=== PATIENT | female | born 1960 | race Caucasian/White ===

== ENCOUNTER 2017-05-14 05:40 | Observation (INO) | payer OTHER, SELFPAY | END 2017-05-15 08:55 | disposition home or self-care (01) | PROVIDERS: Admitting Provider Internal Medicine Adolescent Medicine; Emergency Provider Emergency Medicine; Family Provider Physician Assistant; Visit Provider Internal Medicine Adolescent Medicine | DX: J44.0 Chronic obstructive pulmonary disease with (acute) lower respiratory infection (principal); J44.1 Chronic obstructive pulmonary disease with (acute) exacerbation; Z99.81 Dependence on supplemental oxygen; J12.9 Viral pneumonia, unspecified; E11.9 Type 2 diabetes mellitus without complications; Z79.4 Long term (current) use of insulin; Z72.0 Tobacco use | CPT/HCPCS: 36415; 71010; 80048; 80053; 80200; 82550; 82553; 82962; 83605; 84484; 85025; 87040; 87205; 87486; 87581; 87633; 87798; 93005; 93306; 94640; 94760; 96367; 99285; G0378; J2543 ==

== ENCOUNTER → 2017-08-19 09:35 | Outpatient (POV) | payer OTHER, SELFPAY | PROVIDERS: Family Provider Physician Assistant; PCP Physician Assistant; Visit Provider Internal Medicine | DX: Z00.00 Encounter for general adult medical examination without abnormal findings (principal) ==

== ENCOUNTER → 2017-09-09 13:27 | Outpatient (CLI) | payer OTHER, SELFPAY ==
--- NOTE | 2017-09-09 13:33 | XR_ITS ---
XR hip BI w [id number] CLINICAL INDICATION: ITS.REASON: RT HIP PAIN ORDERING PHYSICIAN: Kimberli Ruiz PATIENT AGE: 57 years FINDINGS: No fracture or dislocation. No lytic or blastic change. There is slight decrease in the superior joint space on both sides which could be related to minimal osteoarthritic change. Otherwise negative. IMPRESSION: Slight decrease in the superior hip joint space on both sides which may be seen with mild osteoarthritis.
== END ==
PROVIDERS: PCP Physician Assistant; Visit Provider Physician Assistant
DX: M25.551 Pain in right hip (principal)
CPT/HCPCS: 73521

== ENCOUNTER → 2018-03-10 08:58 | Outpatient (POV) | payer OTHER, SELFPAY | PROVIDERS: Visit Provider Internal Medicine | DX: Z00.00 Encounter for general adult medical examination without abnormal findings (principal) ==

== ENCOUNTER → 2018-03-17 13:30 | Outpatient (CLI) | payer OTHER, SELFPAY ==
[2018-03-17 15:15] VITALS: PULSE 68; PULSE 69
[2018-03-17 15:30] VITALS: BP 164/86; BP 170/85; PULSE 75; PULSE 82; RESP 20; O2SAT 94; O2SAT 96
== END ==
PROVIDERS: PCP Physician Assistant; Visit Provider Internal Medicine
DX: J44.9 Chronic obstructive pulmonary disease, unspecified (principal)
CPT/HCPCS: 94060; 94618; 94640; 94726; 94729

== ENCOUNTER → 2018-04-10 13:47 | Outpatient (CLI) | payer OTHER, SELFPAY ==
--- NOTE | 2018-04-10 13:51 | CT_ITS ---
CT chest wo con HISTORY: ITS.REASON: MULTIPLE LUNG NODULE ORDERING PHYSICIAN: Soy Garza MD PATIENT AGE: 57 years. Smoker. Pulmonary nodule. COMPARISON: Technique: Axial images obtained. Sagittal and coronal reformatted images are also generated and reviewed. All CT scans at the facility use one or more dose reduction, viz: automated exposure control, ma/kV adjustment per patient size (including targeted exams where dose is matched to indication, i.e. head), or iterative reconstruction technique. FINDINGS: Lung quinn. Compared to February 2017 there are numerous additional tiny scattered pulmonary densities & small nodular densities scattered throughout the lung quinn bilaterally. These are very small but clearly more numerous. Majority measuring less than 5 mm in size. Some of them with ill-defined margins. Some are fairly dense for size raise the possibility of early granulomas on some of these lesions but others are quite nonspecific and warrant close follow-up and/or further evaluation. . A few of these nodules are seen previously and fairly Stable.: For example at Left lung apex is a 6 mm nodule, image 15 which appears similar when measured consistently. . Right chest Minimal wispy density at the anterior right upper lung field on axial slice 24.. Measuring 6.8 mm length however there are numerous new small nodular densities bilaterally. To numerous to count. Right lung On axial slice 24 there is a new 3 mm nodule anterior RUL. Somewhat grouped area of small less than 4 mm nodule seen on on axial image 36, 37 RLL near the fissure.... Numerous Scattered other small nodules less than 4 mm seen throughout the right lower lobe as noted on axial image 45, [id number], 55, 56, 58 also evident on corresponding sagittal view. Note that some these nodules are fairly dense/Question some possible tiny central calcification along the nodule on image 47 for example with density measures do not confirm such volume averaging. . LEFT LUNG:. Again see numerous small generally less than 5 mm nodules.: Anteriorly at L UL on axial image 33 another on axial 30-(the latter is fairly dense for size). Wispy focal 5.5 mm density-lateral/peripheral L UL axial slice 36. Numerous tiny nodules scattered throughout posterior L UL of superior segment. Some pleural base. These are seen on axial images 39-50. The largest nodule here measuring 5.6 mm on axial image 41... Continuing more inferiorly at the left lung base we see some additional small less than 3 days 4 mm nodules posterior left lower lobe, on axial image 58, 59, 60.. Minimal linear scarring and atelectasis posterior left lower lobe also noted. . HILAR REGIONS: Small Calcified hilar nodes reflecting old granulomatous disease but no significant appearing adenopathy otherwise No mediastinal adenopathy of significance only a few small scattered mediastinal lymph nodes. Heart normal size with some minimal 5 mm pericardial fluid or thickening anteriorly noted. Coronary artery calcification most extensive at the LAD.. Calcification with possible stents at the circumflex artery. Minimal calcification at the right coronary as well. Findings warrant close follow-up and further workup to exclude any associated abnormalities. Recommend bilateral mammogram in one not recently performed elsewhere. CT abdomen/ pelvis suggested. Also suggest Thorough Palpation of neck although would note the thyroid is included and unremarkable on today CT chest study .... Airways unremarkable. . hyperexpansion with Underlying developing Centrilobar emphysema noted slight additional atelectasis and scarring at the posterior SUGAR L . Reflects history of smoking. Lungs appear clear otherwise with no focal pneumonia. No osseous lesions evident
== END ==
PROVIDERS: PCP Physician Assistant; Visit Provider Internal Medicine
DX: R91.8 Other nonspecific abnormal finding of lung field (principal)
CPT/HCPCS: 71250

== ENCOUNTER 2018-05-31 10:37 | Inpatient (IN) ==
[2018-05-31 10:52] LABS: Basophils # 0.1 K/mm3 (0-0.2); Basophils % 0.5 % (0.1-2.0); Eosinophils % 0.2 % (0.1-12.0); Hematocrit 51.6 % (37.0-47.0); Hemoglobin 16.2 g/dL (12.2-16.2); Lymphocytes # 4.7 K/mm3 (0.7-4.5); Lymphocytes % 46.1 % (10-50); Mean Corpuscular HGB Conc 31.3 g/dL (31.8-35.4); Mean Corpuscular Hemoglobin 29.8 pg (27.0-31.2); Mean Corpuscular Volume 94.9 fl (81-99); Mean Platelet Volume 7.6 fl (7.4-10.4); Monocytes % 9.5 % (1.7-9.3); Neutrophils # 4.5 K/mm3 (1.8-7.8); Neutrophils % 43.7 % (37.0-80.0); Platelet Count 271 K/mm3 (142-424); Red Blood Count 5.44 M/mm3 (4.20-5.40); Red Cell Distribution Width 13.1 % (11.5-17.5); White Blood Count 10.2 K/mm3 (4.8-10.8)
--- NOTE | 2018-05-31 10:54 | Emergency Department Note ---
ED Disposition Clinical Impression: COPD (chronic obstructive pulmonary disease) with acute bronchitis, LLL pneumonia Disposition: Admitted As Inpatient Condition on Discharge: Good Time of Disposition: 13:28 - Critical Care Critical Care Time: No Attestation: On , the high probability of a clinically significant, sudden or life threatening deterioration of the following system(s) required my full and direct attention, intervention and personal management. The time I documented below is in addition to time spent performing reported procedures but includes the following listed in this critical care notation. Medical Decision Making - [place] Inquiry Pt receiving controlled substance: No [place] was queried for this patient: No Vital Signs: 05/31/18 10:42 05/31/18 10:45 05/31/18 11:06 Pulse Rate 144 H Pulse Rate [Left Radial] 151 H 145 H Respiratory Rate 32 H Blood Pressure [Right Arm] 165/111 H 156/94 H Blood Pressure Mean [Right Arm] 129 114 Blood Pressure Source [Right Arm] Automatic Cuff Automatic Cuff Blood Pressure Position [Right Arm] Sitting Sitting 02 Sat by Pulse Oximetry 91 L 94 L Oxygen Delivery Method CPAP CPAP 05/31/18 11:23 05/31/18 12:12 05/31/18 13:00 Pulse Rate Pulse Rate [Left Radial] 143 H 123 H 126 H Respiratory Rate Blood Pressure [Right Arm] 122/76 120/91 H 119/71 Blood Pressure Mean [Right Arm] 91 100 87 Blood Pressure Source [Right Arm] Automatic Cuff Automatic Cuff Automatic Cuff Blood Pressure Position [Right Arm] Sitting Sitting 02 Sat by Pulse Oximetry 96 98 97 Oxygen Delivery Method CPAP BiPAP CPAP - Lab Data Lab Results 05/31/18 10:40: WBC 10.2, RBC 5.44 H, Hgb 16.2, Hct 51.6 H, MCV 94.9, MCH 29.8, MCHC 31.3 L, RDW 13.1, Plt Count 271, MPV 7.6, Neut % (Auto) 43.7, Lymph % (Auto) 46.1, [place] % (Auto) 9.5 H, Eos % (Auto) 0.2, Baso % (Auto) 0.5, Neut # (Auto) 4.5, Lymph # (Auto) 4.7 H, [place] # (Auto) 1.0, Eos # (Auto) 0.0, Baso # (Auto) 0.1 05/31/18 10:40: Sodium 127 L, Potassium 3.9, Chloride 87 L, Carbon Dioxide 31, Anion Gap 12.9, BUN 7, Creatinine 0.68, Estimated Creat Clear 121, Estimated GFR 89, Est GFR ( Amer) 108, Glucose 277 H, Calcium 8.8, Total Bilirubin 0.3, AST 15, ALT 18, Alkaline Phosphatase 94, Troponin I 0.06, Total Protein 7.9, Albumin 3.9, Globulin 4.0 H, Albumin/Globulin Ratio 1.0 L 05/31/18 10:40: Specimen Source Left radial, O2 % 10l cpap, ABG pH 7.24 L*, ABG pCO2 67.5 H, ABG pO2 79.6 L, ABG HCO3 28.4 H, ABG Total CO2 30.5 H, ABG O2 Saturation 94, ABG Base Excess 1.0, Ruben Test Acceptable, PEEP 5 05/31/18 11:30: Lactate 1.6 05/31/18 12:38: Specimen Source Right radial, O2 % 50, ABG pH 7.35, ABG pCO2 50.7 H, ABG pO2 142.4 H, ABG HCO3 27.6 H, ABG Total CO2 29.2 H, ABG O2 Saturation 99, ABG Base Excess 2.1, Ruben Test Acceptable, Vent Rate 20, Tidal Volume Bipap 16/6 Result diagrams: 05/31/18 10:40 05/31/18 10:40 Orders (Tests/Meds): ED MEDICATIONS Discontinued Medications Generic Name Dose Route Start Last Admin Trade Name Freq PRN Reason Stop Dose Admin Methylprednisolone Sodium Succinate 125 mg 05/31/18 10:56 05/31/18 10:58 Solu-Medrol 125mg/2ml Vial IV 05/31/18 10:57 125 mg ONCE ONE Administration Methylprednisolone Sodium Succinate 125 mg 05/31/18 10:57 05/31/18 10:59 Solu-Medrol 125mg/2ml Vial IV 05/31/18 10:58 125 mg ONCE ONE Administration ORDERS Category Date Time Status Blood Culture Stat Micro 05/31/18 11:40 Received ABG [Arterial Blood Gas] Stat RT 05/31/18 12:38 Ordered Arterial Blood Gas Routine RT 05/31/18 10:40 Results General Adult HPI - General Chief complaint: Shortness of Breath/Dyspnea Stated complaint: sob Time Seen by Provider: 05/31/18 10:40 Mode of Arrival: EMS Source of Information: Patient, EMS - History of Present Illness HPI narrative: markedly increased shortness of breath x one week. Historyt of COPD, long tobacco abuse history - Related Data Home Medications Medication Instructions Recorded Confirmed albuterol sulfate HFA 90 2 puff INHALATION Q4-6H PRN 07/09/17 05/31/18 mcg/actuation aerosol inhaler fluticasone 100 mcg/actuation 1 inh INHALATION BID 07/09/17 05/31/18 blister powder for inhalation insulin glargine (U- 100) 100 10 unit SUB-Q QHS 07/09/17 05/31/18 unit/mL subcutaneous solution ropinirole 1 mg tablet 1 mg PO BID tab 07/09/17 05/31/18 metformin 500 mg tablet 500 mg PO BID 08/07/17 05/31/18 Amlodipine Besylate 5 mg PO DAILY 05/31/18 05/31/18 Atorvastatin Calcium [Lipitor 40mg 40 mg PO DAILY 05/31/18 05/31/18 Tablet] Azithromycin [Zithromax 500mg Tab] 500 mg PO DAILY 05/31/18 05/31/18 Carvedilol [Carvedilol 12.5mg Tab] 12.5 mg PO BID 05/31/18 05/31/18 Clopidogrel Bisulfate [Plavix 75mg 75 mg PO DAILY 05/31/18 05/31/18 Tab] Lisinopril/Hydrochlorothiazide 1 tab PO BID 05/31/18 05/31/18 [Lisinopril-Hctz 20-25 mg Tab] Miscellaneous [Unknown Home 1 each NOTAPPLIC CONSULT PHARMACY 05/31/18 05/31/18 Medication] Allergies Allergy/AdvReac Type Severity Reaction Status Date / Time Iodinated Contrast Media - Allergy Intermediate I-RASH/SOB/ Verified 03/24/18 12:28 Oral and Anaphlaxis [Iodinated Contrast Media - IV Dye] [facility] History - Hepatitis A Screen Attestation statement:: This patient has been screened for Hepatitis A risk factors. I have reviewed the patient's past medical history: No Medical History: Reports:: Chronic Obstructive Pulmonary Disease (COPD), Coronary Artery Disease, Diabetes Mellitus Type 2, Hyperlipidemia, Hypertension Comment: APR 2017 Pnx hospitalization Other Surgeries: Yes: Fractures: Yes - Social History Smoking Status: Current every day smoker Alcohol Intake: never Alcohol Intake Frequency:: other Family Hx:: Coronary Artery Disease, Diabetes, Hypertension ROS Obtained: Yes All systems reviewed & no additional complaints - Constitutional Constitutional: Reports system reviewed and no additional complaints, except as docu, Reports chills, Reports lethargy, Reports malaise - Eyes Eyes: Reports system reviewed and no additional complaints, except as docu, Denies change in vision - Cardiovascular Cardiovascular: Reports system reviewed and no additional complaints, except as docu, Reports dyspnea, Reports dyspnea on exertion, Reports lightheadedness, Reports shortness of breath when lying down, Reports rapid heart rate - Respiratory Respiratory: Yes system reviewed and no additional complaints, except as docu, Yes chest congestion, Yes cough, Yes dyspnea, Yes dyspnea on exertion, No coughing up blood - Gastrointestinal Gastrointestingal: Reports: system reviewed and no additional complaints, except as docu, vomiting. Denies: abdominal pain, diarrhea, nausea - Genitourinary Female Genitourinary: Denies dysuria - Musculoskeletal Musculoskeletal: Denies joint swelling - Integumentary/Breasts Skin/Breast: Denies rash - Neurologic Neurologic: Reports system reviewed and no additional complaints, except as docu, Denies focal weakness, Denies numbness, Reports weakness - Hematologic/Lymphatic Henatologic/Lymphatic: Denies easy bleeding, Denies easy bruising, Denies lymphadenopathy Physical Exam - General General appearance: alert - Head Head exam: atraumatic - Eye Eye exam: Present: normal appearance - ENT ENT exam: Present: normal exam - Neck Neck exam: Present: normal inspection, full ROM, trachea midline. Absent: tenderness, meningismus, lymphadenopathy, thyromegaly - Chest Chest inspection: Present: normal inspection - Respiratory Respiratory exam: Present: respiratory distress, wheezes, prolonged expiratory phase. Absent: normal lung sounds bilaterally - Cardiovascular Cardiovascular exam: Present: normal rhythm, tachycardia. Absent: regular rate - Abdominal Exam Abdominal exam: Present: soft. Absent: distention, tenderness, guarding - Neurological Exam Neurological exam: Absent: alert, oriented X3, CN II-XII intact - Psychiatric Psychiatric exam: Present: flat affect - Skin Skin exam: Present: warm, dry, intact, normal color
[2018-05-31 11:14] LABS: Albumin Level 3.9 gm/dL (3.4-5.0); Anion Gap 12.9 mEq/L (5-15); Bilirubin,Total 0.3 mg/dL (0.2-1.0); Calcium 8.8 mg/dL (8.5-10.1); Potassium 3.9 mmoL/L (3.5-5.1); Total Protein,Serum 7.9 gm/dL (6.4-8.2)
[2018-05-31 12:51] LABS: ABG Base Excess 2.1 mmol/L (-2.4-2.3); ABG HCO3 27.6 mmhg (22.0-26.0); ABG Oxygen Saturation 99 % (90-100); ABG PH 7.35 mmol/L (7.35-7.45); ABG PO2 142.4 mmhg (80-100); ABG TCO2 29.2 mmhg (23-27)
[2018-05-31 12:52] LABS: Allen's Test Acceptable; Oxygen 50 %
[2018-05-31 12:53] LABS: ABG PCO2 50.7 mmhg (35.0-45.0)
[2018-06-01 06:20] LABS: Basophils % 0.3 % (0.1-2.0); Hematocrit 45.4 % (37.0-47.0); Hemoglobin 14.7 g/dL (12.2-16.2); Lymphocytes # 1.2 K/mm3 (0.7-4.5); Lymphocytes % 17.6 % (10-50); Mean Corpuscular HGB Conc 32.4 g/dL (31.8-35.4); Mean Corpuscular Hemoglobin 30.6 pg (27.0-31.2); Mean Corpuscular Volume 94.4 fl (81-99); Mean Platelet Volume 7.5 fl (7.4-10.4); Monocytes # 0.3 K/mm3 (0.1-1.0); Monocytes % 3.9 % (1.7-9.3); Neutrophils # 5.1 K/mm3 (1.8-7.8); Neutrophils % 78.1 % (37.0-80.0); Platelet Count 242 K/mm3 (142-424); Red Blood Count 4.81 M/mm3 (4.20-5.40); Red Cell Distribution Width 13.3 % (11.5-17.5); White Blood Count 6.6 K/mm3 (4.8-10.8)
[2018-06-01 06:26] LABS: Anion Gap 11.8 mEq/L (5-15); Calcium 8.5 mg/dL (8.5-10.1); Potassium 3.8 mmoL/L (3.5-5.1)
--- NOTE | 2018-06-01 07:27 | Pharmacy Consult Notes ---
[facility] Pharmacy VTE Monitoring - Patient Demographics Admission date: 05/31/18 Report Date: 06/01/18 Time: 07:27 Allergies/Adverse Reactions: Patient Allergies Iodinated Contrast Media - Oral and [Iodinated Contrast Media - IV Dye] Allergy (Intermediate, Verified 03/24/18 12:28) I-RASH/SOB/Anaphlaxis Height: 1.63 m Weight: 80.796 kg Patient Problems: Current Active Problems (Last Reviewed 05/31/18 @ 11:35 by Angie Johnson, EMT) COPD (chronic obstructive pulmonary disease) with acute bronchitis (Acute) LLL pneumonia (Acute) - VTE Risk Labs: VTE Related Lab Results Hgb 14.7 g/dL (12.2-16.2) 06/01/18 05:56 Hct 45.4 % (37.0-47.0) 06/01/18 05:56 Plt Count 242 K/mm3 (142-424) 06/01/18 05:56 BUN 12 mg/dL (7-18) D 06/01/18 05:56 Creatinine 0.48 mg/dL (0.55-1.02) L D 06/01/18 05:56 Estimated Creat Clear 163 mL/min (50-200) 06/01/18 05:56 Was VTE Risk Assessment Performed: Yes VTE Score: 4 VTE Risk Level: Low Risk Clinical Trial Participant: No - Prophylaxis VTE Prophylaxis Ordered?: Yes Types of VTE Prophylaxis: TEDS Knee High
--- NOTE | 2018-06-01 09:21 | History & Physical Report ---
*Admission Date: 05/31/18 <Alejandra Macias 06/01/18 09:37> *Chief complaint: Shortness of breath <Alejandra Macias 06/01/18 09:37> *History of present illness: Ms. Kaba is a 57-year-old female patient of Dr. Santos with a history of COPD, coronary artery disease with stents, hypertension, left ventricular hypertrophy, type 2 diabetes mellitus, diastolic dysfunction, and tobacco dependence who presented to [facility] emergency room yesterday a.m. with progressive shortness of breath. She describes being seen by her physician 4 days ago and currently is being treated for strep throat with erythromycin. She was also started on steroids. She does wear home oxygen at night but normally does well during the daytime. She describes a nonproductive cough and no current fever. She has been eating and drinking as usual. She has had a diminished urinary output. With evaluation in the emergency room she was found to be in respiratory distress. She was thus admitted for further evaluation and treatment. This a.m. at time of exam patient states she does not feel any better. She did not sleep due to her shortness of breath. Duo nebs have not helped. She has had minimal urinary output with IV fluids at 150 an hour. She has had a labored respiratory effort and has to sit up at 90 degrees in order to breath. <Alejandra Macias 06/01/18 11:10> [facility] History Medical History: Reports:: Chronic Obstructive Pulmonary Disease (COPD), Coronary Artery Disease, Diabetes Mellitus Type 2, Hyperlipidemia, Hypertension Denies:: Cancer, MRSA <Alejandra Macias 06/01/18 09:37> Other Surgeries: Yes: Cardiac Catheterization (With stent), Coronary Stent, C- section <Alejandra Macias 06/01/18 09:37> Amputation: No <Alejandra Macias 06/01/18 09:37> Fractures: Yes (tailbone, wrist) <Alejandra Macias 06/01/18 09:37> - *Social History Educational Level: Completed Grade School <Alejandra Macias 06/01/18 09:37> Smoking Status: Current every day smoker <Alejandra Macias 06/01/18 09:37> Tobacco Type: cigarettes <Alejandra Macias 06/01/18 09:37> # Packs/Day (cigarettes): 1 <Alejandra Macias 06/01/18 09:37> Alcohol Intake: never <Alejandra Macias 06/01/18 09:37> Alcohol Intake Frequency:: other <Alejandra Macias 06/01/18 09:37> Occupational Status: disabled <Alejandra Macias 06/01/18 09:37> Housing: house <ColleenAlejandra 06/01/18 09:37> Household Members: spouse <Alejandra Macias 06/01/18 09:37> - Psychiatric History Expresses thoughts of harming self/others: None <ColleenAlejandra 06/01/18 09:37> Suicide Plan Description: No Plan <ColleenAlejandra 06/01/18 09:37> *Family Hx:: Coronary Artery Disease, Diabetes, Hypertension <ColleenAlejandra 06/01/18 09:37> Review of Systems - Constitutional Reports fever(s), Reports weakness <MaciasAlejandra 06/01/18 09:37> - ENT Reports sore throat, Denies ear pain <MaciasAlejandra 06/01/18 09:37> - *Cardiovascular Reports shortness of breath, Reports shortness of breath with activity, Reports shortness of breath when lying down, Denies chest pain <MaciasAlejandra 06/01/18 09:37> - *Respiratory Reports chest congestion, Reports cough, Reports shortness of breath, Reports shortness of breath with activity, Denies coughing up blood <MaciasAlejandra 06/01/18 09:37> - *Gastrointestinal Denies abdominal pain, Denies nausea, Denies vomiting <MaciasAlejandra 06/01/18 09:37> - *Genitourinary Denies difficulty urinating <MaciasAlejandra 06/01/18 09:37> - *Musculoskeletal Denies joint pain <MaciasAlejandra 06/01/18 09:37> - *Neurologic Reports weakness, Denies localized weakness, Denies numbness <Macias,Alejandra 06/01/18 09:37> Meds Home Medications Medication Instructions Recorded Confirmed Type albuterol sulfate HFA 90 2 puff INHALATION Q4-6H PRN 07/09/17 05/31/18 History mcg/actuation aerosol inhaler metformin 500 mg tablet 500 mg PO BID 08/07/17 05/31/18 History Azithromycin [Zithromax 500mg Tab] 500 mg PO DAILY 05/31/18 05/31/18 History Carvedilol [Carvedilol 12.5mg Tab] 12.5 mg PO BID 05/31/18 05/31/18 History Clopidogrel Bisulfate [Plavix 75mg 75 mg PO DAILY 05/31/18 05/31/18 History Tab] Lisinopril/Hydrochlorothiazide 1 tab PO BID 05/31/18 05/31/18 History [Lisinopril-Hctz 20-25 mg Tab] Mometasone/Formoterol [Dulera 200 1 inhalation PO BID 05/31/18 05/31/18 History Mcg/5 Mcg Inhaler] Umeclidinium [place] [Incruse 62.5 mcg IH DAILY 05/31/18 05/31/18 History Ellipta] Atorvastatin Calcium [Atorvastatin 40 mg PO HS 06/01/18 06/01/18 History 40mg Tab] Ibuprofen [Ibuprofen 800mg 800 mg PO TIDP PRN 06/01/18 06/01/18 History Tablet] Loratadine [Claritin 10mg Tablet] 10 mg PO DAILY 06/01/18 06/01/18 History <Tamiko Jones - 06/01/18 11:24> Allergies Allergy/AdvReac Type Severity Reaction Status Date / Time Iodinated Contrast Media - Allergy Intermediate I-RASH/SOB/ Verified 03/24/18 12:28 Oral and Anaphlaxis [Iodinated Contrast Media - IV Dye] <Tamiko Jones - 06/01/18 11:24> Exam Vital signs and Labs for Last 24 Hours: Temp Pulse Resp BP Pulse Ox 97.7 F 80 30 H 141/95 H 90 L 06/01/18 07:57 06/01/18 10:17 06/01/18 08:00 06/01/18 07:57 06/01/18 07:57 Laboratory Results - last 24 hr 05/31/18 11:30: Lactate 1.6 05/31/18 12:38: Specimen Source Right radial, O2 % 50, ABG pH 7.35, ABG pCO2 50.7 H, ABG pO2 142.4 H, ABG HCO3 27.6 H, ABG Total CO2 29.2 H, ABG O2 Saturation 99, ABG Base Excess 2.1, Ruben Test Acceptable, Vent Rate 20, Tidal Volume Bipap 16/6 05/31/18 16:15: POC Glucose 280 H 05/31/18 21:06: POC Glucose 209 H 06/01/18 05:56: WBC 6.6 D, RBC 4.81, Hgb 14.7, Hct 45.4, MCV 94.4, MCH 30.6, MCHC 32.4, RDW 13.3, Plt Count 242, MPV 7.5, Neut % (Auto) 78.1, Lymph % (Auto) 17.6, [place] % (Auto) 3.9, Eos % (Auto) 0.0 L, Baso % (Auto) 0.3, Neut # (Auto) 5.1, Lymph # (Auto) 1.2, [place] # (Auto) 0.3, Eos # (Auto) 0.0, Baso # (Auto) 0.0 06/01/18 05:56: Sodium 129 L, Potassium 3.8, Chloride 90 L, Carbon Dioxide 31, Anion Gap 11.8, BUN 12 D, Creatinine 0.48 L D, Estimated Creat Clear 163, Estimated GFR 133, Est GFR ( Amer) 161 D, Glucose 179 H D, Calcium 8.5 <Sound,Tamiko - 06/01/18 11:24> Temp Pulse Resp BP Pulse Ox 97.7 F 54 L 22 141/95 H 90 L 06/01/18 07:57 06/01/18 07:57 06/01/18 07:57 06/01/18 07:57 06/01/18 07:57 Laboratory Results - last 24 hr 05/31/18 10:40: WBC 10.2, RBC 5.44 H, Hgb 16.2, Hct 51.6 H, MCV 94.9, MCH 29.8, MCHC 31.3 L, RDW 13.1, Plt Count 271, MPV 7.6, Neut % (Auto) 43.7, Lymph % (Au to) 46.1, [place] % (Auto) 9.5 H, Eos % (Auto) 0.2, Baso % (Auto) 0.5, Neut # (Auto) 4.5, Lymph # (Auto) 4.7 H, [place] # (Auto) 1.0, Eos # (Auto) 0.0, Baso # (Auto) 0.1 05/31/18 10:40: Sodium 127 L, Potassium 3.9, Chloride 87 L, Carbon Dioxide 31, Anion Gap 12.9, BUN 7, Creatinine 0.68, Estimated Creat Clear 121, Estimated GFR 89, Est GFR ( Amer) 108, Glucose 277 H, Calcium 8.8, Total Bilirubin 0.3, AST 15, ALT 18, Alkaline Phosphatase 94, Troponin I 0.06, Total Protein 7.9, Albumin 3.9, Globulin 4.0 H, Albumin/Globulin Ratio 1.0 L 05/31/18 10:40: Specimen Source Left radial, O2 % 10l cpap, ABG pH 7.24 L*, ABG pCO2 67.5 H, ABG pO2 79.6 L, ABG HCO3 28.4 H, ABG Total CO2 30.5 H, ABG O2 Satur ation 94, ABG Base Excess 1.0, Ruben Test Acceptable, PEEP 5 05/31/18 11:30: Lactate 1.6 05/31/18 12:38: Specimen Source Right radial, O2 % 50, ABG pH 7.35, ABG pCO2 50.7 H, ABG pO2 142.4 H, ABG HCO3 27.6 H, ABG Total CO2 29.2 H, ABG O2 Saturation 99, ABG Base Excess 2.1, Ruben Test Acceptable, Vent Rate 20, Tidal Volume Bipap 16/6 05/31/18 16:15: POC Glucose 280 H 05/31/18 21:06: POC Glucose 209 H 06/01/18 05:56: WBC 6.6 D, RBC 4.81, Hgb 14.7, Hct 45.4, MCV 94.4, MCH 30.6, MCHC 32.4, RDW 13.3, Plt Count 242, MPV 7.5, Neut % (Auto) 78.1, Lymph % (Auto) 17.6, [place] % (Auto) 3.9, Eos % (Auto) 0.0 L, Baso % (Auto) 0.3, Neut # (Auto) 5.1, Lymph # (Auto) 1.2, [place] # (Auto) 0.3, Eos # (Auto) 0.0, Baso # (Auto) 0.0 06/01/18 05:56: Sodium 129 L, Potassium 3.8, Chloride 90 L, Carbon Dioxide 31, Anion Gap 11.8, BUN 12 D, Creatinine 0.48 L D, Estimated Creat Clear 163, Estimated GFR 133, Est GFR ( Amer) 161 D, Glucose 179 H D, Calcium 8.5 <Alejandra Macias 06/01/18 09:37> I & O for Last 24 hours: Intake & Output 05/29/18 05/30/18 05/31/18 06/01/18 11:59 11:59 11:59 11:59 Intake Total 2859 / 2859 Balance 2859 / 2859 Weight 188 lb 178 lb 2 oz <Tamiko Jones 06/01/18 11:24> Intake & Output 05/29/18 05/30/18 05/31/18 06/01/18 11:59 11:59 11:59 11:59 Intake Total 2859 / 2859 Balance 2859 / 2859 Weight 188 lb 178 lb 2 oz <Alejandra Macias 06/01/18 09:37> Microbiology Reports for the Last 24 Hours: Microbiology 05/31/18 17:15 Sputum - Expectorated Sputum Gram Stain - Final <Tamiko Jones 06/01/18 11:24> Microbiology 05/31/18 17:15 Sputum - Expectorated Sputum Gram Stain - Final <Alejandra Macias 06/01/18 09:37> Radiology Reports for the Last 24 Hours: 05/31/2017 chest x-ray IMPRESSION Slight increased markings left lung base. Suggestion slight additional atelectasis with possible minimal wispy infiltrate at the left lung base just above diaphragm. Previous CXR studies have shown underlying linear scarring & atelectasis scarring & mild chronic changes at lung bases but findings are slightly more pronounced today at left base. . Hyperexpansion at the upper lung quinn. Heart and mediastinal structures satisfactory. <Alejandra Macias 06/01/18 09:37> - Constitutional moderate distress <Alejandra Macias 06/01/18 09:37> Comments: Labored respiratory effort <Alejandra Macias 06/01/18 09:37> - *Routine HEENT Exam Head: Present: normocephalic, atraumatic <Alejandra Macias 06/01/18 09:37> Eye: Present: PERRL. Absent: conjunctival icterus, scleral injection <Alejandra Macias 06/01/18 09:37> ENT: Present: mucous membranes moist <Alejandra Macias 06/01/18 09:37> Comments: Oropharyngeal erythema. <Alejandra Macias 06/01/18 09:37> - *Routine Neck Exam Comments: Unable to hear carotid sounds due to wheezing and rhonchi <Lucy Maciashy 06/01/18 09:37> - *Routine Respiratory Exam Comments: Bilateral wheezing and rhonchi. Diminished breath sounds posteriorly more so in the right lower lobe; sitting up at about 90 degrees with labored resporatory effort <Alejandra Macias 06/01/18 11:10> - *Routine Cardiovascular Exam Present: RRR <Lucy Maciashy 06/01/18 09:37> Comments: Tachycardic <Alejandra Macias 06/01/18 09:37> - *Routine Abdominal Exam Present: soft, normoactive bowel sounds. Absent: tenderness, distended <Alejandra Macias 06/01/18 09:37> - *Routine Extremities Exam Absent: edema, calf tenderness <Alejandra Macias 06/01/18 09:37> - *Routine Neurological Exam Present: alert, oriented X3 <Lucy Maciashy 06/01/18 09:37> Assessment and Plan (1) LLL pneumonia Current visit: Yes Status: Acute Category: Medical Code(s): J18.1 - Lobar pneumonia, unspecified organism (2) CAD (coronary artery disease) Current visit: No Status: Chronic Qualifiers: [place] vs. transplanted heart: jamul heart Associated angina: without angina Category: Medical Code(s): I25.10 - Atherosclerotic heart disease of [place] coronary artery without angina pectoris (3) Diabetes mellitus Current visit: No Status: Chronic Qualifiers: Diabetes mellitus type: type 2 Diabetes mellitus snf insulin use: with snf use Diabetes mellitus complication status: without complication Qualified Code(s): E11.9 - Type 2 diabetes mellitus without complications; Z7 9.4 - assisted (current) use of insulin Category: Medical Code(s): E11.9 - Type 2 diabetes mellitus without complications (4) HTN (hypertension) Current visit: No Status: Chronic Qualifiers: Hypertension type: essential hypertension Qualified Code(s): I10 - Essential (primary) hypertension Category: Medical Code(s): I10 - Essential (primary) hypertension (5) Left ventricular hypertrophy Current visit: No Status: Chronic Category: Medical Code(s): I51.7 - Cardiomegaly (6) Tobacco dependence syndrome Current visit: No Status: Chronic Category: Medical Code(s): F17.200 - Nicotine dependence, unspecified, uncomplicated (7) Strep pharyngitis Current visit: Yes Status: Acute Category: Medical Code(s): J02.0 - Streptococcal pharyngitis (8) COPD (chronic obstructive pulmonary disease) with acute bronchitis Current visit: Yes Status: Acute Category: Medical Code(s): J44.0 - Chronic obstructive pulmonary disease with acute lower respiratory infection; J20.9 - Acute bronchitis, unspecified <Alejandra Macias - 06/01/18 11:06> (1) LLL pneumonia Current visit: Yes Status: Acute Category: Medical Code(s): J18.1 - Lobar pneumonia, unspecified organism (2) CAD (coronary artery disease) Current visit: No Status: Chronic Qualifiers: [place] vs. transplanted heart: jamul heart Associated angina: without angina Category: Medical Code(s): I25.10 - Atherosclerotic heart disease of jam[place] coronary artery without angina pectoris (3) Diabetes mellitus Current visit: No Status: Chronic Qualifiers: Diabetes mellitus type: type 2 Diabetes mellitus snf insulin use: with exterminator helper termite use Diabetes mellitus complication status: without complication Qualified Code(s): E11.9 - Type 2 diabetes mellitus without complications; Z79.4 - intermediate accountant (current) use of insulin Category: Medical Code(s): E11.9 - Type 2 diabetes mellitus without complications (4) HTN (hypertension) Current visit: No Status: Chronic Qualifiers: Hypertension type: essential hypertension Qualified Code(s): I10 - Essential (primary) hypertension Category: Medical Code(s): I10 - Essential (primary) hypertension (5) Left ventricular hypertrophy Current visit: No Status: Chronic Category: Medical Code(s): I51.7 - Cardiomegaly (6) Tobacco dependence syndrome Current visit: No Status: Chronic Category: Medical Code(s): F17.200 - Nicotine dependence, unspecified, uncomplicated (7) Strep pharyngitis Current visit: Yes Status: Acute Category: Medical Code(s): J02.0 - Streptococcal pharyngitis (8) COPD (chronic obstructive pulmonary disease) with acute bronchitis Current visit: Yes Status: Acute Category: Medical Code(s): J44.0 - Chronic obstructive pulmonary disease with acute lower respiratory infection; J20.9 - Acute bronchitis, unspecified <Tamiko Jones - 06/01/18 11:24> - Assessment and plan all Dx Assessment and Plan for all problems:: agree with above, please see my progress note from today for more details. <Tamiko Jones - 06/01/18 11:24> Continue with antibiotics, Rocephin and Zithromax. Duo nebs changed to Xopenex due to tachycardia. IV fluids decreased to 50 mL/h. She was given 125 mg of Solu-Medrol stat as an extra dose and 40 Lasix IV. Recheck at 9:15 AM: Patient states she feels a little better. She has voided twice since receiving the Lasix. She will have chest x-ray repeated and be placed on telemetry. Lung sounds at this time reveal bilateral crackles posteriorly. <Alejandra Macias - 06/01/18 11:10>
--- NOTE | 2018-06-01 11:13 | Progress Note ---
Internal Medicine - PN: Subj *Date: 06/01/18 *Time: 09:30 Interval history: Patient was feeling worse since last night and did not have any good sleep. She was sitting up in bed to catch her breathe during exam. She is not able to speak full sentences to me as she is short of breath and was having labored breathing. Her CXR was worse than the one upon admission. Exam Vital signs and Labs for Last 24 Hours: Temp Pulse Resp BP Pulse Ox 97.7 F 80 30 H 141/95 H 90 L 06/01/18 07:57 06/01/18 10:17 06/01/18 08:00 06/01/18 07:57 06/01/18 07:57 Laboratory Results - last 24 hr 05/31/18 10:40: Sodium 127 L, Potassium 3.9, Chloride 87 L, Carbon Dioxide 31, Anion Gap 12.9, BUN 7, Creatinine 0.68, Estimated Creat Clear 121, Estimated GFR 89, Est GFR ( Amer) 108, Glucose 277 H, Calcium 8.8, Total Bilirubin 0.3, AST 15, ALT 18, Alkaline Phosphatase 94, Troponin I 0.06, Total Protein 7.9, Albumin 3.9, Globulin 4.0 H, Albumin/Globulin Ratio 1.0 L 05/31/18 11:30: Lactate 1.6 05/31/18 12:38: Specimen Source Right radial, O2 % 50, ABG pH 7.35, ABG pCO2 50.7 H, ABG pO2 142.4 H, ABG HCO3 27.6 H, ABG Total CO2 29.2 H, ABG O2 Saturation 99, ABG Base Excess 2.1, Ruben Test Acceptable, Vent Rate 20, Tidal Volume Bipap 16/6 05/31/18 16:15: POC Glucose 280 H 05/31/18 21:06: POC Glucose 209 H 06/01/18 05:56: WBC 6.6 D, RBC 4.81, Hgb 14.7, Hct 45.4, MCV 94.4, MCH 30.6, MCHC 32.4, RDW 13.3, Plt Count 242, MPV 7.5, Neut % (Auto) 78.1, Lymph % (Auto) 17.6, [place] % (Auto) 3.9, Eos % (Auto) 0.0 L, Baso % (Auto) 0.3, Neut # (Auto) 5 .1, Lymph # (Auto) 1.2, [place] # (Auto) 0.3, Eos # (Auto) 0.0, Baso # (Auto) 0.0 06/01/18 05:56: Sodium 129 L, Potassium 3.8, Chloride 90 L, Carbon Dioxide 31, Anion Gap 11.8, BUN 12 D, Creatinine 0.48 L D, Estimated Creat Clear 163, Estimated GFR 133, Est GFR ( Amer) 161 D, Glucose 179 H D, Calcium 8.5 I & O for Last 24 hours: Intake & Output 05/29/18 05/30/18 05/31/18 06/01/18 11:59 11:59 11:59 11:59 Intake Total 2859 / 2859 Balance 2859 / 2859 Weight 188 lb 178 lb 2 oz Microbiology Reports for the Last 24 Hours: Microbiology 05/31/18 17:15 Sputum - Expectorated Sputum Gram Stain - Final - *Routine HEENT Exam Head: Present: normocephalic Eye: Present: EOMI ENT: Present: mucous membranes moist - *Routine Neck Exam Present: supple, full ROM - Routine Chest/Breast/Axilla Exam Chest wall: Absent: tenderness - *Routine Respiratory Exam Present: accessory muscle use, decreased breath sounds, respiratory distress, crackles, distant breath sounds, diminished air movement - *Routine Cardiovascular Exam Present: Normal S1, Normal S2, tachycardia. Absent: murmur - *Routine Abdominal Exam Present: soft, normoactive bowel sounds - *Routine Extremities Exam Present: pulses intact. Absent: edema - *Routine Skin Exam Present: intact - *Routine Neurological Exam Present: alert, oriented X3 Assessment and Plan (1) LLL pneumonia Current visit: Yes Status: Acute Category: Medical Code(s): J18.1 - Lobar pneumonia, unspecified organism (2) CAD (coronary artery disease) Current visit: No Status: Chronic Category: Medical Code(s): I25.10 - Atherosclerotic heart disease of [place] coronary artery without angina pectoris (3) Diabetes mellitus Current visit: No Status: Chronic Qualifiers: Qualified Code(s): E11.9 - Type 2 diabetes mellitus without complications; Z79.4 - shelter (current) use of insulin Category: Medical Code(s): E11.9 - Type 2 diabetes mellitus without complications (4) HTN (hypertension) Current visit: No Status: Chronic Qualifiers: Qualified Code(s): I10 - Essential (primary) hypertension Category: Medical Code(s): I10 - Essential (primary) hypertension (5) Left ventricular hypertrophy Current visit: No Status: Chronic Category: Medical Code(s): I51.7 - Cardiomegaly (6) Tobacco dependence syndrome Current visit: No Status: Chronic Category: Medical Code(s): F17.200 - Nicotine dependence, unspecified, uncomplicated (7) Strep pharyngitis Current visit: Yes Status: Acute Category: Medical Code(s): J02.0 - Streptococcal pharyngitis (8) COPD (chronic obstructive pulmonary disease) with acute bronchitis Current visit: Yes Status: Acute Category: Medical Code(s): J44.0 - Chronic obstructive pulmonary disease with acute lower respiratory infection; J20.9 - Acute bronchitis, unspecified - Assessment and plan all Dx Assessment and Plan for all problems:: 1. Acute on Chronic respiratory failure: Continue oxygen supplementation, incentive spirometry, IV steriods, IV lasix, Neb tx, and IV broad-spectrum abx with Vanc and Zosyn for now for her LLL PNA. 2. LLL PNA: continue IV abx 3. COPD exacerbation: continue neb tx and abx 4. CAD: continue home meds, will get Echo to rule out caardiopulmpnary involvement 5. Essential HTN : continue home meds 6. Tobacco dependance: will place on nicotine patch 7. Hyponatremia: will get CT of chest to rule out cancer etiologies, will order TSH, FT4, uric acid, urine osm to r/o SIADH. 8. T2DM: will put her on SSI. 9. DVT prophylaxis: Scd/teds
[2018-06-01 11:49] LABS: ABG Base Excess 10.2 mmol/L (-2.4-2.3); ABG HCO3 37.6 mmhg (22.0-26.0); ABG Oxygen Saturation 91 % (90-100); ABG PH 7.24 mmol/L (7.35-7.45); ABG PO2 65.7 mmhg (80-100); ABG TCO2 40.3 mmhg (23-27)
[2018-06-01 11:51] LABS: ABG PCO2 89.7 mmhg (35.0-45.0); Allen's Test Acceptable; Oxygen 4L %
[2018-06-01 11:52] LABS: Free T4 (Free Thyroxine) 1.03 ng/dl (0.76-1.46); Thyroid Stimulating Hormone 0.41 uIU/ml (0.358-3.740); Uric Acid 3.4 mg/dL (2.6-7.2)
--- NOTE | 2018-06-01 13:38 | Pharmacy Consult Notes ---
- Pharmacy Consult Date: 06/01/18 Time: 13:36 Referring provider: DR. HERNANDEZ Reason for Consult:: VANCOMYCIN DOSING Allergies and ADEs:: Allergies Allergy/AdvReac Type Severity Reaction Status Date / Time Iodinated Contrast Media - Allergy Intermediate I-RASH/SOB/ Verified 03/24/18 12:28 Oral and Anaphlaxis [Iodinated Contrast Media - IV Dye] Home Medications:: Home Medications Medication Instructions Recorded Confirmed Type albuterol sulfate HFA 90 2 puff INHALATION Q4-6H PRN 07/09/17 05/31/18 History mcg/actuation aerosol inhaler metformin 500 mg tablet 500 mg PO BID 08/07/17 05/31/18 History Azithromycin [Zithromax 500mg Tab] 500 mg PO DAILY 05/31/18 05/31/18 History Carvedilol [Carvedilol 12.5mg Tab] 12.5 mg PO BID 05/31/18 05/31/18 History Clopidogrel Bisulfate [Plavix 75mg 75 mg PO DAILY 05/31/18 05/31/18 History Tab] Lisinopril/Hydrochlorothiazide 1 tab PO BID 05/31/18 05/31/18 History [Lisinopril-Hctz 20-25 mg Tab] Mometasone/Formoterol [Dulera 200 1 inhalation PO BID 05/31/18 05/31/18 History Mcg/5 Mcg Inhaler] Umeclidinium [place] [Incruse 62.5 mcg IH DAILY 05/31/18 05/31/18 History Ellipta] Atorvastatin Calcium [Atorvastatin 40 mg PO HS 06/01/18 06/01/18 History 40mg Tab] Ibuprofen [Ibuprofen 800mg 800 mg PO TIDP PRN 06/01/18 06/01/18 History Tablet] Loratadine [Claritin 10mg Tablet] 10 mg PO DAILY 06/01/18 06/01/18 History Height: 1.63 m Weight: 80.796 kg Laboratory Results:: Laboratory Results - last 24 hr 05/31/18 16:15: POC Glucose 280 H 05/31/18 21:06: POC Glucose 209 H 06/01/18 05:56: WBC 6.6 D, RBC 4.81, Hgb 14.7, Hct 45.4, MCV 94.4, MCH 30.6, MCHC 32.4, RDW 13.3, Plt Count 242, MPV 7.5, Neut % (Auto) 78.1, Lymph % (Auto) 17.6, [place] % (Auto) 3.9, Eos % (Auto) 0.0 L, Baso % (Auto) 0.3, Neut # (Auto) 5.1, Lymph # (Auto) 1.2, [place] # (Auto) 0.3, Eos # (Auto) 0.0, Baso # (Auto) 0.0 06/01/18 05:56: Sodium 129 L, Potassium 3.8, Chloride 90 L, Carbon Dioxide 31, Anion Gap 11.8, BUN 12 D, Creatinine 0.48 L D, Estimated Creat Clear 163, Estimated GFR 133, Est GFR ( Amer) 161 D, Glucose 179 H D, Calcium 8.5 06/01/18 05:56: Uric Acid 3.4, TSH 0.41, Free T4 1.03 06/01/18 05:56: B-Natriuretic Peptide 1080 H 06/01/18 11:26: Specimen Source Right radial, O2 % 4l, ABG pH 7.24 L*, ABG pCO2 89.7 H, ABG pO2 65.7 L, ABG HCO3 37.6 H, ABG Total CO2 40.3 H, ABG O2 Saturation 91, ABG Base Excess 10.2 H, Ruben Test Acceptable 06/01/18 12:20: POC Glucose 155 H Medical History: Reports:: Chronic Obstructive Pulmonary Disease (COPD), Coronary Artery Disease, Diabetes Mellitus Type 2, Hyperlipidemia, Hypertension Denies:: Cancer, MRSA Assessment and Plan (1) LLL pneumonia Current visit: Yes Status: Acute Category: Medical Code(s): J18.1 - Lobar pneumonia, unspecified organism (2) CAD (coronary artery disease) Current visit: No Status: Chronic Qualifiers: [place] vs. 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 fdc use Diabetes mellitus complication status: without complication Qualified Code(s): E11.9 - Type 2 diabetes mellitus without complications; Z79.4 - long term care social worker (current) use of insulin Category: Medical Code(s): E11.9 - Type 2 diabetes mellitus without complications (4) HTN (hypertension) Current visit: No Status: Chronic Qualifiers: Hypertension type: essential hypertension Qualified Code(s): I10 - Essential (primary) hypertension Category: Medical Code(s): I10 - Essential (primary) hypertension (5) Left ventricular hypertrophy Current visit: No Status: Chronic Category: Medical Code(s): I51.7 - Cardiomegaly (6) Tobacco dependence syndrome Current visit: No Status: Chronic Category: Medical Code(s): F17.200 - Nicotine dependence, unspecified, uncomplicated (7) Strep pharyngitis Current visit: Yes Status: Acute Category: Medical Code(s): J02.0 - Streptococcal pharyngitis (8) COPD (chronic obstructive pulmonary disease) with acute bronchitis Current visit: Yes Status: Acute Category: Medical Code(s): J44.0 - Chronic obstructive pulmonary disease with acute lower respiratory infection; J20.9 - Acute bronchitis, unspecified - Assessment and plan all Dx Assessment and Plan for all problems:: BASED ON PATIENT FACTORS, RECOMMEND VANCOMYCIN 1750 MG IV ONCE, FOLLOWED BY VANCOMYCIN 1500 MG IV Q12H. PHARMACY WILL FOLLOW DAILY AND ADJUST APPROPRIATE.
[2018-06-01 17:25] LABS: ABG HCO3 30.1 mmhg (22.0-26.0); ABG Oxygen Saturation 95 % (90-100); ABG PH 7.38 mmol/L (7.35-7.45); ABG PO2 69.1 mmhg (80-100); ABG TCO2 31.7 mmhg (23-27)
[2018-06-01 17:29] LABS: Allen's Test Acceptable
[2018-06-01 17:30] LABS: ABG PCO2 51.9 mmhg (35.0-45.0)
--- NOTE | 2018-06-01 22:29 | Cardiology Report ---
PROCEDURE: 2-D M-mode and color Doppler study INDICATIONS FOR THE TEST: Chest pain COPDX Heart Murmur Tobacco SmokingX Palpitations Fatigue Syncope Edema HypertensionXDiabetes MellitusX Rheumatic Fever SOBXDOEXObesityXHyperlipidemiaX Family History HD Additional History CAD,END STAGE COPD TDS/TLS SECONDARY TO LABORED BREATHING PATIENT INFORMATION HEIGHT:64 WEIGHT:178 GENDER: Female B/P:141/95 2-D/M-MODE INTERPRETATION: 2-D MEASUREMENTS OBSERVED VALUES IN CMS Right Ventricular Dimension (RVDd) 2.5 Interventricular Septum (Thickness)(IVsd) .9 Left Ventricular Internal Dimensions(LVIDd) 4.6 Left Ventricular Posterior Wall (Thickness)(LVPWd) 1.1 Aortic Root 2.8 Aortic Cusp Separation 1.7 Left Atrial Dimensions (LAD) 2.0 2D 1. Technically difficult study because of the patient's factor and poor acoustic windows 2. The left atrium is mildly enlarged, left ventricle is mildly dilated, mild concentric left ventricular hypertrophy, severely reduced left ventricular systolic function, visually estimated ejection fraction 30%, with marked hypokinesis involving mid to distal septum, anterior, anteroapical and apical wall. 3. The right atrium and right ventricle are normal size and contractility. 4. The aortic valve is minimally thickened and fibrosed. 5. The pulmonic valve is poorly visualized. 6. No significant pericardial effusion noted. DOPPLER INTERROGATION: Doppler interrogation of the aortic, mitral and tricuspid valvular presence of mild mitral and tricuspid regurgitation, tricuspid regurgitation jet velocity is inadequate for calculation of the right ventricular systolic pressure, grade 1 diastolic dysfunction seen with tissue Doppler evidence of raised left atrial pressure. CONCLUSION: 1. Mildly enlarged left atrium, normal left ventricular size, mild concentric left ventricular hypertrophy, severely reduced left ventricular systolic function, visually estimated ejection fraction 30% with multiple segmental wall motion abnormality, grade 1 diastolic dysfunction seen with tissue Doppler evidence of raised left atrial pressure. 2. Mild mitral and tricuspid regurgitation 3. No significant pericardial effusion noted.
--- NOTE | 2018-06-02 11:13 | Progress Note ---
Internal Medicine - PN: Subj *Date: 06/02/18 *Time: 09:30 Interval history: Patient is doing well with Bipap and was able to sleep for 4-5 hours last night comfortably without struggling to breathe. Her Echo showed HFrEF with 30% Exam Vital signs and Labs for Last 24 Hours: Temp Pulse Resp BP Pulse Ox 97.0 F L 77 22 130/72 96 06/02/18 08:00 06/02/18 08:00 06/02/18 08:00 06/02/18 08:00 06/02/18 08:00 Laboratory Results - last 24 hr 06/01/18 05:44: POC Glucose 161 H 06/01/18 05:56: Uric Acid 3.4, TSH 0.41, Free T4 1.03 06/01/18 05:56: B-Natriuretic Peptide 1080 H 06/01/18 11:26: Specimen Source Right radial, O2 % 4l, ABG pH 7.24 L*, ABG pCO2 89.7 H, ABG pO2 65.7 L, ABG HCO3 37.6 H, ABG Total CO2 40.3 H, ABG O2 Saturation 91, ABG Base Excess 10.2 H, Ruben Test Acceptable 06/01/18 12:20: POC Glucose 155 H 06/01/18 16:52: POC Glucose 158 H 06/01/18 17:26: Specimen Source Left radial, O2 % 35%, i-20e-10, ABG pH 7.38, ABG pCO2 51.9 H, ABG pO2 69.1 L, ABG HCO3 30.1 H, ABG Total CO2 31.7 H, ABG O2 Saturation 95, ABG Base Excess 5.0 H, Ruben Test Acceptable 06/01/18 20:57: POC Glucose 167 H 06/02/18 06:23: POC Glucose 190 H I & O for Last 24 hours: Intake & Output 05/30/18 05/31/18 06/01/18 06/02/18 11:59 11:59 11:59 11:59 Intake Total 2859 / 2859 600 / 600 Output Total 1150 / 1150 Balance 2859 / 2859 -550 / -550 Weight 188 lb 178 lb 2 oz 177 lb 5 oz Microbiology Reports for the Last 24 Hours: Microbiology 05/31/18 17:15 Sputum - Expectorated Sputum Gram Stain - Final 05/31/18 17:15 Sputum - Expectorated Sputum Sputum Culture - Preliminary - *Routine HEENT Exam Head: Present: normocephalic Eye: Present: EOMI ENT: Present: mucous membranes moist - *Routine Neck Exam Present: supple - *Routine Respiratory Exam Present: decreased breath sounds, distant breath sounds, diminished air movement (on 35% Bipap) - *Routine Cardiovascular Exam Present: RRR - *Routine Abdominal Exam Present: soft, normoactive bowel sounds - *Routine Extremities Exam Absent: edema - *Routine Skin Exam Present: intact - *Routine Neurological Exam Present: alert, oriented X3 - Routine Psychiatric Exam Present: normal affect Assessment and Plan (1) Acute on chronic HFrEF (heart failure with reduced ejection fraction) Current visit: Yes Status: Acute Category: Medical Code(s): I50.23 - Acute on chronic systolic (congestive) heart failure (2) CAD (coronary artery disease) Current visit: No Status: Chronic Qualifiers: [place] vs. 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 insulin use: with oysterman use Diabetes mellitus complication status: without complication Qualified Code(s): E11.9 - Type 2 diabetes mellitus without complications; Z79.4 - termite control service representative (current) use of insulin Category: Medical Code(s): E11.9 - Type 2 diabetes mellitus without complications (4) HTN (hypertension) Current visit: No Status: Chronic Qualifiers: Hypertension type: essential hypertension Qualified Code(s): I10 - Essential (primary) hypertension Category: Medical Code(s): I10 - Essential (primary) hypertension (5) Left ventricular hypertrophy Current visit: No Status: Chronic Category: Medical Code(s): I51.7 - Cardiomegaly (6) Tobacco dependence syndrome Current visit: No Status: Chronic Category: Medical Code(s): F17.200 - Nicotine dependence, unspecified, uncomplicated (7) COPD (chronic obstructive pulmonary disease) with acute bronchitis Current visit: Yes Status: Acute Category: Medical Code(s): J44.0 - Chronic obstructive pulmonary disease with acute lower respiratory infection; J20.9 - Acute bronchitis, unspecified - Assessment and plan all Dx Assessment and Plan for all problems:: continue medical management for worsening HFrEF, cardiology consulted as patient sees Dr. Del Real. Dr. Desir consulted as well as she sees him for her end- stage COPD. Might benefit from CPAP at night time at home. Will start on levequin and PO steriods for COPD exacerbation as cultures are negative so far. Continue neb tx.
--- NOTE | 2018-06-02 12:38 | Consult Report ---
*Admission Date: 05/31/18 *Chief complaint: shortness of breath *History of present illness: Mrs. Kaba is a 57-year-old woman who has very severe chronic obstructive pulmonary disease complicated by chronic respiratory failure and associated with continued cigarette smoking. She also has obstructive sleep apnea but could not tolerate CPAP and so has been wearing oxygen at night for several years for that. I initially evaluated her in 2015 and treated her with triple inhaler therapy while working with her to help her quit smoking. When we last saw her in February, she was still smoking at least several cigarettes a day but was stable. A CT scan of the chest performed a few days later to follow-up on pulmonary nodules was read as showing multiple new nodular densities suggesting disseminated infection. We called her and she said that she been losing weight and had night sweats but had no new respiratory symptoms. We made an appointment to see her in April but she did not show. According to her family today, she was feeling quite well at that time and only became acutely ill in the last couple of weeks. It started with a strep throat and rapidly progressed to the point where she was very short of breath and coughing more. She is on BiPAP and cannot talk and so history was very difficult to obtain today. Apparently, she did not have fever or chest pain but she did notice palpitations. She did not have specific gastrointestinal complaints. She is on BiPAP because of acute, partially compensated hypercapnic respiratory failure. She has been treated with antibiotics and corticosteroids for an exacerbation of COPD possibly precipitated by infection. [facility] History Medical History: Reports:: Chronic Obstructive Pulmonary Disease (COPD), Coronary Artery Disease, Diabetes Mellitus Type 2, Hyperlipidemia, Hypertension Denies:: Cancer, MRSA Have you ever received a pneumonia vaccine?: Yes Have you received a flu vaccine this season?: No Other Surgeries: Yes: Cardiac Catheterization (With stent), Coronary Stent, C- section Amputation: No Fractures: Yes (tailbone, wrist) - *Social History Educational Level: Completed Grade School Smoking Status: Current every day smoker Tobacco Type: cigarettes # Packs/Day (cigarettes): 1 Alcohol Intake: never Alcohol Intake Frequency:: other Occupational Status: disabled Housing: house Household Members: spouse Travel in the last 8 weeks: None - Psychiatric History Expresses thoughts of harming self/others: None Suicide Plan Description: No Plan *Family Hx:: Coronary Artery Disease, Diabetes, Hypertension Review of Systems - *Neurologic Reports weakness, Denies localized weakness, Denies numbness Meds Home Medications Medication Instructions Recorded Confirmed Type albuterol sulfate HFA 90 2 puff INHALATION Q4-6H PRN 07/09/17 05/31/18 History mcg/actuation aerosol inhaler metformin 500 mg tablet 500 mg PO BID 08/07/17 05/31/18 History Azithromycin [Zithromax 500mg Tab] 500 mg PO DAILY 05/31/18 05/31/18 History Carvedilol [Carvedilol 12.5mg Tab] 12.5 mg PO BID 05/31/18 05/31/18 History Clopidogrel Bisulfate [Plavix 75mg 75 mg PO DAILY 05/31/18 05/31/18 History Tab] Lisinopril/Hydrochlorothiazide 1 tab PO BID 05/31/18 05/31/18 History [Lisinopril-Hctz 20-25 mg Tab] Mometasone/Formoterol [Dulera 200 1 inhalation PO BID 05/31/18 05/31/18 History Mcg/5 Mcg Inhaler] Umeclidinium [place] [Incruse 62.5 mcg IH DAILY 05/31/18 05/31/18 History Ellipta] Atorvastatin Calcium [Atorvastatin 40 mg PO HS 06/01/18 06/01/18 History 40mg Tab] Ibuprofen [Ibuprofen 800mg 800 mg PO TIDP PRN 06/01/18 06/01/18 History Tablet] Loratadine [Claritin 10mg Tablet] 10 mg PO DAILY 06/01/18 06/01/18 History Allergies Allergy/AdvReac Type Severity Reaction Status Date / Time Iodinated Contrast Media - Allergy Intermediate I-RASH/SOB/ Verified 03/24/18 12:28 Oral and Anaphlaxis [Iodinated Contrast Media - IV Dye] Exam Vital signs and Labs for Last 24 Hours: Temp Pulse Resp BP Pulse Ox 97.3 F L 74 22 105/63 L 94 L 06/02/18 11:39 06/02/18 11:39 06/02/18 11:39 06/02/18 11:39 06/02/18 11:39 Laboratory Results - last 24 hr 06/01/18 05:44: POC Glucose 161 H 06/01/18 12:20: POC Glucose 155 H 06/01/18 16:52: POC Glucose 158 H 06/01/18 17:26: Specimen Source Left radial, O2 % 35%, i-20e-10, ABG pH 7.38, ABG pCO2 51.9 H, ABG pO2 69.1 L, ABG HCO3 30.1 H, ABG Total CO2 31.7 H, ABG O2 Saturation 95, ABG Base Excess 5.0 H, Ruben Test Acceptable 06/01/18 20:57: POC Glucose 167 H 06/02/18 06:23: POC Glucose 190 H I & O for Last 24 hours: Intake & Output 05/30/18 05/31/18 06/01/18 06/02/18 23:59 23:59 23:59 23:59 Intake Total 978 / 978 2241 / 2241 240 / 240 Output Total 400 / 400 750 / 750 Balance 978 / 978 1841 / 1841 -510 / -510 Weight 80.796 kg 80.796 kg 80.428 kg Microbiology Reports for the Last 24 Hours: Microbiology 05/31/18 11:30 Blood Blood Culture - Preliminary NO GROWTH AFTER 48 HOURS 05/31/18 11:40 Blood Blood Culture - Preliminary NO GROWTH AFTER 48 HOURS 05/31/18 17:15 Sputum - Expectorated Sputum Gram Stain - Final 05/31/18 17:15 Sputum - Expectorated Sputum Sputum Culture - Preliminary Narrative: On physical examination, Mrs. Kaba is an acutely ill obese woman who is sitting up in bed wearing BiPAP and breathing regularly. She tries to mouth words but cannot express herself. Chest: Symmetrical but diminished expansion; dorsal kyphosis; hyperresonance by percussion bilaterally; very distant breath sounds with a prolonged expiratory phase of ventilation. No wheezing or crackles are audible. Heart: Regular rhythm; no murmur. Abdomen: Protuberant; diminished bowel sounds; soft, nontender, no masses or organomegaly appreciated. Skin: No rash Extremities: No edema Internal Medicine - CN: Reslt - Labs CBC & Chem 7: 06/01/18 05:56 06/01/18 05:56 - ABG Interpretation ABG results: 05/31/18 05/31/18 06/01/18 10:40 12:38 11:26 ABG pH 7.24 L* 7.35 7.24 L* ABG pCO2 67.5 H 50.7 H 89.7 H ABG pO2 79.6 L 142.4 H 65.7 L ABG HCO3 28.4 H 27.6 H 37.6 H ABG Total CO2 30.5 H 29.2 H 40.3 H ABG O2 Saturation 94 99 91 ABG Base Excess 1.0 2.1 10.2 H 06/01/18 17:26 ABG pH 7.38 ABG pCO2 51.9 H ABG pO2 69.1 L ABG HCO3 30.1 H ABG Total CO2 31.7 H ABG O2 Saturation 95 ABG Base Excess 5.0 H Assessment and Plan (1) Acute on chronic HFrEF (heart failure with reduced ejection fraction) Current visit: Yes Status: Acute Category: Medical Code(s): I50.23 - Acute on chronic systolic (congestive) heart failure (2) CAD (coronary artery disease) Current visit: No Status: Chronic Qualifiers: [place] vs. 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 renewal inspector use Diabetes mellitus complication status: without complication Qualified Code(s): E11.9 - Type 2 diabetes mellitus without complications; Z79.4 - remote computer terminal operator (current) use of insulin Category: Medical Code(s): E11.9 - Type 2 diabetes mellitus without complications (4) HTN (hypertension) Current visit: No Status: Chronic Qualifiers: Hypertension type: essential hypertension Qualified Code(s): I10 - Essential (primary) hypertension Category: Medical Code(s): I10 - Essential (primary) hypertension (5) Left ventricular hypertrophy Current visit: No Status: Chronic Category: Medical Code(s): I51.7 - Cardiomegaly (6) Tobacco dependence syndrome Current visit: No Status: Chronic Category: Medical Code(s): F17.200 - Nicotine dependence, unspecified, uncomplicated (7) COPD (chronic obstructive pulmonary disease) with acute bronchitis Current visit: Yes Status: Acute Category: Medical Code(s): J44.0 - Chronic obstructive pulmonary disease with acute lower respiratory infection; J20.9 - Acute bronchitis, unspecified - Assessment and plan all Dx Assessment and Plan for all problems:: Mrs. Kaba has very severe COPD complicated by chronic respiratory failure and associated with continued cigarette smoking. I was concerned because a follow- up CT in March suggested multiple new pulmonary nodules suggestive of disseminated infection or malignancy. Over the phone, she said she had symptoms of night sweats and weight loss but no new cough. We tried to see her but she did not make the appointment. I personally reviewed the CT of the chest performed here which demonstrates some nodules on the right and tree-in-bud opacities on the left associated with nodules suggesting infection. She was admitted with hyponatremia of unknown cause although she has been on hydrochlorothiazide. Acute on chronic hypercapnic respiratory failure may have been precipitated by new infection which is likely related to aspiration. However, because of all the new nodular densities and her history of weight loss and sweats, I think a bronchoscopy is warranted once she recovers. I discussed transferring her to after cardiac catheterization this afternoon if possible but bronchoscopy would be less risky if we wait until she is an outpatient. Please keep in touch with me during this week and, if she does not recover quickly, I would be happy to transfer her.
--- NOTE | 2018-06-02 13:34 | Non-Invasive Vascular Report ---
"Venous Exam Indications: 729.5 Pain in limb. IMPRESSIONS 1. There is no evidence of significant Reflux. 2. No evidence of deep or superficial vein thrombosis involving the right lower extremity and left lower extremity Complete lower extremity venous duplex evaluation. Doppler flow study including spectral analysis, color and diane scale imaging. Location: Bedside. Patient status: Inpatient. Tables: Venous flow and imaging: + +-------+ + |Location |Overall|Flow properties | + +-------+ + |Right common femoral |Patent |Normal phasicity; spontaneous; | | | |normal augmentation; compressible| + +-------+ + |Right saphenofemoral junction|Patent |Compressible | + +-------+ + |Right profunda femoral |Patent |Compressible | + +-------+ + |Right femoral |Patent |Normal phasicity; spontaneous; | | | |normal augmentation; | | | |compressible; no reflux | + +-------+ + |Right greater saphenous |Patent |Normal phasicity; spontaneous; | | | |normal augmentation; compressible| + +-------+ + |Right popliteal |Patent |Normal phasicity; spontaneous; | | | |normal augmentation; compressible| + +-------+ + |Right posterior tibial |Patent |Compressible | + +-------+ + |Right peroneal |Patent |Compressible | + +-------+ + |Right gastrocnemius |Patent |Compressible | + +-------+ + |Right soleal |Patent |Compressible | + +-------+ + |Left common femoral |Patent |Normal phasicity; spontaneous; | | | |normal augmentation; compressible| + +-------+ + |Left saphenofemoral junction |Patent |Compressible | + +-------+ + |Left profunda femoral |Patent |Compressible | + +-------+ + |Left femoral |Patent |Normal phasicity; spontaneous; | | | |normal augmentation; compressible| + +-------+ + |Left greater saphenous |Patent |Normal phasicity; spontaneous; | | | |normal augmentation; compressible| + +-------+ + |Left popliteal |Patent |Normal phasicity; spontaneous; | | | |normal augmentation; compressible| + +-------+ + |Left posterior tibial |Patent |Compressible | + +-------+ + |Left peroneal |Patent |Compressible | + +-------+ + |Left gastrocnemius |Patent |Compressible | + +-------+ + |Left soleal |Patent |Compressible | + +-------+ + (Report amended ) Electronically signed by: Ruben Morris [id number]"
--- NOTE | 2018-06-02 14:35 | Consult Report ---
<Annabelle Kirkland - Last Filed: 06/02/18 14:37> History of Present Illness Consult date: 06/02/18 Requesting physician: Tamiko Jones Consult reason: shortness of breath Chief complaint: SOB History of present illness: This is a 57-year-old white female who was admitted to the hospital with shortness of breath. He has known coronary artery disease with stenting, hypertension, hyperlipidemia, diabetes, tobacco use and COPD. The patient states that she had been having issues with shortness of breath for about a week. She saw her primary care provider about 4 days ago and was being treated for strep throat. The patient states that she was also on steroids. She wears oxygen at night but she continued to have worsening shortness of breath. The patient states that despite being on antibiotics for her strep her shortness of breath worsened. She had a nonproductive cough associated with the shortness of breath. She states that she is just been extremely fatigued. Her shortness of breath is at rest worse with exertion and nothing is really seeming to help improve her shortness of breath at home. The patient denied any fever chills nausea vomiting diarrhea. She did have associated orthopnea. The patient was admitted to the hospital and being treated for a COPD exacerbation. She underwent echocardiogram yesterday which showed an ejection fraction of 30%. Her previous echocardiogram in April 2017 showed an ejection fraction of 50%. The patient also had marked hypokinesis involving of the distal septum, anterior, anterior apical, and apical sofia. The patient has a BNP of 1080. She is in congestive heart failure. She denies any chest pain or pressure. [facility] History Medical History: Reports:: Atherosclerotic Heart Disease, Chronic Obstructive Pulmonary Disease (COPD), Coronary Artery Disease, Diabetes Mellitus Type 2, Hyperlipidemia, Hypertension Denies:: Cancer, MRSA Have you ever received a pneumonia vaccine?: Yes Have you received a flu vaccine this season?: No Other Surgeries: Yes: Cardiac Catheterization (With stent), Coronary Stent, C- section Amputation: No Fractures: Yes (tailbone, wrist) - *Social History Educational Level: Completed Grade School Smoking Status: Current every day smoker Tobacco Type: cigarettes # Packs/Day (cigarettes): 1 Alcohol Intake: never Alcohol Intake Frequency:: other Occupational Status: disabled Housing: house Household Members: spouse Travel in the last 8 weeks: None - Psychiatric History Expresses thoughts of harming self/others: None Suicide Plan Description: No Plan *Family Hx:: Coronary Artery Disease, Diabetes, Hypertension Meds Home Medications Medication Instructions Recorded Confirmed Type albuterol sulfate HFA 90 2 puff INHALATION Q4-6H PRN 07/09/17 05/31/18 History mcg/actuation aerosol inhaler metformin 500 mg tablet 500 mg PO BID 08/07/17 05/31/18 History Azithromycin [Zithromax 500mg Tab] 500 mg PO DAILY 05/31/18 05/31/18 History Carvedilol [Carvedilol 12.5mg Tab] 12.5 mg PO BID 05/31/18 05/31/18 History Clopidogrel Bisulfate [Plavix 75mg 75 mg PO DAILY 05/31/18 05/31/18 History Tab] Lisinopril/Hydrochlorothiazide 1 tab PO BID 05/31/18 05/31/18 History [Lisinopril-Hctz 20-25 mg Tab] Mometasone/Formoterol [Dulera 200 1 inhalation PO BID 05/31/18 05/31/18 History Mcg/5 Mcg Inhaler] Umeclidinium Harper [Incruse 62.5 mcg IH DAILY 05/31/18 05/31/18 History Ellipta] Atorvastatin Calcium [Atorvastatin 40 mg PO HS 06/01/18 06/01/18 History 40mg Tab] Ibuprofen [Ibuprofen 800mg 800 mg PO TIDP PRN 06/01/18 06/01/18 History Tablet] Loratadine [Claritin 10mg Tablet] 10 mg PO DAILY 06/01/18 06/01/18 History Allergies Allergy/AdvReac Type Severity Reaction Status Date / Time Iodinated Contrast Media - Allergy Intermediate I-RASH/SOB/ Verified 03/24/18 12:28 Oral and Anaphlaxis [Iodinated Contrast Media - IV Dye] Review of Systems - Review of Systems Review of systems:: pertinent systems reviewed and negative unless documented below - Constitutional Reports fatigue, Reports lack of energy - *Cardiovascular Reports shortness of breath, Reports shortness of breath with activity - *Respiratory Reports cough (Nonproductive), Reports shortness of breath, Reports shortness of breath with activity - *Neurologic Reports weakness, Denies localized weakness, Denies numbness Exam Vital signs and Labs for Last 24 Hours: Temp Pulse Resp BP Pulse Ox 97.3 F L 70 22 105/63 L 95 06/02/18 11:39 06/02/18 12:32 06/02/18 11:39 06/02/18 11:39 06/02/18 12:32 Laboratory Results - last 24 hr 06/01/18 05:44: POC Glucose 161 H 06/01/18 16:52: POC Glucose 158 H 06/01/18 17:26: Specimen Source Left radial, O2 % 35%, i-20e-10, ABG pH 7.38, ABG pCO2 51.9 H, ABG pO2 69.1 L, ABG HCO3 30.1 H, ABG Total CO2 31.7 H, ABG O2 Saturation 95, ABG Base Excess 5.0 H, Ruben Test Acceptable 06/01/18 20:57: POC Glucose 167 H 06/02/18 06:23: POC Glucose 190 H 06/02/18 12:50: D-Dimer 101 I & O for Last 24 hours: Intake & Output 05/30/18 05/31/18 06/01/18 06/02/18 23:59 23:59 23:59 23:59 Intake Total 978 / 978 2241 / 2241 240 / 240 Output Total 400 / 400 750 / 750 Balance 978 / 978 1841 / 1841 -510 / -510 Weight 178 lb 2 oz 178 lb 1.995 oz 177 lb 5 oz Microbiology Reports for the Last 24 Hours: Microbiology 05/31/18 11:30 Blood Blood Culture - Preliminary NO GROWTH AFTER 48 HOURS 05/31/18 11:40 Blood Blood Culture - Preliminary NO GROWTH AFTER 48 HOURS 05/31/18 17:15 Sputum - Expectorated Sputum Gram Stain - Final 05/31/18 17:15 Sputum - Expectorated Sputum Sputum Culture - Preliminary Radiology Reports for the Last 24 Hours: Her echocardiogram shows: 1. Mildly enlarged left atrium, normal left ventricular size, mild concentric left ventricular hypertrophy, severely reduced left ventricular systolic function, visually estimated ejection fraction 30% with multiple segmental wall motion abnormality, grade 1 diastolic dysfunction seen with tissue Doppler evidence of raised left atrial pressure. 2. Mild mitral and tricuspid regurgitation 3. No significant pericardial effusion noted. - Constitutional mild distress, obese, cooperative - *Routine HEENT Exam Head: Present: normocephalic, atraumatic Eye: Present: EOMI, PERRL ENT: Present: mucous membranes moist - *Routine Neck Exam Present: supple, full ROM, JVD, normal carotid upstroke. Absent: carotid bruit, lymphadenopathy - *Routine Respiratory Exam Present: decreased breath sounds, rales, wheezes - *Routine Cardiovascular Exam Present: RRR, Normal S1, Normal S2. Absent: murmur, gallop, rubs - *Routine Abdominal Exam Present: soft, normoactive bowel sounds. Absent: tenderness, distended - *Routine Extremities Exam Present: full ROM, pulses intact, normal capillary refill. Absent: cyanosis, clubbing, edema - *Routine Skin Exam Present: warm. Absent: erythema, rash - *Routine Neurological Exam Present: alert, oriented X3, CN II-XII intact. Absent: sensory deficit, motor deficit - Routine Psychiatric Exam Present: normal affect, normal thought process Assessment and Plan (1) SOB (shortness of breath) Current visit: Yes Status: Acute Category: Medical Code(s): R06.02 - Shortness of breath (2) Acute systolic (congestive) heart failure Start date: 06/02/18 Current visit: Yes Status: Acute Category: Medical Code(s): I50.21 - Acute systolic (congestive) heart failure (3) Atypical angina Current visit: Yes Status: Acute Category: Medical Code(s): I20.8 - Other forms of angina pectoris (4) CAD (coronary artery disease) Current visit: No Status: Chronic Qualifiers: [place] vs. 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 installer use Diabetes mellitus complication status: without complication Qualified Code(s): E11.9 - Type 2 diabetes mellitus without complications; Z79.4 - intermediate (current) use of insulin Category: Medical Code(s): E11.9 - Type 2 diabetes mellitus without complications (6) HTN (hypertension) Current visit: No Status: Chronic Qualifiers: Hypertension type: essential hypertension Qualified Code(s): I10 - Essential (primary) hypertension Category: Medical Code(s): I10 - Essential (primary) hypertension (7) Left ventricular hypertrophy Current visit: No Status: Chronic Category: Medical Code(s): I51.7 - Cardiomegaly (8) Tobacco dependence syndrome Current visit: No Status: Chronic Category: Medical Code(s): F17.200 - Nicotine dependence, unspecified, uncomplicated (9) COPD (chronic obstructive pulmonary disease) with acute bronchitis Current visit: Yes Status: Acute Category: Medical Code(s): J44.0 - Chronic obstructive pulmonary disease with acute lower respiratory infection; J20.9 - Acute bronchitis, unspecified (10) HLD (hyperlipidemia) Current visit: No Status: Chronic Qualifiers: Hyperlipidemia type: other hyperlipidemia Category: Medical Code(s): E78.5 - Hyperlipidemia, unspecified (11) Regional wall motion abnormality of heart Current visit: Yes Status: Acute Category: Medical Code(s): R93.1 - Abnormal findings on diagnostic imaging of heart and coronary circulation - Assessment and plan all Dx Assessment and Plan for all problems:: Plan: 1. The patient was admitted to the hospital with shortness of breath and being treated for COPD exacerbation. An echocardiogram revealed an ejection fraction of 30% with marked hypokinesis involving the distal septum, anterior, anterior apical, and apical sofia. The patient's last ejection fraction prior to this was April 2017 at which time her ejection fraction was 50%. Given her new onset of systolic congestive heart failure the patient has been being treated with IV Lasix for diuresis. we will continue with IV diuresis at this time. 2. The patient is on a beta-ruby which is indicated for systolic congestive heart failure. She is not on an CRAIG inhibitor or an ARB. Given her systolic congestive heart failure we will get her started on losartan 50 mg p.o. daily. Stop her amlodipine as she does have new onset systolic congestive heart failure per Dr. MARY Miller. 3. The patient's ejection fraction has reduced from 50% to 30%. She has a significant anterior wall motion abnormality. She is profoundly short of breath. Her BNP is 1080. Due to her new onset of systolic congestive heart failure and anterior wall motion abnormal as well as atypical angina, we will plan to proceed with left cardiac catheterization and right cardiac catheterization with right groin access. The patient has been educated on the risks and benefits of proceeding with left and right cardiac catheterization. The patient is verbalized understanding and is agreeable in proceeding with the procedures. 4. Will get a CBC, BMP, liver panel and a lipid panel in the morning. 5. Her blood pressure is acceptable. 6. Patient has known coronary artery disease. With her last stents placed in 2015. She states that this was at the hospital in [facility]. She is having atypical angina in the setting of new onset systolic congestive heart f ailure. As mentioned before will proceed with left cardiac catheterization today to evaluate her coronary arteries. 7. The patient is diabetic she does need aggressive control of her diabetes. 8. Tobacco cessation is highly advised and counseled. 9. Further recommendations were made pending the patient's response to treatment following her left and right cardiac catheterization scheduled today at 1430. Thank you for the opportunity to help to spent in the care of this patient. <Aris Miller - Last Filed: 06/02/18 16:22> Exam Vital signs and Labs for Last 24 Hours: Temp Pulse Resp BP Pulse Ox 97.3 F L 70 22 105/63 L 95 06/02/18 11:39 06/02/18 12:32 06/02/18 11:39 06/02/18 11:39 06/02/18 12:32 Laboratory Results - last 24 hr 06/01/18 05:44: POC Glucose 161 H 06/01/18 16:52: POC Glucose 158 H 06/01/18 17:26: Specimen Source Left radial, O2 % 35%, i-20e-10, ABG pH 7.38, ABG pCO2 51.9 H, ABG pO2 69.1 L, ABG HCO3 30.1 H, ABG Total CO2 31.7 H, ABG O2 Saturation 95, ABG Base Excess 5.0 H, Ruben Test Acceptable 06/01/18 20:57: POC Glucose 167 H 06/02/18 06:23: POC Glucose 190 H 06/02/18 11:26: POC Glucose 215 H 06/02/18 12:50: D-Dimer 101 I & O for Last 24 hours: Intake & Output 05/31/18 06/01/18 06/02/18 06/03/18 11:59 11:59 11:59 11:59 Intake Total 2859 / 2859 600 / 600 Output Total 1150 / 1150 Balance 2859 / 2859 -550 / -550 Weight 188 lb 178 lb 2 oz 177 lb 5 oz Microbiology Reports for the Last 24 Hours: Microbiology 05/31/18 11:30 Blood Blood Culture - Preliminary NO GROWTH AFTER 48 HOURS 05/31/18 11:40 Blood Blood Culture - Preliminary NO GROWTH AFTER 48 HOURS 05/31/18 17:15 Sputum - Expectorated Sputum Gram Stain - Final 05/31/18 17:15 Sputum - Expectorated Sputum Sputum Culture - Preliminary Assessment and Plan (1) SOB (shortness of breath) Current visit: Yes Status: Acute Category: Medical Code(s): R06.02 - Shortness of breath (2) Acute systolic (congestive) heart failure Start date: 06/02/18 Current visit: Yes Status: Acute Category: Medical Code(s): I50.21 - Acute systolic (congestive) heart failure (3) Atypical angina Current visit: Yes Status: Acute Category: Medical Code(s): I20.8 - Other forms of angina pectoris (4) CAD (coronary artery disease) Current visit: No Status: Chronic Qualifiers: [place] vs. 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 cork floor installer insulin use: with cork floor installer use Diabetes mellitus complication status: without complication Qualified Code(s): E11.9 - Type 2 diabetes mellitus without complications; Z79.4 - intermediate (current) use of insulin Category: Medical Code(s): E11.9 - Type 2 diabetes mellitus without complications (6) HTN (hypertension) Current visit: No Status: Chronic Qualifiers: Hypertension type: essential hypertension Qualified Code(s): I10 - Essential (primary) hypertension Category: Medical Code(s): I10 - Essential (primary) hypertension (7) Left ventricular hypertrophy Current visit: No Status: Chronic Category: Medical Code(s): I51.7 - Cardiomegaly (8) Tobacco dependence syndrome Current visit: No Status: Chronic Category: Medical Code(s): F17.200 - Nicotine dependence, unspecified, uncomplicated (9) COPD (chronic obstructive pulmonary disease) with acute bronchitis Current visit: Yes Status: Acute Category: Medical Code(s): J44.0 - Chronic obstructive pulmonary disease with acute lower respiratory infection; J20.9 - Acute bronchitis, unspecified (10) HLD (hyperlipidemia) Current visit: No Status: Chronic Qualifiers: Hyperlipidemia type: other hyperlipidemia Category: Medical Code(s): E78.5 - Hyperlipidemia, unspecified (11) Regional wall motion abnormality of heart Current visit: Yes Status: Acute Category: Medical Code(s): R93.1 - Abnormal findings on diagnostic imaging of heart and coronary circulation
--- NOTE | 2018-06-03 08:27 | Progress Note ---
<Yari Arrington - Last Filed: 06/03/18 08:23> Internal Medicine - PN: Subj *Date: 06/03/18 *Time: 08:23 Interval history: Patient states she is feeling better this morning. She was on BiPAP for part of the night and then weaned to nasal oxygen. She states she is less short of breath this morning. She denies any pain. Exam Vital signs and Labs for Last 24 Hours: Temp Pulse Resp BP Pulse Ox 98.6 F 85 20 141/85 H 94 L 06/03/18 08:00 06/03/18 08:00 06/03/18 08:00 06/03/18 08:00 06/03/18 08:00 Laboratory Results - last 24 hr 06/02/18 11:26: POC Glucose 215 H 06/02/18 12:50: D-Dimer 101 06/02/18 17:00: ABG O2 Sat (Measured) 80.3 L, POC VBG O2 Sat (Debby) 77.8 06/02/18 18:43: POC Glucose 180 H 06/02/18 21:23: POC Glucose 189 H I & O for Last 24 hours: Intake & Output 05/31/18 06/01/18 06/02/18 06/03/18 11:59 11:59 11:59 11:59 Intake Total 2859 / 2859 600 / 600 120 / 120 Output Total 1150 / 1150 2400 / 2400 Balance 2859 / 2859 -550 / -550 -2280 / -2280 Weight 188 lb 178 lb 2 oz 177 lb 5 oz Microbiology Reports for the Last 24 Hours: Microbiology 05/31/18 11:30 Blood Blood Culture - Preliminary NO GROWTH AFTER 48 HOURS 05/31/18 11:40 Blood Blood Culture - Preliminary NO GROWTH AFTER 48 HOURS 05/31/18 17:15 Sputum - Expectorated Sputum Gram Stain - Final 05/31/18 17:15 Sputum - Expectorated Sputum Sputum Culture - Preliminary Radiology Reports for the Last 24 Hours: Venous duplex 1. There is no evidence of significant Reflux. 2. No evidence of deep or superficial vein thrombosis involving the right lower extremity and left lower extremity Heart Cath IMPRESSION: 1. Mild to moderate coronary artery disease, mainly involving the small nondominant right coronary artery and its midportion 2. Normal left ventricular systolic function 3. Mild pulmonary hypertension 4. Mild to moderate increase in pulmonary capillary wedge pressure and left ve ntricular end-diastolic pressure 5. Normal pulmonary artery saturation PLAN: 1. Medical management for coronary disease 2. Continue diuresis 3. Aggressive treatment for diastolic dysfunction end-diastolic heart failure 4. Follow-up in cardiology clinic 1-2 weeks after discharge - Constitutional no acute distress - *Routine Respiratory Exam Present: rhonchi (left base), wheezes (bilaterally) - *Routine Cardiovascular Exam Present: RRR - *Routine Abdominal Exam Present: soft, normoactive bowel sounds. Absent: tenderness - *Routine Extremities Exam Absent: cyanosis, clubbing, edema Assessment and Plan (1) SOB (shortness of breath) Current visit: Yes Status: Acute Category: Medical Code(s): R06.02 - Shortness of breath (2) Acute systolic (congestive) heart failure Start date: 06/02/18 Current visit: Yes Status: Acute Category: Medical Code(s): I50.21 - Acute systolic (congestive) heart failure (3) Atypical angina Current visit: Yes Status: Acute Category: Medical Code(s): I20.8 - Other forms of angina pectoris (4) CAD (coronary artery disease) Current visit: No Status: Chronic Qualifiers: [place] vs. transplanted heart: [place] heart Associated angina: without angina Category: Medical Code(s): I25.10 - Atherosclerotic heart disease of [place] coronary artery without angina pectoris (5) Diabetes mellitus Current visit: No Status: Chronic Qualifiers: Diabetes mellitus type: type 2 Diabetes mellitus termite exterminator helper insulin use: with termite exterminator helper use Diabetes mellitus complication status: without complication Qualified Code(s): E11.9 - Type 2 diabetes mellitus without complications; Z79.4 - MCFP (current) use of insulin Category: Medical Code(s): E11.9 - Type 2 diabetes mellitus without complications (6) HTN (hypertension) Current visit: No Status: Chronic Qualifiers: Hypertension type: essential hypertension Qualified Code(s): I10 - Essential (primary) hypertension Category: Medical Code(s): I10 - Essential (primary) hypertension (7) Left ventricular hypertrophy Current visit: No Status: Chronic Category: Medical Code(s): I51.7 - Cardiomegaly (8) Tobacco dependence syndrome Current visit: No Status: Chronic Category: Medical Code(s): F17.200 - Nicotine dependence, unspecified, uncomplicated (9) COPD (chronic obstructive pulmonary disease) with acute bronchitis Current visit: Yes Status: Acute Category: Medical Code(s): J44.0 - Chronic obstructive pulmonary disease with acute lower respiratory infection; J20.9 - Acute bronchitis, unspecified (10) HLD (hyperlipidemia) Current visit: No Status: Chronic Qualifiers: Hyperlipidemia type: other hyperlipidemia Category: Medical Code(s): E78.5 - Hyperlipidemia, unspecified (11) Regional wall motion abnormality of heart Current visit: Yes Status: Acute Category: Medical Code(s): R93.1 - Abnormal findings on diagnostic imaging of heart and coronary circulation (12) Diastolic heart failure Current visit: Yes Status: Acute Category: Medical Code(s): I50.30 - Unspecified diastolic (congestive) heart failure - Assessment and plan all Dx Assessment and Plan for all problems:: Dr. Garza's note has been reviewed. He would like to perform a bronchoscopy on an outpatient basis once the patient is stable d/t pulmonary nodules on CT. The patient's cath has been reviewed. No stents were placed. They recommended coronary artery disease management and diuresis. Will discuss further care with Dr. Jones. Cardiology to follow. <Tamiko Jones - Last Filed: 06/03/18 11:26> Exam Vital signs and Labs for Last 24 Hours: Temp Pulse Resp BP Pulse Ox 98.6 F 75 20 141/85 H 91 L 06/03/18 08:00 06/03/18 10:33 06/03/18 08:00 06/03/18 08:00 06/03/18 10:33 Laboratory Results - last 24 hr 06/02/18 11:26: POC Glucose 215 H 06/02/18 12:50: D-Dimer 101 06/02/18 17:00: ABG O2 Sat (Measured) 80.3 L, POC VBG O2 Sat (Debby) 77.8 06/02/18 18:43: POC Glucose 180 H 06/02/18 21:23: POC Glucose 189 H I & O for Last 24 hours: Intake & Output 05/31/18 06/01/18 06/02/18 06/03/18 11:59 11:59 11:59 11:59 Intake Total 2859 / 2859 600 / 600 120 / 120 Output Total 1150 / 1150 3700 / 3700 Balance 2859 / 2859 -550 / -550 -3580 / -3580 Weight 188 lb 178 lb 2 oz 177 lb 5 oz Microbiology Reports for the Last 24 Hours: Microbiology 05/31/18 17:15 Sputum - Expectorated Sputum Gram Stain - Final 05/31/18 17:15 Sputum - Expectorated Sputum Sputum Culture - Final Normal Respiratory Cassy 05/31/18 11:30 Blood Blood Culture - Preliminary NO GROWTH AFTER 48 HOURS 05/31/18 11:40 Blood Blood Culture - Preliminary NO GROWTH AFTER 48 HOURS Assessment and Plan (1) SOB (shortness of breath) Current visit: Yes Status: Acute Category: Medical Code(s): R06.02 - Shortness of breath (2) Acute systolic (congestive) heart failure Start date: 06/02/18 Current visit: Yes Status: Acute Category: Medical Code(s): I50.21 - Acute systolic (congestive) heart failure (3) Atypical angina Current visit: Yes Status: Acute Category: Medical Code(s): I20.8 - Other forms of angina pectoris (4) CAD (coronary artery disease) Current visit: No Status: Chronic Qualifiers: [place] vs. transplanted heart: [place] heart Associated angina: without angina Category: Medical Code(s): I25.10 - Atherosclerotic heart disease of [place] coronary artery without angina pectoris (5) Diabetes mellitus Current visit: No Status: Chronic Qualifiers: Diabetes mellitus type: type 2 Diabetes mellitus fci insulin use: with termite exterminator helper use Diabetes mellitus complication status: without complication Qualified Code(s): E11.9 - Type 2 diabetes mellitus without complications; Z79.4 - intermodal dispatcher (current) use of insulin Category: Medical Code(s): E11.9 - Type 2 diabetes mellitus without complications (6) HTN (hypertension) Current visit: No Status: Chronic Qualifiers: Hypertension type: essential hypertension Qualified Code(s): I10 - Essential (primary) hypertension Category: Medical Code(s): I10 - Essential (primary) hypertension (7) Left ventricular hypertrophy Current visit: No Status: Chronic Category: Medical Code(s): I51.7 - Cardiomegaly (8) Tobacco dependence syndrome Current visit: No Status: Chronic Category: Medical Code(s): F17.200 - Nicotine dependence, unspecified, uncomplicated (9) COPD (chronic obstructive pulmonary disease) with acute bronchitis Current visit: Yes Status: Acute Category: Medical Code(s): J44.0 - Chronic obstructive pulmonary disease with acute lower respiratory infection; J20.9 - Acute bronchitis, unspecified (10) HLD (hyperlipidemia) Current visit: No Status: Chronic Qualifiers: Hyperlipidemia type: other hyperlipidemia Category: Medical Code(s): E78.5 - Hyperlipidemia, unspecified (11) Regional wall motion abnormality of heart Current visit: Yes Status: Acute Category: Medical Code(s): R93.1 - Abnormal findings on diagnostic imaging of heart and coronary circulation (12) Diastolic heart failure Current visit: Yes Status: Acute Category: Medical Code(s): I50.30 - Unspecified diastolic (congestive) heart failure - Assessment and plan all Dx Assessment and Plan for all problems:: Will continue to wean off oxygen NC to 2L, which is what she is on at home. She will need bronchoscopy outpatient by Dr. Garza. Advised to follow tih Dr. Del Real in 1 week after discahrge for end stage, HFpEF.
--- NOTE | 2018-06-03 12:32 | Progress Note ---
Subjective Date: 06/03/18 Time: 11:00 Principal diagnosis: SOB Interval history: This is a 57-year-old female who was admitted to the hospital with shortness of breath. Patient has known coronary disease with a history of stenting. She had an echocardiogram that showed an ejection fraction at 30% which was down from 50%. There was also marked hypokinesis involving the anterior wall. The patient underwent left cardiac catheterization yesterday which showed moderate disease to her right coronary artery and no percutaneous intervention was required. She did have a mild to moderately elevated LVEDP as well as mild pulmonary hypertension. Her cardiac output was normal. Her estimated ejection fraction on the LV gram was 60%. Today she states her shortness of breath is much better since being diuresed with IV Lasix. She denies any chest pain or pressure. She denies any fever chills nausea vomiting diarrhea. She states that her orthopnea is better as well. Exam Vital signs and Labs for Last 24 Hours: Temp Pulse Resp BP Pulse Ox 98.6 F 75 20 141/85 H 91 L 06/03/18 08:00 06/03/18 10:33 06/03/18 08:00 06/03/18 08:00 06/03/18 10:33 Laboratory Results - last 24 hr 06/02/18 11:26: POC Glucose 215 H 06/02/18 12:50: D-Dimer 101 06/02/18 17:00: ABG O2 Sat (Measured) 80.3 L, POC VBG O2 Sat (Debby) 77.8 06/02/18 18:43: POC Glucose 180 H 06/02/18 21:23: POC Glucose 189 H 06/03/18 06:39: POC Glucose 207 H 06/03/18 12:09: POC Glucose 204 H I & O for Last 24 hours: Intake & Output 05/31/18 06/01/18 06/02/18 06/03/18 23:59 23:59 23:59 23:59 Intake Total 978 / 978 2241 / 2241 240 / 240 120 / 120 Output Total 400 / 400 3150 / 3150 1300 / 1300 Balance 978 / 978 1841 / 1841 -2910 / -2910 -1180 / -1180 Weight 178 lb 2 oz 178 lb 1.995 oz 177 lb 5 oz Microbiology Reports for the Last 24 Hours: Microbiology 05/31/18 17:15 Sputum - Expectorated Sputum Gram Stain - Final 05/31/18 17:15 Sputum - Expectorated Sputum Sputum Culture - Final Normal Respiratory Cassy 05/31/18 11:30 Blood Blood Culture - Preliminary NO GROWTH AFTER 48 HOURS 05/31/18 11:40 Blood Blood Culture - Preliminary NO GROWTH AFTER 48 HOURS Radiology Reports for the Last 24 Hours: Cardiac catheterization showed 1. Mild to moderate coronary artery disease, mainly involving the small nondominant right coronary artery and its midportion 2. Normal left ventricular systolic function 3. Mild pulmonary hypertension 4. Mild to moderate increase in pulmonary capillary wedge pressure and left ventricular end-diastolic pressure 5. Normal pulmonary artery saturation PLAN: 1. Medical management for coronary disease 2. Continue diuresis 3. Aggressive treatment for diastolic dysfunction end-diastolic heart failure 4. Follow-up in cardiology clinic 1-2 weeks after discharge Narrative: Her telemetry strip shows sinus rhythm with a rate of 80. - Constitutional no acute distress, obese, cooperative - *Routine HEENT Exam Head: Present: normocephalic, atraumatic Eye: Present: EOMI, PERRL ENT: Present: mucous membranes moist - *Routine Neck Exam Present: supple, full ROM, normal carotid upstroke. Absent: JVD, carotid bruit, lymphadenopathy - *Routine Respiratory Exam Present: decreased breath sounds, wheezes (Inspiratory and expiratory wheezing laterally and in all lung quinn) - *Routine Cardiovascular Exam Present: RRR, Normal S1, Normal S2. Absent: murmur, gallop, rubs - *Routine Abdominal Exam Present: soft, normoactive bowel sounds. Absent: tenderness, distended, rebound - *Routine Extremities Exam Present: full ROM, pulses intact, normal capillary refill. Absent: cyanosis, clubbing, edema - *Routine Skin Exam Present: warm. Absent: erythema, rash - *Routine Neurological Exam Present: alert, oriented X3, CN II-XII intact. Absent: sensory deficit, motor deficit Progress Note: A&P (1) SOB (shortness of breath) Status: Acute Current Visit: Yes (2) Acute systolic (congestive) heart failure Status: Acute Current Visit: Yes (3) CAD (coronary artery disease) Status: Chronic Current Visit: No (4) Diabetes mellitus Status: Chronic Current Visit: No (5) HTN (hypertension) Status: Chronic Current Visit: No (6) Tobacco dependence syndrome Status: Chronic Current Visit: No (7) COPD (chronic obstructive pulmonary disease) with acute bronchitis Status: Acute Current Visit: Yes (8) HLD (hyperlipidemia) Status: Chronic Current Visit: No (9) Regional wall motion abnormality of heart Status: Acute Current Visit: Yes (10) Diastolic heart failure Status: Acute Current Visit: Yes (11) Diastolic dysfunction Status: Acute Current Visit: Yes Assessment and Plan for All Diagnoses:: Plan: 1. The patient was admitted to the hospital with shortness of breath and is still currently being treated for a COPD exacerbation. Will defer this to her primary care provider. 2. The patient had an ejection fraction on an echocardiogram at 30% with marked hypokinesis in the anterior wall. Her EF was down from 50%. Given her new onset cardiomyopathy and shortness of breath she underwent left cardiac catheterization yesterday. This showed moderate disease to her right coronary artery and no percutaneous intervention was required. Her EF on the LV gram showed an ejection fraction of 60%. She did have an elevated LVEDP and mild pulmonary hypertension. Continue diuresis with IV Lasix was recommended. 3. Given the discrepancy between her EF on echocardiogram and the LV gram at 30 and 60% respectively. There may have been some apical ballooning making her EF appear to be 30% on the first echocardiogram. will obtain an echocardiogram with Definity contrast today to better evaluate her ejection fraction. 4. Her coronary artery disease is stable. 5. Her blood pressure is acceptable. 6. Her LDL goal is less than 55. Her labs are still currently pending. She was not fasting this morning and the lab was going to attempt to redraw her blood work at noon. 7. Tobacco cessation is highly advised and counseled. 8. She is diabetic. She does need aggressive control of her diabetes. will defer this to her primary care provider. 9. Further recommendations will be made pending the patient's response to treatment. Thank you for the opportunity to help to spent in the care of this patient.
[2018-06-03 13:27] LABS: Basophils % 0.3 % (0.1-2.0); Eosinophils % 0.5 % (0.1-12.0); Hematocrit 47.1 % (37.0-47.0); Hemoglobin 15.9 g/dL (12.2-16.2); Lymphocytes # 1.3 K/mm3 (0.7-4.5); Lymphocytes % 17.8 % (10-50); Mean Corpuscular HGB Conc 33.8 g/dL (31.8-35.4); Mean Corpuscular Hemoglobin 30.7 pg (27.0-31.2); Mean Corpuscular Volume 90.7 fl (81-99); Mean Platelet Volume 7.5 fl (7.4-10.4); Monocytes # 0.7 K/mm3 (0.1-1.0); Monocytes % 8.6 % (1.7-9.3); Neutrophils # 5.5 K/mm3 (1.8-7.8); Neutrophils % 72.8 % (37.0-80.0); Platelet Count 237 K/mm3 (142-424); Red Blood Count 5.19 M/mm3 (4.20-5.40); Red Cell Distribution Width 13.2 % (11.5-17.5); White Blood Count 7.6 K/mm3 (4.8-10.8)
[2018-06-03 13:28] LABS: Albumin Level 3.7 gm/dL (3.4-5.0); Anion Gap 4.3 mEq/L (5-15); Bilirubin,Direct 0.2 mg/dL (0.0-0.2); Bilirubin,Indirect 0.5 mg/dL (0.0-0.9); Bilirubin,Total 0.7 mg/dL (0.2-1.0); Calcium 8.9 mg/dL (8.5-10.1); Chol/HDL Ratio 6.7 (1-3.5); Total Protein,Serum 7.4 gm/dL (6.4-8.2)
[2018-06-03 13:34] LABS: Potassium 2.3 mmoL/L (3.5-5.1)
[2018-06-04 07:50] LABS: Basophils % 0.3 % (0.1-2.0); Eosinophils # 0.1 K/mm3 (0.0-0.4); Eosinophils % 0.9 % (0.1-12.0); Hematocrit 46.9 % (37.0-47.0); Hemoglobin 15.5 g/dL (12.2-16.2); Lymphocytes # 2.4 K/mm3 (0.7-4.5); Lymphocytes % 27.3 % (10-50); Mean Corpuscular HGB Conc 33.1 g/dL (31.8-35.4); Mean Corpuscular Hemoglobin 30.7 pg (27.0-31.2); Mean Corpuscular Volume 92.6 fl (81-99); Mean Platelet Volume 7.3 fl (7.4-10.4); Monocytes # 0.8 K/mm3 (0.1-1.0); Monocytes % 9.7 % (1.7-9.3); Neutrophils # 5.4 K/mm3 (1.8-7.8); Neutrophils % 61.8 % (37.0-80.0); Platelet Count 220 K/mm3 (142-424); Red Blood Count 5.06 M/mm3 (4.20-5.40); Red Cell Distribution Width 13.1 % (11.5-17.5); White Blood Count 8.7 K/mm3 (4.8-10.8)
[2018-06-04 07:56] LABS: Anion Gap 4.6 mEq/L (5-15); Calcium 9.2 mg/dL (8.5-10.1)
[2018-06-04 08:00] LABS: Potassium 2.6 mmoL/L (3.5-5.1)
--- NOTE | 2018-06-04 09:38 | Cardiology Report ---
CA echo definity PROCEDURE: INDICATIONS FOR THE TEST: Chest pain COPD+ Heart Murmur Tobacco Smoking+ Palpitations Fatigue Syncope Edema+ Hypertension+Diabetes Mellitus+ Rheumatic Fever SOB+GUERRA+Obesity+Hyperlipidemia+ Family History HD Additional History End stage COPD, echo done 06/01/17 repeat tpday with definity. PATIENT INFORMATION HEIGHT: 63 WEIGHT: 185 GENDER: Female B/P: 2-D/M-MODE INTERPRETATION: 2-D MEASUREMENTS OBSERVED VALUES IN CMS Right Ventricular Dimension (RVDd) Interventricular Septum (Thickness)(IVsd) Left Ventricular Internal Dimensions(LVIDd) Left Ventricular Posterior Wall (Thickness)(LVPWd) Aortic Root Aortic Cusp Separation Left Atrial Dimensions (LAD) 2D DOPPLER INTERROGATION: CONCLUSION: 1. Definitely contrast was utilized to delineate endocardial surfaces, visually estimated ejection fraction 50% with no regional wall motion abnormality.
--- NOTE | 2018-06-04 09:46 | Progress Note ---
<Pepe Amaya U - Last Filed: 06/04/18 09:55> Subjective Date: 06/04/18 Time: 09:46 Principal diagnosis: SOB Interval history: 57 yo WF in bed in NAD. Breathing has improved. Potassium still low after IV infusions. Exam Vital signs and Labs for Last 24 Hours: Temp Pulse Resp BP Pulse Ox 97.0 F L 72 20 134/82 92 L 06/04/18 08:00 06/04/18 08:00 06/04/18 08:00 06/04/18 08:00 06/04/18 08:00 Laboratory Results - last 24 hr 06/03/18 06:39: POC Glucose 207 H 06/03/18 09:40: Sodium 134 L, Potassium 2.3 L* D, Chloride 88 L, Carbon Dioxide 44 H* D, Anion Gap 4.3 L, BUN 24 H D, Creatinine 0.76 D, Estimated Creat Clear 102, Estimated GFR 78, Est GFR ( Amer) 95 D, Glucose 216 H, Calcium 8.9, Total Bilirubin 0.7, Direct Bilirubin 0.2, Indirect Bilirubin 0.5, AST 27 D, ALT 26 D, Alkaline Phosphatase 75, Total Protein 7.4, Albumin 3.7, Triglycerides 149, Cholesterol 255 H, LDL Cholesterol 187 H, VLDL Cholesterol 30, HDL Cholesterol 38, Cholesterol/HDL Ratio 6.7 H 06/03/18 12:09: POC Glucose 204 H 06/03/18 12:48: WBC 7.6, RBC 5.19, Hgb 15.9, Hct 47.1 H, MCV 90.7, MCH 30.7, MCHC 33.8, RDW 13.2, Plt Count 237, MPV 7.5, Neut % (Auto) 72.8, Lymph % (Auto) 17.8, [place] % (Auto) 8.6, Eos % (Auto) 0.5, Baso % (Auto) 0.3, Neut # (Auto) 5.5, Lymph # (Auto) 1.3, [place] # (Auto) 0.7, Eos # (Auto) 0.0, Baso # (Auto) 0.0 06/03/18 17:41: POC Glucose 233 H 06/03/18 21:19: POC Glucose 173 H 06/04/18 05:16: POC Glucose 188 H 06/04/18 07:25: Sodium 134 L, Potassium 2.6 L*, Chloride 88 L, Carbon Dioxide 44 H*, Anion Gap 4.6 L, BUN 21 H, Creatinine 0.67, Estimated Creat Clear 116, Estimated GFR 90, Est GFR ( Amer) 109, Glucose 177 H, Calcium 9.2 06/04/18 07:30: WBC 8.7, RBC 5.06, Hgb 15.5, Hct 46.9, MCV 92.6, MCH 30.7, MCHC 33.1, RDW 13.1, Plt Count 220, MPV 7.3 L, Neut % (Auto) 61.8, Lymph % (Auto) 27.3, [place] % (Auto) 9.7 H, Eos % (Auto) 0.9, Baso % (Auto) 0.3, Neut # (Auto) 5.4, Lymph # (Auto) 2.4, [place] # (Auto) 0.8, Eos # (Auto) 0.1, Baso # (Auto) 0.0 I & O for Last 24 hours: Intake & Output 06/01/18 06/02/18 06/03/18 06/04/18 11:59 11:59 11:59 11:59 Intake Total 2859 / 2859 600 / 600 220 / 220 1320 / 1320 Output Total 1150 / 1150 3700 / 3700 Balance 2859 / 2859 -550 / -550 -3480 / -3480 1320 / 1320 Weight 178 lb 2 oz 177 lb 5 oz Microbiology Reports for the Last 24 Hours: Microbiology 05/31/18 17:15 Sputum - Expectorated Sputum Gram Stain - Final 05/31/18 17:15 Sputum - Expectorated Sputum Sputum Culture - Final Normal Respiratory Cassy - *Routine Respiratory Exam Present: CTA bilaterally. Absent: accessory muscle use, rales, rhonchi, wheezes - *Routine Cardiovascular Exam Present: RRR. Absent: murmur, gallop, rubs Progress Note: A&P (1) SOB (shortness of breath) Status: Acute Current Visit: Yes (2) Acute systolic (congestive) heart failure Status: Acute Current Visit: Yes (3) CAD (coronary artery disease) Status: Chronic Current Visit: No (4) Diabetes mellitus Status: Chronic Current Visit: No (5) HTN (hypertension) Status: Chronic Current Visit: No (6) Tobacco dependence syndrome Status: Chronic Current Visit: No (7) COPD (chronic obstructive pulmonary disease) with acute bronchitis Status: Acute Current Visit: Yes (8) HLD (hyperlipidemia) Status: Chronic Current Visit: No (9) Regional wall motion abnormality of heart Status: Acute Current Visit: Yes (10) Diastolic heart failure Status: Acute Current Visit: Yes (11) Diastolic dysfunction Status: Acute Current Visit: Yes Assessment and Plan for All Diagnoses:: Repeat echo with definity shows LVEF 50% which is more consistent with Cardiac cath results. Continue coreg and ARB. Reduce lasix to once daily and change to PO after this AM. Will replace potassium with both PO and IV today. Repeat BMP in AM. Hopefully home in AM <Aris Miller - Last Filed: 06/04/18 15:05> Exam Vital signs and Labs for Last 24 Hours: Temp Pulse Resp BP Pulse Ox 97.5 F L 80 18 126/73 93 L 06/04/18 11:46 06/04/18 12:00 06/04/18 11:46 06/04/18 11:46 06/04/18 11:46 Laboratory Results - last 24 hr 06/01/18 17:44: Urine Osmolality 351 06/01/18 17:44: Urine Sodium 85 06/03/18 17:41: POC Glucose 233 H 06/03/18 21:19: POC Glucose 173 H 06/04/18 05:16: POC Glucose 188 H 06/04/18 07:25: Sodium 134 L, Potassium 2.6 L*, Chloride 88 L, Carbon Dioxide 44 H*, Anion Gap 4.6 L, BUN 21 H, Creatinine 0.67, Estimated Creat Clear 116, Estimated GFR 90, Est GFR ( Amer) 109, Glucose 177 H, Calcium 9.2 06/04/18 07:30: WBC 8.7, RBC 5.06, Hgb 15.5, Hct 46.9, MCV 92.6, MCH 30.7, MCHC 33.1, RDW 13.1, Plt Count 220, MPV 7.3 L, Neut % (Auto) 61.8, Lymph % (Auto) 27.3, [place] % (Auto) 9.7 H, Eos % (Auto) 0.9, Baso % (Auto) 0.3, Neut # (Auto) 5.4, Lymph # (Auto) 2.4, [place] # (Auto) 0.8, Eos # (Auto) 0.1, Baso # (Auto) 0.0 06/04/18 11:56: POC Glucose 244 H 06/04/18 14:04: Sodium 132 L, Potassium 3.4 L D, Chloride 87 L, Carbon Dioxide 40 H, Anion Gap 8.4, BUN 21 H, Creatinine 0.73, Estimated Creat Clear 107, Estimated GFR 82, Est GFR ( Amer) 99, Glucose 316 H D, Calcium 8.7 I & O for Last 24 hours: Intake & Output 06/02/18 06/03/18 06/04/18 06/05/18 11:59 11:59 11:59 11:59 Intake Total 600 / 600 220 / 220 1420 / 1420 480 / 480 Output Total 1150 / 1150 3700 / 3700 1100 / 1100 Balance -550 / -550 -3480 / -3480 1420 / 1420 -620 / -620 Weight 177 lb 5 oz Progress Note: A&P (1) Acute and chronic respiratory failure ([id number]) Status: Acute Current Visit: Yes (2) SOB (shortness of breath) Status: Acute Current Visit: Yes (3) Acute systolic (congestive) heart failure Status: Acute Current Visit: Yes (4) CAD (coronary artery disease) Status: Chronic Current Visit: No (5) Diabetes mellitus Status: Chronic Current Visit: No (6) HTN (hypertension) Status: Chronic Current Visit: No (7) Tobacco dependence syndrome Status: Chronic Current Visit: No (8) COPD (chronic obstructive pulmonary disease) with acute bronchitis Status: Acute Current Visit: Yes (9) HLD (hyperlipidemia) Status: Chronic Current Visit: No (10) Regional wall motion abnormality of heart Status: Acute Current Visit: Yes (11) Diastolic heart failure Status: Acute Current Visit: Yes (12) Diastolic dysfunction Status: Acute Current Visit: Yes Assessment and Plan for All Diagnoses:: Physician Attestation I was present during all of the critical components of the office visit. The patient was seen, evaluated, and examined by me. I have read the office note that was documented by the scribe and agree with the documentation.
--- NOTE | 2018-06-04 10:31 | Progress Note ---
Internal Medicine - PN: Subj *Date: 06/04/18 *Time: 09:00 Interval history: Patient doing better since yesterday and is feeling lot better from her breathing standpoint. Exam Vital signs and Labs for Last 24 Hours: Temp Pulse Resp BP Pulse Ox 97.0 F L 72 20 134/82 92 L 06/04/18 08:00 06/04/18 08:00 06/04/18 08:00 06/04/18 08:00 06/04/18 08:00 Laboratory Results - last 24 hr 06/03/18 06:39: POC Glucose 207 H 06/03/18 09:40: Sodium 134 L, Potassium 2.3 L* D, Chloride 88 L, Carbon Dioxide 44 H* D, Anion Gap 4.3 L, BUN 24 H D, Creatinine 0.76 D, Estimated Creat Clear 102, Estimated GFR 78, Est GFR ( Amer) 95 D, Glucose 216 H, Calcium 8.9, Total Bilirubin 0.7, Direct Bilirubin 0.2, Indirect Bilirubin 0.5, AST 27 D, ALT 26 D, Alkaline Phosphatase 75, Total Protein 7.4, Albumin 3.7, Triglycerides 149, Cholesterol 255 H, LDL Cholesterol 187 H, VLDL Cholesterol 30, HDL Cholesterol 38, Cholesterol/HDL Ratio 6.7 H 06/03/18 12:09: POC Glucose 204 H 06/03/18 12:48: WBC 7.6, RBC 5.19, Hgb 15.9, Hct 47.1 H, MCV 90.7, MCH 30.7, MCHC 33.8, RDW 13.2, Plt Count 237, MPV 7.5, Neut % (Auto) 72.8, Lymph % (Auto) 17.8, [place] % (Auto) 8.6, Eos % (Auto) 0.5, Baso % (Auto) 0.3, Neut # (Auto) 5.5, Lymph # (Auto) 1.3, [place] # (Auto) 0.7, Eos # (Auto) 0.0, Baso # (Auto) 0.0 06/03/18 17:41: POC Glucose 233 H 06/03/18 21:19: POC Glucose 173 H 06/04/18 05:16: POC Glucose 188 H 06/04/18 07:25: Sodium 134 L, Potassium 2.6 L*, Chloride 88 L, Carbon Dioxide 44 H*, Anion Gap 4.6 L, BUN 21 H, Creatinine 0.67, Estimated Creat Clear 116, Estimated GFR 90, Est GFR ( Amer) 109, Glucose 177 H, Calcium 9.2 06/04/18 07:30: WBC 8.7, RBC 5.06, Hgb 15.5, Hct 46.9, MCV 92.6, MCH 30.7, MCHC 33.1, RDW 13.1, Plt Count 220, MPV 7.3 L, Neut % (Auto) 61.8, Lymph % (Auto) 27.3, [place] % (Auto) 9.7 H, Eos % (Auto) 0.9, Baso % (Auto) 0.3, Neut # (Auto) 5.4, Lymph # (Auto) 2.4, [place] # (Auto) 0.8, Eos # (Auto) 0.1, Baso # (Auto) 0.0 I & O for Last 24 hours: Intake & Output 06/01/18 06/02/18 06/03/18 06/04/18 11:59 11:59 11:59 11:59 Intake Total 2859 / 2859 600 / 600 220 / 220 1420 / 1420 Output Total 1150 / 1150 3700 / 3700 Balance 2859 / 2859 -550 / -550 -3480 / -3480 1420 / 1420 Weight 178 lb 2 oz 177 lb 5 oz Microbiology Reports for the Last 24 Hours: Microbiology 05/31/18 17:15 Sputum - Expectorated Sputum Gram Stain - Final 05/31/18 17:15 Sputum - Expectorated Sputum Sputum Culture - Final Normal Respiratory Cassy - *Routine HEENT Exam Head: Present: normocephalic Eye: Present: EOMI ENT: Present: mucous membranes moist - *Routine Neck Exam Present: supple, full ROM - *Routine Respiratory Exam Present: CTA bilaterally (on 4L NC) - *Routine Cardiovascular Exam Present: RRR - *Routine Abdominal Exam Present: soft, normoactive bowel sounds - *Routine Extremities Exam Absent: edema - *Routine Skin Exam Present: intact. Absent: erythema - *Routine Neurological Exam Present: alert, oriented X3 Assessment and Plan (1) Acute and chronic respiratory failure ([id number]) Current visit: Yes Status: Acute Category: Medical Code(s): J96.20 - Acute and chronic respiratory failure, unspecified whether with hypoxia or hypercapnia (2) SOB (shortness of breath) Current visit: Yes Status: Acute Category: Medical Code(s): R06.02 - Shortness of breath (3) Acute systolic (congestive) heart failure Start date: 06/02/18 Current visit: Yes Status: Acute Category: Medical Code(s): I50.21 - Acute systolic (congestive) heart failure (4) CAD (coronary artery disease) Current visit: No Status: Chronic Qualifiers: [place] vs. transplanted heart: [place] heart Associated angina: without angina Category: Medical Code(s): I25.10 - Atherosclerotic heart disease of [place] coronary artery without angina pectoris (5) Diabetes mellitus Current visit: No Status: Chronic Qualifiers: Diabetes mellitus type: type 2 Diabetes mellitus terminal operator insulin use: with half-way use Diabetes mellitus complication status: without complication Qualified Code(s): E11.9 - Type 2 diabetes mellitus without complications; Z79.4 - senior care (current) use of insulin Category: Medical Code(s): E11.9 - Type 2 diabetes mellitus without complications (6) HTN (hypertension) Current visit: No Status: Chronic Qualifiers: Hypertension type: essential hypertension Qualified Code(s): I10 - Essential (primary) hypertension Category: Medical Code(s): I10 - Essential (primary) hypertension (7) Tobacco dependence syndrome Current visit: No Status: Chronic Category: Medical Code(s): F17.200 - Nicotine dependence, unspecified, uncomplicated (8) COPD (chronic obstructive pulmonary disease) with acute bronchitis Current visit: Yes Status: Acute Category: Medical Code(s): J44.0 - Chronic obstructive pulmonary disease with acute lower respiratory infection; J20.9 - Acute bronchitis, unspecified (9) HLD (hyperlipidemia) Current visit: No Status: Chronic Qualifiers: Hyperlipidemia type: other hyperlipidemia Category: Medical Code(s): E78.5 - Hyperlipidemia, unspecified (10) Regional wall motion abnormality of heart Current visit: Yes Status: Acute Category: Medical Code(s): R93.1 - Abnormal findings on diagnostic imaging of heart and coronary circulation (11) Diastolic heart failure Current visit: Yes Status: Acute Category: Medical Code(s): I50.30 - Unspecified diastolic (congestive) heart failure (12) Diastolic dysfunction Current visit: Yes Status: Acute Category: Medical Code(s): I51.9 - Heart disease, unspecified - Assessment and plan all Dx Assessment and Plan for all problems:: will continue oxygen supplementation, but try to wean to 2L NC as this is her home oxygen. Possible dc in 2 days.
[2018-06-04 14:28] LABS: Anion Gap 8.4 mEq/L (5-15); Calcium 8.7 mg/dL (8.5-10.1); Potassium 3.4 mmoL/L (3.5-5.1)
--- NOTE | 2018-06-04 15:31 | Discharge Summary ---
General - General Admission date:: 05/31/18 Discharge date: 06/04/18 HPI HPI: Ms. Kaba is a 57-year-old female patient of Dr. Santos with a history of COPD, coronary artery disease with stents, hypertension, left ventricular hypertrophy, type 2 diabetes mellitus, diastolic dysfunction, and tobacco dependence who presented to [facility] emergency room yesterday a.m. with progressive shortness of breath. She describes being seen by her physician 4 days ago and currently is being treated for strep throat with erythromycin. She was also started on steroids. She does wear home oxygen at night but normally does well during the daytime. She describes a nonproductive cough and no current fever. She has been eating and drinking as usual. She has had a diminished urinary output. With evaluation in the emergency room she was found to be in respiratory distress. She was thus admitted for further evaluation and treatment. This a.m. at time of exam patient states she does not feel any better. She did not sleep due to her shortness of breath. Duo nebs have not helped. She has had minimal urinary output with IV fluids at 150 an hour. She has had a labored respiratory effort and has to sit up at 90 degrees in order to breath. Hospital Course Hospital Course: Patient was admitted to our facility for acute on chronic respiratory hypercapic and hypoxic failure. She was started on Bipap and eventually weaned off to nasal cannula. Her CT studies during this stay showed worsening pulmonary lung nodules. With her being chronic smoker, this raised a concern for cancer. Dr. Garza was consulted as he sees her on outpatient basis. He suggested a bronchoscopy as outpatient and when patient is stable. Cardiac cath obtained showed diastolic heart failure with 30% on echo and 60% on LV gram. Cardiology consulted obtained as she sees Dr. Del Real. Cardiology recommended medical management at this time. During her stay, her sodium was also low, which could be 2/2 thiazides she was on as her studies for other entities was negative. So her thiazide was discontinued during this stay and her medical management was optimized for her HFpEF. She also received IV lasix, which was then swithced to PO lasix on discharge. Her potassium was low during the stay which was replaced appropriately. Upon discharge, patient was stable on her potassium levels at 3.4, tolerated her oxygen saturation above 90% with her 2L to 2.5L NC (her home supplementation that she is on). She was given 2 days worth of prednisone, nicotine patch for her smoking cessation and potassium pills for a week. Advised to f/u with her PCP, Dr. Garza and Dr. Del Real in a week. She voiced understanding to all the above. Objective Vital signs: Temp Pulse Resp BP Pulse Ox 97.5 F L 80 18 126/73 93 L 06/04/18 11:46 06/04/18 12:00 06/04/18 11:46 06/04/18 11:46 06/04/18 11:46 - *Routine HEENT Exam Head: Present: normocephalic Eye: Present: EOMI ENT: Present: mucous membranes moist - *Routine Neck Exam Present: supple, full ROM - *Routine Respiratory Exam Present: CTA bilaterally (on 2-2.5 L NC) - *Routine Cardiovascular Exam Present: RRR - *Routine Abdominal Exam Present: soft, normoactive bowel sounds - *Routine Extremities Exam Absent: edema - *Routine Skin Exam Present: intact - *Routine Neurological Exam Present: alert, oriented X3 Results Completed studies during hospitalization [Text1]: CT chest wo con IMPRESSION: 1. COPD with new ill-defined nodular opacities in the left upper lobe which may represent underlying infective process/pneumonia. Neoplasm is also a consideration. Therefore, recommend short-term follow-up in 4-6 weeks 2. There are multiple bilateral noncalcified pulmonary nodules scribed and could be related to granulomatous disease or neoplasm. 3. COPD with coronary artery disease Echo CONCLUSION: 1. Mildly enlarged left atrium, normal left ventricular size, mild concentric left ventricular hypertrophy, severely reduced left ventricular systolic function, visually estimated ejection fraction 30% with multiple segmental wall motion abnormality, grade 1 diastolic dysfunction seen with tissue Doppler evidence of raised left atrial pressure. 2. Mild mitral and tricuspid regurgitation 3. No significant pericardial effusion noted. Head CT IMPRESSION: Negative CT head without contrast. No acute finding Venous doppler IMPRESSIONS 1. There is no evidence of significant Reflux. 2. No evidence of deep or superficial vein thrombosis involving the right lower extremity and left lower extremity Labs on day of discharge: Labs from last 24 hours 06/04/18 06/04/18 06/04/18 14:04 11:56 07:30 WBC 8.7 RBC 5.06 Hgb 15.5 Hct 46.9 MCV 92.6 MCH 30.7 MCHC 33.1 RDW 13.1 Plt Count 220 MPV 7.3 L Neut % (Auto) 61.8 Lymph % (Auto) 27.3 [place] % (Auto) 9.7 H Eos % (Auto) 0.9 Baso % (Auto) 0.3 Neut # (Auto) 5.4 Lymph # (Auto) 2.4 [place] # (Auto) 0.8 Eos # (Auto) 0.1 Baso # (Auto) 0.0 Sodium 132 L Potassium 3.4 L D Chloride 87 L Carbon Dioxide 40 H Anion Gap 8.4 BUN 21 H Creatinine 0.73 Estimated Creat Clear 107 Estimated GFR 82 Est GFR ( Amer) 99 Glucose 316 H D POC Glucose 244 H Calcium 8.7 Urine Osmolality Urine Sodium 06/04/18 06/04/18 06/03/18 07:25 05:16 21:19 WBC RBC Hgb Hct MCV MCH MCHC RDW Plt Count MPV Neut % (Auto) Lymph % (Auto) [place] % (Auto) Eos % (Auto) Baso % (Auto) Neut # (Auto) Lymph # (Auto) [place] # (Auto) Eos # (Auto) Baso # (Auto) Sodium 134 L Potassium 2.6 L* Chloride 88 L Carbon Dioxide 44 H* Anion Gap 4.6 L BUN 21 H Creatinine 0.67 Estimated Creat Clear 116 Estimated GFR 90 Est GFR ( Amer) 109 Glucose 177 H POC Glucose 188 H 173 H Calcium 9.2 Urine Osmolality Urine Sodium 06/03/18 06/01/18 06/01/18 17:41 17:44 17:44 WBC RBC Hgb Hct MCV MCH MCHC RDW Plt Count MPV Neut % (Auto) Lymph % (Auto) [place] % (Auto) Eos % (Auto) Baso % (Auto) Neut # (Auto) Lymph # (Auto) [place] # (Auto) Eos # (Auto) Baso # (Auto) Sodium Potassium Chloride Carbon Dioxide Anion Gap BUN Creatinine Estimated Creat Clear Estimated GFR Est GFR ( Amer) Glucose POC Glucose 233 H Calcium Urine Osmolality 351 Urine Sodium 85 Preliminary micro results at discharge 05/31/18 11:30 Blood Culture - Preliminary Blood NO GROWTH AFTER 48 HOURS 05/31/18 11:40 Blood Culture - Preliminary Blood NO GROWTH AFTER 48 HOURS DS: Diagnosis - Discharge Diagnosis (1) Acute and chronic respiratory failure ([id number]) Status: Acute (2) SOB (shortness of breath) Status: Resolved (3) CAD (coronary artery disease) Status: Acute (4) Diabetes mellitus Status: Chronic (5) HTN (hypertension) Status: Chronic (6) Tobacco dependence syndrome Status: Chronic (7) COPD (chronic obstructive pulmonary disease) with acute bronchitis Status: Acute (8) HLD (hyperlipidemia) Status: Chronic (9) Regional wall motion abnormality of heart Status: Acute (10) Diastolic heart failure Status: Acute (11) Diastolic dysfunction Status: Acute (12) Hypokalemia Status: Resolved Discharge Plan - Patient Discharge Instructions ACTIVITY: Continue current activity DIET: continue same diet Patient Instructions: Cardiac Catheterization, DI for Pneumonia -- Adult, DI for Cardiac Catheterization, DI for Surgical Site Infection, Surgical Site Infection - Follow up Plan Follow up with: Soy Garza MD [Consulting Physician] - 1 week Joe Del Real MD [Staff Physician] - 1 week Unknown provider or service follow up:: 06/04/18 15:14 her PCP in 1 week Disposition: Home, Self-Nursing Home Medications: Home Medications Medication Instructions Recorded Confirmed Type albuterol sulfate HFA 90 2 puff INHALATION Q4-6H PRN 07/09/17 05/31/18 History mcg/actuation aerosol inhaler Carvedilol [Carvedilol 12.5mg Tab] 12.5 mg PO BID 05/31/18 05/31/18 History Clopidogrel Bisulfate [Plavix 75mg 75 mg PO DAILY 05/31/18 05/31/18 History Tab] Lisinopril/Hydrochlorothiazide 1 tab PO BID 05/31/18 05/31/18 History [Lisinopril-Hctz 20-25 mg Tab] Mometasone/Formoterol [Dulera 200 1 inhalation PO BID 05/31/18 05/31/18 History Mcg/5 Mcg Inhaler] Umeclidinium Mcgregor [Incruse 62.5 mcg IH DAILY 05/31/18 05/31/18 History Ellipta] Atorvastatin Calcium [Atorvastatin 40 mg PO HS 06/01/18 06/01/18 History 40mg Tab] Loratadine [Claritin 10mg Tablet] 10 mg PO DAILY 06/01/18 06/01/18 History Furosemide [Lasix 40mg tablet] 40 mg PO BIDL #14 tablet 06/04/18 Rx Irbesartan [Avapro 75mg 75 mg PO DAILY #30 tablet 06/04/18 Rx tablet] Nicotine [Nicoderm 21mg/24hr 21 mg TD DAILYP PRN #30 patch.td24 06/04/18 Rx patch] Potassium Chloride 20 meq PO DAILY 7 Days tablet.er 06/04/18 Rx predniSONE [Deltasone 20mg 40 mg PO DAILY 2 Days tablet 06/04/18 Rx tablet] Prescriptions/Medication Reconciliation: New Furosemide [Lasix 40mg tablet] 40 mg PO BIDL #14 tablet Irbesartan [Avapro 75mg tablet] 75 mg PO DAILY #30 tablet Nicotine [Nicoderm 21mg/24hr patch] 21 mg TD DAILYP PRN #30 patch.td24 PRN Reason: Nicotine Cravings predniSONE [Deltasone 20mg tablet] 40 mg PO DAILY 2 Days tablet Potassium Chloride 20 meq PO DAILY 7 Days tablet.er Continue albuterol sulfate HFA 90 mcg/actuation aerosol inhaler 2 puff INHALATION Q4- 6H PRN PRN Reason: Wheezing Clopidogrel Bisulfate [Plavix 75mg Tab] 75 mg PO DAILY Carvedilol [Carvedilol 12.5mg Tab] 12.5 mg PO BID Mometasone/Formoterol [Dulera 200 Mcg/5 Mcg Inhaler] 1 inhalation PO BID Umeclidinium Mcgregor [Incruse Ellipta] 62.5 mcg IH DAILY Atorvastatin Calcium [Atorvastatin 40mg Tab] 40 mg PO HS Loratadine [Claritin 10mg Tablet] 10 mg PO DAILY Discontinued Lisinopril/Hydrochlorothiazide [Lisinopril-Hctz 20-25 mg Tab] 1 tab PO BID
== END 2018-06-04 18:19 | disposition home or self-care (01) | DRG 189 ==
LOC: ER 10:37 → 2ND 13:29
PROVIDERS: ADMIT Family Medicine; ATTEND Emergency Medicine
CPT/HCPCS: 36415; 70450; 71010; 71045; 71250; 80048; 80053; 80061; 80076; 82803; 82810; 82962; 83605; 83880; 83935; 84300; 84439; 84443; 84484; 84550; 85025; 85378; 87040; 87070; 87205; 93005; 93306; 93460; 93970; 94640; 94660; 94760; 94761; 96374; 96375; 97161; 99285; J1644; J1956; J2543; J3370; Q9967

== ENCOUNTER → 2018-06-09 13:24 | Outpatient (POV) | payer OTHER, SELFPAY | PROVIDERS: Visit Provider Internal Medicine | DX: Z00.00 Encounter for general adult medical examination without abnormal findings (principal) ==

== ENCOUNTER → 2018-07-28 09:50 | Outpatient (POV) | payer OTHER, SELFPAY | PROVIDERS: Visit Provider Internal Medicine | DX: Z00.00 Encounter for general adult medical examination without abnormal findings (principal) ==

== ENCOUNTER → 2018-08-26 13:34 | Outpatient (CLI) | payer OTHER, SELFPAY ==
--- NOTE | 2018-08-26 13:44 | XR_ITS ---
XR chest 2V HISTORY: ITS.REASON: RECURRENT PNEUMONIA ORDERING PHYSICIAN: Soy Garza MD PATIENT AGE: 58 years COMPARISON: Portable upright chest 06/01/2018 FINDINGS: The cardiomediastinal silhouette and pulmonary vascularity are within normal limits. The lungs are clear without infiltrates, suspicious nodules, or pleural effusions. Mild emphysematous changes seen with hyperexpansion lung quinn and flattening of the hemidiaphragms. There is minimal atelectasis or scarring at the left costo phrenic angle No acute bony abnormalities. IMPRESSION: Negative chest, no acute finding
[2018-08-26 15:50] VITALS: BP 118/70; BP 150/90; PULSE 100; PULSE 82; RESP 16; RESP 20; O2SAT 92; O2SAT 93
[2018-08-26 16:35] VITALS: PULSE 82; PULSE 85
== END ==
PROVIDERS: PCP Physician Assistant; Visit Provider Internal Medicine
DX: J44.9 Chronic obstructive pulmonary disease, unspecified (principal); Z87.01 Personal history of pneumonia (recurrent)
CPT/HCPCS: 71046; 94060; 94618; 94640; 94727; 94729

== ENCOUNTER → 2018-09-15 14:33 | Outpatient (POV) | payer OTHER, SELFPAY | PROVIDERS: Visit Provider Internal Medicine | DX: Z00.00 Encounter for general adult medical examination without abnormal findings (principal) ==

== ENCOUNTER → 2018-12-23 13:32 | Outpatient (CLI) | payer OTHER, SELFPAY ==
--- NOTE | 2018-12-23 13:45 | CT_ITS ---
CT chest wo con HISTORY: ITS.REASON: HX RECURRENT PNEUMONIA, MULTIPLE PULMONARY NODULES ORDERING PHYSICIAN: Soy Garza MD PATIENT AGE: 58 years COMPARISON: 06/01/2018 Technique: Axial images were obtained. Sagittal, and coronal reformatted images are also generated and reviewed. All CT scans at the facility use one or more dose reduction, viz: automated exposure control, ma/kV adjustment per patient size (including targeted exams where dose is matched to indication, i.e. head), or iterative reconstruction technique. FINDINGS: There are scattered small axillary nodes. No mediastinal adenopathy. Calcified nodes are present in the mediastinum and shira. Coronary artery calcification is noted. Centrilobular emphysema. There are scattered noncalcified pulmonary nodules. 7 mm noncalcified nodule right upper lobe image #36 unchanged. 5 mm noncalcified nodule right upper lobe anteriorly new since the previous exam axial image #47 Fibrotic or atelectatic change right middle lobe 4 mm noncalcified nodule extreme right lung base not readily apparent previously axial image #65. 5 mm groundglass density right lower lobe posteriorly axial image #52 not readily apparent previously.. There are other nodular densities which were present previously on the right and which are not apparent on today's exam. 7 mm noncalcified nodule left upper lobe image #14 unchanged. 6 mm semisolid nodule left upper lobe axial image #18 near use since the previous exam. 3 mm noncalcified nodule left upper lobe laterally and left upper lobe centrally axial image #44 not readily apparent previously. Opacities in the lingula previously noted have resolved. No effusions. No lobar consolidation or collapse. No acute bony findings. IMPRESSION: 1. Centrilobular emphysema. 2. Coronary artery disease. 3. Multiple nodular opacities as described above. Some are new and some have resolved. These may be infectious or inflammatory in nature. Cannot completely exclude neoplasm. Continued follow-up recommended
== END ==
PROVIDERS: PCP Physician Assistant; Visit Provider Internal Medicine
DX: R91.8 Other nonspecific abnormal finding of lung field (principal); Z87.01 Personal history of pneumonia (recurrent)
CPT/HCPCS: 71250

== ENCOUNTER → 2019-02-12 16:41 | Outpatient (CLI) | payer OTHER, SELFPAY ==
--- NOTE | 2019-02-12 16:48 | MM_ITS ---
PROCEDURE: MM DIG SCREENING MAMM BI W/CAD CLINICAL INDICATION: ROUTINE SCREENING FOR HIGH RISK PATIENT There is no personal or family history of breast cancer. COMPARISON: The patient had previous mammograms [facility] many years ago and they were not available for review TECHNIQUE: Standard CC and MLO images were obtained. R2 CAD reviewed. FINDINGS: There scattered fibroglandular densities in both breasts on a background of fatty breast parenchyma. There is a well-defined nodular density near the axillary tail right breast likely a low-lying node. There is a possible asymmetric density central portion of the left breast only definitely seen on the MLO view. Since are no previous studies for comparison recommend the patient return for spot compression MLO view and rolled CC views. This probably is a summation shadow but I still feel additional evaluation is necessary. IMPRESSION: Fibrofatty parenchyma with possible developing asymmetric density left breast versus summation shadow BI-RAD Category: 0 Need Additional Imaging Evaluation FOLLOW-UP: IMM Immediate Follow-up Recommended (A letter has been sent to the patient regarding results of the study.) Dictated by: Dr. Niko Valles MD 02/14/2019 10:[address] Niko Valles MD in [place] 02/14/2019 10:22
== END ==
PROVIDERS: PCP Nurse Practitioner Family; Visit Provider Nurse Practitioner Family
DX: Z12.31 Encounter for screening mammogram for malignant neoplasm of breast (principal)
CPT/HCPCS: 77067

== ENCOUNTER → 2019-02-17 11:13 | Outpatient (CLI) | payer OTHER, SELFPAY ==
[2019-02-17 13:21] LABS: Anion Gap 12.9 mEq/L (5-15); Blood Urea Nitrogen 5 mg/dL (7-18); Calcium 9.3 mg/dL (8.5-10.1); Carbon Dioxide 30 mmol/L (21.0-32.0); Chloride 89 mmol/L (98-107); Creatinine,Serum 0.48 mg/dL (0.55-1.02); Estimated Glomerular Filt Rate 132 ml/min (>60); GFR (African American) 160 ML/MIN (>60); Glucose 145 mg/dL (74-106); Potassium 3.9 mmoL/L (3.5-5.1); Sodium 128 mmol/L (136-145)
== END ==
PROVIDERS: Urology; Visit Provider Internal Medicine
DX: E78.5 Hyperlipidemia, unspecified (principal); I10 Essential (primary) hypertension; I25.10 Atherosclerotic heart disease of native coronary artery without angina pectoris; Z95.5 Presence of coronary angioplasty implant and graft
CPT/HCPCS: 36415; 80048

== ENCOUNTER → 2019-02-23 12:38 | Outpatient (CLI) | payer OTHER, SELFPAY ==
--- NOTE | 2019-02-23 12:42 | MM_ITS ---
PROCEDURE: MM DIG MAMM BI DX W/CAD CLINICAL INDICATION: ABNORMAL MAMMOGRAM COMPARISON: MM DIG SCREENING MAMM BI W/CAD from 02/12/2019 TECHNIQUE: Spot-compression MLO and CC views were obtained. FINDINGS: The additional spot views suggest that the previously noted density was a summation artifact and I see no suspicious lesion at this time. Again noted is a benign-appearing calcification. IMPRESSION: Negative problem solving views BI-RAD Category: 2 Benign Finding(s) FOLLOW-UP: 1YR 1 Year Follow-up (A letter has been sent to the patient regarding results of the study.) Dictated by: Dr. Niko Valles MD 02/23/2019 13:[address] Niko Valles MD in [place] 02/23/2019 13:50
[2019-02-23 14:41] LABS: Anion Gap 12.9 mEq/L (5-15); Blood Urea Nitrogen 5 mg/dL (7-18); Calcium 9.1 mg/dL (8.5-10.1); Carbon Dioxide 30 mmol/L (21.0-32.0); Chloride 89 mmol/L (98-107); Creatinine,Serum 0.46 mg/dL (0.55-1.02); Estimated Glomerular Filt Rate 139 ml/min (>60); GFR (African American) 168 ML/MIN (>60); Glucose 117 mg/dL (74-106); Potassium 3.9 mmoL/L (3.5-5.1); Sodium 128 mmol/L (136-145)
== END ==
PROVIDERS: Urology; PCP Nurse Practitioner Family; Visit Provider Nurse Practitioner Family
DX: R92.8 Other abnormal and inconclusive findings on diagnostic imaging of breast (principal)
CPT/HCPCS: 36415; 77066; 80048

== ENCOUNTER → 2019-02-23 13:39 | Outpatient (CLI) | payer OTHER, SELFPAY | PROVIDERS: Visit Provider Urology | DX: I25.10 Atherosclerotic heart disease of native coronary artery without angina pectoris (principal) | CPT/HCPCS: 36415; 80048 ==

== ENCOUNTER → 2020-03-27 16:47 | Outpatient (CLI) | payer MEDICAID, SELFPAY ==
--- NOTE | 2020-03-27 16:51 | MM_ITS ---
PROCEDURE: MM DIG SCREENING MAMM BI W/CAD Digital Breast Tomosynthesis Included CLINICAL INDICATION: SCREENING There is a history of breast cancer in the patient's mother diagnosed at age 51 COMPARISON: [facility] MAMMO PRINCIPAL BIOINFORMATICS SPECIALIST from 03/12/2011 MG MM DIG SCREENING MAMM BI W/CAD from 02/12/2019 MG MM DIG MAMM BI DX W/CAD from 02/23/2019 TECHNIQUE: Standard CC and MLO images and 3D Tomosynthesis was obtained. R2 CAD reviewed. FINDINGS: Mild to moderate scattered fibroglandular densities are seen throughout both breasts. There is a single small benign-appearing nodular density deep within each breast near the axillary tail likely low-lying nodes. There is a benign-appearing microcalcification in each breast. There is no suspicious lesion in either breast and no suspicious microcalcifications. IMPRESSION: Fibrofatty parenchyma with no suspicious lesions seen BI-RAD Category: 2 Benign Finding(s) FOLLOW-UP: 1YR 1 Year Follow-up (A letter has been sent to the patient regarding results of the study.) Dictated by: Dr. Niko Valles MD 03/28/2020 12:37 Dr. Niko Valles MD in [place] 03/28/2020 12:37
== END ==
PROVIDERS: PCP Nurse Practitioner; Visit Provider Nurse Practitioner
DX: Z12.31 Encounter for screening mammogram for malignant neoplasm of breast (principal)
CPT/HCPCS: 77063; 77067

== ENCOUNTER 2020-08-29 21:18 | Inpatient (IN) | payer MEDICAID, SELFPAY ==
[2020-08-29] VITALS (9 sets, daily range): BP systolic 127–287; BP diastolic 48–150; PULSE 112–127; RESP 20–32; TEMP 35.9–36.6; O2SAT 90–98; BMI 41.9; BMI 28.8
--- NOTE | 2020-08-29 21:23 | XR_ITS ---
PROCEDURE: XR CHEST PORTABLE CLINICAL HISTORY: Resp distress COMPARISON: CR CXR1VP XR chest portable from 06/01/2018 CR CXR2V XR chest 2V from 08/26/[address] chest wo con from 12/23/2018 CR XR CHEST 2V from 08/12/2019 FINDINGS: Normal heart size. The vascularity on the right is sparse compared to the vascularity on the left. This could be related to radiographic technique and positioning however, right-sided pulmonary embolus would be included in the differential diagnosis. Upright PA and lateral chest may be of further value. Overlying defibrillator device is present on the left and cardiac monitoring devices are noted. No lobar consolidation or collapse. No acute bony findings. IMPRESSION: Asymmetric vascularity possibly related to technique/positioning versus large the right-sided pulmonary embolus Dictated by: Ruben Morris MD 08/30/2020 05:19 Ruben Morris MD in [place] 08/30/2020 05:19
--- NOTE | 2020-08-29 21:23 | ECG_ITS ---
APPROVED REPORT Exam: Resting ECG HR:117 bpm ECG Measurements Heart Rate 117 AXES WV 128 P 84 QRSd 70 QRS 58 QT 336 T 57 QTc 468 Conclusion Sinus tachycardia with fusion complexes Otherwise normal ECG Electronically signed by : Michael Dolan, 08/31/2020 17:32:49
--- NOTE | 2020-08-29 21:49 | HMH.EDSOB ---
ED Disposition Clinical Impression: Acute exacerbation of chronic obstructive airways disease, Severe sepsis with acute organ dysfunction, Elevated transaminase level Diastolic heart failure Qualifiers: Heart failure chronicity: acute on chronic Qualified Code(s): I50.33 - Acute on chronic diastolic (congestive) heart failure Respiratory failure with hypercapnia Qualifiers: Chronicity: acute on chronic Qualified Code(s): J96.22 - Acute and chronic respiratory failure with hypercapnia CAD (coronary artery disease) Qualifiers: Coronary Disease-Associated Artery/Lesion type: elim ira artery [place] vs. 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 The time I documented below is in addition to time spent performing reported procedures but includes the following listed in this critical care notation. Medical Decision Making - Medical Records Medical records reviewed: Yes: I reviewed the patient's medical records. - [place] Inquiry Pt receiving controlled substance: No Vital Signs: 08/29/20 21:31 08/29/20 22:04 08/29/20 22:30 Temperature 97.9 F Temperature Source Rectal Pulse Rate 114 H 123 H Pulse Rate [Right] 127 H Respiratory Rate 30 H 28 H Blood Pressure 287/107 H 204/102 H Blood Pressure [Right Arm] 216/136 H Blood Pressure Mean [Right Arm] 162 Blood Pressure Source [Right Arm] Automatic Cuff Blood Pressure Position [Right Arm] Supine 02 Sat by Pulse Oximetry 98 90 L 91 L Oxygen Delivery Method Room Air 08/29/20 22:38 Temperature Temperature Source Pulse Rate 121 H Pulse Rate [Right] Respiratory Rate Blood Pressure Blood Pressure [Right Arm] Blood Pressure Mean [Right Arm] Blood Pressure Source [Right Arm] Blood Pressure Position [Right Arm] 02 Sat by Pulse Oximetry Oxygen Delivery Method - Lab Data Lab results reviewed: Yes: I reviewed the patient's lab results. Lab Results 08/29/20 21:15: WBC 12.9 H, RBC 5.21, Hgb 16.2, Hct 50.3 H, MCV 96.5, MCH 31.2, MCHC 32.3, RDW 13.8, Plt Count 274, MPV 8.9, Neut % (Auto) 48.0, Lymph % (Auto) 45.0, [place] % (Auto) 4.9, Eos % (Auto) 0.8, Baso % (Auto) 1.3, Neut # (Auto) 6.2, Lymph # (Auto) 5.8 H, [place] # (Auto) 0.6, Eos # (Auto) 0.1, Baso # (Auto) 0.2, ESR 4 08/29/20 21:15: Sodium 137, Potassium 4.4, Chloride 101, Carbon Dioxide 29, Anion Gap 11.4, BUN 13, Creatinine 0.70, Estimated Creat Clear 55, Estimated GFR 85, Est GFR ( Amer) 103, Glucose 308 H, Calcium 9.5, Total Bilirubin 0.4, AST 464 H*, ALT 197 H, Alkaline Phosphatase 113, Troponin I < 0.01, C-Reactive Protein 5.3 H, Total Protein 7.9, Albumin 4.7, Globulin 3.2, Albumin/Globulin Ratio 1.5, Procalcitonin < 0.030 08/29/20 21:15: NT-Pro-B Natriuret Pep 520 H 08/29/20 21:15: Lactate 3.1 H 08/29/20 21:15: Urine Color Yellow, Urine Appearance Cl
[2020-08-29 21:55] LABS: Basophils # 0.2 K/mm3 (0-0.2); Basophils % 1.3 % (0.1-2.0); Eosinophils # 0.1 K/mm3 (0.0-0.4); Eosinophils % 0.8 % (0.1-12.0); Hematocrit 50.3 % (37.0-47.0); Hemoglobin 16.2 g/dL (12.2-16.2); Lymphocytes # 5.8 K/mm3 (0.7-4.5); Mean Corpuscular HGB Conc 32.3 g/dL (31.8-35.4); Mean Corpuscular Hemoglobin 31.2 pg (27.0-31.2); Mean Corpuscular Volume 96.5 fl (81-99); Mean Platelet Volume 8.9 fl (7.4-10.4); Monocytes # 0.6 K/mm3 (0.1-1.0); Monocytes % 4.9 % (1.7-9.3); Neutrophils # 6.2 K/mm3 (1.8-7.8); Platelet Count 274 K/mm3 (142-424); Red Blood Count 5.21 M/mm3 (4.20-5.40); Red Cell Distribution Width 13.8 % (11.5-17.5); White Blood Count 12.9 K/mm3 (4.8-10.8)
[2020-08-29 21:58] LABS: Chloride 101 mmol/L (98-107)
[2020-08-29 21:59] LABS: Potassium 4.4 mmoL/L (3.5-5.1); Sodium 137 mmol/L (136-145)
[2020-08-29 22:01] LABS: Alanine Aminotransferase 197 U/L (12-78); Aspartate Amino Transferase 464 U/L (14-36); Blood Urea Nitrogen 13 mg/dl (7-17); Creatinine Clearance Estimated 55 mL/min (50-200); Estimated Glomerular Filt Rate 85 ml/min (>60); GFR (African American) 103 ML/MIN (>60)
[2020-08-29 22:02] LABS: Albumin Level 4.7 g/dl (3.5-5.0); Albumin/Globulin Ratio 1.5 (1.1-1.8); Alkaline Phosphatase 113 U/L (38-126); Anion Gap 11.4 mEq/L (5-15); Bilirubin,Total 0.4 mg/dl (0.2-1.3); Calcium 9.5 mg/dl (8.4-10.2); Carbon Dioxide 29 mmol/L (22.0-30.0); Globulin 3.2 g/dL (1.3-3.2); Glucose 308 mg/dl (74-100); Total Protein,Serum 7.9 g/dl (6.3-8.2)
[2020-08-29 22:07] LABS: C-Reactive Protein 5.3 mg/L (0-4)
[2020-08-29 22:13] LABS: NT Pro Brain Natriuretic Pep. 520 pg/mL (0-125)
[2020-08-29 22:23] LABS: Erythrocyte Sedimentation Rate 4 mm/hr (0-30); Troponin I < 0.01 ng/ml (0.00-0.034)
[2020-08-29 22:34] LABS: Microscopic, Urine URINE MICROSCOPIC (MICROSCOPIC)
[2020-08-29 22:40] LABS: Appearance,Urine CLEAR (Clear); Bilirubin,Urine Negative (Negative); Blood, Urine 1+ (Negative); Color,Urine YELLOW (Yellow); Glucose,Urine (UA) 3+ (Negative); Ketones,Urine Negative (Negative); Leukocyte Esterase,Urine Negative (Negative); Nitrate,Urine Negative (Negative); PH,Urine 6.5 (5.0-8.5); Protein,Urine 3+ (Negative); Specific Gravity, Urine 1.025 (1.005-1.030); Urobilinogen,Urine 0.2 EU/dl (0.2)
[2020-08-29 22:47] LABS: Procalcitonin < 0.030 ng/mL (0.0-2.0)
[2020-08-29 22:48] LABS: Lactic Acid 3.1 mmol/L (0.7-2.1)
[2020-08-29 23:01] LABS: Bacteria,Urine 1+ /lpf; Mucus,Urine 1+ /lpf
--- NOTE | 2020-08-29 23:05 | PC.NURSE ---
Pt is now awake and A&O x 4 sitting up in bed answering questions appropriately
--- NOTE | 2020-08-29 23:44 | PC.NURSE ---
pt on floor via stretcher at [id number]
[2020-08-30] VITALS (23 sets, daily range): BP systolic 147–195; BP diastolic 88–112; PULSE 70–130; RESP 16–28; TEMP 36.6–36.9; O2SAT 93–97; BMI 28.5; BMI 28.7
[2020-08-30 03:12] LABS: Reflex Lactic Add Lactic Reflex
--- NOTE | 2020-08-30 03:42 | PC.NURSE ---
Fluid bolus complete at 0315.
[2020-08-30 03:53] LABS: Lactic Acid Follow Up (RFLX 1) 1.5 mmol/L (0.7-2.1)
[2020-08-30 03:55] LABS: Troponin I 0.08 ng/ml (0.00-0.034)
--- NOTE | 2020-08-30 05:01 | PC.WOUNDNOTE ---
Wound Location: Length: 2cm No drainage, no odor. Pt reports that she does not remember what happened.
--- NOTE | 2020-08-30 05:03 | PC.WOUNDNOTE ---
Wound Location: Right arm Width: 1/2cm No drainage, no odor.
[2020-08-30 05:22] LABS: POC Glucose,Bedside 274 (70-110)
[2020-08-30 06:05] LABS: ABG Base Excess -3.5 mmol/L (-2.4-2.3); ABG HCO3 25.7 mmhg (22.0-26.0); ABG PH 7.13 mmol/L (7.35-7.45); ABG PO2 167.1 mmhg (80-100); ABG TCO2 28.1 mmhg (23-27)
[2020-08-30 06:06] LABS: ABG Oxygen Saturation 99 % (90-100); Allen's Test ACCEPTABLE; Oxygen 100% %; Source R RADIAL
[2020-08-30 06:07] LABS: ABG Base Excess -4.2 mmol/L (-2.4-2.3); ABG HCO3 22.9 mmhg (22.0-26.0); ABG Oxygen Saturation 96 % (90-100); ABG PCO2 52.6 mmhg (35.0-45.0); ABG PH 7.26 mmol/L (7.35-7.45); ABG PO2 77.6 mmhg (80-100); ABG TCO2 24.5 mmhg (23-27)
[2020-08-30 06:08] LABS: Oxygen 40% BIPAP %
[2020-08-30 06:09] LABS: Allen's Test ACCEPTABLE; Source L RADIAL
[2020-08-30 06:20] LABS: Basophils % 0.2 % (0.1-2.0); Eosinophils % 0.3 % (0.1-12.0); Hematocrit 45.1 % (37.0-47.0); Hemoglobin 14.7 g/dL (12.2-16.2); Lymphocytes # 0.8 K/mm3 (0.7-4.5); Lymphocytes % 9.3 % (10-50); Mean Corpuscular HGB Conc 32.5 g/dL (31.8-35.4); Mean Corpuscular Volume 95.5 fl (81-99); Mean Platelet Volume 8.3 fl (7.4-10.4); Monocytes # 0.2 K/mm3 (0.1-1.0); Monocytes % 2.1 % (1.7-9.3); Neutrophils # 7.5 K/mm3 (1.8-7.8); Neutrophils % 88.1 % (37.0-80.0); Platelet Count 207 K/mm3 (142-424); Red Blood Count 4.73 M/mm3 (4.20-5.40); Red Cell Distribution Width 13.8 % (11.5-17.5); White Blood Count 8.5 K/mm3 (4.8-10.8)
[2020-08-30 06:37] LABS: Chloride 106 mmol/L (98-107)
[2020-08-30 06:38] LABS: Potassium 3.9 mmoL/L (3.5-5.1); Sodium 137 mmol/L (136-145)
[2020-08-30 06:39] LABS: MANUAL DIFFERENTIAL MANUAL DIFFERENTIAL (MANUAL DIFF)
[2020-08-30 06:40] LABS: Alanine Aminotransferase 171 U/L (12-78); Alkaline Phosphatase 119 U/L (38-126); Anion Gap 7.9 mEq/L (5-15); Aspartate Amino Transferase 198 U/L (14-36); Bilirubin,Total 0.4 mg/dl (0.2-1.3); Blood Urea Nitrogen 12 mg/dl (7-17); Carbon Dioxide 27 mmol/L (22.0-30.0); Creatinine Clearance Estimated 75 mL/min (50-200); Estimated Glomerular Filt Rate 162 ml/min (>60); GFR (African American) 196 ML/MIN (>60)
[2020-08-30 06:41] LABS: Albumin Level 4.2 g/dl (3.5-5.0); Albumin/Globulin Ratio 1.6 (1.1-1.8); Calcium 8.9 mg/dl (8.4-10.2); Chol/HDL Ratio 3.4 (1-3.5); Cholesterol 220 mg/dl (140-200); Globulin 2.7 g/dL (1.3-3.2); Glucose 282 mg/dl (74-100); HDL Cholesterol 65 mg/dl (40-60); Magnesium 1.5 mg/dl (1.6-2.3); Total Protein,Serum 6.9 g/dl (6.3-8.2); Triglycerides 66 mg/dl (30-150); VLDL Cholesterol 13 mg/dL (0-40)
[2020-08-30 06:52] LABS: Direct LDL Cholesterol 124.15 mg/dL (100-129)
--- NOTE | 2020-08-30 07:07 | PC.NURSE ---
MORRO Bee informed to give solumedrol at 0800.
[2020-08-30 07:42] LABS: Lymphocytes % 11 % (10-50); Monocytes % 2 % (2-9); Neutrophils % 87 % (42-76); Total Cells Counted 100
[2020-08-30 07:44] LABS: Platelet Estimate Normal; RBC Morphology Normal
--- NOTE | 2020-08-30 08:26 | PC.NURSE ---
BIPAP removed, placed on 2 L nasal cannula. Pt A&Ox4, sitting up in bed, verbalizes that she feels good . SPO2 currenty 97%. Continue pulse ox in place.
--- NOTE | 2020-08-30 08:37 | PC.NURSE ---
Speci cup @ bedside for sputum collection. Pt educated and aware of need for specimen.
--- NOTE | 2020-08-30 08:53 | CT_ITS ---
PROCEDURE: CT ANGIO CHEST CLINCIAL INDICATION: soa, abnormal cxr Hyperlucent right lung on radiograph COMPARISON: CT CHESTWO CT chest wo con from 12/23/2018 TECHNIQUE: IV Contrast: 70ML Isovue 370 Axial images obtained with sagittal and coronal reformats. All CT scans at the facility use one or more dose reduction, viz: automated exposure control, ma/kV adjustment per patient size (including targeted exams where dose is matched to indication, i.e. head), or iterative reconstruction technique. FINDINGS: HEART AND MEDIASTINAL STRUCTURES: Atherosclerotic calcification involves the aortic arch. Coronary artery calcifications are noted. No evidence of aortic aneurysm or dissection. There is a mild amount of mural thrombus within the descending thoracic aorta. There does appear to be a high-grade stenosis involving the ostium of the right subclavian artery with fibrocalcific plaque at this region. There is no evidence of pulmonary embolus. No mediastinal or hilar mass or adenopathy. LUNGS AND PLEURAL SPACES: COPD changes with mild bibasilar atelectasis. Atelectasis versus patchy infiltrate in the left lower lobe posteriorly there is a 7 mm nodule within the left apex. This is larger than when compared to the previous exam. The margins are somewhat irregular. Developing neoplasm is a consideration. Mild atelectatic or fibrotic changes are present in the lingula. Lobular subpleural density is present in the left lower lobe posteriorly measuring 19 by 10 mm and has developed since the previous exam. BONY STRUCTURES: No acute bony abnormalities apparent. UPPER ABDOMEN: Unremarkable. ADDITIONAL FINDINGS: No other significant abnormalities. IMPRESSION: 1. No evidence of pulmonary embolus. The hyper lucency of the right lung on the recent radiograph is felt to be technical in nature . 2. COPD with mild atelectatic changes in the lower lobes with atelectasis or patchy infiltrate in left lower lobe posteriorly. 3. 7 mm noncalcified nodule in the left apex which is slightly larger compared to the previous exam. Neoplasm is not excluded. This nodule is likely too small to be seen by PET CT and is not accessible for percutaneous biopsy. Three month follow-up suggested 4. There is a 19 x 10 mm new pleural-based nodule in the left lower lobe posteriorly. Neoplasm is a consideration. PET CT suggested for further evaluation. Dictated by: Ruben Morris MD 08/30/2020 15:50 Ruben Morris MD in [place] 08/30/2020 15:50
--- NOTE | 2020-08-30 09:03 | HMH.HP ---
*Admission Date: 08/30/20 *Chief complaint: Shortness of Breath *History of present illness: 60-year-old female presented to the emergency department via EMS in acute hypoxic respiratory failure. She was at home and has been complaining of increasing shortness of breath over the past 2 days, she does report increasing phlegm production and chest congestion. Family reports she was coughing at home turned blue and fell down, family immediately initiated CPR and EMS was activated. Upon EMS arrival patient was alert, her respiratory status was supported and she was transported to [facility] ED. She does have a longtime history of COPD, tobacco abuse, and uses home O2. She denies any fever/chills/body aches or nausea/vomiting/diarrhea Lab work in the emergency department revealed white blood cell count 12.5, H/H 16.2/50.3 Chemistry was unremarkable, lactate 3.1, and AST 464 UA negative Blood cultures x2 and sputum cultures obtained 08/29/20 CXR: FINDINGS: Normal heart size. The vascularity on the right is sparse compared to the vascularity on the left. This could be related to radiographic technique and positioning however, right-sided pulmonary embolus would be included in the differential diagnosis. Upright PA and lateral chest may be of further value. Overlying defibrillator device is present on the left and cardiac monitoring devices are noted. No lobar consolidation or collapse. No acute bony findings. IMPRESSION: Asymmetric vascularity possibly related to technique/positioning versus large the right-sided pulmonary embolus Dictated by: Arturo, 60-year-old female patient sitting up in bed, she was wearing BiPAP during the night this morning was changed to 2 L per nasal cannula and currently oxygen saturations 97%. She does report she is feeling better she denies any chest pain or shortness of breath at present [facility] History I have reviewed the patient's past medical history: Yes Medical History: Reports:: Atherosclerotic Heart Disease, Chronic Obstructive Pulmonary Disease (COPD), Coronary Artery Disease, Diabetes Mellitus Type 2, Hyperlipidemia, Hypertension Denies:: Cancer, Diabetes Mellitus Type 1, MRSA *Have you ever received a pneumonia vaccine?: No *Have you received a flu vaccine this season?: No Other Surgeries: Yes: Cardiac Catheterization, Coronary Stent, Amputation: No Fractures: Yes (tailbone, wrist) - *Social History Smoking Status: Current every day smoker Tobacco Type: cigarettes # Packs/Day (cigarettes): 1 Alcohol Intake: never Alcohol Intake Frequency:: other Substance Use Type: denies use *Occupational Status:: retired Housing: house Household Members: spouse *Travel in the last 8 weeks: None Family Hx:: Unable to obtain Review of Systems - Review of Systems Review of systems:: pertinent systems reviewed and negative unless documented below - Constitutional Denies anorexia, Denies fever(s) - Eyes Denies blurry vision, Denies double vision - ENT Denies dental pain, Denies sinus pressure - *Cardiovascular Reports shortness of breath, Denies chest pain, Denies chest pain at rest - *Respiratory Reports chest congestion, Reports cough, Reports shortness of breath - *Gastrointestinal Denies abdominal pain, Denies change in bowel habits - Integumentary/Breasts Denies hair loss, Denies yellowing of the skin - *Neurologic Denies localized weakness, Denies headache(s), Denies seizure-like activity - Psychiatric Denies lack of enjoyment, Denies sensing things others do not sense - Endocrine Denies cold intolerance, Denies heat intolerance - Hematologic/Lymphatic Denies easy bleeding, Denies enlarged lymph nodes - Allergic/Immunologic Denies GI upset with certain foods, Denies throat swelling Meds Home Medications Medication Instructions Recorded Confirmed Type albuterol sulfate 90 mcg/actuation 2 puff INHALATION Q4-6H PRN 07/09/17
--- NOTE | 2020-08-30 09:30 | PC.NURSE ---
929 - Pt allergic to contrast, states she gets a rash all over and her throat swells, written orders received from Dr. Morris for pt to receive 200 mg Solu-cortef IV 5 hours prior to CTA. 1 hour prior to CTA pt is to recieve additional dose of 200 mg of IV solu-cortef and [address] pt NPO prior to CTA.
--- NOTE | 2020-08-30 09:39 | HMH.PULMCON ---
*Reason for consult:: COPD exacerbation. *History of present illness: 60-year-old female significant smoking history currently smoking, history of COPD on long-term oxygen therapy 2 L Breo and Incruse at home, diastolic heart failure presented to the pulmonary clinic to evaluate for her acute hypoxic respiratory failure. As per the patient and the family patient had his worsening respiratory status for the last 2 days associated with cough and increasing phlegm production. Patient before presentation ED turn blue and the family member initiated CPR gave her more breathing and EMS arrived and then patient gradually improved. Patient denies any chest pain or hemoptysis or lower extremity swelling or pain. [facility] History Medical History: Reports:: Atherosclerotic Heart Disease, Chronic Obstructive Pulmonary Disease (COPD), Coronary Artery Disease, Diabetes Mellitus Type 2, Hyperlipidemia, Hypertension Denies:: Cancer, Diabetes Mellitus Type 1, MRSA *Have you ever received a pneumonia vaccine?: No *Have you received a flu vaccine this season?: No Other Surgeries: Yes: Cardiac Catheterization, Coronary Stent, Amputation: No Fractures: Yes (tailbone, wrist) - *Social History Smoking Status: Current every day smoker Tobacco Type: cigarettes # Packs/Day (cigarettes): 1 Alcohol Intake: never Alcohol Intake Frequency:: other Substance Use Type: denies use *Occupational Status:: retired Housing: house Household Members: spouse *Travel in the last 8 weeks: None Family Hx:: Unable to obtain ROS - Cons Reports chills, Reports lack of energy - ENT Denies ear pain, Denies facial pain, Denies post nasal drip - Card Reports shortness of breath, Reports shortness of breath with activity - Resp Respiratory: Reports change in phlegm color, Reports chest congestion, Reports cough, Reports excessive phlegm production, Denies coughing up blood, Denies pain with breathing - GI Gastrointestingal: Denies: abdominal pain - [place] Musculoskeletal: Reports back pain Meds Home Medications Medication Instructions Recorded Confirmed Type albuterol sulfate 90 mcg/actuation 2 puff INHALATION Q4-6H PRN 07/09/17 08/30/20 History aerosol inhaler Loratadine [Claritin 10mg 10 mg PO DAILY 06/01/18 08/30/20 History Tablet] bupropion HCl 150 mg tablet,12 hr 150 mg PO BID 02/03/19 08/30/20 History sustained-release metformin 500 mg tablet 1,000 mg PO BID tab 06/02/19 08/30/20 History furosemide 40 mg tablet 40 mg PO BID PRN #60 tab 03/02/20 08/30/20 Rx carvedilol 25 mg tablet 25 mg PO BID #60 tab 04/27/20 08/30/20 Rx clopidogrel 75 mg tablet 75 mg PO DAILY #90 tab 04/27/20 08/30/20 Rx Ipratropium/Albuterol Sulfate 3 ml IH QID 08/29/20 08/30/20 History [Duoneb 3mL neb] levoFLOXacin [Levaquin 500mg 500 mg PO DAILY 08/29/20 08/30/20 History tab] lisinopriL [Prinivil 20mg Tablet] 20 mg PO BID 08/29/20 08/30/20 History predniSONE [Prednisone 20mg 20 mg PO BID 08/29/20 08/30/20 History Tab] Allergies Allergy/AdvReac Type Severity Reaction Status Date / Time Iodinated Contrast Media Allergy Intermediate I-RASH/SOB/ Verified 08/30/20 00:00 [Iodinated Contrast Media - Anaphlaxis IV Dye] Exam - Constitutional Constitutional:: Present: no acute distress, comfortable - HENMT Exam HENMT: Present: normocephalic, atraumatic - Eye Exam Eyes:: Present: normal appearance both eyes and related structures, eyelids normal - Neck Exam Neck:: Present: normal visual inspection - Respiratory Exam Respiratory:: Present: able to speak in complete sentences. Absent: wheezing Comments: Bilateral clear but significantly decreased breath sounds - Cardiovascular Exam Cardiac:: Present: S1, S2 - GI Exam GI:: Present: soft - Skin Exam Skin: Present: warm, no rash - Neurological Exam Neurological: Present: alert, awake, normal cognition - Extremities Exam Extremities: Present: no cyanosis, n
--- NOTE | 2020-08-30 10:28 | P.CONPHA_ITS ---
[facility] Pharmacy VTE Monitoring - Patient Demographics Admission date: 08/29/20 Report Date: 08/30/20 Time: 10:28 Allergies/Adverse Reactions: Patient Allergies Iodinated Contrast Media [Iodinated Contrast Media - IV Dye] Allergy (Intermediate, Verified 08/30/20 00:00) I-RASH/SOB/Anaphlaxis Height: 1.68 m Weight: 80.541 kg Patient Problems: Current Active Problems (Last Reviewed 05/31/18 @ 11:35 by Angie Johnson, EMT) Diastolic heart failure (Acute) Acute exacerbation of chronic obstructive airways disease (Acute) Severe sepsis with acute organ dysfunction (Acute) Respiratory failure with hypercapnia (Acute) Obesity (Acute) Elevated transaminase level (Acute) Diabetes mellitus (Chronic) CAD (coronary artery disease) (Chronic) - VTE Risk Labs: VTE Related Lab Results Hgb 14.7 g/dL (12.2-16.2) 08/30/20 06:04 Hct 45.1 % (37.0-47.0) 08/30/20 06:04 Plt Count 207 K/mm3 (142-424) 08/30/20 06:04 BUN 12 mg/dl (7-17) 08/30/20 06:04 Creatinine 0.40 mg/dl (0.52-1.04) L D 08/30/20 06:04 Estimated Creat Clear 75 mL/min (50-200) 08/30/20 06:04 VTE Score: 5 VTE Risk Level: Low Risk - Prophylaxis VTE Prophylaxis Ordered?: Yes Types of VTE Prophylaxis: TEDS Knee High, Pharmacological Location of Applied Device: Bilateral Lower Extremeties Pharmacologic Type: Enoxaparin
--- NOTE | 2020-08-30 10:29 | HMH.CNCARD ---
History of Present Illness Consult date: 08/30/20 Requesting physician: Uvaldo King Consult reason: shortness of breath Chief complaint: SOA History of present illness: This is a 60-year-old white female who presented to the emergency department in acute hypoxic respiratory failure. The patient was at home when she became profoundly short of breath. She states that she had had worsening shortness of breath for approximately 2 days. This shortness of breath was associated with orthopnea and a cough with phlegm production. The patient states that she had severe shortness of breath at home. Her family reports that she turned blue and her family members initiated CPR. EMS arrived and the patient's breathing was supported and she did gradually improve. When she got to the emergency department the patient was treated for her acute hypoxic respiratory failure with a BiPAP. This morning she states that she is feeling much better. She denies any chest pain or pressure. She denies any lower extremity edema. She denies any fever, chills, nausea, vomiting, diarrhea or PND. The patient's preliminary echocardiogram shows a preserved ejection fraction of 50% with mild MR. She does have abnormal chest x-ray. Her initial ABG is consistent with a COPD exacerbation as the cause of her symptoms. Her liver enzymes are elevated. [facility] History I have reviewed the patient's past medical history: Yes Medical History: Reports:: Atherosclerotic Heart Disease, Chronic Obstructive Pulmonary Disease (COPD), Coronary Artery Disease, Diabetes Mellitus Type 2, Hyperlipidemia, Hypertension Denies:: Cancer, Diabetes Mellitus Type 1, MRSA *Have you ever received a pneumonia vaccine?: No *Have you received a flu vaccine this season?: No Other Surgeries: Yes: Cardiac Catheterization, Coronary Stent, Amputation: No Fractures: Yes (tailbone, wrist) - *Social History Smoking Status: Current every day smoker Tobacco Type: cigarettes # Packs/Day (cigarettes): 1 Alcohol Intake: never Alcohol Intake Frequency:: other Substance Use Type: denies use *Occupational Status:: retired Housing: house Household Members: spouse *Travel in the last 8 weeks: None Family Hx:: Unable to obtain Meds Home Medications Medication Instructions Recorded Confirmed Type albuterol sulfate 90 mcg/actuation 2 puff INHALATION Q4-6H PRN 07/09/17 08/30/20 History aerosol inhaler Loratadine [Claritin 10mg 10 mg PO DAILY 06/01/18 08/30/20 History Tablet] bupropion HCl 150 mg tablet,12 hr 150 mg PO BID 02/03/19 08/30/20 History sustained-release furosemide 40 mg tablet 40 mg PO BID PRN #60 tab 03/02/20 08/30/20 Rx carvedilol 25 mg tablet 25 mg PO BID #60 tab 04/27/20 08/30/20 Rx clopidogrel 75 mg tablet 75 mg PO DAILY #90 tab 04/27/20 08/30/20 Rx lisinopriL [Prinivil 20mg Tablet] 20 mg PO BID 08/29/20 08/30/20 History predniSONE [Prednisone 20mg 20 mg PO TID 08/29/20 08/30/20 History Tab] Albuterol Sulfate [Albuterol 2.5 mg IH QIDP PRN 08/30/20 08/30/20 History 0.083% 2.5mg/3mL neb] Doxycycline Hyclate [Doxycycline 100 mg PO BID 08/30/20 08/30/20 History 100mg Capsule] Fluticasone Propionate [Flonase 1 spray NS BID 08/30/20 08/30/20 History Allergy Relief NS] Fluticasone/Vilanterol [Breo 1 puff IH DAILY 08/30/20 08/30/20 History Ellipta 100-25 Mcg INH] Metformin HCl [Metformin 1000mg 1,000 mg PO BID 08/30/20 08/30/20 History Tablets] Allergies Allergy/AdvReac Type Severity Reaction Status Date / Time Iodinated Contrast Media Allergy Intermediate I-RASH/SOB/ Verified 08/30/20 00:00 [Iodinated Contrast Media - Anaphlaxis IV Dye] Exam Vital signs and Labs for Last 24 Hours: Temp Pulse Resp BP Pulse Ox 98.1 F 102 H 18 168/96 H 93 L 08/30/20 08:00 08/30/20 08:00 08/30/20 08:00 08/30/20 08:00 08/30/20 08:34 Laboratory Results - last 24 hr 08/29/20 21:11: Specimen Source R radial, O2 % 100%, ABG
[2020-08-30 10:32] LABS: POC Glucose,Bedside 199 (70-110)
--- NOTE | 2020-08-30 10:35 | HMH.PHAINT ---
MEDICATION RECONCILIATION COMPLETED ON PATIENT USING EXTERNAL FILL HISTORY FROM PHARMACY AND LIST FROM CARDIOLOGY OFFICE. -EH ACHARYAD
[2020-08-30 11:11] LABS: Opiate Screen,Urine Negative ng/ml (<300)
[2020-08-30 11:12] LABS: Phencyclidine Screen,Urine Negative ng/ml (<25)
[2020-08-30 11:13] LABS: Amphetamine/Metha Screen,Urine Negative ng/ml (<1000)
[2020-08-30 11:14] LABS: Barbiturates Screen,Urine Negative ng/ml (<200)
[2020-08-30 11:15] LABS: Benzodiazepines Screen,Urine Negative ng/ml (<200)
[2020-08-30 11:17] LABS: Cannabinoid Screen,Urine Negative ng/ml (<50)
[2020-08-30 11:18] LABS: Cocaine Screen,Urine Negative ng/ml (<300); Methadone Screen,Urine Negative ng/ml (<300)
--- NOTE | 2020-08-30 14:09 | PC.NURSE ---
Let Corie in CT know that alexis-cortef and benadryl have been given. Pt to have CT one hour after admin.
--- NOTE | 2020-08-30 15:16 | PC.NURSE ---
Going down @ this time for CTA
--- NOTE | 2020-08-30 15:50 | PC.NURSE ---
Pt is back from CTA. Reports feeling fine . Denies CP, SOA, itchy throat/skin or any s/s of reaction from contrast. Educated pt on possible reaction from contrast, verbalizes understanding. Pt on tely and cont pulse ox. Will continue to monitor.
[2020-08-30 16:19] LABS: POC Glucose,Bedside 187 (70-110)
--- NOTE | 2020-08-30 19:24 | PC.NURSE ---
No acute changes this shift. Remains on 2 L O2 per nasal cannula w/ no s/s of resp distress. Hr regular. Abdomen soft, non-tender w/ active Bs in all quads. Pt has had a BM this shift. Voiding w/o difficulty since scooby was DC'd this shift. Ambulates w/ standby assistance of staff w/ no safety concerns. No needs voiced. @ bedside.
[2020-08-31] VITALS (16 sets, daily range): BP systolic 145–202; BP diastolic 78–118; PULSE 66–109; RESP 16–28; TEMP 36.5–36.8; O2SAT 90–97; BMI 28.3
[2020-08-31 00:49] LABS: POC Glucose,Bedside 249 (70-110)
--- NOTE | 2020-08-31 05:04 | PC.NURSE ---
A&OX4. PT TOLERATING 2LNC WHILE AWAKE AND DOING WELL WITH BIPAP WHILE SLEEPING. PT HAS HAD NO C/O THUS FAR. PT HAS RESTED WELL T/O THIS SHIFT. PT HAS HAD INTERMITTENT DRY COUGH. VSS WILL CONTINUE TO MONITOR.
[2020-08-31 05:42] LABS: POC Glucose,Bedside 229 (70-110)
--- NOTE | 2020-08-31 08:37 | CA_ITS ---
APPROVED REPORT Cremator: Lindsay Blair RVT Study Quality: Good Indications: malignant htn Risk Factors Hypertension Hyperlipidemia Diabetes Smoking Renal Artery Doppler Origin (R) 124.2/ cm/sec Proximal (R) 206.6/ cm/sec Mid (R) 142.8/ cm/sec Distal (R) 251.8/ cm/sec Renal Aorta Ratio (R) 3.11 Segmental A. (R) 32.5/12.1 cm/sec RI: 0.62 Segmental A. Sup (R) 30.7/13.9 cm/sec Segmental A. Mid (R) 32.5/12.1 cm/sec Segmental A. Inf (R) 32.5/11.2 cm/sec Origin (L) 92.5/ cm/sec Proximal (L) 124.2/ cm/sec Mid (L) 218.2/ cm/sec Distal (L) 171.9/ cm/sec Renal Aorta Ratio (L) 2.70 Segmental A. (L) 60.7/7.2 cm/sec RI: 0.88 Segmental A. Sup (L) 60.7/7.2 cm/sec Segmental A. Mid (L) 57.8/17.3 cm/sec Segmental A. Inf (L) 59.2/17.3 cm/sec Renal Measurements Kidney Size (R) 12.2x7.4 cm Cortical Thickness (R) 1.4 cm Kidney Size (L) 12.1x7.9 cm Cortical Thickness (L) 1.3 cm Findings Study suggests greater than 60% stenosis of the right renal artery. Study suggests less than 60% stenosis of the left renal artery. Conclusion Study suggests greater than 60% stenosis of the right renal artery. Study suggests less than 60% stenosis of the left renal artery. Electronically signed by : Ruben Morris MD 08/31/2020 14:56:27
--- NOTE | 2020-08-31 08:55 | US_ITS ---
PROCEDURE: US KIDNEY CLINICAL INDICATION: malignant htn COMPARISON: US CA RENAL ARTERY DUPLEX from 08/31/2020 FINDINGS: The right kidney is [id number]. No hydronephrosis, cortical thinning, or renal mass or perinephric fluid collection is evident. The left kidney is [id number]. No hydronephrosis, cortical thinning, or renal mass or perinephric fluid collection is evident. 1.8 cm cyst of the left kidney upper pole IMPRESSION: Small left renal cyst otherwise negative bilateral renal ultrasound Dictated by: Ruben Morris MD 08/31/2020 14:20 Ruben Morris MD in [place] 08/31/2020 14:20
--- NOTE | 2020-08-31 09:17 | HMH.PNCARD ---
Subjective Date: 08/31/20 Time: 09:00 Principal diagnosis: COPD exacerbation, elevated troponin Interval history: This is a 60-year-old white female who presented to the emergency department with acute hypoxic respiratory failure. She was placed on BiPAP and now has transitioned to oxygen via nasal cannula. This morning she states that she is feeling much better. She denies any chest pain or pressure. She denies any lower extremity edema. She states that her shortness of breath is significantly improved. She states she still has some mild shortness of breath with exertion but this is much better than it was. She denies any fever, chills, nausea, vomiting, diarrhea, PND orthopnea. Exam Vital signs and Labs for Last 24 Hours: Temp Pulse Resp BP Pulse Ox 97.9 F 89 18 202/118 H 95 08/31/20 07:50 08/31/20 07:50 08/31/20 07:50 08/31/20 07:50 08/31/20 07:50 Laboratory Results - last 24 hr 08/30/20 10:04: POC Glucose 199 H 08/30/20 10:40: Urine Opiates Screen Negative, Urine Methadone Screen Negative, Ur Barbituates Screen Negative, Ur Phencyclidine Scrn Negative, Ur Amphetamines Screen Negative, U Benzodiazepines Scrn Negative, Urine Cocaine Screen Negative, U Marijuana (THC) Screen Negative 08/30/20 15:46: POC Glucose 187 H 08/30/20 20:24: POC Glucose 249 H 08/31/20 05:12: POC Glucose 229 H I & O for Last 24 hours: Intake & Output 08/28/20 08/29/20 08/30/20 08/31/20 23:59 23:59 23:59 23:59 Intake Total 1999 2464 / 2464 994 / 994 Output Total 2400 / 2400 500 / 500 Balance 1999 64 / 64 494 / 494 Weight 179 lb 1 oz 178 lb 9.191 oz 176 lb 4 oz Microbiology Reports for the Last 24 Hours: Microbiology 08/30/20 10:15 Sputum - Expectorated Sputum Sputum Culture - Preliminary Narrative: CTA chest shows: 1. No evidence of pulmonary embolus. The hyper lucency of the right lung on the recent radiograph is felt to be technical in nature . 2. COPD with mild atelectatic changes in the lower lobes with atelectasis or patchy infiltrate in left lower lobe posteriorly. 3. 7 mm noncalcified nodule in the left apex which is slightly larger compared to the previous exam. Neoplasm is not excluded. This nodule is likely too small to be seen by PET CT and is not accessible for percutaneous biopsy. Three month follow-up suggested 4. There is a 19 x 10 mm new pleural-based nodule in the left lower lobe posteriorly. Neoplasm is a consideration. PET CT suggested for further evaluation. - Constitutional no acute distress, average body habitus - *Routine HEENT Exam Head: Present: normocephalic, atraumatic Eye: Present: EOMI, PERRL ENT: Present: mucous membranes moist - *Routine Neck Exam Present: supple, full ROM, normal carotid upstroke. Absent: JVD, carotid bruit, lymphadenopathy - *Routine Respiratory Exam Present: decreased breath sounds, CTA bilaterally - *Routine Cardiovascular Exam Present: RRR, Normal S1, Normal S2. Absent: murmur - *Routine Abdominal Exam Present: soft, normoactive bowel sounds. Absent: tenderness, distended, rebound - *Routine Extremities Exam Present: full ROM, pulses intact, normal capillary refill. Absent: cyanosis, clubbing, edema - *Routine Skin Exam Present: intact, warm. Absent: erythema, rash - *Routine Neurological Exam Present: alert, oriented X3, CN II-XII intact. Absent: sensory deficit, motor deficit Progress Note: A&P (1) SOB (shortness of breath) Status: Acute (2) COPD (chronic obstructive pulmonary disease) with acute bronchitis Status: Acute (3) Acute and chronic respiratory failure ([id number]) Status: Acute (4) Acute exacerbation of chronic obstructive airways disease Status: Acute (5) Obesity Status: Acute (6) Diastolic dysfunction Status: Chronic (7) Left ventricular hypertrophy Status: Chronic (8) Tobacco dependence syndrome Status: Chronic (9) CAD (coronary artery
--- NOTE | 2020-08-31 09:47 | HMH.PULMPN ---
Internal Medicine - PN: Subj *Date: 08/31/20 *Time: 09:47 Interval history: Patient respiratory status continued to improve. Exam - Constitutional Constitutional:: Present: no acute distress, comfortable - HENMT Exam HENMT: Present: normocephalic, atraumatic - Eye Exam Eyes:: Present: normal appearance both eyes and related structures - Neck Exam Neck:: Present: normal visual inspection - Respiratory Exam Respiratory:: Present: able to speak in complete sentences, lungs clear, crackles. Absent: wheezing Comments: Bilateral clear but decreased breath sounds except for bibasilar crackles heard - Cardiovascular Exam Cardiac:: Present: S1, S2 - GI Exam GI:: Present: soft - Skin Exam Skin: Present: warm, no rash - Neurological Exam Neurological: Present: alert, normal cognition - Extremities Exam Extremities: Present: no cyanosis, no clubbing, no edema Assessment and Plan (1) SOB (shortness of breath) Status: Acute Category: Medical Code(s): R06.02 - Shortness of breath (2) COPD (chronic obstructive pulmonary disease) with acute bronchitis Status: Acute Category: Medical Code(s): J44.0 - Chronic obstructive pulmonary disease with (acute) lower respiratory infection; J20.9 - Acute bronchitis, unspecified (3) Acute and chronic respiratory failure ([id number]-[id number]) Status: Acute Category: Medical Code(s): J96.20 - Acute and chronic respiratory failure, unspecified whether with hypoxia or hypercapnia (4) Acute exacerbation of chronic obstructive airways disease Status: Acute Category: Medical Code(s): J44.1 - Chronic obstructive pulmonary disease with (acute) exacerbation (5) Obesity Status: Acute Qualifiers: Obesity type: due to excess calories Obesity classification: adult class 3 (BMI >= 40) Serious obesity comorbidity presence: with serious comorbidity Body mass index: BMI 40.0-44.9 Qualified Code(s): E66.01 - Morbid (severe) obesity due to excess calories; Z68.41 - Body mass index [BMI]40.0-44.9, adult Category: Medical Code(s): E66.9 - Obesity, unspecified (6) Diastolic dysfunction Status: Chronic Category: Medical Code(s): I51.9 - Heart disease, unspecified (7) Left ventricular hypertrophy Status: Chronic Category: Medical Code(s): I51.7 - Cardiomegaly (8) Tobacco dependence syndrome Status: Chronic Category: Medical Code(s): F17.200 - Nicotine dependence, unspecified, uncomplicated (9) CAD (coronary artery disease) Status: Chronic Qualifiers: Coronary Disease-Associated Artery/Lesion type: [place] artery [place] vs. transplanted heart: [place] heart Associated angina: unspecified whether angina present Qualified Code(s): I25.10 - Atherosclerotic heart disease of [place] coronary artery without angina pectoris Category: Medical Code(s): I25.10 - Atherosclerotic heart disease of [place] coronary artery without angina pectoris - Assessment and plan all Dx Assessment and Plan for all problems:: #COPD exacerbation: 60-year-old greater than [id number] current smoker carries a diagnosis of COPD on Breo and Incruse at home along with nebulizer, long-term oxygen therapy at 2 L, DM and diastolic heart failure was presented to the hospital with worsening respiratory failure. Respiratory failure start worsening for the last 2 days however patient with presentation to the ED almost became hypoxic turn blue and the family initiated CPR. Denies any pain with coughing or hemoptysis. Chest x-ray did not show any parenchymal abnormality is however showed his vascular markings in the right hilum. CTA performed did not show any evidence of pulmonary embolism. Mild interstitial changes in both lung bases along with new lung nodules COVID-19 PCR negative. Blood cultures pending. Plan: -Incentive spirometry -Continue ceftriaxone azithromycin for possible community-acquired pneumonia, can de-escalate to levofloxacin on discharge x 5 day
--- NOTE | 2020-08-31 09:50 | SW/DCPLANNER ---
Addendum entered by Francisca Stewart 09/01/20 09:32: Maday Jason with [employer] has stated that a new concentrator and nebulizer will be delivered to patients home today. Patient stated that her son will be home today for delivery. Original Note: I spoke with this patient this morning regarding discharge plans. Patient stated that she resides at home with family and will have transportation to all appointments. Patient stated that she has home O2 (only at night) and a nebulizer machine from [facility]. Patient stated that she has some concern about her concentrator at home. I have called [employer] and spoke with Rosa Elena: once patient returns home they will service/change out concentrator machine. I will also review room air sats on this patient to see if continuous home O2 is needed at discharge. Patient did not have any further needs at this time.
[2020-08-31 10:19] LABS: Basophils % 0.1 % (0.1-2.0); Eosinophils # 0.1 K/mm3 (0.0-0.4); Eosinophils % 0.6 % (0.1-12.0); Hematocrit 43.3 % (37.0-47.0); Hemoglobin 14.4 g/dL (12.2-16.2); Lymphocytes # 1.1 K/mm3 (0.7-4.5); Lymphocytes % 10.6 % (10-50); Mean Corpuscular HGB Conc 33.1 g/dL (31.8-35.4); Mean Corpuscular Hemoglobin 30.6 pg (27.0-31.2); Mean Corpuscular Volume 92.3 fl (81-99); Mean Platelet Volume 8.5 fl (7.4-10.4); Monocytes # 0.4 K/mm3 (0.1-1.0); Monocytes % 3.9 % (1.7-9.3); Neutrophils % 84.7 % (37.0-80.0); Platelet Count 198 K/mm3 (142-424); Red Blood Count 4.69 M/mm3 (4.20-5.40); Red Cell Distribution Width 13.9 % (11.5-17.5); White Blood Count 10.6 K/mm3 (4.8-10.8)
[2020-08-31 10:27] LABS: Chloride 103 mmol/L (98-107); Sodium 137 mmol/L (136-145)
[2020-08-31 10:28] LABS: Potassium 3.8 mmoL/L (3.5-5.1)
[2020-08-31 10:31] LABS: Anion Gap 8.8 mEq/L (5-15); Blood Urea Nitrogen 14 mg/dl (7-17); Calcium 9.5 mg/dl (8.4-10.2); Carbon Dioxide 29 mmol/L (22.0-30.0); Creatinine Clearance Estimated 75 mL/min (50-200); Estimated Glomerular Filt Rate 162 ml/min (>60); GFR (African American) 196 ML/MIN (>60); Glucose 242 mg/dl (74-100)
[2020-08-31 12:20] LABS: POC Glucose,Bedside 244 (70-110)
--- NOTE | 2020-08-31 13:13 | HMH.ACPN2 ---
Internal Medicine - PN: Subj *Date: 08/31/20 *Time: 08:00 Interval history: pt sitting up in chair states she is feeling better. Exam Vital signs and Labs for Last 24 Hours: Temp Pulse Resp BP Pulse Ox 98.0 F 88 20 180/110 H 92 L 08/31/20 12:00 08/31/20 12:00 08/31/20 12:00 08/31/20 12:00 08/31/20 12:32 Laboratory Results - last 24 hr 08/30/20 15:46: POC Glucose 187 H 08/30/20 20:24: POC Glucose 249 H 08/31/20 05:12: POC Glucose 229 H 08/31/20 10:10: WBC 10.6, RBC 4.69, Hgb 14.4, Hct 43.3, MCV 92.3, MCH 30.6, MCHC 33.1, RDW 13.9, Plt Count 198, MPV 8.5, Neut % (Auto) 84.7 H, Lymph % (Auto) 10.6, [place] % (Auto) 3.9, Eos % (Auto) 0.6, Baso % (Auto) 0.1, Neut # (Auto) 9.0 H, Lymph # (Auto) 1.1, [place] # (Auto) 0.4, Eos # (Auto) 0.1, Baso # (Auto) 0.0 08/31/20 10:10: Sodium 137, Potassium 3.8, Chloride 103, Carbon Dioxide 29, Anion Gap 8.8, BUN 14, Creatinine 0.40 L, Estimated Creat Clear 75, Estimated GFR 162, Est GFR ( Amer) 196, Glucose 242 H, Calcium 9.5 08/31/20 12:13: POC Glucose 244 H I & O for Last 24 hours: Intake & Output 08/29/20 08/30/20 08/31/20 09/01/20 11:59 11:59 11:59 11:59 Intake Total 3780 / 3780 1678 / 1678 Output Total 800 / 800 3000 / 3000 Balance 2980 / 2980 -1322 / -1322 Weight 177 lb 9 oz 176 lb 4 oz Microbiology Reports for the Last 24 Hours: Microbiology 08/30/20 10:15 Sputum - Expectorated Sputum Sputum Culture - Preliminary - Constitutional no acute distress - *Routine HEENT Exam Head: Present: normocephalic Eye: Present: PERRL ENT: Present: mucous membranes moist - *Routine Neck Exam Present: supple. Absent: lymphadenopathy - *Routine Respiratory Exam Present: wheezes - *Routine Cardiovascular Exam Present: RRR - *Routine Abdominal Exam Present: soft, normoactive bowel sounds. Absent: tenderness - *Routine Extremities Exam Present: normal capillary refill. Absent: cyanosis, clubbing, edema - *Routine Skin Exam Present: warm. Absent: rash - *Routine Neurological Exam Present: alert, oriented X3 - Routine Psychiatric Exam Present: normal affect Assessment and Plan (1) SOB (shortness of breath) Status: Acute Category: Medical Code(s): R06.02 - Shortness of breath (2) COPD (chronic obstructive pulmonary disease) with acute bronchitis Status: Acute Category: Medical Code(s): J44.0 - Chronic obstructive pulmonary disease with (acute) lower respiratory infection; J20.9 - Acute bronchitis, unspecified (3) Acute and chronic respiratory failure ([id number]) Status: Acute Category: Medical Code(s): J96.20 - Acute and chronic respiratory failure, unspecified whether with hypoxia or hypercapnia (4) Acute exacerbation of chronic obstructive airways disease Status: Acute Category: Medical Code(s): J44.1 - Chronic obstructive pulmonary disease with (acute) exacerbation (5) Obesity Status: Acute Qualifiers: Obesity type: due to excess calories Obesity classification: adult class 3 (BMI >= 40) Serious obesity comorbidity presence: with serious comorbidity Body mass index: BMI 40.0-44.9 Qualified Code(s): E66.01 - Morbid (severe) obesity due to excess calories; Z68.41 - Body mass index [BMI]40.0-44.9, adult Category: Medical Code(s): E66.9 - Obesity, unspecified (6) Diastolic dysfunction Status: Chronic Category: Medical Code(s): I51.9 - Heart disease, unspecified (7) Left ventricular hypertrophy Status: Chronic Category: Medical Code(s): I51.7 - Cardiomegaly (8) Tobacco dependence syndrome Status: Chronic Category: Medical Code(s): F17.200 - Nicotine dependence, unspecified, uncomplicated (9) CAD (coronary artery disease) Status: Chronic Qualifiers: Coronary Disease-Associated Artery/Lesion type: [place] artery [place] vs. transplanted heart: [place] heart Associated angina: unspecified whether angina present Qualified Code(s): I25.10 - [place]
[2020-08-31 17:06] LABS: POC Glucose,Bedside 237 (70-110)
--- NOTE | 2020-08-31 18:25 | PC.NURSE ---
Pt has been pleasant and cooperative this shift. A&O X4. No complaints of pain or SOA. Pt is receiving O2 via NC @ 2 LPM with sats. >90%. Lung sounds reveal scattered crackles. Skin is C/D/I. No edema noted. Telemetry reveals NSR. Pt ambulates with stand-by assistance to/from the bathroom and throughout the room. Pt has sat up in the recliner for the majority of the shift. Pt uses the toilet to void clear, yellow urine without issue. No BM this shift. B/P this AM noted to be elevated. After administration of AM medications, B/P improved for a short period. At noon, B/P noted to be elevated once again. Notified Nura Kirkland APRN and received an order for Lasix 40 MG BID. After first dose, B/P improved and has since remained stable. 18 G peripheral IV in the RT AC is patent and infusing NS @ 50 ML/HR. Call light within reach. Will continue to monitor.
[2020-08-31 20:18] LABS: POC Glucose,Bedside 214 (70-110)
[2020-09-01] VITALS (54 sets, daily range): BP systolic 120–201; BP diastolic 66–110; PULSE 50–89; RESP 16–22; TEMP 36.4–36.9; O2SAT 90–97; BMI 26.4
--- NOTE | 2020-09-01 | IR_ITS ---
APPROVED REPORT Patient Location: Inpatient Director Cost: ÁNGEL Goss RT (R) PROCEDURES Bilateral selective renal angiogram Drug-eluting stent and bare-metal stent deployment to the right renal artery INDICATION Fibromuscular dysplasia of the right renal artery, Abnormal renal duplex showing greater than 60% stenosis in the right renal artery, Renovascular hypertension, Malignant hypertension Informed consent was obtained prior to the procedure. COMPLICATIONS None Estimated Blood Loss: less than 10ml TECHNIQUE 1% lidocaine used to anesthetize the right femoral groin. The right femoral artery was accessed via the Seldinger technique. A 4 [place] sheath was placed in the right femoral artery. The JR4 catheter was used to selectively intubate each renal artery. At the end of the diagnostic angiogram therapeutic heparin was administered and the 4 [place] sheath was exchanged for a 7 [place] sheath. Short PIMENTEL guide catheter was placed in the right renal artery. A Choice PT extra-support wire was placed distally and a 5 mm x 30 mm resolute Sebastian stent was deployed at 24 racheal reducing the stenosis. A Herculink 6 mm x 12 mm bare-metal stent was then deployed in the proximal segment of the renal artery overlapping the first stent and deployed at 20 racheal. The balloon was then advanced into the distal portion of the 5 mm stent and deployed repeatedly up and down its axis at 20 racheal. After achieving excellent angiographic results the apparatus was removed the patient was transferred to the postop holding her stable condition for sheath removal ANGIOGRAPHIC RESULTS The left renal artery is singular and has an ostial 10 to 20% stenosis The right renal artery singular and has fibromuscular dysplasia in the mid to distal portion of the main renal artery IMPRESSION Severe fibromuscular dysplasia involving the right renal artery Successful stenting of the proximal mid and distal right renal artery with both a bare-metal stent and a drug-eluting stent combined reducing the severe stenosis to less than 10% PLAN 1. Dual antiplatelet therapy 2. Treatment of hypertension 3. Continue medical management Electronically signed by : Joe Del Real, 09/01/2020 12:16:34
--- NOTE | 2020-09-01 02:51 | PC.NURSE ---
PT REFUSED TO WEAR BIPAP.
--- NOTE | 2020-09-01 03:42 | PC.NURSE ---
Pt A&O x4 and has slept well through the night. No c/o pain. PT refused to wear bipap through the night. Lungs are diminished with fine crackles, on 2L NC. BPs have been stable, 145/82. UOP has been adequate, pt has had out approx 2000ml out this shift. Pt able to ambulate independently. Bowel soudns x4, abd soft and nontender. IV patent, NS @ 50. Call light in reach, no concerns at this time.
--- NOTE | 2020-09-01 08:24 | PC.NURSE ---
Room air sat at rest 84%. Placed pt back on 3L recovered to 91%.
[2020-09-01 08:33] LABS: POC Glucose,Bedside 185 (70-110)
--- NOTE | 2020-09-01 08:33 | HMH.PNCARD ---
Subjective Date: 09/01/20 Time: 08:33 Principal diagnosis: COPD exacerbation, elevated troponin Interval history: 60-year-old white female sitting up in bed in no acute distress. Discussed the findings of the renal duplex with the suggestion of renal artery stenosis noted and recommendation for renal angiogram with intervention if required. Patient does have a history of anaphylactic reaction to contrast and shellfish, however if pre-treated she states she has never had the reaction. Exam Vital signs and Labs for Last 24 Hours: Temp Pulse Resp BP Pulse Ox 98.4 F 75 22 148/98 H 91 L 09/01/20 04:00 09/01/20 06:40 09/01/20 04:00 09/01/20 04:00 09/01/20 08:24 Laboratory Results - last 24 hr 08/31/20 10:10: WBC 10.6, RBC 4.69, Hgb 14.4, Hct 43.3, MCV 92.3, MCH 30.6, MCHC 33.1, RDW 13.9, Plt Count 198, MPV 8.5, Neut % (Auto) 84.7 H, Lymph % (Auto) 10.6, [place] % (Auto) 3.9, Eos % (Auto) 0.6, Baso % (Auto) 0.1, Neut # (Auto) 9.0 H, Lymph # (Auto) 1.1, [place] # (Auto) 0.4, Eos # (Auto) 0.1, Baso # (Auto) 0.0 08/31/20 10:10: Sodium 137, Potassium 3.8, Chloride 103, Carbon Dioxide 29, Anion Gap 8.8, BUN 14, Creatinine 0.40 L, Estimated Creat Clear 75, Estimated GFR 162, Est GFR ( Amer) 196, Glucose 242 H, Calcium 9.5 08/31/20 12:13: POC Glucose 244 H 08/31/20 16:40: POC Glucose 237 H 08/31/20 20:04: POC Glucose 214 H I & O for Last 24 hours: Intake & Output 08/29/20 08/30/20 08/31/20 09/01/20 11:59 11:59 11:59 11:59 Intake Total 3780 / 3780 1678 / 1678 1442 / 1442 Output Total 800 / 800 3000 / 3000 2900 / 2900 Balance 2980 / 2980 -1322 / -1322 -1458 / -1458 Weight 177 lb 9 oz 176 lb 4 oz 164 lb 5 oz Microbiology Reports for the Last 24 Hours: Microbiology 08/29/20 21:15 Blood Blood Culture - Preliminary NO GROWTH AFTER 48 HOURS 08/29/20 21:15 Blood Blood Culture - Preliminary NO GROWTH AFTER 48 HOURS 08/30/20 10:15 Sputum - Expectorated Sputum Sputum Culture - Preliminary - Constitutional no acute distress - *Routine HEENT Exam Head: Present: normocephalic Eye: Present: EOMI, PERRL ENT: Present: mucous membranes moist - *Routine Neck Exam Present: supple. Absent: lymphadenopathy - *Routine Respiratory Exam Present: decreased breath sounds, CTA bilaterally, diminished air movement - *Routine Cardiovascular Exam Present: RRR - *Routine Abdominal Exam Present: soft, normoactive bowel sounds. Absent: tenderness - *Routine Extremities Exam Absent: cyanosis, clubbing, edema - *Routine Skin Exam Present: warm. Absent: rash - *Routine Neurological Exam Present: alert, oriented X3 Progress Note: A&P (1) SOB (shortness of breath) Status: Acute (2) COPD (chronic obstructive pulmonary disease) with acute bronchitis Status: Acute (3) Acute and chronic respiratory failure ([id number]) Status: Acute (4) Acute exacerbation of chronic obstructive airways disease Status: Acute (5) Obesity Status: Acute (6) Diastolic dysfunction Status: Chronic (7) Left ventricular hypertrophy Status: Chronic (8) Tobacco dependence syndrome Status: Chronic (9) CAD (coronary artery disease) Status: Chronic (10) Malignant hypertension Status: Acute (11) Renal artery stenosis Status: Acute Assessment and Plan for All Diagnoses:: 1. Due to abnormal renal duplex and patient's admission blood pressure consistent with malignant hypertension, will pretreat for history of iodine contrast allergy and proceed with renal angiogram with planned intervention as indicated. Would recommend keeping the patient overnight for observation post procedure. Continue high-dose Coreg, amlodipine and lisinopril. 2. CAD, mild to mod by cath, 05/2018. Continue medical management. Echo this admission shows EF 55 to 60% with no wall motion abnormalities. Continue Plavix.
--- NOTE | 2020-09-01 09:20 | HMH.PULMPN ---
Internal Medicine - PN: Subj *Date: 09/01/20 *Time: 13:23 Interval history: No acute respiratory vents overnight. Exam - Constitutional Constitutional:: Present: no acute distress, comfortable - HENMT Exam HENMT: Present: atraumatic - Eye Exam Eyes:: Present: eyelids normal - Neck Exam Neck:: Present: normal visual inspection, thyroid normal - Respiratory Exam Respiratory:: Present: able to speak in complete sentences, lungs clear, no respiratory distress. Absent: wheezing - Cardiovascular Exam Cardiac:: Present: S1, S2 - GI Exam GI:: Present: soft - Skin Exam Skin: Present: warm, no rash - Neurological Exam Neurological: Present: alert, awake, normal cognition - Extremities Exam Extremities: Present: no cyanosis, no clubbing Assessment and Plan (1) SOB (shortness of breath) Status: Acute Category: Medical Code(s): R06.02 - Shortness of breath (2) COPD (chronic obstructive pulmonary disease) with acute bronchitis Status: Acute Category: Medical Code(s): J44.0 - Chronic obstructive pulmonary disease with (acute) lower respiratory infection; J20.9 - Acute bronchitis, unspecified (3) Acute and chronic respiratory failure ([id number]) Status: Acute Category: Medical Code(s): J96.20 - Acute and chronic respiratory failure, unspecified whether with hypoxia or hypercapnia (4) Acute exacerbation of chronic obstructive airways disease Status: Acute Category: Medical Code(s): J44.1 - Chronic obstructive pulmonary disease with (acute) exacerbation (5) Obesity Status: Acute Qualifiers: Obesity type: due to excess calories Obesity classification: adult class 3 (BMI >= 40) Serious obesity comorbidity presence: with serious comorbidity Body mass index: BMI 40.0-44.9 Qualified Code(s): E66.01 - Morbid (severe) obesity due to excess calories; Z68.41 - Body mass index [BMI]40.0-44.9, adult Category: Medical Code(s): E66.9 - Obesity, unspecified (6) Diastolic dysfunction Status: Chronic Category: Medical Code(s): I51.9 - Heart disease, unspecified (7) Left ventricular hypertrophy Status: Chronic Category: Medical Code(s): I51.7 - Cardiomegaly (8) Tobacco dependence syndrome Status: Chronic Category: Medical Code(s): F17.200 - Nicotine dependence, unspecified, uncomplicated (9) CAD (coronary artery disease) Status: Chronic Qualifiers: Coronary Disease-Associated Artery/Lesion type: [place] artery [place] vs. transplanted heart: [place] heart Associated angina: unspecified whether angina present Qualified Code(s): I25.10 - Atherosclerotic heart disease of [place] coronary artery without angina pectoris Category: Medical Code(s): I25.10 - Atherosclerotic heart disease of [place] coronary artery without angina pectoris (10) Malignant hypertension Status: Acute Category: Medical Code(s): I10 - Essential (primary) hypertension (11) Renal artery stenosis Status: Acute Category: Medical Code(s): I70.1 - Atherosclerosis of renal artery - Assessment and plan all Dx Assessment and Plan for all problems:: #COPD exacerbation: 60-year-old greater than [id number] current smoker carries a diagnosis of COPD on Breo and Incruse at home along with nebulizer, long-term oxygen therapy at 2 L, DM and diastolic heart failure was presented to the hospital with worsening respiratory failure. Respiratory failure start worsening for the last 2 days however patient with presentation to the ED almost became hypoxic turn blue and the family initiated CPR. Denies any pain with coughing or hemoptysis. Chest x-ray did not show any parenchymal abnormality is however showed his vascular markings in the right hilum. CTA performed did not show any evidence of pulmonary embolism. Mild interstitial changes in both lung bases along with new lung nodules COVID-19 PCR negative. Blood cultures pending. Patient respiratory status currently at baseline.
[2020-09-01 12:39] LABS: CATHL Activated Clotting Time > 400 SEC (74-125)
--- NOTE | 2020-09-01 14:23 | DIET.NUTRFU ---
Pt with no nutritional concerns. PO intakes 50%, BG [id number]. 240, suspect error in 12# weight loss recorded over past 24h. Continuing to monitor.
--- NOTE | 2020-09-01 15:58 | PC.NURSE ---
[address] TYSON TO MAKE AWARE OF PY HYPERTENSION. 0.1 MG CLONIDINE ORDERED AND ADMIN AT [id number].
--- NOTE | 2020-09-01 15:59 | PC.NURSE ---
1530 PT HYPERTENSION PERSISTING. PAGED DR TYSON AGAIN. AWAITING CALL BACK
--- NOTE | 2020-09-01 17:17 | PC.NURSE ---
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
--- NOTE | 2020-09-01 18:48 | PC.NURSE ---
Increased o2 4lpm. Sats 91% on 3lpm
--- NOTE | 2020-09-01 19:49 | HMH.ACPN2 ---
Internal Medicine - PN: Subj *Date: 09/01/20 *Time: 09:00 Interval history: pt laying in bed states she is feeling well today, plans for procedure today Exam Vital signs and Labs for Last 24 Hours: Temp Pulse Resp BP Pulse Ox 98.3 F 62 18 169/105 H 97 09/01/20 18:49 09/01/20 18:49 09/01/20 18:49 09/01/20 18:49 09/01/20 18:49 Laboratory Results - last 24 hr 08/31/20 20:04: POC Glucose 214 H 09/01/20 05:33: POC Glucose 185 H 09/01/20 12:03: Activated Clotting Time > 400 H* I & O for Last 24 hours: Intake & Output 08/30/20 08/31/20 09/01/20 09/02/20 11:59 11:59 11:59 11:59 Intake Total 3780 / 3780 1678 / 1678 1442 / 1442 Output Total 800 / 800 3000 / 3000 2900 / 2900 0 / 0 Balance 2980 / 2980 -1322 / -1322 -1458 / -1458 0 / 0 Weight 177 lb 9 oz 176 lb 4 oz 164 lb 5 oz Microbiology Reports for the Last 24 Hours: Microbiology 08/30/20 10:15 Sputum - Expectorated Sputum Sputum Culture - Preliminary 08/29/20 21:15 Blood Blood Culture - Preliminary NO GROWTH AFTER 48 HOURS 08/29/20 21:15 Blood Blood Culture - Preliminary NO GROWTH AFTER 48 HOURS - Constitutional no acute distress - *Routine HEENT Exam Head: Present: normocephalic Eye: Present: PERRL ENT: Present: mucous membranes moist - *Routine Neck Exam Present: supple. Absent: lymphadenopathy - *Routine Respiratory Exam Present: wheezes - *Routine Cardiovascular Exam Present: RRR - *Routine Abdominal Exam Present: soft, normoactive bowel sounds. Absent: tenderness - *Routine Extremities Exam Present: normal capillary refill. Absent: cyanosis, clubbing, edema - *Routine Skin Exam Present: warm. Absent: rash - *Routine Neurological Exam Present: alert, oriented X3 - Routine Psychiatric Exam Present: normal affect Assessment and Plan (1) SOB (shortness of breath) Status: Acute Category: Medical Code(s): R06.02 - Shortness of breath (2) COPD (chronic obstructive pulmonary disease) with acute bronchitis Status: Acute Category: Medical Code(s): J44.0 - Chronic obstructive pulmonary disease with (acute) lower respiratory infection; J20.9 - Acute bronchitis, unspecified (3) Acute and chronic respiratory failure ([id number]-[id number]) Status: Acute Category: Medical Code(s): J96.20 - Acute and chronic respiratory failure, unspecified whether with hypoxia or hypercapnia (4) Acute exacerbation of chronic obstructive airways disease Status: Acute Category: Medical Code(s): J44.1 - Chronic obstructive pulmonary disease with (acute) exacerbation (5) Obesity Status: Acute Qualifiers: Obesity type: due to excess calories Obesity classification: adult class 3 (BMI >= 40) Serious obesity comorbidity presence: with serious comorbidity Body mass index: BMI 40.0-44.9 Qualified Code(s): E66.01 - Morbid (severe) obesity due to excess calories; Z68.41 - Body mass index [BMI]40.0-44.9, adult Category: Medical Code(s): E66.9 - Obesity, unspecified (6) Diastolic dysfunction Status: Chronic Category: Medical Code(s): I51.9 - Heart disease, unspecified (7) Left ventricular hypertrophy Status: Chronic Category: Medical Code(s): I51.7 - Cardiomegaly (8) Tobacco dependence syndrome Status: Chronic Category: Medical Code(s): F17.200 - Nicotine dependence, unspecified, uncomplicated (9) CAD (coronary artery disease) Status: Chronic Qualifiers: Coronary Disease-Associated Artery/Lesion type: [place] artery [place] vs. transplanted heart: [place] heart Associated angina: unspecified whether angina present Qualified Code(s): I25.10 - Atherosclerotic heart disease of [place] coronary artery without angina pectoris Category: Medical Code(s): I25.10 - Atherosclerotic heart disease of [place] coronary artery without angina pectoris (10) Malignant hypertension Status: Acute Category: Medi
[2020-09-01 22:43] LABS: POC Glucose,Bedside 231 (70-110)
[2020-09-01 22:44] LABS: POC Glucose,Bedside 383 (70-110)
[2020-09-02] VITALS (7 sets, daily range): BP systolic 126–157; BP diastolic 75–91; PULSE 50–75; RESP 17–20; TEMP 36.6–36.9; O2SAT 90–95; BMI 26.4
--- NOTE | 2020-09-02 06:24 | PC.NURSE ---
patient rested with eyes closed most of shift; VS stable; shows no s/s of acute distress noted at this time; call light within reach; bed at lowest level for safety; will continue to monitor.
[2020-09-02 06:41] LABS: POC Glucose,Bedside 188 (70-110)
[2020-09-02 07:16] LABS: Basophils % 0.1 % (0.1-2.0); Eosinophils % 0.2 % (0.1-12.0); Hematocrit 42.2 % (37.0-47.0); Hemoglobin 14.3 g/dL (12.2-16.2); Lymphocytes # 1.1 K/mm3 (0.7-4.5); Lymphocytes % 17.2 % (10-50); Mean Corpuscular Volume 91.4 fl (81-99); Mean Platelet Volume 8.5 fl (7.4-10.4); Monocytes # 0.5 K/mm3 (0.1-1.0); Monocytes % 6.9 % (1.7-9.3); Neutrophils % 75.7 % (37.0-80.0); Platelet Count 168 K/mm3 (142-424); Red Blood Count 4.62 M/mm3 (4.20-5.40); Red Cell Distribution Width 13.6 % (11.5-17.5); White Blood Count 6.6 K/mm3 (4.8-10.8)
[2020-09-02 07:21] LABS: Chloride 98 mmol/L (98-107); Sodium 137 mmol/L (136-145)
[2020-09-02 07:25] LABS: Anion Gap 7.9 mEq/L (5-15); Blood Urea Nitrogen 19 mg/dl (7-17); Calcium 9.2 mg/dl (8.4-10.2); Carbon Dioxide 34 mmol/L (22.0-30.0); Creatinine Clearance Estimated 70 mL/min (50-200); Estimated Glomerular Filt Rate 125 ml/min (>60); GFR (African American) 152 ML/MIN (>60); Glucose 211 mg/dl (74-100)
[2020-09-02 07:38] LABS: Potassium 2.9 mmoL/L (3.5-5.1)
--- NOTE | 2020-09-02 07:53 | PC.NURSE ---
golf professional physician DR. WIN notified of critical potassium 0744 via telephone.
--- NOTE | 2020-09-02 13:06 | HMH.DCSUM ---
General - General Admission date:: 08/29/20 Discharge date: 09/02/20 HPI HPI: 60-year-old female presented to the emergency department via EMS in acute hypoxic respiratory failure. She was at home and has been complaining of increasing shortness of breath over the past 2 days, she does report increasing phlegm production and chest congestion. Family reports she was coughing at home turned blue and fell down, family immediately initiated CPR and EMS was activated. Upon EMS arrival patient was alert, her respiratory status was supported and she was transported to [facility] ED. She does have a longtime history of COPD, tobacco abuse, and uses home O2. She denies any fever/chills/body aches or nausea/vomiting/diarrhea Lab work in the emergency department revealed white blood cell count 12.5, H/H 16.2/50.3 Chemistry was unremarkable, lactate 3.1, and AST 464 UA negative Blood cultures x2 and sputum cultures obtained 08/29/20 CXR: FINDINGS: Normal heart size. The vascularity on the right is sparse compared to the vascularity on the left. This could be related to radiographic technique and positioning however, right-sided pulmonary embolus would be included in the differential diagnosis. Upright PA and lateral chest may be of further value. Overlying defibrillator device is present on the left and cardiac monitoring devices are noted. No lobar consolidation or collapse. No acute bony findings. IMPRESSION: Asymmetric vascularity possibly related to technique/positioning versus large the right-sided pulmonary embolus Dictated by: Arturo, 60-year-old female patient sitting up in bed, she was wearing BiPAP during the night this morning was changed to 2 L per nasal cannula and currently oxygen saturations 97%. She does report she is feeling better she denies any chest pain or shortness of breath at present Hospital Course Hospital Course: Patient was seen by cardiology for a markedly elevated blood pressure. Renal Artery Doppler Origin (R) 124.2/ cm/sec Proximal (R) 206.6/ cm/sec Mid (R) 142.8/ cm/sec Distal (R) 251.8/ cm/sec Renal Aorta Ratio (R) 3.11 Segmental A. (R) 32.5/12.1 cm/sec RI: 0.62 Segmental A. Sup (R) 30.7/13.9 cm/sec Segmental A. Mid (R) 32.5/12.1 cm/sec Segmental A. Inf (R) 32.5/11.2 cm/sec Origin (L) 92.5/ cm/sec Proximal (L) 124.2/ cm/sec Mid (L) 218.2/ cm/sec Distal (L) 171.9/ cm/sec Renal Aorta Ratio (L) 2.70 Segmental A. (L) 60.7/7.2 cm/sec RI: 0.88 Segmental A. Sup (L) 60.7/7.2 cm/sec Segmental A. Mid (L) 57.8/17.3 cm/sec Segmental A. Inf (L) 59.2/17.3 cm/sec Renal Measurements Kidney Size (R) 12.2x7.4 cm Cortical Thickness (R) 1.4 cm Kidney Size (L) 12.1x7.9 cm Cortical Thickness (L) 1.3 cm Findings Study suggests greater than 60% stenosis of the right renal artery. Study suggests less than 60% stenosis of the left renal artery. Conclusion Study suggests greater than 60% stenosis of the right renal artery. Study suggests less than 60% stenosis of the left renal artery. On 09-01-20 she was taken to the quality assurance qa lab analyst ANGIOGRAPHIC RESULTS The left renal artery is singular and has an ostial 10 to 20% stenosis The right renal artery singular and has fibromuscular dysplasia in the mid to distal portion of the main renal artery IMPRESSION Severe fibromuscular dysplasia involving the right renal artery Successful stenting of the proximal mid and distal right renal artery with both a bare-metal stent and a drug-eluting stent combined reducing the severe stenosis to less than 10% PLAN 1. Dual antiplatelet therapy 2. Treatment of hypertension 3. Continue medical management She was seen by pulmonology service. CTA chest was performed in ER on admission 1. No evidence of pulmonary embolus
--- NOTE | 2020-09-02 14:37 | HMH.PHACLD ---
Cody Kaba has received discharge medication counseling on the following medications: ASPIRIN PLAVIX LIPITOR COREG LISINOPRIL PATIENT VERBALIZED UNDERSTANDING AND HAD NO QUESTIONS AT THIS TIME. ALL NEW PRESCRIPTIONS WERE SENT TO CLINIC PHARMACY. -EH ACHARYAD
[2020-09-02 15:53] LABS: POC Glucose,Bedside 197 (70-110)
== END 2020-09-02 16:00 | disposition home or self-care (01) | DRG 166 ==
LOC: ER 23:02 → 2ND 08-30 08:34
PROVIDERS: Internal Medicine; Nurse Practitioner Family; Admitting Provider Family Medicine; Emergency Provider Emergency Medicine; Visit Provider Family Medicine
PROC: 047934Z Dilation of Right Renal Artery with Drug-eluting Intraluminal Device, Percutaneous Approach (ICD-10-PCS; principal; 2020-09-01 10:00)
DX: J96.22 Acute and chronic respiratory failure with hypercapnia (principal); I50.33 Acute on chronic diastolic (congestive) heart failure; J44.0 Chronic obstructive pulmonary disease with (acute) lower respiratory infection; I11.0 Hypertensive heart disease with heart failure; I25.10 Atherosclerotic heart disease of native coronary artery without angina pectoris; E11.9 Type 2 diabetes mellitus without complications; Z91.041 Radiographic dye allergy status; E66.9 Obesity, unspecified; Z79.84 Long term (current) use of oral hypoglycemic drugs; E78.5 Hyperlipidemia, unspecified; F17.210 Nicotine dependence, cigarettes, uncomplicated; Z99.81 Dependence on supplemental oxygen; Z79.51 Long term (current) use of inhaled steroids; Z79.52 Long term (current) use of systemic steroids; Z68.26 Body mass index [BMI] 26.0-26.9, adult; J20.9 Acute bronchitis, unspecified; Z95.5 Presence of coronary angioplasty implant and graft; R74.8 Abnormal levels of other serum enzymes; I34.0 Nonrheumatic mitral (valve) insufficiency; R77.8 Other specified abnormalities of plasma proteins; R91.8 Other nonspecific abnormal finding of lung field; I70.1 Atherosclerosis of renal artery
CPT/HCPCS: 37236 ×2; 36415; 71045; 71275; 76770; 80048; 80053; 80061; 80305; 81001; 82803; 82962; 83605; 83735; 83880; 84145; 84484; 85007; 85025; 85347; 85651; 86140; 87040; 87070; 87077; 87186; 87205; 93005; 93306; 93976; 94640; 94660; 94760; 94761; 96365; 96367; 96375; 99152; 99153; 99285; C1725; C1769; C1876; C1894; J0456; J1644; J2720; Q9967; U0003

== ENCOUNTER → 2020-09-18 15:07 | Outpatient (CLI) | payer MEDICAID, SELFPAY ==
--- NOTE | 2020-09-18 15:24 | XR_ITS ---
PROCEDURE: XR FOOT RT 2V CLINICAL INDICATION: right foot pain and bruising. COMPARISON: No exams were available for comparison FINDINGS: No foot fracture or dislocation is evident. Minimally displaced distal fibular fracture noted as described in the ankle report. IMPRESSION: Negative foot Dictated by: Ruben Morris MD 09/18/2020 15:48 Ruben Morris MD in [place] 09/18/2020 15:48
--- NOTE | 2020-09-18 15:24 | XR_ITS ---
PROCEDURE: XR ANKLE RT MIN 3V CLINICAL INDICATION: right foot pain and bruising. COMPARISON: No exams were available for comparison FINDINGS: There is a minimally offset fracture involving the distal shaft of the fibula. The fracture exits medially at the level of the ankle joint. The distal fracture fragment is displaced laterally by 2 mm. There is overlying soft tissue swelling. There is good alignment. The ankle mortise is preserved. IMPRESSION: Minimally displaced distal fibular fracture with soft tissue Dictated by: Ruben Morris MD 09/18/2020 15:47 Ruben Morris MD in [place] 09/18/2020 15:47
[2020-09-18 15:44] LABS: Basophils # 0.1 K/mm3 (0-0.2); Basophils % 0.8 % (0.1-2.0); Eosinophils # 0.1 K/mm3 (0.0-0.4); Eosinophils % 1.3 % (0.1-12.0); Hematocrit 39.9 % (37.0-47.0); Hemoglobin 13.3 g/dL (12.2-16.2); Lymphocytes # 3.3 K/mm3 (0.7-4.5); Mean Corpuscular HGB Conc 33.3 g/dL (31.8-35.4); Mean Corpuscular Hemoglobin 30.8 pg (27.0-31.2); Mean Corpuscular Volume 92.7 fl (81-99); Monocytes # 0.9 K/mm3 (0.1-1.0); Monocytes % 10.1 % (1.7-9.3); Neutrophils # 4.7 K/mm3 (1.8-7.8); Neutrophils % 51.8 % (37.0-80.0); Platelet Count 283 K/mm3 (142-424); Red Blood Count 4.31 M/mm3 (4.20-5.40); Red Cell Distribution Width 13.3 % (11.5-17.5); White Blood Count 9.1 K/mm3 (4.8-10.8)
[2020-09-18 16:19] LABS: Anion Gap 11.9 mEq/L (5-15); Blood Urea Nitrogen 5 mg/dl (7-17); Calcium 9.4 mg/dl (8.4-10.2); Carbon Dioxide 33 mmol/L (22.0-30.0); Chloride 96 mmol/L (98-107); Estimated Glomerular Filt Rate 125 ml/min (>60); GFR (African American) 152 ML/MIN (>60); Glucose 60 mg/dl (74-100); Potassium 3.9 mmoL/L (3.5-5.1); Sodium 137 mmol/L (136-145)
== END ==
PROVIDERS: PCP Nurse Practitioner; Visit Provider Urology
DX: I10 Essential (primary) hypertension (principal); R06.02 Shortness of breath; I25.10 Atherosclerotic heart disease of native coronary artery without angina pectoris; E11.9 Type 2 diabetes mellitus without complications; E78.5 Hyperlipidemia, unspecified; M79.671 Pain in right foot; F17.200 Nicotine dependence, unspecified, uncomplicated; Z95.5 Presence of coronary angioplasty implant and graft; Z79.84 Long term (current) use of oral hypoglycemic drugs
CPT/HCPCS: 73610; 73620; 80048; 85025

== ENCOUNTER → 2020-10-13 14:16 | Outpatient (CLI) | payer MEDICAID, SELFPAY ==
--- NOTE | 2020-10-13 14:20 | CT_ITS ---
PROCEDURE INFORMATION: Exam: CT Chest Without Contrast; Diagnostic Exam date and time: 10/13/2020 2:20 PM Age: 60 years old Clinical indication: Screening exam; Other screening; Additional info: Lung nodule TECHNIQUE: Imaging protocol: Diagnostic computed tomography of the chest without contrast. Radiation optimization: All CT scans at this facility use at least one of these dose optimization techniques: automated exposure control; mA and/or kV adjustment per patient size (includes targeted exams where dose is matched to clinical indication); or iterative reconstruction. COMPARISON: CT ANGIO CHEST 08/30/2020 3:23 PM FINDINGS: Lungs: Atelectasis in the right middle lobe No pulmonary nodule identified. Pleural spaces: Unremarkable. No pneumothorax. No pleural effusion. Heart: Unremarkable. No cardiomegaly. No pericardial effusion. Aorta: Unremarkable. No aortic aneurysm. Other arteries: Stent in the right renal artery Lymph nodes: Unremarkable. No enlarged lymph nodes. Bones/joints: Multiple healing anterior rib fractures bilaterally.. Soft tissues: Unremarkable. IMPRESSION: 1. Multiple healing anterior rib fractures bilaterally.. 2. No pulmonary nodule identified.
== END ==
PROVIDERS: PCP Nurse Practitioner; Visit Provider Internal Medicine Pulmonary Disease
DX: J96.92 Respiratory failure, unspecified with hypercapnia (principal)
CPT/HCPCS: 71250

== ENCOUNTER → 2020-10-30 10:37 | Outpatient (CLI) | payer MEDICAID, SELFPAY ==
--- NOTE | 2020-10-30 10:43 | US_ITS ---
APPROVED REPORT Exam Type: Lower Extremity Segmental Pressures Sign Carpenter: Lindsay Blair RVT Indications Edema Current Smoker Risk Factors Hypertension CAD Hyperlipidemia TIA/CVA History Current Smoker Pressures/Indices Right Indices Left Indices Brachial 215.00 mmHg Brachial 205.00 mmHg Low Thigh 212.00 mmHg 0.99 Low Thigh 205.00 mmHg 0.95 Calf 204.00 mmHg 0.95 Calf 203.00 mmHg 0.94 Ankle(PT) 207.00 mmHg 0.96 Ankle(PT) 208.00 mmHg 0.97 Ankle(DP) 215.00 mmHg 1.00 Ankle(DP) 198.00 mmHg 0.92 Digit 136.00 mmHg 0.63 Digit 162.00 mmHg 0.75 Findings RT PAUL:1.00 LT PAUL:0.97 RT TBI:0.63 LT TBI:0.75 DAMPANED WAVEFORMS LEFT ANKLE NORMAL PULSES BILATERAL Conclusion RT PAUL:1.00 LT PAUL:0.97 RT TBI:0.63 LT TBI:0.75 DAMPANED WAVEFORMS LEFT ANKLE NORMAL PULSES BILATERAL NORMAL ABIs Electronically signed by : Ruben Morris MD 10/30/2020 17:45:11
== END ==
PROVIDERS: PCP Nurse Practitioner; Visit Provider Nurse Practitioner
DX: R22.42 Localized swelling, mass and lump, left lower limb (principal)
CPT/HCPCS: 93923

== ENCOUNTER → 2021-03-03 10:06 | Outpatient (CLI) | payer MEDICAID, SELFPAY | PROVIDERS: Visit Provider Ophthalmology | DX: Z01.812 Encounter for preprocedural laboratory examination (principal); Z11.52 Encounter for screening for COVID-19 | CPT/HCPCS: C9803; U0003; U0005 ==

== ENCOUNTER 2021-03-06 07:57 | Day surgery (SDC) | payer MEDICAID, SELFPAY ==
[2021-02-28 14:50] VITALS: BMI 28.8
[2021-03-06] VITALS (8 sets, daily range): BP systolic 162–205; BP diastolic 77–104; PULSE 97–110; RESP 18–20; TEMP 36.3–36.7; O2SAT 94–96
[2021-03-06 08:47] LABS: POC Glucose,Bedside 181 (70-110)
== END 2021-03-06 10:09 | disposition home or self-care (01) ==
LOC: OR 07:58
PROVIDERS: PCP Nurse Practitioner; Visit Provider Ophthalmology
PROC: (CPT 66984; principal; 2021-03-06 10:00)
DX: H25.811 Combined forms of age-related cataract, right eye (principal); H02.831 Dermatochalasis of right upper eyelid; H02.834 Dermatochalasis of left upper eyelid; J44.9 Chronic obstructive pulmonary disease, unspecified; I10 Essential (primary) hypertension; E11.9 Type 2 diabetes mellitus without complications; E78.5 Hyperlipidemia, unspecified; Z79.82 Long term (current) use of aspirin; Z79.899 Other long term (current) drug therapy
CPT/HCPCS: 66984; 82962; V2632

== ENCOUNTER → 2021-03-19 11:16 | Outpatient (CLI) | payer MEDICAID, SELFPAY | PROVIDERS: Visit Provider Ophthalmology | DX: Z01.812 Encounter for preprocedural laboratory examination (principal); Z11.52 Encounter for screening for COVID-19 | CPT/HCPCS: C9803; U0003; U0005 ==

== ENCOUNTER 2021-03-20 08:15 | Day surgery (SDC) | payer MEDICAID, SELFPAY ==
[2021-03-16 13:32] VITALS: BMI 27.1
[2021-03-20 08:36] VITALS: BP 180/90; PULSE 123; RESP 18; TEMP 36.5; O2SAT 96
[2021-03-20 09:58] VITALS: BP 201/99; PULSE 107; RESP 20; O2SAT 96
[2021-03-20 10:03] VITALS: BP 188/92; PULSE 103; RESP 20; O2SAT 96
[2021-03-20 10:08] VITALS: BP 182/86; PULSE 101; RESP 20; O2SAT 100
[2021-03-20 10:13] VITALS: BP 191/90; PULSE 104; RESP 20; O2SAT 99
[2021-03-20 10:26] VITALS: BP 154/96; PULSE 94; RESP 18; TEMP 36.1; O2SAT 94
== END 2021-03-20 10:25 | disposition home or self-care (01) ==
LOC: OR 08:16
PROVIDERS: PCP Nurse Practitioner; Visit Provider Ophthalmology
PROC: (CPT 66984; principal; 2021-03-20 10:30)
DX: H25.811 Combined forms of age-related cataract, right eye (principal); H53.149 Visual discomfort, unspecified; H02.831 Dermatochalasis of right upper eyelid; H02.834 Dermatochalasis of left upper eyelid; I10 Essential (primary) hypertension; J44.9 Chronic obstructive pulmonary disease, unspecified; E11.9 Type 2 diabetes mellitus without complications; E78.5 Hyperlipidemia, unspecified; I25.10 Atherosclerotic heart disease of native coronary artery without angina pectoris; Z95.5 Presence of coronary angioplasty implant and graft; Z79.82 Long term (current) use of aspirin; Z79.899 Other long term (current) drug therapy
CPT/HCPCS: 66984; V2632

== ENCOUNTER → 2021-05-14 10:37 | Outpatient (CLI) | payer MEDICAID, SELFPAY ==
[2021-05-14 11:14] LABS: Basophils # 0.1 K/mm3 (0-0.2); Basophils % 1.2 % (0.1-2.0); Eosinophils # 0.1 K/mm3 (0.0-0.4); Hemoglobin 16.3 g/dL (12.2-16.2); Lymphocytes # 3.2 K/mm3 (0.7-4.5); Lymphocytes % 47.7 % (10-50); Mean Corpuscular HGB Conc 33.9 g/dL (31.8-35.4); Mean Corpuscular Hemoglobin 32.4 pg (27.0-31.2); Mean Corpuscular Volume 95.7 fl (81-99); Mean Platelet Volume 9.2 fl (7.4-10.4); Monocytes # 0.5 K/mm3 (0.1-1.0); Monocytes % 7.2 % (1.7-9.3); Neutrophils # 2.8 K/mm3 (1.8-7.8); Neutrophils % 41.9 % (37.0-80.0); Platelet Count 201 K/mm3 (142-424); Red Blood Count 5.01 M/mm3 (4.20-5.40); White Blood Count 6.6 K/mm3 (4.8-10.8)
[2021-05-14 11:21] LABS: Anion Gap 13.2 mEq/L (5-15); Blood Urea Nitrogen 7 mg/dl (7-17); Calcium 9.9 mg/dl (8.4-10.2); Carbon Dioxide 31 mmol/L (22.0-30.0); Chloride 97 mmol/L (98-107); Estimated Glomerular Filt Rate 125 ml/min (>60); GFR (African American) 152 ML/MIN (>60); Glucose 186 mg/dl (74-100); Potassium 4.2 mmoL/L (3.5-5.1); Sodium 137 mmol/L (136-145)
== END ==
PROVIDERS: Visit Provider Physician Assistant
DX: Z01.812 Encounter for preprocedural laboratory examination (principal); Z11.52 Encounter for screening for COVID-19; I25.10 Atherosclerotic heart disease of native coronary artery without angina pectoris; I10 Essential (primary) hypertension; I51.7 Cardiomegaly; I51.89 Other ill-defined heart diseases; I70.1 Atherosclerosis of renal artery; I73.9 Peripheral vascular disease, unspecified; E78.49 Other hyperlipidemia; F17.200 Nicotine dependence, unspecified, uncomplicated; Z95.5 Presence of coronary angioplasty implant and graft
CPT/HCPCS: 36415; 80048; 85025; C9803; U0003; U0005

== ENCOUNTER 2021-05-21 08:34 | Day surgery (SDC) | payer MEDICAID, SELFPAY ==
[2021-05-21] VITALS (13 sets, daily range): BP systolic 130–214; BP diastolic 75–111; PULSE 75–99; RESP 13–19; TEMP 36.9; O2SAT 86–99
--- NOTE | 2021-05-21 07:06 | IR_ITS ---
APPROVED REPORT Patient Location: Outpatient Tal[employer] Specialist: ÁNGEL Rodriguez RT (R) PROCEDURES Bilateral selective renal angiogram INDICATION Known renal artery stenosis, Recurrent malignant hypertension, Informed consent was obtained prior to the procedure. COMPLICATIONS NONE Estimated Blood Loss: LESS THAN 10 ML TECHNIQUE 1% lidocaine used to anesthetize the right femoral groin. The right femoral artery was accessed via the Seldinger technique. A 4 [place] sheath was placed in the right femoral artery. The JR4 catheter was used to selectively intubate each renal artery. At the end of the diagnostic angiogram the patient was transferred to the postop holding area in stable condition for sheath removal. ANGIOGRAPHIC RESULTS Left renal artery singular with ostial calcified 10 to 20% nonflow limiting stenosis Right renal artery singular and has proximal 10% stenosis immediately proximal to the long stent which is widely patent with excellent proximal distal transitioning with minimal less than 10% in-stent restenosis IMPRESSION Nonflow limiting renal artery stenosis as described above PLAN 1. Continue medical management Electronically signed by : Joe Del Real MD 05/21/2021 11:03:35
[2021-05-21 12:52] LABS: Coronavirus 19, PCR Not Detected (NotDetected); Influenza A, PCR Not Detected (NotDetected); Influenza B, PCR Not Detected (NotDetected)
== END 2021-05-21 14:04 | disposition home or self-care (01) ==
LOC: CATHLAB 08:35
PROVIDERS: PCP Nurse Practitioner; Visit Provider Internal Medicine
DX: I70.1 Atherosclerosis of renal artery (principal); F17.210 Nicotine dependence, cigarettes, uncomplicated; I25.10 Atherosclerotic heart disease of native coronary artery without angina pectoris; I51.7 Cardiomegaly; I73.9 Peripheral vascular disease, unspecified; Z95.5 Presence of coronary angioplasty implant and graft; E11.9 Type 2 diabetes mellitus without complications; Z79.84 Long term (current) use of oral hypoglycemic drugs; I11.0 Hypertensive heart disease with heart failure; Z20.822 Contact with and (suspected) exposure to COVID-19
CPT/HCPCS: 36252; 99152; C1725; C1769; C9803; J1644; Q9967; U0003; U0005

== ENCOUNTER → 2021-10-24 13:21 | Outpatient (CLI) | payer MEDICAID, SELFPAY ==
--- NOTE | 2021-10-24 13:24 | CT_ITS ---
FINAL REPORT CLINICAL HISTORY: CURRENT SMOKER COMPARISON: October 13, 2020, December 23, 2018 and June 01, 2018 FINDINGS: Low-Dose Chest CT CTDI vol (mGy): 2.90 DLP (mGy-cm): 96.38 Axial images were obtained from the lung apex to the mid abdomen by computed tomography. Low-dose protocol was utilized. FINDINGS: CHEST: There is no axillary adenopathy. There is no hilar or mediastinal adenopathy. The heart is proper size. There are moderate vascular calcifications. There is no pericardial or pleural effusion. Limited images of the upper abdomen are unremarkable. Lung window images demonstrate a 6 mm left upper lobe nodule on image 13 which has been stable since May 2018. There are mild changes of emphysema. There is mild pulmonary scarring. There is a calcified granuloma in the right lung. No new mass or nodule is identified. IMPRESSION: Stable left upper lobe nodule. No new mass or nodule is identified. Lung RADS category 1. Recommend 12 month follow-up low-dose chest CT. Reviewed, Interpreted and Dictated by Robert Beltran III, MD Transcribed by Linda Clark Authenticated and [facility]
== END ==
PROVIDERS: PCP Nurse Practitioner; Visit Provider Internal Medicine Pulmonary Disease
DX: Z87.891 Personal history of nicotine dependence (principal); Z12.2 Encounter for screening for malignant neoplasm of respiratory organs
CPT/HCPCS: 71271

== ENCOUNTER → 2023-03-31 08:01 | Outpatient (CLI) | payer MEDICAID, SELFPAY ==
--- NOTE | 2023-03-31 08:06 | CA_ITS ---
FINAL REPORT CLINICAL HISTORY: HTN, DM,SMOKER,HLD,RT RENAL STENT COMPARISON: None FINDINGS: Aorta velocity: 57.4 cm/sec Right kidney: 11.34 cm. No evidence of hydronephrosis or mass. Right intrarenal RI: 0.7 Right renal artery velocity: 144.2 cm/sec. Right RAR (Renal artery-Aortic Ratio): 2.5 Left Kidney: 11.36 cm. No evidence of hydronephrosis or mass. Left intrarenal RI: 0.7 Left renal artery velocity: 215.8 cm/sec. Left RAR (Renal Artery-Aortic Ratio): 2.5 There is a 1.4 cm cyst in the upper pole of the right kidney. There are multiple cysts present in the left kidney, the largest of which measures 2.4 cm in greatest diameter. IMPRESSION: No evidence of significant renal artery stenosis in the right kidney. There is greater than 60% stenosis present in the left renal artery. Bilateral renal cysts. CT angiogram or postcontrast MR angiogram would be more sensitive for evaluation of possible renal artery stenosis. Reviewed, Interpreted and Dictated by Maria A Mclaughlin MD Transcribed by Ofe Whittaker Authenticated and [facility] [place] [place]
== END ==
PROVIDERS: PCP Nurse Practitioner; Visit Provider Physician Assistant
DX: I10 Essential (primary) hypertension (principal); I70.1 Atherosclerosis of renal artery
CPT/HCPCS: 93270; 93976

== ENCOUNTER → 2023-04-07 13:41 | Outpatient (CLI) | payer MEDICAID, SELFPAY ==
[2023-04-07 13:45] LABS: MANUAL DIFFERENTIAL MANUAL DIFFERENTIAL (MANUAL DIFF)
[2023-04-07 14:14] LABS: Basophils # 0.1 K/mm3 (0-0.2); Basophils % 0.6 % (0.1-2.0); Eosinophils # 0.1 K/mm3 (0.0-0.4); Eosinophils % 0.8 % (0.1-12.0); Hematocrit 49.9 % (37.0-47.0); Hemoglobin 16.5 g/dL (12.2-16.2); Lymphocytes # 1.7 K/mm3 (0.7-4.5); Lymphocytes % 23.2 % (10-50); Mean Corpuscular Hemoglobin 31.6 pg (27.0-31.2); Mean Corpuscular Volume 95.8 fl (81-99); Mean Platelet Volume 9.9 fl (7.4-10.4); Monocytes # 0.1 K/mm3 (0.1-1.0); Monocytes % 1.3 % (1.7-9.3); Neutrophils # 5.4 K/mm3 (1.8-7.8); Neutrophils % 74.1 % (37.0-80.0); Platelet Count 208 K/mm3 (142-424); Red Blood Count 5.21 M/mm3 (4.20-5.40); Red Cell Distribution Width 13.7 % (11.5-17.5); White Blood Count 7.3 K/mm3 (4.8-10.8)
[2023-04-07 14:21] LABS: Lymphocytes % 23 % (10-50); Monocytes % 2 % (2-9); Neutrophils % 75 % (42-76); Platelet Estimate Normal; RBC Morphology Normal; Total Cells Counted 100
[2023-04-07 14:31] LABS: Chloride 99 mmol/L (98-107); Sodium 135 mmol/L (136-145)
[2023-04-07 14:32] LABS: Potassium 4.6 mmoL/L (3.5-5.1)
[2023-04-07 14:35] LABS: Anion Gap 12.6 mEq/L (5-15); Blood Urea Nitrogen 11 mg/dl (7-17); Calcium 9.6 mg/dl (8.4-10.2); Carbon Dioxide 28 mmol/L (22.0-30.0); Estimated Glomerular Filt Rate 125 ml/min (>60); GFR (African American) 151 ML/MIN (>60); Glucose 298 mg/dl (74-100)
== END ==
PROVIDERS: PCP Nurse Practitioner; Visit Provider Physician Assistant
DX: I25.10 Atherosclerotic heart disease of native coronary artery without angina pectoris (principal); I50.21 Acute systolic (congestive) heart failure; I50.30 Unspecified diastolic (congestive) heart failure; I70.1 Atherosclerosis of renal artery; E78.5 Hyperlipidemia, unspecified; F17.200 Nicotine dependence, unspecified, uncomplicated; Z95.5 Presence of coronary angioplasty implant and graft
CPT/HCPCS: 36415; 80048; 85007; 85014; 85018; 85048; 85049

== ENCOUNTER 2023-07-08 08:44 | Day surgery (SDC) | payer MEDICAID, SELFPAY ==
[2023-07-08] VITALS (23 sets, daily range): BP systolic 127–165; BP diastolic 69–91; PULSE 80–98; RESP 15–19; TEMP 36.2; O2SAT 89–96; BMI 27.6; BMI 27.4
--- NOTE | 2023-07-08 07:15 | IR_ITS ---
APPROVED REPORT Patient Location: Outpatient PROCEDURES Bilateral selective renal angiography INDICATION Renovascular hypertension, Poorly controlled hypertension, Abnormal renal duplex Informed consent was obtained prior to the procedure. COMPLICATIONS None Estimated Blood Loss: Less than 10 mls TECHNIQUE 1% lidocaine used to anesthetize the right femoral groin. The right femoral artery was accessed via the Seldinger technique. A 4 [place] sheath was placed in the right femoral artery. The JR4 catheter was used to selectively intubate each renal artery. At the end of the diagnostic angiogram the patient was transferred to the postop holding area in stable condition for sheath removal. ANGIOGRAPHIC RESULTS Right renal artery is singular and has a stent in the proximal segment which is widely patent with mild in-stent restenosis and excellent proximal distal transitioning. The ostium is widely patent Left renal artery is singular and has a 10 to 20% stenosis along the proximal tortuous bend IMPRESSION Widely patent renal arteries as described above PLAN 1. Medical management for hypertension Electronically signed by : Joe Del Real MD 07/08/2023 12:23:06
[2023-07-08] MEDS: FAMOTIDINE 20MG/2ML VIAL 20 MG IV ×2 (09:14→10:44)
[2023-07-08] MEDS: diphenhydrAMINE 50MG/ML VIAL 50 MG IV ×2 (09:15→10:43)
[2023-07-08] MEDS: METHYLPREDNISOLONE SOD SUCC 125MG VIAL 125 MG IV ×2 (09:16→10:44)
[2023-07-08 09:20] LABS: Basophils # 0.1 K/mm3 (0-0.2); Basophils % 0.7 % (0.1-2.0); Eosinophils # 0.1 K/mm3 (0.0-0.4); Eosinophils % 1.6 % (0.1-12.0); Hematocrit 49.3 % (37.0-47.0); Hemoglobin 16.5 g/dL (12.2-16.2); Lymphocytes # 3.4 K/mm3 (0.7-4.5); Lymphocytes % 42.5 % (10-50); Mean Corpuscular HGB Conc 33.5 g/dL (31.8-35.4); Mean Corpuscular Hemoglobin 31.3 pg (27.0-31.2); Mean Corpuscular Volume 93.4 fl (81-99); Mean Platelet Volume 9.2 fl (7.4-10.4); Monocytes # 0.6 K/mm3 (0.1-1.0); Neutrophils # 3.7 K/mm3 (1.8-7.8); Neutrophils % 47.2 % (37.0-80.0); Platelet Count 218 K/mm3 (142-424); Red Blood Count 5.28 M/mm3 (4.20-5.40); Red Cell Distribution Width 13.7 % (11.5-17.5); White Blood Count 7.9 K/mm3 (4.8-10.8)
[2023-07-08 09:26] LABS: Chloride 96 mmol/L (98-107); Potassium 3.7 mmoL/L (3.5-5.1); Sodium 134 mmol/L (136-145)
[2023-07-08 09:29] LABS: Anion Gap 7.7 mEq/L (5-15); Blood Urea Nitrogen 8 mg/dl (7-17); Calcium 9.2 mg/dl (8.4-10.2); Carbon Dioxide 34 mmol/L (22.0-30.0); Creatinine Clearance Estimated 65 mL/min (50-200); Estimated Glomerular Filt Rate 124 ml/min (>60); GFR (African American) 150 ML/MIN (>60); Glucose 211 mg/dl (74-100)
[2023-07-08] MEDS: HEPARIN 1,000 UNITS/500ML NS (CATH LAB) 3000 UNIT IV (10:42)
[2023-07-08] MEDS: HEPARIN 1,000 UNITS/ML 10ML VIAL (CATH LAB) 10000 UNIT IV (10:43)
[2023-07-08] MEDS: LIDOCAINE 1% 10ML MDV 20 ML IJ (10:43)
[2023-07-08] MEDS: 0.9 % SODIUM CHLORIDE 500 ML 25 ML IV (10:43)
[2023-07-08] MEDS: IOPAMIDOL-370 (76%);100ML BOTTLE 20 ML IV (12:04)
== END 2023-07-08 14:47 | disposition home or self-care (01) ==
PROVIDERS: PCP Nurse Practitioner; Visit Provider Internal Medicine
DX: I25.10 Atherosclerotic heart disease of native coronary artery without angina pectoris (principal); I11.0 Hypertensive heart disease with heart failure; I50.21 Acute systolic (congestive) heart failure; I70.1 Atherosclerosis of renal artery; E78.5 Hyperlipidemia, unspecified; F17.210 Nicotine dependence, cigarettes, uncomplicated; Z95.5 Presence of coronary angioplasty implant and graft; Z79.899 Other long term (current) drug therapy; E11.9 Type 2 diabetes mellitus without complications; Z79.84 Long term (current) use of oral hypoglycemic drugs; Z79.01 Long term (current) use of anticoagulants; I15.0 Renovascular hypertension; T82.858A Stenosis of other vascular prosthetic devices, implants and grafts, initial encounter; J44.9 Chronic obstructive pulmonary disease, unspecified; I50.33 Acute on chronic diastolic (congestive) heart failure
CPT/HCPCS: 36252; 80048; 85025; 99152; C1725; C1769; J1644; Q9967

== ENCOUNTER 2023-10-01 13:53 | Outpatient (CLI) | payer MEDICAID, SELFPAY ==
--- NOTE | 2023-10-01 13:57 | US_ITS ---
FINAL REPORT CLINICAL HISTORY: THYROID NODULE COMPARISON: None FINDINGS: Sonographic images of the thyroid gland were obtained. The right thyroid lobe measures 4.8 cm. in length. The left thyroid lobe measures 3.5 cm. in length. The thyroid isthmus measures 0.4 cm. The echogenicity is normal. There is a focal cystic mass in the right lobe of the thyroid gland, measuring 8 x 8 x 6 mm in size, a TI-RADS category 1 nodule. IMPRESSION: Single cystic nodule in the right lobe of the thyroid gland as described, does not require follow-up. Reviewed, Interpreted and Dictated by Robert Beltran III, MD Transcribed by Ofe Whittaker Authenticated and [facility]
== END 2023-10-01 23:59 | disposition home or self-care (01) ==
LOC: RAD 13:54
PROVIDERS: PCP Nurse Practitioner; Visit Provider Nurse Practitioner
DX: E04.1 Nontoxic single thyroid nodule (principal)
CPT/HCPCS: 76536

== ENCOUNTER 2024-08-13 23:25 | Observation (INO) | payer MEDICARE, MEDICAID, SELFPAY ==
[2024-08-13 23:33] VITALS: PULSE 73
--- NOTE | 2024-08-13 23:33 | ECG_ITS ---
APPROVED REPORT Exam: Resting ECG HR:79 bpm ECG Measurements Heart Rate 79 AXES LA 138 P 93 QRSd 77 QRS 72 QT 375 T 82 QTc 409 Conclusion SINUS RHYTHM NONSPECIFIC T-WAVE ABNORMALITY No STEMI Electronically signed by : MONICA GU, 08/14/2024 06:18:31
[2024-08-13 23:36] VITALS: BP 101/70; PULSE 73; RESP 18; TEMP 36.7; O2SAT 98; BMI 25.2
--- NOTE | 2024-08-13 23:43 | XR_ITS ---
PROCEDURE INFORMATION: Exam: XR Chest Exam date and time: 08/14/2024 1:02 AM Age: 64 years old Clinical indication: Shortness of breath; Additional info: SOA TECHNIQUE: Imaging protocol: Radiologic exam of the chest. Views: 1 view. COMPARISON: CT CHEST WO CON 08/14/2024 12:41 AM FINDINGS: Lungs: No focal acute airspace infiltrates or effusions. Mild hyperexpansion Pleural spaces: Unremarkable. No pleural effusion. No pneumothorax. Heart/Mediastinum: Unremarkable. No cardiomegaly. Bones/joints: Unremarkable. IMPRESSION: No acute findings.
[2024-08-13 23:52] LABS: Basophils % 0.4 % (0.1-2.0); Eosinophils # 0.1 K/mm3 (0.0-0.4); Eosinophils % 1.1 % (0.1-12.0); Hematocrit 39.2 % (37.0-47.0); Hemoglobin 13.4 g/dL (12.2-16.2); Lymphocytes # 4.1 K/mm3 (0.7-4.5); Lymphocytes % 56.9 % (10-50); Mean Corpuscular HGB Conc 34.2 g/dL (31.8-35.4); Mean Corpuscular Hemoglobin 31.2 pg (27.0-31.2); Mean Corpuscular Volume 91.4 fl (81-99); Mean Platelet Volume 12.2 fl (7.4-10.4); Monocytes # 0.7 K/mm3 (0.1-1.0); Monocytes % 9.7 % (1.7-9.3); Neutrophils # 2.3 K/mm3 (1.8-7.8); Neutrophils % 31.6 % (37.0-80.0); Platelet Count 210 K/mm3 (142-424); Red Blood Count 4.29 M/mm3 (4.20-5.40); Red Cell Distribution Width 13.8 % (11.5-17.5); White Blood Count 7.2 K/mm3 (4.8-10.8)
[2024-08-13 23:54] LABS: MANUAL DIFFERENTIAL MANUAL DIFFERENTIAL (MANUAL DIFF)
[2024-08-14] VITALS (16 sets, daily range): BP systolic 116–173; BP diastolic 68–88; PULSE 67–85; RESP 13–20; TEMP 36.4–36.6; O2SAT 96–100; BMI 24.8
[2024-08-14] MEDS: IPRATROPIUM/ALBUTEROL 3 ML NEB 9 ML IH (00:05)
[2024-08-14] MEDS: ASPIRIN 81MG CHEWABLE TABLET 243 MG PO (00:07)
[2024-08-14 00:09] LABS: Eosinophils % 1 % (0-3); Lymphocytes % 69 % (10-50); Monocytes % 9 % (2-9); Neutrophils % 21 % (42-76); Platelet Estimate Normal; Total Cells Counted 100
[2024-08-14 00:10] LABS: Poikilocytosis 1+; Target Cells 1+
--- NOTE | 2024-08-14 00:15 | ED_ITS ---
Discharge Plan Disposition Patient Disposition: Admitted Condition: Good Prescriptions Prescriptions: No Action glipizide 10 mg tablet 10 mg PO BID Patient Comments: TAKE 1 TABLET (10 MG) BY ORAL ROUTE 2 TIMES PER DAY BEFORE MEALS insulin glargine [Lantus Solostar U-100 Insulin] 100 unit/mL (3 mL) insulin pen 30 unit SQ BID atorvastatin 80 mg tablet 80 mg PO HS Qty: 90 3RF furosemide 40 mg tablet 40 mg PO BID PRN (Reason: weight gain) Qty: 180 3RF Ozempic 1 mg/dose (4 mg/3 mL) pen injector 1 mg SQ WEEKLY clopidogrel 75 mg tablet 75 mg PO DAILY Qty: 90 3RF aspirin 81 mg tablet,delayed release (DR/EC) 81 mg PO DAILY Qty: 90 3RF hydralazine 25 mg tablet 25 mg PO QID PRN (Reason: hypertension) Qty: 90 3RF Entresto 49-51 mg tablet 1 tab PO BID Qty: 180 3RF carvedilol 25 mg tablet See Rx Instructions .ROUTE .COMPLEX Qty: 360 3RF Dose Instruction: TAKE TWO TABLETS BY MOUTH TWICE DAILY for High blood pressure Rx Instructions: TAKE TWO TABLETS BY MOUTH TWICE DAILY for High blood pressure albuterol sulfate 2.5 MG/NEB solution for nebulization 2.5 mg inhalation QIDP PRN (Reason: Shortness Of Breath) metformin 1,000 MG tablet 1,000 mg PO BID fluticasone propionate 9.9 ML spray,suspension 1 spray intranasal BID cxxbvsjvuan-bttclnfsa-lxsugifa 1 EACH blister with device 1 each inhalation DAILY loratadine 10 tablet 10 mg PO DAILY Referrals Follow up/Referrals: Provider,Referral, MD [Primary Care Provider] - See instructions Clinical Impressions Clinical Impression: Unstable angina Print Language Print Language: Syriac Discharge ED Provider: Xiao Quintero General Chief Complaint: Chest Pain Stated Complaint: CP Time Seen by Provider: 08/13/24 23:45 Mode of Arrival: EMS Source of Information: Patient Description of Symptoms (Recalled from ER Triage Doc. by RN): Patient states she has middle back pain, so she took a nitro ( in 2012) History of Present Illness HPI narrative: 64-year-old female with history of COPD, CAD with stents, HFrEF, hypertension, hyperlipidemia, LVH presents to the ER with complaints of sharp pain between the shoulder blades radiating out to both sides. Patient reports this onset suddenly when she laid down for bed. She states it lasted approximately 15 to 20 minutes before resolving. Patient reports she did take a very out of date nitro thinking maybe it was her heart. She states she did not have any associated dizziness, nausea, or vomiting. No radiation of pain to the abdomen. Patient states she is completely pain-free right now. Patient does admit she has severe COPD and wears 2 L nasal cannula at home. She has not used any breathing treatments today and states she is slightly more short of breath than normal though not significantly. She reports she recently got over pneumonia, finishing her antibiotics 4 days ago. She reports she does not feel feverish, no chills, no difficulty breathing or cough, no abdominal pain, nausea, vomiting, diarrhea, constipation, dysuria, hematuria, or any other associated symptoms. Patient denies any numbness, tingling, or weakness. No headache, dizziness, or vision changes. Patient reports she has never had an episode like this before. Family presented with her to the ER and reports that the nitro she took was from 2011. He also reports patient sat up when her pain started and that seemed to also help with the pain. Related Data Home Medications ?Medication ?Instructions ?Recorded ?Confirmed loratadine 10 mg tablet 10 mg PO DAILY Allergy symptoms 06/01/18 04/05/24 albuterol sulfate 2.5 mg/3 mL 2.5 mg inhalation QIDP PRN 08/30/20 04/05/24 (0.083 %) solution for nebulization Shortness Of Breath fluticasone propionate 50 1 spray intranasal BID Allergy 08/30/20 04/05/24 mcg/actuation nasal symptoms spray,suspension metformin 1,000 mg tablet 1,000 mg PO BID Diabetes 08/30/20 04/05/24 glipizide 10 mg tablet 10 mg PO BID Diabetes 09/18/20 04/05/24 fluticasone fur. 200 mcg-umeclid 1 each inhalation DAILY COPD 02/28/21 04/05/24 62.5 mcg-vilant 25 mcg inhalat.powder semaglutide 1 mg/dose (4 mg/3 mL) 1 mg SQ WEEKLY 03/17/23 04/05/24 subcutaneous pen injector (Ozempic) insulin glargine 100 unit/mL (3 30 unit SQ BID 04/05/24 04/05/24 mL) subcutaneous pen (Lantus Solostar U-100 Insulin) Previous Rx's ?Medication ?Instructions ?Recorded atorvastatin 80 mg tablet 80 mg PO HS Cholesterol #90 tabs 10/14/22 furosemide 40 mg tablet 40 mg PO BID PRN weight gain #180 10/14/22 tabs clopidogrel 75 mg tablet 75 mg PO DAILY platelet inhibitor 11/24/23 #90 tabs aspirin 81 mg tablet,delayed 81 mg PO DAILY #90 tabs 12/12/23 release hydralazine 25 mg tablet 25 mg PO QID PRN hypertension #90 02/26/24 tabs sacubitril 49 mg-valsartan 51 mg 1 tab PO BID #180 tabs 06/23/24 tablet (Entresto) carvedilol 25 mg tablet See Rx Instructions .Route 08/11/24 .COMPLEX #360 tabs Allergies Allergy/AdvReac Type Severity Reaction Status Date / Time Iodinated Contrast Media Allergy Intermediate I-RASH/SOB/ Verified 04/05/24 15:01 (Iodinated Contrast Media - Anaphlaxis IV Dye) [facility] Disclaimer: The information contained in this section may have been updated after the patient was seen, as this information can be updated by other users. Medical History SOB (shortness of breath) Diabetes mellitus Tobacco dependence syndrome HTN (hypertension) Family History Other No significant family history Social History Smoking Status: Current every day smoker tobacco type: cigarettes packs per day: 1 second hand exposure: No alcohol intake: never substance use type: denies use current occupational status: unemployed Travel in the last 8 weeks: Inside the [place] household members: spouse housing: house current occupational exposures/hazards: No caffeine: Yes Other Medical History Have you received the Flu Vaccine for this season: Yes Have you received the Pneumonia Vaccine: Yes ROS Obtained: Yes Systems reviewed as appropriate & no additional complaints except as documented Per HPI Physical Exam General General appearance: alert and obese Comment: Chronically ill-appearing, pursed lip breathing Head Head exam: atraumatic and normocephalic Eye Eye exam: Present PERRL and EOMI ENT ENT exam: Present mucous membranes moist Neck Neck exam: Present normal inspection and full ROM Chest Chest inspection: Present symmetric chest wall rise Respiratory Respiratory exam: Present respiratory distress (Mild tachypnea, pursed lip breathing, saturating 98% on 2.5L nasal cannula) and prolonged expiratory phase; Absent normal lung sounds bilaterally (Severely diminished breath sounds throughout), wheezes or stridor Cardiovascular Cardiovascular exam: Present regular rate and normal rhythm Abdominal Exam Abdominal exam: Present soft; Absent distention or tenderness Extremities Exam Extremities exam: Present full ROM; Absent tenderness or edema Back Exam Back exam: Absent tenderness, CVA tenderness (R) or CVA tenderness (L) Neurological Exam Neurological exam: Present alert, oriented X3 and CN II-XII intact; Absent motor sensory deficit Psychiatric Psychiatric exam: Present normal affect and normal mood Skin Skin exam: Present warm and dry HEART Score HEART Score HEART Score assessment performed?: Yes History (anamnesis): Slightly suspicious ECG: Non-specific disturbance Age: 45-65 years Risk factors: Atherosclerosis history Troponin: </= normal limit HEART Score: 4 Procedures Miscellaneous Procedure Procedure Performed: Limited Cardiac Ultrasound Indication: Chest pain Identified cardiac views: [-Cardiac parasternal long axis] [-Cardiac parasternal short axis] [-Cardiac apical four-chamber] [-Cardiac subxiphoid] Findings: Cardiac activity present with no gross wall motion abnormality, no pericardial effusion, no right heart strain Impression: Cardiac activity present with no gross wall motion abnormality, no pericardial effusion, no right heart strain Images were saved to permanent archive The study was technically adequate CPT: 28820 This study was performed by mn, and I personally interpreted all images/videos. Based on my clinical judgement, these images were adequate and did not necessitate further imaging. Limited Aortic Ultrasound Indication: Chest pain Identified structures: The abdominal aorta was examined in transverse view, from the [diaphragmatic hiatus to the aortic bifurcation]. Study limited by bowel gas and body habitus Also had limited evaluation of the aortic arch with views from the jugular notch Findings: No dissection flap, grossly normal-appearing aortic diameter Impression: No obvious abnormality Images were saved to permanent archive The study was technically adequate CPT: 91815-61 This study was performed by mn, and I personally interpreted all images/videos. Based on my clinical judgement, these images were adequate and did necessitate further imaging. Critical Care Critical Care Time Critical Care Time: No Medical Decision Making Medical Records Medical records reviewed: Yes I reviewed the patient's medical records. MR Comment: Most recent cardiology note from March 2024 demonstrates that patient was down 4 pounds from her previous visit, plan was to continue current meds and monitor blood pressure at home. 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 and has left renal artery 10 to 20% [place] Inquiry Pt receiving controlled substance: No Vital Signs Vital Signs: 08/13/24 23:33 08/13/24 23:36 08/14/24 00:08 Temperature 98.0 F Temperature Source Oral Pulse Rate 73 70 Pulse Rate [Right Radial] 73 Respiratory Rate 18 Blood Pressure Blood Pressure [Right Arm] 101/70 L Blood Pressure Mean [Right Arm] 80 Blood Pressure Source [Right Arm] Automatic Cuff Blood Pressure Position [Right Arm] Supine 02 Sat by Pulse Oximetry 98 Oxygen Delivery Method Room Air 08/14/24 00:20 08/14/24 00:30 08/14/24 01:00 Temperature Temperature Source Pulse Rate 74 69 68 Pulse Rate [Right Radial] Respiratory Rate 13 15 Blood Pressure 140/76 122/82 Blood Pressure [Right Arm] Blood Pressure Mean [Right Arm] Blood Pressure Source [Right Arm] Blood Pressure Position [Right Arm] 02 Sat by Pulse Oximetry 98 98 Oxygen Delivery Method 08/14/24 01:30 08/14/24 02:00 08/14/24 02:30 Temperature Temperature Source Pulse Rate 67 69 74 Pulse Rate [Right Radial] Respiratory Rate 15 14 15 Blood Pressure 134/72 116/68 141/71 H Blood Pressure [Right Arm] Blood Pressure Mean [Right Arm] Blood Pressure Source [Right Arm] Blood Pressure Position [Right Arm] 02 Sat by Pulse Oximetry 100 99 99 Oxygen Delivery Method 08/14/24 03:00 Temperature Temperature Source Pulse Rate 73 Pulse Rate [Right Radial] Respiratory Rate 13 Blood Pressure 143/73 H Blood Pressure [Right Arm] Blood Pressure Mean [Right Arm] Blood Pressure Source [Right Arm] Blood Pressure Position [Right Arm] 02 Sat by Pulse Oximetry 98 Oxygen Delivery Method Lab Data Labs: Lab Results 08/13/24 23:40: WBC 7.2, RBC 4.29, Hgb 13.4, Hct 39.2, MCV 91.4, MCH 31.2, MCHC 34.2, RDW 13.8, Plt Count 210, MPV 12.2 H, Neut % (Auto) 31.6 L, Lymph % (Auto) 56.9 H, [place] % (Auto) 9.7 H, Eos % (Auto) 1.1, Baso % (Auto) 0.4, Neut # (Auto) 2.3, Lymph # (Auto) 4.1, [place] # (Auto) 0.7, Eos # (Auto) 0.1, Baso # (Auto) 0.0, Total Counted 100, Neutrophils % (Manual) 21 L, Lymphocytes % (Manual) 69 H, Monocytes % (Manual) 9, Eosinophils % (Manual) 1, Platelet Estimate Normal, Poikilocytosis 1+, Target Cells 1+ 08/14/24 00:06: PT 10.8, INR 0.96, D-Dimer 0.95 H, Sodium 133 L, Potassium 4.3, Chloride 99, Carbon Dioxide 36 H, Anion Gap 2.3 L, BUN 9, Creatinine 0.40 L, Estimated Creat Clear 59, Estimated GFR 160, Est GFR ( Amer) 194, Glucose 187 H, Calcium 9.6, Phosphorus 4.2, Magnesium 1.6, Total Bilirubin 0.4, AST 27, ALT 14, Alkaline Phosphatase 62, Troponin I < 0.01, Total Protein 7.1, Albumin 4.4, Globulin 2.7, Albumin/Globulin Ratio 1.6 08/14/24 00:14: VBG pH 7.34, VBG pCO2 56.5 H, VBG pO2 25.6 L, VBG HCO3 29.5, VBG Total CO2 31.3 H, VBG O2 Saturation 52.6, VBG Base Excess 3.7 H, VBG Lactic Acid 1.8 08/13/24 23:40 08/14/24 00:06 Response Orders (Tests/Meds): ED MEDICATIONS Discontinued Medications Generic Name Dose Route Start Last Admin Trade Name Freq PRN Reason Stop Dose Admin Albuterol/Ipratropium 9 ml 08/13/24 23:59 08/14/24 00:05 Ipratropium/Albuterol 3 Ml Neb IH 08/14/24 00:00 9 ml ONCE ONE Administration Albuterol/Ipratropium 9 ml 08/13/24 23:47 08/14/24 00:07 Ipratropium/Albuterol 3 Ml Neb IH 08/13/24 23:48 Not Given ONCE ONE Aspirin 243 mg 08/14/24 00:00 08/14/24 00:07 Aspirin 81mg Chewable Tablet PO 08/14/24 00:01 243 mg ONCE ONE Administration Methylprednisolone Sodium Succinate 125 mg 08/14/24 00:25 08/14/24 00:31 Methylprednisolone Sod Succ 125mg Vial IM 08/14/24 00:26 Not Given ONCE ONE Methylprednisolone Sodium Succinate 125 mg 08/14/24 00:30 08/14/24 00:31 Methylprednisolone Sod Succ 125mg Vial IV 08/14/24 00:31 125 mg ONCE ONE Administration ORDERS Category Date Time Status CT abdomen pelvis wo con Stat Cat Scan 08/14/24 00:[address] chest wo con Stat Cat Scan 08/14/24 00:28 Completed POCUS Point of Care (ER Only) Stat Exams 08/14/24 00:29 Completed XR chest portable Stat Exams 08/13/24 23:43 Completed Complete Blood Count Auto Diff Stat Lab 08/13/24 23:40 Completed Comprehensive Metabolic Panel Stat Lab 08/13/24 Completed D-Dimer Stat Lab 08/14/24 00:06 Completed Magnesium Stat Lab 08/13/24 Completed PT INR [Prothrombin Time INR] Stat Lab 08/14/24 00:06 Completed Phosphorous Stat Lab 08/13/24 Completed Troponin I Q3H Lab 08/14/24 02:45 Ordered Troponin I Q3H Lab 08/14/24 05:45 Ordered Troponin I Stat Lab 08/13/24 Completed VBG [Venous Blood Gas] Stat RT 08/14/24 00:14 Completed MDM Narrative Medical Decision Narrative: In summary, this 64-year-old female with comorbidities as described in the HPI which are not at goal therapy presents to the emergency department today with back pain radiating to bilateral shoulder blades improved after sitting up and taking nitro. On initial evaluation patient is chronically ill-appearing, pursed lip breathing, mild respiratory distress with prolonged expiratory phase and severely diminished breath sounds throughout but pain-free and no acute cardiac abnormalities, GCS 15, no neurodeficits, benign abdominal exam. Differential diagnosis includes but is not limited to CAD, dissection, COPD exacerbation, pneumonia, pneumothorax, also considered esophageal spasm, Electrolyte abnormality, viral syndrome, PE, among others. Based on these concerns, I ordered serum labs, CT imaging, chest x-ray, VBG, cardiac workup. ECG personally interpreted demonstrates sinus rhythm, rate 79, normal axis, normal MA and QTc, no STEMI. Ultrasound personally performed and interpreted by me demonstrates good cardiac function, no pericardial effusion or tamponade, normal RV:LV size, within the limitations of the study I do not appreciate any abnormalities of the aorta. I had initially ordered CT angiography but patient reports anaphylaxis and severe reaction including throat closing to iodinated contrast. Even with premedication she is very high risk for dangerous, potentially fatal reaction which she understands. Since patient had brief pain that resolved with nitro, has reassuring vitals, and does not have pericardial effusion or evidence of dissection flap on ultrasound, I am going to perform CTs without contrast for initial evaluation. Patient received aspirin for treatment. Labs personally reviewed demonstrate no leukocytosis or anemia, patient has a lymphocyte and monocyte predominance which is nonspecific or actionable at this time, PT/INR normal, D-dimer 0.95 but by years criteria PE is ruled out. VBG with pH 7.34, pCO2 56.5 is elevated and patient is already receiving DuoNebs. Lactic on VBG normal at 1.8. CMP nonactionable at this time, initial troponin undetectably low less than 0.01. CT chest, abdomen, pelvis were performed without contrast as discussed above. While this limits evaluation of the aorta, the aorta appears to have normal caliber on my personal interpretation. It also appears unchanged from previous studies which I reviewed. I do not appreciate other acute intrathoracic or intra-abdominal pathology. See radiology read for final interpretation. On reassessment patient continues to be stable. She has had no pain in the ER. Her vitals remained stable. She is breathing more comfortably since receiving Solu-Medrol and DuoNebs. I had shared decision-making discussion with the patient. I explained that I cannot definitively rule out dissection but that I am reassured by the fact that she has not had any additional pain in the ER, her vitals have been stable, and within the limitations of ultrasound and noncontrasted CT we do not appreciate obvious evidence of dissection. I also explained the significant risk of patient receiving contrast due to her history of anaphylaxis and throat closing which is what is limiting our workup at this time. I recommended to the patient that she be admitted for continued monitoring and cardiac workup with her cardiac history and chest pain that had resolved with nitro. She is comfortable with this plan and agrees with it. She understands that dissection has not been ruled out but also understands the studies that have been completed are reassuring so far. She agrees with admission. I discussed this case with the hospitalist including the limitations of available studies with her severe contrast allergy but the reassuring findings on limited studies. Patient was graciously excepted to the hospitalist for continued management of suspected unstable angina. Patient admitted in stable condition.
[2024-08-14 00:23] LABS: Lactate Venous 1.8 mmol/L (0.4-2.0); VBG Base Excess 3.7 mmol/L (-2.4-2.3); VBG HCO3 29.5 mmol/L (23-30); VBG Oxygen Saturation 52.6 % (50-70); VBG PH 7.34 mmol/L (7.31-7.41); VBG PO2 25.6 mmol/L (28-40); VBG Total CO2 31.3 mmol/L (23-27)
[2024-08-14 00:25] LABS: VBG PCO2 56.5 mmol/L (35-51)
--- NOTE | 2024-08-14 00:28 | CT_ITS ---
PROCEDURE INFORMATION: Exam: CT Abdomen And Pelvis Without Contrast Exam date and time: 08/14/2024 12:48 AM Age: 64 years old Clinical indication: Abdominal pain; Other: Btwn shoulders; Additional info: Pain btwn shoulders, transient, ? dissection TECHNIQUE: Imaging protocol: Computed tomography of the abdomen and pelvis without contrast. Radiation optimization: All CT scans at this facility use at least one of these dose optimization techniques: automated exposure control; mA and/or kV adjustment per patient size (includes targeted exams where dose is matched to clinical indication); or iterative reconstruction. COMPARISON: XA CL RENAL ANGIOGRAM BI 07/08/2023 10:53 AM FINDINGS: Liver: Normal. No mass. Gallbladder and biliary ducts: Normal. No calcified stones. No ductal dilation. Pancreas: Normal. No ductal dilation. Spleen: Calcified granulomas are present in the spleen. Adrenal glands: Normal. No mass. Kidneys and ureters: No hydronephrosis. Stomach and bowel: Increased stool burden is seen in the rectum and in the proximal/transverse colon. No abnormal bowel dilation. Appendix: No evidence of appendicitis. Intraperitoneal space: No abnormal free fluid Vasculature: Incidentally noted right renal artery stent Lymph nodes: Unremarkable. No enlarged lymph nodes. Urinary bladder: Unremarkable as visualized. Reproductive: Unremarkable as visualized. Bones/joints: Unremarkable. No acute fracture. Soft tissues: Unremarkable. IMPRESSION: 1. Constipation 2. Otherwise negative exam.
--- NOTE | 2024-08-14 00:28 | CT_ITS ---
PROCEDURE INFORMATION: Exam: CT Chest Without Contrast; Diagnostic Exam date and time: 08/14/2024 12:41 AM Age: 64 years old Clinical indication: Pain; Other: Btwn shoulders; Additional info: Pain btwn shoulders, transient, ? dissection TECHNIQUE: Imaging protocol: Diagnostic computed tomography of the chest without contrast. Radiation optimization: All CT scans at this facility use at least one of these dose optimization techniques: automated exposure control; mA and/or kV adjustment per patient size (includes targeted exams where dose is matched to clinical indication); or iterative reconstruction. COMPARISON: CT LUNG SCREENING 10/24/2021 1:27 PM FINDINGS: Lungs: No acute airspace infiltrate. No pleural effusion or pneumothorax. Old granulomatous disease is seen in the right middle lobe Pleural spaces: See Lungs finding. Heart: Trace pericardial effusion Coronary arteries: Calcified coronary arteries Lymph nodes: Unremarkable. No enlarged lymph nodes. Vasculature: Unremarkable. No aortic aneurysm. Bones/joints: Diffuse generalized osteopenia. Soft tissues: Unremarkable. Other findings: Mild emphysema bilaterally IMPRESSION: 1. No visible acute intrathoracic abnormality 2. Unable to detect aortic dissection due to lack of intravenous contrast 3. Incidental findings above.
[2024-08-14] MEDS: METHYLPREDNISOLONE SOD SUCC 125MG VIAL 125 MG IV (00:31)
[2024-08-14 00:37] LABS: Albumin Level 4.4 g/dl (3.5-5.0); Chloride 99 mmol/L (98-107)
[2024-08-14 00:38] LABS: Potassium 4.3 mmoL/L (3.5-5.1); Sodium 133 mmol/L (136-145)
[2024-08-14 00:40] LABS: Alanine Aminotransferase 14 U/L (12-78); Anion Gap 2.3 mEq/L (5-15); Aspartate Amino Transferase 27 U/L (14-36); Blood Urea Nitrogen 9 mg/dl (7-17); Carbon Dioxide 36 mmol/L (22.0-30.0); Creatinine Clearance Estimated 59 mL/min (50-200); Estimated Glomerular Filt Rate 160 ml/min (>60); GFR (African American) 194 ML/MIN (>60)
[2024-08-14 00:41] LABS: Albumin/Globulin Ratio 1.6 (1.1-1.8); Alkaline Phosphatase 62 U/L (38-126); Bilirubin,Total 0.4 mg/dl (0.2-1.3); Calcium 9.6 mg/dl (8.4-10.2); Globulin 2.7 g/dL (1.3-3.2); Glucose 187 mg/dl (74-100); Magnesium 1.6 mg/dl (1.6-2.3); Phosphorous 4.2 mg/dl (2.5-4.5); Total Protein,Serum 7.1 g/dl (6.3-8.2)
[2024-08-14 00:42] LABS: INR 0.96 (0.9-1.1); Prothrombin Time 10.8 seconds (10.1-12.5)
[2024-08-14 00:54] LABS: Troponin I < 0.01 ng/ml (0.00-0.034)
[2024-08-14 02:29] LABS: D-Dimer 0.95 ug/mL (0.0-0.5)
--- NOTE | 2024-08-14 03:15 | PC.NURSE ---
Report called to floor; waiting on [facility] to come transport patient to floor
--- NOTE | 2024-08-14 03:22 | P.HP_ITS ---
<Statement entered by Soy Oh MD - 08/14/24 14:33> Rounded on patient after nurse practitioner. Personally examined and interviewed patient. Agree with exam findings and care plan as documented. History of Present Illness *Admission Date: 08/14/24 *Reason for visit:: Upon laying down severe pain in between shoulder blades *History of present illness: This 64-year-old female, went to lay down tonight and had severe pain in between her shoulder blades. With increasing shortness of breath. This has now resolved since being after the emergency room. The patient said she did take a nitroglycerin at home and the pain dissipated emergency room provider was limited in her workup due to the patient having significant anaphylaxis to radiology contrast. Not able to fully rule out any aortic involvement. Patient's first troponin is normal. Patient is noted for diabetes mellitus Patient has been a long-term smoker still smoking a pack and half a day and has a wet rattly cough.. She presently uses 2.5 L of nasal cannula constantly at home.. She has no plans of stopping smoking normally smokes a pack and a half a day. Past medical history includes cardiac stent, history of CHF with right ventricle failure, found in cardiology note. But noting she had a ejection fraction of 55% as of November 2023. Patient states her weight has remained basically the same for the last several months.. She has not been in the hospital overnight since about 5 years ago.. She was also seen by Dr. Del Real notable for having stents placed in cardiac but also stents placed in both renal arteries.. Present scanning is amazing that her lungs look so good for her history of smoking but were clear with no effusion, abdominal CT scan was normal except for constipation. Patient has a rapid respiratory rate while talking with her. But is denying any chest pain found some moderate bilateral CVA tenderness on tapping. But on general palpation of the back no pain. After talking with the emergency room physician, evaluating the patient reviewing labs and imaging that is limited by no contrast material. I do agree that to watch her overnight to evaluate repeated troponins, and to make sure the pain does not return to make sure we do not find any dissecting aorta. But will also grab a urine to make sure that there is no urinary tract infection since there is mild CVA tenderness. And reevaluate respiratory needs throughout the night. Will add respiratory treatments., Patient stated she did not need a nicotine patch so if not ordered 1 Plan is ahead and consult cardiology but if patient is stable may be able to discharge home and evaluate further with an MRI to rule out any major vessel deficit. After we rule out that this unstable angina was a one-time event and that there is no changes and cardiac enzymes. And noting that the patient has no plans to stop smoking, have talked with her and she is a full code, with family in room. [facility] Disclaimer: The information contained in this section may have been updated after the patient was seen, as this information can be updated by other users. Medical History History of stent insertion of renal artery Left ventricular hypertrophy Diastolic dysfunction Malignant hypertension Abnormal chest xray Elevated transaminase level Severe sepsis with acute organ dysfunction Acute and chronic respiratory failure ([id number]) Diastolic heart failure Atypical angina Acute on chronic HFrEF (heart failure with reduced ejection fraction) Renal artery arteriosclerosis SOB (shortness of breath) Diabetes mellitus Tobacco dependence syndrome HTN (hypertension) Family History Other No significant family history Social History (Updated 08/14/24 @ 03:54 by Casandra Rodrigues RN) Smoking Status: Current every day smoker tobacco type: cigarettes packs per day: 1 second hand exposure: No alcohol intake: never substance use type: denies use current occupational status: unemployed Travel in the last 8 weeks: Inside the [place] household members: spouse housing: house current occupational exposures/hazards: No caffeine: Yes Contact w/someone who lives/traveled outside [place] past 30 days?: No Exposure to someone with infectious disease in past 14 days?: No Do you have a fever (greater than 100.4 F or 38 C)?: No Have you tested positive for COVID-19: No Exposed to someone with COVID-19 in past 14 days?: No Do you have a sore throat?: No Do you have a cough?: Yes Do you have any weakness?: No Are you experiencing any nausea/vomitting?: No Do you have any diarrhea?: No Are you experiencing any unusual bleeding?: No Do you have any muscle aches/pain?: No Do you have any abdominal pain?: No Are you experiencing loss of taste or smell?: No Other Medical History Have you received the Flu Vaccine for this season: Yes Have you received the Pneumonia Vaccine: Yes Review of Systems Review of Systems Review of systems:: pertinent systems reviewed and negative unless documented below Constitutional Constitutional: Reports as per HPI and Reports fatigue Eyes Eyes: Reports as per HPI ENT Ears, Nose, Mouth, and Throat: Reports as per HPI *Cardiovascular Cardiovascular: Reports dyspnea, Reports dyspnea on exertion, Reports rapid heart rate and Reports other (Supplement oxygen dependent) *Respiratory Respiratory: Reports as per HPI, Reports chest congestion, Reports cough, Reports dyspnea, Reports dyspnea on exertion and Reports wheezing *Gastrointestinal Gastrointestinal: Reports as per HPI *Genitourinary Genitourinary: Reports as per HPI *Musculoskeletal Musculoskeletal: Reports as per HPI Integumentary/Breasts Skin/Breast: Reports as per HPI *Neurologic Neurologic: Reports as per HPI Psychiatric Psychiatric: Reports as per HPI Endocrine Endocrine: Reports as per HPI and Reports fatigue Hematologic/Lymphatic Hematologic/Lymphatic: Reports as per HPI Allergic/Immunologic Allergic/Immunologic: Reports as per HPI and Reports wheezing Meds Home Medications and Allergies Home Medications ?Medication ?Instructions ?Recorded ?Confirmed ?Type aspirin 81 mg tablet,delayed 81 mg PO DAILY #90 tabs 12/12/23 08/14/24 Rx release insulin glargine 100 unit/mL (3 30 unit SQ BID 04/05/24 08/14/24 History mL) subcutaneous pen (Lantus Solostar U-100 Insulin) sacubitril 49 mg-valsartan 51 mg 1 tab PO BID #180 tabs 06/23/24 08/14/24 Rx tablet (Entresto) albuterol sulfate 90 mcg/actuation 2 puff inhalation Q3HP PRN 08/14/24 08/14/24 History aerosol inhaler Shortness Of Breath atorvastatin 80 mg tablet 80 mg PO HS 08/14/24 08/14/24 History carvedilol 25 mg tablet 25 mg PO BID 30 days #0 tabs 08/14/24 08/14/24 Rx cetirizine 10 mg tablet 10 mg PO DAILY 08/14/24 08/14/24 History clopidogrel 75 mg tablet 75 mg PO DAILY 08/14/24 08/14/24 History fluticasone fur. 100 mcg-umeclid 1 inh inhalation DAILY 08/14/24 08/14/24 History 62.5 mcg-vilant 25 mcg inhalat.powder (Trelegy Ellipta) fluticasone propionate 50 1 spray intranasal DAILY 08/14/24 08/14/24 History mcg/actuation nasal spray,suspension glipizide 10 mg tablet 10 mg PO BID 08/14/24 08/14/24 History metformin 1,000 mg tablet 1,000 mg PO BID 08/14/24 08/14/24 History New Prescriptions to Start Prescriptions: Allergies Allergy/AdvReac Type Severity Reaction Status Date / Time Iodinated Contrast Media Allergy Intermediate I-RASH/SOB/ Verified 04/05/24 15:01 (Iodinated Contrast Media - Anaphlaxis IV Dye) Exam Data for Last 24 hours Vital signs and Labs for Last 24 Hours: Temp Pulse Resp BP Pulse Ox O2 Del Method O2 Flow Rate 98 F 73 13 143/73 H 98 Nasal Cannula 2.5 08/14/24 03:15 08/14/24 03:15 08/14/24 03:15 08/14/24 03:15 08/14/24 03:00 08/14/24 03:15 08/14/24 03:15 Laboratory Results - last 24 hr 08/13/24 23:40: WBC 7.2, RBC 4.29, Hgb 13.4, Hct 39.2, MCV 91.4, MCH 31.2, MCHC 34.2, RDW 13.8, Plt Count 210, MPV 12.2 H, Neut % (Auto) 31.6 L, Lymph % (Auto) 56.9 H, [place] % (Auto) 9.7 H, Eos % (Auto) 1.1, Baso % (Auto) 0.4, Neut # (Auto) 2.3, Lymph # (Auto) 4.1, [place] # (Auto) 0.7, Eos # (Auto) 0.1, Baso # (Auto) 0.0, Total Counted 100, Neutrophils % (Manual) 21 L, Lymphocytes % (Manual) 69 H, Monocytes % (Manual) 9, Eosinophils % (Manual) 1, Platelet Estimate Normal, Poikilocytosis 1+, Target Cells 1+ 08/14/24 00:06: PT 10.8, INR 0.96, D-Dimer 0.95 H, Sodium 133 L, Potassium 4.3, Chloride 99, Carbon Dioxide 36 H, Anion Gap 2.3 L, BUN 9, Creatinine 0.40 L, Estimated Creat Clear 59, Estimated GFR 160, Est GFR ( Amer) 194, Glucose 187 H, Calcium 9.6, Phosphorus 4.2, Magnesium 1.6, Total Bilirubin 0.4, AST 27, ALT 14, Alkaline Phosphatase 62, Troponin I < 0.01, Total Protein 7.1, Albumin 4.4, Globulin 2.7, Albumin/Globulin Ratio 1.6 08/14/24 00:14: VBG pH 7.34, VBG pCO2 56.5 H, VBG pO2 25.6 L, VBG HCO3 29.5, VBG Total CO2 31.3 H, VBG O2 Saturation 52.6, VBG Base Excess 3.7 H, VBG Lactic Acid 1.8 I & O for Last 24 hours: Intake & Output 08/11/24 08/12/24 08/13/24 08/14/24 05:59 05:59 05:59 05:59 Weight 147 lb Radiology Reports for the Last 24 Hours: Chest x-ray and chest CT showed no significant findings., Abdominal CT no acute findings stents are visible for renal artery but noting constipation Narrative: Patient is relatively comfortable sitting on the stretcher and is able to relate a very good history to me family is in room Constitutional Constitutional: no acute distress, obese, chronically ill appearing and cooperative *Routine HEENT Exam Head: Present normocephalic and atraumatic Eye: Present EOMI, PERRL and normal accommodation ENT: Present mucous membranes moist, oropharynx clear, nares patent and septal deviation Comments: Patient is noted being a mouth breather *Routine Neck Exam Neck: Present supple and full ROM Routine Chest/Breast/Axilla Exam Comments: No upper chest or chest wall tenderness found. Patient is breathing rapidly but expanding equally on both sides of the chest *Routine Respiratory Exam Respiratory: Present accessory muscle use, rales, rhonchi, wheezes, diminished air movement, normal respiratory effort, able to speak in complete sentences and symmetric chest movement Comments: Respiratory rate above 20-25 depending on if talking *Routine Cardiovascular Exam Cardiovascular: Present RRR and tachycardia Comments: Patient's skin turgor is poor but distal extremities are pink there is no sign of circulation deficit. *Routine Abdominal Exam Abdominal: Present soft, normoactive bowel sounds and obese Comments: Bowel sounds are normal did not find really any tenderness there was no enlarged organs felt during the exam *Routine Rectal Exam Rectal:: deferred *Routine Genitalia Exam Genitalia:: deferred *Routine Extremities Exam Extremities: Present normal capillary refill and pallor Comments: The skin to the hand and feet are pink but turgor is actually poor Routine Back/Spine/Pelvis Exam Back/Spine: Present CVA tenderness Comments: Noted bilateral CVA tenderness when tapping. But on palpation of the back there was no tenderness found. *Routine Skin Exam Skin: Present intact, dry and warm Comments: Poor turgor *Routine Neurological Exam Neurological: Present alert, oriented X3, CN II-XII intact, moving all extremities, normal tone, vision grossly intact, hearing grossly intact and normal speech Routine Psychiatric Exam Psychiatric: Present normal affect, normal thought process, cooperative, good insight and good judgment H&P: Result Impressions . Atypical angina versus unstable angina. Constipation COPD chronic smoker. Imaging and Cardiology CT scan - chest: Status: image reviewed by me and final report Additional comments: Agree with final report there is no really abnormal findings actually very amazed that her lungs look as good as they do with her long history of smoking CT scan - abdomen: Status: image reviewed by me and final report Additional comments: Do agree with the final report no acute findings but there is a significant amount of constipation, able to see renal artery stent Assessment and Plan *Assessment and plan (1) Unstable angina: Status: Acute Category: Medical Code(s): I20.0 - Unstable angina (2) COPD (chronic obstructive pulmonary disease) with acute bronchitis: Status: Chronic Category: Medical Code(s): J44.0 - Chronic obstructive pulmonary disease with (acute) lower respiratory infection; J20.9 - Acute bronchitis, unspecified (3) SOB (shortness of breath): Status: Acute Category: Medical Code(s): R06.02 - Shortness of breath (4) Diabetes mellitus: Status: Chronic Qualifiers: Diabetes mellitus complication status: with other specified complication Diabetes mellitus [employer] insulin use: unspecified half-way insulin use status Diabetes mellitus type: type 2 Qualified Code(s): E11.69 - Type 2 diabetes mellitus with other specified complication Category: Medical Code(s): E11.9 - Type 2 diabetes mellitus without complications (5) Tobacco dependence syndrome: Status: Chronic Category: Medical Code(s): F17.200 - Nicotine dependence, unspecified, uncomplicated (6) HTN (hypertension): Status: Chronic Qualifiers: Hypertension type: essential hypertension Qualified Code(s): I10 - Essential (primary) hypertension Category: Medical Code(s): I10 - Essential (primary) hypertension (7) History of renal stent: Status: Chronic Category: Surgical (8) Obesity: Status: Acute Qualifiers: Body mass index: BMI 40.0-44.9 Obesity classification: adult class 3 (BMI >= 40) Obesity type: due to excess calories Serious obesity comorbidity presence: with serious comorbidity Qualified Code(s): E66.01 - Morbid (severe) obesity due to excess calories; Z68.41 - Body mass index [BMI]40.0-44.9, adult Category: Medical Code(s): E66.9 - Obesity, unspecified (9) CAD (coronary artery disease): Status: Chronic Qualifiers: Associated angina: unspecified whether angina present Coronary Disease- Associated Artery/Lesion type: [place] artery [place] vs. transplanted heart: [place] heart Qualified Code(s): I25.10 - Atherosclerotic heart disease of [place] coronary artery without angina pectoris Category: Medical Code(s): I25.10 - Atherosclerotic heart disease of [place] coronary artery without angina pectoris Plan Discussion with ER doc about admission due to rule out ACS and monitoring of serial troponins. Medicine agreed to admit for further care. Hemodynamically stable at time of admission. On baseline oxygen. Problems addressed as follows: -Initial troponin less than 0.01. Serial troponins ordered. Monitor on telemetry. -Breathing treatments ordered as needed due to smoking history. - Also treat for milk of magnesia to see if able to have bowel movement to clear some of the constipation., Will also grab a urinalysis make sure that there is no infection. Question the CVA tenderness. Patient denies any burning or frequency with urination 2. Patient is oxygen dependent smokes on a very regular basis., Has a terrible rattling cough but lungs are clear on CT scan. But will continue with breathing treatments at this point in time. As no infection is seen will not start on antibiotics she has recently been on antibiotics in the last few weeks. 3. Other issue that patient brought forward was that she had run out of her meds for 3 days was finally able to get them from the pharmacy and took them today. But she believes that the dosages were changed from her previous prescription. CTs per my review with no significant pneumonia, airspace disease, or abnormality in aortic concerning for dissection. Images limited by lack of contrast due to patient allergy.
[2024-08-14 03:23] LABS: Troponin I 0.02 ng/ml (0.00-0.034)
[2024-08-14] MEDS: humaLOG 100 UNITS/ML 10ML VIAL (SSI) SUBCUT (06:02)
--- NOTE | 2024-08-14 06:10 | PC.NURSE ---
Alert and oriented. Rested since arriving to floor. No complaints from patient. Refused milk of mag, patient stated she has had diarrhea at home 2-3 days along with several family members, notified Gab JAIMES, no new orders, stated to document at refused. On 2.5L NC, baseline @ home is 2L NC. Lung sounds wheezing with crackles in bases. Patient has not been to restroom since arrival to floor. Call light in reach. at bedside.
[2024-08-14 06:11] LABS: Troponin I < 0.01 ng/ml (0.00-0.034)
--- NOTE | 2024-08-14 06:21 | ECG_ITS ---
APPROVED REPORT Exam: Resting ECG HR:76 bpm ECG Measurements Heart Rate 76 AXES WV 144 P 60 QRSd 80 QRS 68 QT 388 T 73 QTc 418 Conclusion SINUS RHYTHM LOW QRS VOLTAGE IN PRECORDIAL LEADS [QRS DEFLECTION < 1.0 mV IN CHEST LEADS] NONSPECIFIC T-WAVE ABNORMALITY BORDERLINE ECG UNCONFIRMED REPORT Electronically signed by : Michael Dolan MD 08/14/2024 19:33:14
[2024-08-14] MEDS: IPRATROPIUM/ALBUTEROL 3 ML NEB IH ×2 (06:24→10:32)
[2024-08-14 07:57] LABS: Basophils % 0.3 % (0.1-2.0); Eosinophils # 0.4 K/mm3 (0.0-0.4); Eosinophils % 7.4 % (0.1-12.0); Hematocrit 40.5 % (37.0-47.0); Hemoglobin 13.7 g/dL (12.2-16.2); Lymphocytes # 0.8 K/mm3 (0.7-4.5); Lymphocytes % 14.3 % (10-50); Mean Corpuscular HGB Conc 33.8 g/dL (31.8-35.4); Mean Corpuscular Volume 91.6 fl (81-99); Mean Platelet Volume 11.4 fl (7.4-10.4); Monocytes # 0.1 K/mm3 (0.1-1.0); Monocytes % 1.4 % (1.7-9.3); Neutrophils # 4.4 K/mm3 (1.8-7.8); Neutrophils % 76.1 % (37.0-80.0); Platelet Count 173 K/mm3 (142-424); Red Blood Count 4.42 M/mm3 (4.20-5.40); Red Cell Distribution Width 13.1 % (11.5-17.5); White Blood Count 5.8 K/mm3 (4.8-10.8)
[2024-08-14 08:27] LABS: Albumin Level 4.2 g/dl (3.5-5.0); Albumin/Globulin Ratio 1.7 (1.1-1.8); Blood Urea Nitrogen 12 mg/dl (7-17); Carbon Dioxide 27 mmol/L (22.0-30.0); Chloride 98 mmol/L (98-107); Creatinine Clearance Estimated 59 mL/min (50-200); Estimated Glomerular Filt Rate 223 ml/min (>60); GFR (African American) 270 ML/MIN (>60); Globulin 2.5 g/dL (1.3-3.2); Glucose 255 mg/dl (74-100); Potassium 4.2 mmoL/L (3.5-5.1); Total Protein,Serum 6.7 g/dl (6.3-8.2)
[2024-08-14 08:28] LABS: Alanine Aminotransferase 15 U/L (12-78); Aspartate Amino Transferase 20 U/L (14-36)
[2024-08-14 08:35] LABS: NT Pro Brain Natriuretic Pep. 201 pg/mL (0-125)
[2024-08-14 08:55] LABS: Anion Gap 10.2 mEq/L (5-15)
[2024-08-14 08:57] LABS: Troponin I < 0.01 ng/ml (0.00-0.034)
[2024-08-14 08:58] LABS: Alkaline Phosphatase 55 U/L (38-126); Bilirubin,Total 0.4 mg/dl (0.2-1.3); Hemoglobin A1C 7.8 % (4.0-6.0); Magnesium 1.7 mg/dl (1.6-2.3); Sodium 131 mmol/L (136-145)
--- NOTE | 2024-08-14 09:09 | HMH.PHAINT1 ---
Pharmacy Intervention Comments: MEDICATION RECONCILIATION COMPLETED ON PATIENT USING EXTERNAL FILL HISTORY FROM PHARMACY. -JUAN HUSAIN, EHD
[2024-08-14] MEDS: ENOXAPARIN 40MG/0.4ML SYRINGE 40 MG SUBCUT (09:15)
[2024-08-14 10:06] LABS: Troponin I < 0.01 ng/ml (0.00-0.034)
[2024-08-14] MEDS: ASPIRIN EC 81MG TABLET 81 MG PO (10:46)
[2024-08-14] MEDS: SACUBITRIL/VALSARTAN 24-26MG TABLET 2 EACH PO (10:47)
[2024-08-14] MEDS: CLOPIDOGREL 75MG TAB 75 MG PO (10:48)
[2024-08-14] MEDS: METFORMIN 500MG TABLET 1000 MG PO (10:48)
[2024-08-14] MEDS: INSULIN GLARGINE 100 UNITS/ML 3ML FLEXPEN 20 UNIT SUBCUT (10:50)
[2024-08-14] MEDS: FLUTICASONE/UMECLIDIN/VILANTER 100/62.5/25MCG INHALER 1 PUFF IH (12:00)
--- NOTE | 2024-08-14 13:05 | P.DS_ITS ---
General Admission date:: 08/14/24 Discharge date: 08/14/24 HPI HPI HPI: This 64-year-old female, went to lay down tonight and had severe pain in between her shoulder blades. With increasing shortness of breath. This has now resolved since being after the emergency room. The patient said she did take a nitroglycerin at home and the pain dissipated emergency room provider was limited in her workup due to the patient having significant anaphylaxis to radiology contrast. Not able to fully rule out any aortic involvement. Patient's first troponin is normal. Patient is noted for diabetes mellitus Patient has been a long-term smoker still smoking a pack and half a day and has a wet rattly cough.. She presently uses 2.5 L of nasal cannula constantly at home.. She has no plans of stopping smoking normally smokes a pack and a half a day. Past medical history includes cardiac stent, history of CHF with right ventricle failure, found in cardiology note. But noting she had a ejection fraction of 5 5% as of November 2023. Patient states her weight has remained basically the same for the last several months.. She has not been in the hospital overnight since about 5 years ago.. She was also seen by Dr. Del Real notable for having stents placed in cardiac but also stents placed in both renal arteries.. Present scanning is amazing that her lungs look so good for her history of smoking but were clear with no effusion, abdominal CT scan was normal except for constipation. Patient has a rapid respiratory rate while talking with her. But is denying any chest pain found some moderate bilateral CVA tenderness on tapping. But on general palpation of the back no pain. After talking with the emergency room physician, evaluating the patient reviewing labs and imaging that is limited by no contrast material. I do agree that to watch her overnight to evaluate repeated troponins, and to make sure the pain does not return to make sure we do not find any dissecting aorta. But will also grab a urine to make sure that there is no urinary tract infection since there is mild CVA tenderness. And reevaluate respiratory needs throughout the night. Will add respiratory treatments., Patient stated she did not need a nicotine patch so if not ordered 1 Plan is ahead and consult cardiology but if patient is stable may be able to discharge home and evaluate further with an MRI to rule out any major vessel deficit. After we rule out that this unstable angina was a one-time event and that there is no changes and cardiac enzymes. And noting that the patient has no plans to stop smoking, have talked with her and she is a full code, with family in room. Hospital Course Hospital Course Hospital Course: 64-year-old female who presented to the ER with complaint of back pain. States that she had had an adjustment in her carvedilol that was unexpected. Had called for refill and it was increased from 25 mg twice daily to 50 mg twice daily. It was after she took the first dose of this medication she felt poorly. Feeling better after admission. Remained stable on telemetry. Pain resolved. Serial troponins remain negative at less than 0.01. No ST changes or ischemic findings on EKG. Patient at baseline level of function. Given her vitals being normal and resolution of pain, stable to discharge home with further management as an outpatient. Of note, A1c 7.8. Recommend resuming home diabetes regimen with glargine 30 units twice daily, metformin 1000 mg twice daily, and glipizide 10 mg twice daily. Continue home regimen for heart failure including Entresto 49/51 mg twice daily, Plavix 75 mg daily, carvedilol 25 mg twice daily, Lipitor 80mg nightly, aspirin 81 mg daily. Continue Trelegy inhaler and albuterol as needed. Supplemental oxygen as needed for goal sats greater 90%. Has oxygen at home. O2 at rest on room air of 91% prior to discharge. No indication for oxygen tank to go home with. Has a concentrator at home. Exam Data for Last 24 hours Vital signs and Labs for Last 24 Hours: Temp Pulse Resp BP Pulse Ox O2 Del Method O2 Flow Rate 97.6 F 71 20 173/76 H 96 Nasal Cannula 2 08/14/24 12:00 08/14/24 10:31 08/14/24 08:00 08/14/24 08:00 08/14/24 10:31 08/14/24 11:00 08/14/24 11:00 Laboratory Results - last 24 hr 08/13/24 23:40: WBC 7.2, RBC 4.29, Hgb 13.4, Hct 39.2, MCV 91.4, MCH 31.2, MCHC 34.2, RDW 13.8, Plt Count 210, MPV 12.2 H, Neut % (Auto) 31.6 L, Lymph % (Auto) 56.9 H, [place] % (Auto) 9.7 H, Eos % (Auto) 1.1, Baso % (Auto) 0.4, Neut # (Auto) 2.3, Lymph # (Auto) 4.1, [place] # (Auto) 0.7, Eos # (Auto) 0.1, Baso # (Auto) 0.0, Total Counted 100, Neutrophils % (Manual) 21 L, Lymphocytes % (Manual) 69 H, Monocytes % (Manual) 9, Eosinophils % (Manual) 1, Platelet Estimate Normal, Poikilocytosis 1+, Target Cells 1+ 08/14/24 00:06: PT 10.8, INR 0.96, D-Dimer 0.95 H, Sodium 133 L, Potassium 4.3, Chloride 99, Carbon Dioxide 36 H, Anion Gap 2.3 L, BUN 9, Creatinine 0.40 L, Estimated Creat Clear 59, Estimated GFR 160, Est GFR ( Amer) 194, Glucose 187 H, Calcium 9.6, Phosphorus 4.2, Magnesium 1.6, Total Bilirubin 0.4, AST 27, ALT 14, Alkaline Phosphatase 62, Troponin I < 0.01, Total Protein 7.1, Albumin 4.4, Globulin 2.7, Albumin/Globulin Ratio 1.6 08/14/24 00:14: VBG pH 7.34, VBG pCO2 56.5 H, VBG pO2 25.6 L, VBG HCO3 29.5, VBG Total CO2 31.3 H, VBG O2 Saturation 52.6, VBG Base Excess 3.7 H, VBG Lactic Acid 1.8 08/14/24 02:50: Troponin I 0.02 08/14/24 05:42: Troponin I < 0.01 08/14/24 06:55: WBC 5.8, RBC 4.42, Hgb 13.7, Hct 40.5, MCV 91.6, MCH 31.0, MCHC 33.8, RDW 13.1, Plt Count 173, MPV 11.4 H, Neut % (Auto) 76.1, Lymph % (Auto) 14.3, [place] % (Auto) 1.4 L, Eos % (Auto) 7.4, Baso % (Auto) 0.3, Neut # (Auto) 4.4, Lymph # (Auto) 0.8, [place] # (Auto) 0.1, Eos # (Auto) 0.4, Baso # (Auto) 0.0, Sodium 131 L, Potassium 4.2, Chloride 98, Carbon Dioxide 27, Anion Gap 10.2, BUN 12 D, Creatinine 0.30 L D, Estimated Creat Clear 59, Estimated GFR 223, Est GFR ( Amer) 270 D, Glucose 255 H D, Hemoglobin A1c 7.8 H, Calcium 9.0, Magnesium 1.7, Total Bilirubin 0.4, AST 20 D, ALT 15, Alkaline Phosphatase 55, Troponin I < 0.01, NT-Pro-B Natriuret Pep 201 H, Total Protein 6.7, Albumin 4.2, Globulin 2.5, Albumin/Globulin Ratio 1.7 08/14/24 09:10: Troponin I < 0.01 I & O for Last 24 hours: Intake & Output 08/11/24 08/12/24 08/13/24 08/14/24 23:59 23:59 23:59 23:59 Intake Total 270 / 270 Output Total 700 / 700 Balance -430 / -430 Weight 66.678 kg 66.088 kg Constitutional Constitutional: no acute distress, average body habitus, chronically ill appearing and cooperative *Routine HEENT Exam Head: Present normocephalic Eye: Present EOMI and PERRL ENT: Present mucous membranes moist *Routine Neck Exam Neck: Present supple; Absent lymphadenopathy Routine Chest/Breast/Axilla Exam Chest wall: Absent tenderness *Routine Respiratory Exam Respiratory: Present prolonged expiratory phase, rhonchi and distant breath sounds; Absent wheezes or crackles *Routine Cardiovascular Exam Cardiovascular: Present RRR *Routine Abdominal Exam Abdominal: Present soft and normoactive bowel sounds; Absent tenderness *Routine Rectal Exam Patient deferred: visual exam *Routine Exam Patient deferred: external exam *Routine Extremities Exam Extremities: Absent cyanosis, clubbing or edema *Routine Skin Exam Skin: Present intact and warm; Absent rash *Routine Neurological Exam Neurological: Present alert, oriented X3 and moving all extremities; Absent altered mental status Results Data Completed and Pending Labs on day of discharge: Labs from last 24 hours 08/14/24 08/14/24 08/14/24 09:10 06:55 05:42 WBC 5.8 RBC 4.42 Hgb 13.7 Hct 40.5 MCV 91.6 MCH 31.0 MCHC 33.8 RDW 13.1 Plt Count 173 MPV 11.4 H Neut % (Auto) 76.1 Lymph % (Auto) 14.3 [place] % (Auto) 1.4 L Eos % (Auto) 7.4 Baso % (Auto) 0.3 Neut # (Auto) 4.4 Lymph # (Auto) 0.8 [place] # (Auto) 0.1 Eos # (Auto) 0.4 Baso # (Auto) 0.0 Total Counted Neutrophils % (Manual) Lymphocytes % (Manual) Monocytes % (Manual) Eosinophils % (Manual) Platelet Estimate Poikilocytosis Target Cells PT INR D-Dimer VBG pH VBG pCO2 VBG pO2 VBG HCO3 VBG Total CO2 VBG O2 Saturation VBG Base Excess VBG Lactic Acid Sodium 131 L Potassium 4.2 Chloride 98 Carbon Dioxide 27 Anion Gap 10.2 BUN 12 D Creatinine 0.30 L D Estimated Creat Clear 59 Estimated GFR 223 Est GFR ( Amer) 270 D Glucose 255 H D Hemoglobin A1c 7.8 H Calcium 9.0 Phosphorus Magnesium 1.7 Total Bilirubin 0.4 AST 20 D ALT 15 Alkaline Phosphatase 55 Troponin I < 0.01 < 0.01 < 0.01 NT-Pro-B Natriuret Pep 201 H Total Protein 6.7 Albumin 4.2 Globulin 2.5 Albumin/Globulin Ratio 1.7 08/14/24 08/14/24 08/14/24 02:50 00:14 00:06 WBC RBC Hgb Hct MCV MCH MCHC RDW Plt Count MPV Neut % (Auto) Lymph % (Auto) [place] % (Auto) Eos % (Auto) Baso % (Auto) Neut # (Auto) Lymph # (Auto) [place] # (Auto) Eos # (Auto) Baso # (Auto) Total Counted Neutrophils % (Manual) Lymphocytes % (Manual) Monocytes % (Manual) Eosinophils % (Manual) Platelet Estimate Poikilocytosis Target Cells PT 10.8 INR 0.96 D-Dimer 0.95 H VBG pH 7.34 VBG pCO2 56.5 H VBG pO2 25.6 L VBG HCO3 29.5 VBG Total CO2 31.3 H VBG O2 Saturation 52.6 VBG Base Excess 3.7 H VBG Lactic Acid 1.8 Sodium 133 L Potassium 4.3 Chloride 99 Carbon Dioxide 36 H Anion Gap 2.3 L BUN 9 Creatinine 0.40 L Estimated Creat Clear 59 Estimated GFR 160 Est GFR ( Amer) 194 Glucose 187 H Hemoglobin A1c Calcium 9.6 Phosphorus 4.2 Magnesium 1.6 Total Bilirubin 0.4 AST 27 ALT 14 Alkaline Phosphatase 62 Troponin I 0.02 < 0.01 NT-Pro-B Natriuret Pep Total Protein 7.1 Albumin 4.4 Globulin 2.7 Albumin/Globulin Ratio 1.6 08/13/24 23:40 WBC 7.2 RBC 4.29 Hgb 13.4 Hct 39.2 MCV 91.4 MCH 31.2 MCHC 34.2 RDW 13.8 Plt Count 210 MPV 12.2 H Neut % (Auto) 31.6 L Lymph % (Auto) 56.9 H [place] % (Auto) 9.7 H Eos % (Auto) 1.1 Baso % (Auto) 0.4 Neut # (Auto) 2.3 Lymph # (Auto) 4.1 [place] # (Auto) 0.7 Eos # (Auto) 0.1 Baso # (Auto) 0.0 Total Counted 100 Neutrophils % (Manual) 21 L Lymphocytes % (Manual) 69 H Monocytes % (Manual) 9 Eosinophils % (Manual) 1 Platelet Estimate Normal Poikilocytosis 1+ Target Cells 1+ PT INR D-Dimer VBG pH VBG pCO2 VBG pO2 VBG HCO3 VBG Total CO2 VBG O2 Saturation VBG Base Excess VBG Lactic Acid Sodium Potassium Chloride Carbon Dioxide Anion Gap BUN Creatinine Estimated Creat Clear Estimated GFR Est GFR ( Amer) Glucose Hemoglobin A1c Calcium Phosphorus Magnesium Total Bilirubin AST ALT Alkaline Phosphatase Troponin I NT-Pro-B Natriuret Pep Total Protein Albumin Globulin Albumin/Globulin Ratio DS: Diagnosis Discharge Diagnosis (1) Unstable angina: Status: Acute Code(s): I20.0 - Unstable angina (2) COPD (chronic obstructive pulmonary disease) with acute bronchitis: Status: Chronic Code(s): J44.0 - Chronic obstructive pulmonary disease with (acute) lower respiratory infection; J20.9 - Acute bronchitis, unspecified (3) SOB (shortness of breath): Status: Acute Code(s): R06.02 - Shortness of breath (4) Diabetes mellitus: Status: Chronic Code(s): E11.9 - Type 2 diabetes mellitus without complications Qualifiers: Diabetes mellitus complication status: with other specified complication Diabetes mellitus detention insulin use: unspecified detention insulin use status Diabetes mellitus type: type 2 Qualified Code(s): E11.69 - Type 2 diabetes mellitus with other specified complication (5) Tobacco dependence syndrome: Status: Chronic Code(s): F17.200 - Nicotine dependence, unspecified, uncomplicated (6) HTN (hypertension): Status: Chronic Code(s): I10 - Essential (primary) hypertension Qualifiers: Hypertension type: essential hypertension Qualified Code(s): I10 - Essential (primary) hypertension (7) History of renal stent: Status: Chronic (8) Obesity: Status: Acute Code(s): E66.9 - Obesity, unspecified Qualifiers: Body mass index: BMI 40.0-44.9 Obesity classification: adult class 3 (BMI >= 40) Obesity type: due to excess calories Serious obesity comorbidity presence: with serious comorbidity Qualified Code(s): E66.01 - Morbid (severe) obesity due to excess calories; Z68.41 - Body mass index [BMI]40.0-44.9, adult (9) CAD (coronary artery disease): Status: Chronic Code(s): I25.10 - Atherosclerotic heart disease of [place] coronary artery without angina pectoris Qualifiers: Associated angina: unspecified whether angina present Coronary Disease- Associated Artery/Lesion type: [place] artery [place] vs. transplanted heart: [place] heart Qualified Code(s): I25.10 - Atherosclerotic heart disease of [place] coronary artery without angina pectoris Meds Home Medications and Allergies Home Medications ?Medication ?Instructions ?Recorded ?Confirmed ?Type aspirin 81 mg tablet,delayed 81 mg PO DAILY #90 tabs 12/12/23 08/14/24 Rx release insulin glargine 100 unit/mL (3 30 unit SQ BID 04/05/24 08/14/24 History mL) subcutaneous pen (Lantus Solostar U-100 Insulin) sacubitril 49 mg-valsartan 51 mg 1 tab PO BID #180 tabs 06/23/24 08/14/24 Rx tablet (Entresto) albuterol sulfate 90 mcg/actuation 2 puff inhalation Q3HP PRN 08/14/24 08/14/24 History aerosol inhaler Shortness Of Breath atorvastatin 80 mg tablet 80 mg PO HS 08/14/24 08/14/24 History carvedilol 25 mg tablet 25 mg PO BID 30 days #0 tabs 08/14/24 08/14/24 Rx cetirizine 10 mg tablet 10 mg PO DAILY 08/14/24 08/14/24 History clopidogrel 75 mg tablet 75 mg PO DAILY 08/14/24 08/14/24 History fluticasone fur. 100 mcg-umeclid 1 inh inhalation DAILY 08/14/24 08/14/24 History 62.5 mcg-vilant 25 mcg inhalat.powder (Trelegy Ellipta) fluticasone propionate 50 1 spray intranasal DAILY 08/14/24 08/14/24 History mcg/actuation nasal spray,suspension glipizide 10 mg tablet 10 mg PO BID 08/14/24 08/14/24 History metformin 1,000 mg tablet 1,000 mg PO BID 08/14/24 08/14/24 History New Prescriptions to Start Prescriptions: Allergies Allergy/AdvReac Type Severity Reaction Status Date / Time Iodinated Contrast Media Allergy Intermediate I-RASH/SOB/ Verified 04/05/24 15:01 (Iodinated Contrast Media - Anaphlaxis IV Dye) Discharge Plan Disposition Patient Disposition: Home, Self-Care Condition: Good Follow up Plan Follow up with: Pepe Amaya PA [Physician Sewing Machine Attachment Tester] - Enter time for follow up (follow-up this week) Prescriptions/Medication Reconciliation: Continued insulin glargine [Lantus Solostar U-100 Insulin] 100 unit/mL (3 mL) insulin pen 30 unit SQ BID aspirin 81 mg tablet,delayed release (DR/EC) 81 mg PO DAILY Qty: 90 3RF Entresto 49-51 mg tablet 1 tab PO BID Qty: 180 3RF cetirizine 10 mg tablet 10 mg PO DAILY Patient Comments: TAKE ONE TABLET BY MOUTH EVERY DAY atorvastatin 80 mg tablet 80 mg PO HS Patient Comments: TAKE ONE TABLET BY MOUTH EVERY DAY in THE evening glipizide 10 mg tablet 10 mg PO BID Patient Comments: TAKE ONE TABLET BY MOUTH TWICE DAILY metformin 1,000 mg tablet 1,000 mg PO BID Patient Comments: TAKE 1 TABLET BY MOUTH TWICE DAILY albuterol sulfate 90 mcg/actuation HFA aerosol inhaler 2 puff INHALATION Q3HP PRN (Reason: Shortness Of Breath) Patient Comments: Inhale 2 puffs by mouth every 3 to 4 hours as needed. fluticasone propionate 50 mcg/actuation spray,suspension 1 spray INTRANASAL DAILY Patient Comments: instill 1 spray into each nostril everyday Trelegy Ellipta 100-62.5-25 mcg blister with device 1 inh INHALATION DAILY Patient Comments: INHALE 1 PUFF BY MOUTH ONCE DAILY AT THE SAME TIME EACH DAY clopidogrel 75 mg tablet 75 mg PO DAILY Changed carvedilol 25 mg tablet 25 mg PO BID 30 Days Qty: 0 0RF Problem Reconciliation Problems Reviewed?: Yes Patient Discharge Instructions ACTIVITY: Continue current activity DIET: continue same diet Patient Instructions: DI for Chronic Obstructive Pulmonary Disease, DI for Angina Print Language: Mongolian Providers Primary Care Provider: Provider,Referral Admit Provider: Soy Oh Attending Provider: Soy Oh
[2024-08-14 13:22] LABS: Microscopic, Urine URINE MICROSCOPIC (MICROSCOPIC)
[2024-08-14 13:28] LABS: Appearance,Urine CLEAR (Clear); Bilirubin,Urine Negative (Negative); Blood, Urine Negative (Negative); Color,Urine YELLOW (Yellow); Glucose,Urine (UA) 500 (Negative); Ketones,Urine TRACE (Negative); Leukocyte Esterase,Urine TRACE (Negative); Nitrate,Urine Negative (Negative); Protein,Urine Negative (Negative); Specific Gravity, Urine 1.015 (1.005-1.030); Urobilinogen,Urine 0.2 EU/dl (0.2)
[2024-08-14 13:35] LABS: Bacteria,Urine Trace /lpf
--- NOTE | 2024-08-17 11:07 | SW/DCPLANNER ---
Spoke with patient on the phone. Patient stated that she has her good days and bad days. Patient stated that she has called to schedule her follow up appointment with her cardiology. Patient stated that she was able to get her new medicine picked up. Patient stated that she has no concerns or questions at this time. Hailey Ndiaye
== END 2024-08-14 16:18 | disposition home or self-care (01) ==
LOC: ER 08-14 02:52 → 2ND 08-14 03:30
PROVIDERS: Nurse Practitioner Family; Admitting Provider Internal Medicine Adolescent Medicine; Emergency Provider Emergency Medicine; Visit Provider Internal Medicine Adolescent Medicine
DX: I25.110 Atherosclerotic heart disease of native coronary artery with unstable angina pectoris (principal); T44.7X5A Adverse effect of beta-adrenoreceptor antagonists, initial encounter; J44.0 Chronic obstructive pulmonary disease with (acute) lower respiratory infection; J20.9 Acute bronchitis, unspecified; F17.210 Nicotine dependence, cigarettes, uncomplicated; I50.810 Right heart failure, unspecified; I11.0 Hypertensive heart disease with heart failure; K59.00 Constipation, unspecified; E11.9 Type 2 diabetes mellitus without complications; E78.5 Hyperlipidemia, unspecified; Z79.82 Long term (current) use of aspirin; Z91.041 Radiographic dye allergy status; Z79.4 Long term (current) use of insulin; Z79.899 Other long term (current) drug therapy; Z79.84 Long term (current) use of oral hypoglycemic drugs; Z95.5 Presence of coronary angioplasty implant and graft; Z95.828 Presence of other vascular implants and grafts; Z79.51 Long term (current) use of inhaled steroids; Z79.02 Long term (current) use of antithrombotics/antiplatelets
CPT/HCPCS: 36415; 71045; 71250; 74176; 80053; 81001; 82803; 83036; 83735; 83880; 84100; 84484; 85007; 85025; 85027; 85378; 85610; 93005; 94640; 99285; G0378; J1650; J2919; J7620

== ENCOUNTER 2024-09-10 11:40 | Outpatient (CLI) | payer MEDICARE, MEDICAID, SELFPAY ==
--- NOTE | 2024-09-10 11:43 | CA_ITS ---
APPROVED REPORT EXAM: Comprehensive 2D, Doppler, and color-flow Echocardiogram Timber Estimator: Lindsay Blair RVT Ht: 5 ft 4 in Wt: 141lbs BSA: 1.69 BP: 199/116 mmHg Indications: ANGINA,SOA,SMOKER,CAD,HTN,HLD,FATIGUE 2D Dimensions IVSd 1.33 cm F: 0.6-1.0 LVEF (Visual) 65.30 % PWd 1.05 cm F: 0.6 - 1.0 LA Volume 38.20 mL LVDd 3.91 cm F: 3.9 - 5.3 LA Volume Index 22.60 mL/m2 (M/F) 16-34 LVDs 2.53 cm F: 2.2 - 3.5 M-Mode Dimensions LA Diam 2.78 cm (1.9-4.0) TAPSE 1.61 (<1.7) LV Diastology E Decel Time 150 (160-240 msec) E/A Ratio 0.6 Aortic Valve ISRRAEL Index 1.72 cm2/m2 AoV Peak Andrez. 110.0 (50-130 cm/s) AO Peak GR. 4.80 mmHg AO Mean GR. 2.90 (<5 mmHg) AO VTI 18.8 (18-25 cm) [place]EL (VTI) 2.97 (2.5-4.5 cm2) Mitral Valve MV E Max Andrez. 57.0 (40-130 cm/s) MV A Velocity 95.0 (40-130 cm/s) E/A Ratio 0.60 MV PHT 44.0 ms Pulmonary Valve PV Peak Velocity 125.0 (50-150 cm/s) Tricuspid Valve TR P. Velocity 264.00 cm/s RAP Estimate 10.00 mmHg RVSP 37.80 mmHg Left Ventricle The left ventricle is normal size. The left ventricular systolic function is normal. The left ventricular ejection fraction is within the normal range. There is increased LV wall thickness. There is normal LV segmental wall motion. The left ventricular diastolic function is normal. LVEF is 55%. Right Ventricle The right ventricle is normal size. The right ventricular systolic function is normal. Atria The left atrium size is normal. The right atrium size is normal. There is no Doppler evidence of interatrial shunt. Aortic Valve Aortic valve is mildly thickened. There is no aortic valvular stenosis. Trace aortic regurgitation. Mitral Valve The mitral valve is normal in structure. No evidence of mitral valve stenosis. Trace mitral regurgitation. Tricuspid Valve Tricuspid valve is grossly normal in structure and function. Mild tricuspid regurgitation. RVSP is 20-25 mmHg. Pulmonic Valve The pulmonary valve is normal in structure. Trace pulmonic regurgitation. Great Vessels The aortic root is normal in size. IVC is normal in size and collapses >50% with inspiration. Pericardium There is no pericardial effusion. Other Information Study Quality: Fair Conclusion Normal biventricular systolic function. Mild TR. Electronically signed by : Margarita Ledesma MD 09/13/2024 22:52:39
== END 2024-09-10 23:59 | disposition home or self-care (01) ==
LOC: RT 11:41
PROVIDERS: PCP Nurse Practitioner; Visit Provider Physician Assistant
DX: I36.1 Nonrheumatic tricuspid (valve) insufficiency (principal); I20.9 Angina pectoris, unspecified; R06.02 Shortness of breath
CPT/HCPCS: 93306

== ENCOUNTER 2024-09-15 11:25 | Outpatient (CLI) | payer MEDICARE, MEDICAID, SELFPAY ==
--- NOTE | 2024-09-15 | CA_ITS ---
APPROVED REPORT Exam: Pharmacologic Technologist: Chio Gerardo Ht: 5 ft 4 in Wt: 141 lbs BSA: 1.69 m2 Stress Test Details Test: Lexiscan Reason for pharmacologic stress test: physical limitation. HR Resting HR: 95 bpm Max Heart Rate (APMHR): 155 bpm Max HR Achieved: 123 bpm Target HR (85% APMHR): 132 bpm % of APMHR: 79 Recovery HR: 110 bpm BP Resting BP: 203.0/108.0 mmHg Max BP: 252.0/122.0 mmHg Recovery BP: 202.0/108.0 mmHg ECG Resting ECG: NSR Stress ECG Conclusion Symptoms: None. Arrhythmias/Ectopy: None. ST-T Changes: <1.[address] Segment changes. Conclusion: Non-Diagnostic Lexiscan stress. Electronically signed by : Margarita Ledesma MD 09/15/2024 22:50:59
--- NOTE | 2024-09-15 12:00 | NM_ITS ---
APPROVED REPORT Exam: Nuclear Stress Test Indication: cp..soa..fatigue Patient Location: Outpatient Stress Tech: [place]io [place] Tech:Magali Mills, ARRT, RT (R)(N) Ht: 5 ft 4 in Wt: 138 lbs Bra Size: 36c HR: 96 bpm BP: 203/108 mmHg BSA: 1.67 m2 TID: 1.06 BMI: 23.6 History: cp..soa..fatigue Procedure: Patient received 0.4 mg of intravenous Lexiscan, resting heart rate 96 bpm, resting blood pressure 203/108 mmHg, with Lexiscan maximum heart rate achieved was 125 bpm which is 85 % of the maximum predicted heart rate and blood pressure was 252/122 mmHg. With Lexiscan, patient denied any complaint of chest pain. The pt was not able to do prone images. Cardiac Stress and Resting SPECT Images: Cardiac Stress and Resting SPECT images were obtained using technetium 99m Myoview 31.1 mCi stress and 10.41 mCi at rest. The patient was unable to lie on her abdomen. Therefore, prone stress imaging could not be performed. This may affect diagnostic interpretation of the study findings. Resting and stress imaging in supine positions demonstrate a small sized, moderate, fixed perfusion defect in the LV apical wall. No evidence of reversible ischemia. Gated imaging demonstrates normal global and regional LV systolic function. LVEF is calculated at 57%. Conclusion: Small sized, moderate, fixed perfusion defect in the LV apical wall. No evidence of reversible ischemia. Gated imaging demonstrates normal global and regional LV systolic function. LVEF is calculated at 57%. Of note, the RV appears dilated in this study. Correlation with new recent TTE is suggested. Electronically signed by : Margarita Ledesma MD 09/15/2024 22:44:44
[2024-09-15] MEDS: SODIUM CHLORIDE 0.9% 10ML SYR (RAD ONLY) 10 ML IV ×2 (13:41)
[2024-09-15] MEDS: ISOTOPE MYOVIEW (PER STUDY) 1 DOSE IV (13:41)
[2024-09-15] MEDS: REGADENOSON 0.4MG/5ML SYRINGE 0.4 MG IV (13:41)
== END 2024-09-15 23:59 | disposition home or self-care (01) ==
LOC: RAD 11:27
PROVIDERS: PCP Nurse Practitioner; Visit Provider Physician Assistant
DX: R06.02 Shortness of breath (principal); I20.9 Angina pectoris, unspecified
CPT/HCPCS: 78452; 93017; 93018; A9502; J2785

== ENCOUNTER 2025-03-09 22:41 | Inpatient (IN) | payer MEDICARE, MEDICAID, SELFPAY ==
[2025-03-09] VITALS (11 sets, daily range): BP systolic 71–248; BP diastolic 52–151; PULSE 114–148; RESP 14–31; TEMP 36.9; O2SAT 92–98; BMI 25.0
--- NOTE | 2025-03-09 23:00 | XR_ITS ---
PROCEDURE INFORMATION: Exam: XR Chest Exam date and time: 03/09/2025 11:42 PM Age: 64 years old Clinical indication: Shortness of breath; Additional info: SOA TECHNIQUE: Imaging protocol: Radiologic exam of the chest. Views: 1 view. COMPARISON: CR XR CHEST PORTABLE 08/14/2024 1:02 AM FINDINGS: Lungs: Unremarkable. No consolidation. Pleural spaces: Unremarkable. No pleural effusion. No pneumothorax. Heart/Mediastinum: Unremarkable. No cardiomegaly. Bones/joints: Unremarkable. IMPRESSION: No acute findings.
--- NOTE | 2025-03-09 23:03 | ECG_ITS ---
APPROVED REPORT Exam: Resting ECG HR:147 bpm ECG Measurements Heart Rate 147 AXES QRSd 78 QRS 61 QT 305 T 74 QTc 389 Conclusion Sinus tachycardia ANTEROSEPTAL MYOCARDIAL INFARCTION , OF INDETERMINATE AGE [40+ ms Q WAVE IN V1-V4] No STEMI Electronically signed by : MONICA GU, 03/10/2025 06:31:50
[2025-03-09 23:05] LABS: Hematocrit 46.3 % (37.0-47.0); Hemoglobin 15.2 g/dL (12.2-16.2); Immature Granulocytes % 0.7 %; Mean Corpuscular HGB Conc 32.8 g/dL (31.8-35.4); Mean Corpuscular Hemoglobin 30.1 pg (27.0-31.2); Mean Corpuscular Volume 91.7 fl (81-99); Nucleated Red Blood Cells % 0 %; Platelet Count 191 K/mm3 (142-424); Red Blood Count 5.05 M/mm3 (4.20-5.40); Red Cell Distribution Width-SD 46.0 fL; White Blood Count 10.5 K/mm3 (4.8-10.8)
[2025-03-09] MEDS: IPRATROPIUM/ALBUTEROL 3 ML NEB 9 ML IH (23:13)
[2025-03-09] MEDS: NITROGLYCERIN 0.4MG SL TABLET 0.4 MG SL (23:13)
[2025-03-09 23:18] LABS: VBG HCO3 26.8 mmol/L (23-30); VBG PO2 81.9 mmol/L (28-40)
[2025-03-09 23:19] LABS: Alanine Aminotransferase 25 U/L (12-78); Albumin Level 4.3 g/dl (3.5-5.0); Albumin/Globulin Ratio 1.5 (1.1-1.8); Alkaline Phosphatase 130 U/L (38-126); Anion Gap 17.6 mEq/L (5-15); Aspartate Amino Transferase 65 U/L (14-36); Bilirubin,Total 0.6 mg/dl (0.2-1.3); Blood Urea Nitrogen 7 mg/dl (7-17); Calcium 9.6 mg/dl (8.4-10.2); Carbon Dioxide 28 mmol/L (22.0-30.0); Chloride 95 mmol/L (98-107); Creatinine,Serum 0.60 mg/dl (0.52-1.04); Estimated Glomerular Filt Rate 100 ml/min (>60); GFR (African American) 121 ML/MIN (>60); Globulin 2.8 g/dL (1.3-3.2); INR 0.99 (0.9-1.1); Potassium 4.6 mmoL/L (3.5-5.1); Prothrombin Time 11.0 seconds (10.1-12.5); Sodium 136 mmol/L (136-145); Total Protein,Serum 7.1 g/dl (6.3-8.2)
[2025-03-09 23:23] LABS: Lactate Venous 4.2 mmol/L (0.4-2.0); VBG PCO2 73.2 mmol/L (35-51)
[2025-03-09] MEDS: ASPIRIN 81MG CHEWABLE TABLET 324 MG PO (23:25)
[2025-03-09] MEDS: FUROSEMIDE 40 MG TABLET PO (23:25)
[2025-03-09] MEDS: NITROGLYCERIN IN 5 % DEXTROSE 250 ML 1.5 MG IV (23:28)
[2025-03-09 23:29] LABS: Glucose 416 mg/dl (74-100)
[2025-03-09 23:30] LABS: NT Pro Brain Natriuretic Pep. 281 pg/mL (0-125); Troponin I 0.03 ng/ml (0.00-0.034)
--- NOTE | 2025-03-09 23:32 | HMH.EDCP ---
Discharge Plan Disposition Patient Disposition: Admitted Condition: Serious Clinical Impressions Clinical Impression: Acute respiratory failure with hypoxia and hypercarbia, Hypertensive emergency Discharge ED Provider: Xiao Quintero General Chief Complaint: Shortness of Breath/Dyspnea Stated Complaint: Stroke Time Seen by Provider: 03/09/25 22:59 History of Present Illness HPI narrative: 64-year-old female with history of COPD, hypertension, hyperlipidemia, CAD presents to the ER with sudden onset shortness of breath that started approximately 6 hours ago. Patient reports taking her home inhaler without improvement of symptoms. Patient reports she has been taking her home medications as prescribed. She claims she takes a water pill but review of her medications that she brought with her and of her medication list is not consistent with that. Patient reports no chest pain, no pain between the shoulder blades, she states she has been having a productive cough that also started today. No nausea, vomiting, or diarrhea. EMS reports she was significantly hypoxic with increased work of breathing but they do not report any medications administered during transportation. Patient denies headache, dizziness, numbness, tingling, or weakness. No other complaints or concerns. Related Data Home Medications ?Medication ?Instructions ?Recorded ?Confirmed insulin glargine 100 unit/mL (3 30 unit SQ BID 04/05/24 09/23/24 mL) subcutaneous pen (Lantus Solostar U-100 Insulin) albuterol sulfate 90 mcg/actuation 2 puff inhalation Q3HP PRN 08/14/24 09/23/24 aerosol inhaler Shortness Of Breath cetirizine 10 mg tablet 10 mg PO DAILY 08/14/24 09/23/24 fluticasone fur. 100 mcg-umeclid 1 inh inhalation DAILY 08/14/24 09/23/24 62.5 mcg-vilant 25 mcg inhalat.powder (Trelegy Ellipta) fluticasone propionate 50 1 spray intranasal DAILY 08/14/24 09/23/24 mcg/actuation nasal spray,suspension glipizide 10 mg tablet 10 mg PO BID 08/14/24 09/23/24 metformin 1,000 mg tablet 1,000 mg PO BID 08/14/24 09/23/24 prednisone 20 mg tablet 20 mg PO DAILY 08/24/24 09/23/24 Previous Rx's ?Medication ?Instructions ?Recorded carvedilol 25 mg tablet 25 mg PO BID 30 days #0 tabs 08/14/24 nitroglycerin 0.4 mg sublingual 0.4 mg sublingual Q5M PRN chest 08/24/24 tablet pain #25 tabs clopidogrel 75 mg tablet See Rx Instructions .Route 11/25/24 .COMPLEX #90 tabs amlodipine 10 mg tablet See Rx Instructions .Route 01/03/25 .COMPLEX #90 tabs hydralazine 25 mg tablet See Rx Instructions .Route 01/03/25 .COMPLEX #270 tabs sacubitril 97 mg-valsartan 103 mg See Rx Instructions .Route 01/03/25 tablet (Entresto) .COMPLEX #180 tabs aspirin 81 mg tablet,delayed 81 mg PO DAILY #90 tabs 02/15/25 release Allergies Allergy/AdvReac Type Severity Reaction Status Date / Time Iodinated Contrast Media Allergy Intermediate I-RASH/SOB/ Verified 09/23/24 10:47 (Iodinated Contrast Media - Anaphlaxis IV Dye) [facility] Disclaimer: The information contained in this section may have been updated after the patient was seen, as this information can be updated by other users. Medical History Acute systolic (congestive) heart failure History of stent insertion of renal artery Left ventricular hypertrophy Diastolic dysfunction Malignant hypertension Abnormal chest xray Elevated transaminase level Severe sepsis with acute organ dysfunction Acute and chronic respiratory failure ([id number]) Diastolic heart failure Atypical angina Acute on chronic HFrEF (heart failure with reduced ejection fraction) Renal artery arteriosclerosis SOB (shortness of breath) Diabetes mellitus Tobacco dependence syndrome HTN (hypertension) Family History Other No significant family history Social History Smoking Status: Current every day smoker tobacco type: cigarettes packs per day: 1 second hand exposure: No alcohol intake: never substance use type: denies use current occupational status: unemployed Travel in the last 8 weeks?: Inside the [place] household members: spouse housing: house current occupational exposures/hazards: No caffeine: Yes Other Medical History Have you received the Flu Vaccine for this season: No Have you received the Pneumonia Vaccine: No ROS Obtained: Yes Systems reviewed as appropriate & no additional complaints except as documented Per HPI Physical Exam General General appearance: alert Comment: In obvious respiratory distress, ill-appearing Head Head exam: atraumatic and normocephalic Eye Eye exam: Present PERRL and EOMI ENT ENT exam: Present mucous membranes moist Neck Neck exam: Present normal inspection and full ROM Chest Chest inspection: Present symmetric chest wall rise; Absent tenderness Respiratory Respiratory exam: Present respiratory distress (Tachypneic in obvious respiratory distress with accessory muscle use, prolonged expiratory phase, chest is silent on my initial exam ), accessory muscle use and prolonged expiratory phase; Absent normal lung sounds bilaterally, wheezes or stridor Cardiovascular Cardiovascular exam: Present normal rhythm and tachycardia Abdominal Exam Abdominal exam: Present soft; Absent distention or tenderness Extremities Exam Extremities exam: Present full ROM and edema (+1 bilateral lower extremity pitting edema) Back Exam Back exam: Absent CVA tenderness (R) or CVA tenderness (L) Neurological Exam Neurological exam: Present alert and oriented X3; Absent motor sensory deficit Psychiatric Psychiatric exam: Present normal affect and normal mood Skin Skin exam: Present warm and dry HEART Score HEART Score HEART Score assessment performed?: Yes History (anamnesis): Slightly suspicious ECG: Non-specific disturbance Age: 45-65 years Risk factors: Atherosclerosis history Troponin: </= normal limit HEART Score: 4 Procedures Miscellaneous Procedure Procedure Performed: Limited Cardiac Ultrasound Performed by: Xiao Quintero MD Indication: Shortness of breath Identified cardiac views: Parasternal views were not able to be obtained secondary to poor acoustic windows -Cardiac apical four-chamber -Cardiac subxiphoid Findings: Cardiac activity present, tachycardic, no gross wall motion abnormality, no pericardial effusion, no right heart strain Impression: Cardiac activity present, tachycardic, no gross wall motion abnormality, no pericardial effusion, no right heart strain Images were saved to permanent archive The study was technically adequate CPT: 94241 This study was performed by me, and I personally interpreted all images/videos. Based on my clinical judgement, these images were adequate and did not necessitate further imaging. Limited lung ultrasound Performed by: Xiao Quintero MD A focused ultrasound exam of the pleural spaces was performed to evaluate for pneumothorax, pulmonary edema, pleural effusion and/or consolidation. The ultrasound was performed with the following indications, as noted in the H&P: Hypoxia, hypertension, shortness of breath Identified structures: Bilateral thoracic cavities were examined. Findings: Lung sliding: Present bilaterally B-lines: Present bilaterally Pleural effusion: Absent bilaterally Consolidation: Not appreciated Impression: No pneumothorax or pleural effusion, B-lines present bilaterally, no consolidation appreciated Images were saved to permanent archive The study was technically adequate CPT 01714-43 This study was performed by me, and I personally interpreted all images/videos. Based on my clinical judgement, these images were adequate and did not necessitate further imaging. Critical Care Critical Care Time Critical Care Time: Yes Attestation: On 03/09/25, the high probability of a clinically significant, sudden or life threatening deterioration of the following system(s) required my full and direct attention, intervention and personal management. The time I documented below is in addition to time spent performing reported procedures but includes the following listed in this critical care notation. Total Time Total Critical Care Time: 65 Medical Decision Making Medical Records Medical records reviewed: Yes I reviewed the patient's medical records. [place] Inquiry Pt receiving controlled substance: No Vital Signs Vital Signs: 03/09/25 23:00 03/09/25 23:20 Temperature 98.5 F Temperature Source Oral Pulse Rate [Left] 148 H Respiratory Rate 28 H Blood Pressure [Left Arm] 169/127 H Blood Pressure [Right Arm] 248/151 H Blood Pressure Mean [Left Arm] 141 Blood Pressure Mean [Right Arm] 183 Blood Pressure Source [Left Arm] Automatic Cuff Blood Pressure Source [Right Arm] Automatic Cuff Blood Pressure Position [Left Arm] Sitting Blood Pressure Position [Right Arm] Sitting 02 Sat by Pulse Oximetry 92 L Oxygen Delivery Method Nasal Cannula Oxygen Flow Rate (LPM) 3 Fraction of Inspired Oxygen 40 Lab Data Labs: Lab Results 03/09/25 22:45: WBC 10.5, RBC 5.05, Hgb 15.2, Hct 46.3, MCV 91.7, MCH 30.1, MCHC 32.8, RDW 13.5, Plt Count 191, MPV 11.6 H, Neut % (Auto) 27.7 L, Lymph % (Auto) 63.9 H, Gove % (Auto) 5.8, Eos % (Auto) 1.2, Baso % (Auto) 0.7, Neut # (Auto) 2.9, Lymph # (Auto) 6.7 H, Gove # (Auto) 0.6, Eos # (Auto) 0.1, Baso # (Auto) 0.1, Total Counted 100, Neutrophils % (Manual) 29 L, Lymphocytes % (Manual) 66 H, Monocytes % (Manual) 5, Platelet Estimate Normal, RBC Morphology Normal, PT 11.0, INR 0.99, D-Dimer 2.13 H, Sodium 136, Potassium 4.6, Chloride 95 L, Carbon Dioxide 28, Anion Gap 17.6 H, BUN 7, Creatinine 0.60, Estimated GFR 100, Est GFR ( Amer) 121, Glucose 416 H*, Calcium 9.6, Total Bilirubin 0.6, AST 65 H, ALT 25, Alkaline Phosphatase 130 H, Troponin I 0.03, NT-Pro-B Natriuret Pep 281 H, Total Protein 7.1, Albumin 4.3, Globulin 2.8, Albumin/Globulin Ratio 1.5, Acetone Level None detected 03/09/25 23:05: VBG pH 7.18 L, VBG pCO2 73.2 H, VBG pO2 81.9 H, VBG HCO3 26.8, VBG Total CO2 29.1 H, VBG O2 Saturation 94.7 H, VBG Base Excess -1.5, VBG Lactic Acid 4.2 H 03/09/25 22:45 03/09/25 22:45 Response Orders (Tests/Meds): ED MEDICATIONS Generic Name Dose Route Start Last Admin Trade Name Freq PRN Reason Stop Dose Admin Doxycycline Hyclate 100 mg 03/10/25 00:52 Doxycycline Hycl 100 Mg Tablet PO 03/10/25 00:53 ONCE ONE Enoxaparin Sodium 65 mg 03/10/25 00:45 Enoxaparin 100mg/Ml Syringe 1 mg/kg (65 mg) 04/09/25 00:44 SUBCUT Q12H JOSE Nitroglycerin/Dextrose 250 mls @ 1.5 mls/hr 03/09/25 23:30 03/09/25 23:32 Nitroglycerin 50mg/250ml D5w IV 04/08/25 23:29 0 mcg/min .Q24H JOSE 0 mls/hr Protocol Titration 5 MCG/MIN Nitroglycerin 0.4 mg 03/09/25 23:00 03/09/25 23:13 Nitroglycerin 0.4mg Sl Tablet SL 03/10/25 23:00 0.4 mg Q5MINP PRN Administration Chest Pain Discontinued Medications Generic Name Dose Route Start Last Admin Trade Name Juanita PRN Reason Stop Dose Admin Albuterol Sulfate 20 mg 03/09/25 23:02 03/10/25 00:05 Albuterol 0.083% 2.5 Mg/3 Ml [facility] 03/09/25 23:03 20 mg ONCE ONE Administration Albuterol/Ipratropium 9 ml 03/09/25 23:02 03/09/25 23:13 Ipratropium/Albuterol 3 Ml [facility] 03/09/25 23:03 9 ml ONCE ONE Administration Aspirin 324 mg 03/09/25 23:00 03/09/25 23:25 Aspirin 81mg Chewable Tablet PO 03/09/25 23:01 324 mg ONCE ONE Administration Furosemide 40 mg 03/09/25 23:19 03/09/25 23:25 Furosemide 40 Mg Tablet PO 03/09/25 23:20 40 mg ONCE ONE Administration Lactated Ringer's 500 mls @ 999 mls/hr 03/09/25 23:26 03/10/25 00:15 Lactated Ringer's 500ml IV 03/09/25 23:56 Infused .Q31M ONE Infusion Methylprednisolone Sodium Succinate 125 mg 03/09/25 23:27 03/09/25 23:36 Methylprednisolone Sod Succ 125mg Vial IV 03/09/25 23:28 125 mg ONCE ONE Administration ORDERS Category Date Time Status POCUS Point of Care (ER Only) Stat Exams 03/09/25 23:03 Completed XR chest portable Stat Exams 03/09/25 23:00 Completed Acetone, Serum (Rapid) Stat Lab 03/09/25 22:45 Completed Complete Blood Count Auto Diff Stat Lab 03/09/25 22:45 Completed Comprehensive Metabolic Panel Stat Lab 03/09/25 22:45 Completed D-Dimer Stat Lab 03/09/25 22:45 Completed Full Resp Panel w/COVID ([facility]) Routine Lab 03/09/25 23:29 Ordered NT Pro Brain Natriuretic Pep. Stat Lab 03/09/25 22:45 Completed Prothrombin Time INR Stat Lab 03/09/25 22:45 Completed Troponin I Q3H Lab 03/10/25 02:00 Ordered Troponin I Q3H Lab 03/10/25 05:00 Ordered Troponin I Stat Lab 03/09/25 22:45 Completed Urinalysis and Microscopic Stat Lab 03/09/25 23:29 Ordered VBG [Venous Blood Gas] Stat RT 03/10/25 00:35 Ordered Venous Blood Gas Stat RT 03/09/25 23:05 Completed ECG Request Stat Y 03/10/25 00:35 Ordered MDM Narrative Medical Decision Narrative: In summary, this 64-year-old female with comorbidities described in the HPI presents to the emergency department today with shortness of breath and respiratory distress. On initial evaluation patient is tachycardic, significantly hypertensive, afebrile, in obvious respiratory distress with silent chest, accessory muscle use, tachypnea. I immediately asked for BiPAP and DuoNebs. I performed [id number] ultrasound at bedside which demonstrates some B-lines in the lungs, no pericardial effusion or significant wall motion abnormality, abdominal exam benign, mild peripheral edema. Neurologically intact. Differential diagnosis includes but is not limited to ACS, PE, COPD exacerbation, hypertensive emergency, hypertensive urgency, endorgan dysfunction, also considered metabolic derangement. Based on these concerns, I ordered hematologic and serum labs, chest x-ray, cardiac workup, D-dimer. Ruling out the most morbid conditions drove my assessment. ECG personally interpreted demonstrates sinus tachycardia, rate 147, normal MD and QTc, no STEMI. Wandering baseline complicates interpretation repeat ECG will be performed. Upon identifying the B-lines in the lungs, patient is being placed on a nitro drip and receiving IV furosemide. She continues to be tachycardic and I am going to give her some IV fluids because I suspect intravascular volume depletion, but I suspect a large portion of her tachycardia is also due to significant hypoxia. Labs personally reviewed demonstrate pH 7.18, pCO2 73, VBG lactic 4.2. This supports my suspicion of COPD exacerbation being a portion of patient's presentation. Additional labs personally reviewed demonstrate no leukocytosis or anemia, normal platelets, PT/INR normal, CMP with elevated anion gap and glucose elevated at 416 does increase my concern the patient may be in DKA, acetone added to workup as well as urinalysis. Acetone negative. No DKA. Chest x-ray pending. BNP elevated at 281, patient is already being treated with IV furosemide as discussed which will help address any volume overload. Initial troponin 0.03 up from patient's previous which was 0.01 in July. This may simply be related to hypoxia and tachycardia, will continue monitoring. On reassessment since DuoNebs have been administered and BiPAP has been started patient's respiratory rate is improving, she is also starting to have some air movement and end expiratory wheezing. Her chest is no longer silent. Solu-Medrol being administered. Full respiratory panel also added to workup. XR personally interpreted demonstrates bibasilar pulmonary edema with no lobar infiltrate, see radiology read for final interpretation. Patient's D-dimer is elevated at 2.13. She has anaphylaxis to IV iodinated contrast and is not in a good enough position from a respiratory standpoint to go to CT at this time so rather than scan her for PE and going to empirically start her on therapeutic Lovenox. I reach out to [facility] who confirmed a dose of 1 mg/kg. Patient is showing signs of improvement. Her tachycardia was initially in the upper 140s to 150s and currently is 121. Repeat ECG demonstrates sinus tachycardia, rate 131, normal axis, normal MD and QTc, no STEMI or obvious dynamic changes. She continues to require BiPAP but her oxygenation has improved so her FiO2 is being lowered. Patient is appropriate for admission at this time. I reached out to the hospitalist, Flower, and discussed this case at length with her including the patient's presentation, lab findings, and intervention in the ER as well as the reasons that I have not sent her for CTA PE and her current ventilatory settings. Nitro drip has been able to be stopped since her blood pressure has significantly improved. Patient is receiving oral doxycycline for COPD exacerbation with productive cough for antibiotic coverage though she has no lobar infiltrate or leukocytosis. Patient was graciously accepted to the hospitalist for ICU admission.
[2025-03-09 23:33] LABS: D-Dimer 2.13 ug/mL (0.0-0.5)
[2025-03-09] MEDS: RINGERS SOLUTION,LACTATED 500 ML 999 ML IV (23:34)
[2025-03-09] MEDS: METHYLPREDNISOLONE SOD SUCC 125MG VIAL 125 MG IV (23:36)
[2025-03-09 23:39] LABS: RBC Morphology Normal; Total Cells Counted 100
[2025-03-09 23:49] LABS: Acetone, Serum (Rapid) None Detected (None Detect)
[2025-03-10] VITALS (43 sets, daily range): BP systolic 108–163; BP diastolic 45–111; PULSE 91–133; RESP 14–28; TEMP 36.4–37.2; O2SAT 87–99; BMI 24.5
--- OUTSIDE RECORDS SUMMARY | 2025-03-10 00:03 | XMS_ITS | Encounter Summary ---
Author Organization [facility] Address [address] [place] [address] Care Team Providers Care Information Technology Audit Manager Name Role Phone Unavailable Primary Care Provider Unavailabl e Encounter Details Date Type Department Care Team (Late st Contact Info) Description 07/29/2002 Historical Encounter Brody Lopez Social History Tobacco Use Types Packs/Day Years Used Date Smoking Tobacco: Never Assessed Comments Unknown Sex and Gender Information Value Date Recorded Sex Assigned at Not on file Legal Sex Female 7:53 PM EST Gender Identity Not on file Sexual Orientation Not on file documented as of this encounter Plan of Treatment Not on file documented as of this encounter Visit Diagnoses Not on filedocumented in this encounter
--- OUTSIDE RECORDS SUMMARY | 2025-03-10 00:03 | XMS_ITS | Encounter Summary ---
Author Organization [facility] Address [address] [place] [address] Care Team Providers Care Pottery Decorator Name Role Phone Unavailable Primary Care Provider Unavailabl e Encounter Details Date Type Department Care Team (Late st Contact Info) Description 05/27/2002 Historical Encounter Brody Lopez Social History Tobacco [...]
--- OUTSIDE RECORDS SUMMARY | 2025-03-10 00:03 | XMS_ITS | Encounter Summary ---
Author Organization [facility] Address [address] [place] [address] Care Team Providers Care Residential Therapist Name Role Phone Unavailable Primary Care Provider Unavailabl e Encounter Details Date Type Department Care Team (Late st Contact Info) Description 05/10/2002 Historical Encounter Brody Lopez Social History Tobacco [...]
--- OUTSIDE RECORDS SUMMARY | 2025-03-10 00:03 | XMS_ITS | Data Portability ---
Author Organization [facility] [place] [facility] [place] Address [address] [place] [address] Care Team Providers Care Nozzle Worker Name Role Phone KHALIF FINCH Spike Machine Feeder LINDSEY DONG Primary Care Provider Unavailabl e Assessment No assessment recorded. Plan of Treatment Reminders Order Date Submit Date Provider Last Modified By Organization Details Last Modified Time Details Appointments FOLLOW UP 30 2025 01:00P Kuldip Dong APRN Not available Not available Not available Lab HbA1c (hemoglob in A1c), blood [address], [address], 03/03/2025 16:57:51 HbA1c (hemoglob in A1c), blood [address], [address], 11/30/2024 18:07:56 HbA1c (hemoglob in A1c), blood [address], [address], 07/13/2024 16:49:18 rapid flu (A+B) 2023 [email or web address], [address], 05/25/2024 10:43:47 rapid SARS CoV 2 Ag, QL, [place], upper respirato ry specimen 2023 024 page [email or web address] [facility], [address] [place] [address], [address], 05/25/2024 10:43:47 Referral None recorded. Procedures None recorded. Surgeries None recorded. Imaging None recorded. Medication Orders fluticaso ne propionat e 50 mcg/actua tion nasal spray,karishma pension 2024 [facility], [address] [place] [address], [address], 03/04/2025 12:57:39 ergocalci ferol (vitamin D2) 1,250 mcg (50,000 unit) capsule 2024 [facility], [address] [place] [address], [id number], 03/04/2025 12:57:41 Lantus Solostar U-100 Insulin 100 unit/mL (3 mL) subcutane ous pen 2024 [facility], [address] [place] [address], [address], 03/04/2025 12:57:42 atorvasta tin 80 mg tablet 2024 025 [facility], [address] [place] [address], [address], 03/04/2025 12:57:37 glipizide 10 mg tablet 2024 025 [facility], [address] [place] [address], [address], 03/04/2025 12:57:38 metformin 1,000 mg tablet 2024 025 [facility], [address] [place] [address], [address], 03/03/2025 14:49:07 Jardiance 25 mg tablet 2024 025 [facility], [address] [place] [address], [address], 03/04/2025 12:57:41 ipratropi um 0.5 mg-albute rol 3 mg (2.5 mg base)/3 mL nebulizat ion soln 2024 025 [facility], [address] [place] [address], [id number], 03/03/2025 17:14:56 cetirizin e 10 mg tablet 2024 025 [facility], [address] [place] [address], [id number], 03/03/2025 15:04:13 clonidine HCl 0.1 mg tablet 2024 025 Not available 03/03/2025 13:20:27 Lantus Solostar U-100 Insulin 100 unit/mL (3 mL) subcutane ous pen 2024 025 [facility], [address] [place] [address], [address], 12/07/2024 16:29:48 fluticaso ne propionat e 50 mcg/actua tion nasal spray,karishma pension 2024 025 [facility], [address] [place] [address], [id number], 07/14/2024 13:23:22 ergocalci ferol (vitamin D2) 1,250 mcg (50,000 unit) capsule 2024 025 [facility], [address] [place] [address], [address], 07/13/2024 17:45:41 guaifenes in ER 600 mg tablet, extended release 12 hr 2024 025 [facility], [address] [place] [address], [address], 07/13/2024 16:39:57 aspirin 81 mg tablet,de layed release 2024 025 [facility], [address] [place] [address], [id number], 07/13/2024 17:40:40 atorvasta tin 80 mg tablet 2024 025 [facility], [address] [place] [address], [address], 07/14/2024 13:23:21 glipizide 10 mg tablet 2024 025 [facility], [address] [place] [address], [address], 07/14/2024 13:23:20 Lantus Solostar U-100 Insulin 100 unit/mL (3 mL) subcutane ous pen 2024 025 [facility], [address] [place] [address], [address], 07/14/2024 13:23:16 metformin 1,000 mg tablet 2024 025 [facility], [address] [place] [address], [address], 07/14/2024 13:23:21 OneTouch Ultra Test strips 2024 025 [facility], [address] [place] [address], 385[address], 07/14/2024 11:22:43 Ozempic 2 mg/dose (8 mg/3 mL) subcutane ous pen injector 2024 025 [facility], [address] [place] [address], 744[address], 12/01/2024 08:09:24 ipratropi um 0.5 mg-albute rol 3 mg (2.5 mg base)/3 mL nebulizat ion soln 2024 025 [facility], [address] [place] [address], 78[address], 07/14/2024 11:12:41 Trelegy Ellipta 100 mcg-62.5 mcg-25 mcg powder for inhalatio n 2024 025 [facility], [address] [place] [address], 6[address], 07/14/2024 13:23:23 Ventolin HFA 90 mcg/actua tion aerosol inhaler 2024 025 [facility], [address] [place] [address], 88[address], 02/15/2025 15:55:38 cetirizin e 10 mg tablet 2024 025 [facility], [address] [place] [address], 74[address], 08/02/2024 12:45:17 amoxicill in 875 mg-potass ium clavulana te 125 mg tablet 2024 025 [facility], [address] [place] [address], 57[address], 11/30/2024 17:07:29 prednison e 20 mg tablet 2024 025 [facility], [address] [place] [address], 24[address], 01/16/2025 05:01:58 doxycycli ne monohydra te 100 mg capsule 2023 025 [facility], [address] [place] [address], 742[address], 07/13/2024 17:00:28 prednison e 20 mg tablet 2023 025 [facility], [address] [place] [address], 060[address], 01/16/2025 05:01:58 Patient TargetsNo targets recorded. Patient Instructions Encounter Date Encounter Id Patient Instructions Last Modified By Organization Details Last Modified Time 11/30/2024 [id number] 6 minute walk test* [email or web address] Not available 11/30/2024 18:07:56 12/09/2024 [id number] 6 minute walk test* [email or web address] Not available 12/09/2024 16:44:45 Reason for Referral None Reported. Results Created Date Observation Date Name Description Value Unit Range Abnormal Flag Note LastModifiedBy Organization Detail LastModifiedTime 05/25/20 24 05/25/2024 rapid flu (A+B) Flu A negati ve Not Available [address], [address], 05/25/2024 10:17:39 05/25/20 24 05/25/2024 rapid flu (A+B) Flu B negati ve Not Available [address], [address], 05/25/2024 10:17:39 05/25/20 24 05/25/2024 rapid SARS CoV 2 Ag, QL, [place], upper respi rator y speci men SARS CoV Ag negati ve Not Available [address], [address], 05/25/2024 10:17:42 07/13/19 25 07/13/2024 HbA1c (hemo globi n A1c), blood HbA1c 7.8 Not Available [address] [place], [address], 07/13/2024 15:35:36 12/01/1911/30/2024 6 minut e walk test* At Rest Room Air 91 Not Available [address], [address], 11/30/2024 16:18:12 12/01/1911/30/2024 6 minut e walk test* Ambulating Patient With Room Air Not Available [address], [address], 11/30/2024 16:18:12 12/01/1911/30/2024 6 minut e walk test* 1 Minute Activity O2 Sat% 90 Not Available [address], [address], 11/30/2024 16:18:12 12/01/1911/30/2024 6 minut e walk test* 2 Minute Activity O2 Sat% 88 Not Available [address], [address], 11/30/2024 16:18:12 12/01/1911/30/2024 6 minut e walk test* While Ambulating Patient With Room Air Not Available [address], [address], 11/30/2024 16:18:12 12/01/1911/30/2024 6 minut e walk test* Applied O2 @ (liters) Not Available [address], [address], 11/30/2024 16:18:12 12/01/19 25 11/30/2024 6 minut e walk test* O2 Sat increased to % 91 Not Available [address], [address], 11/30/2024 16:18:12 12/01/1911/30/2024 HbA1c (hemo globi n A1c), blood HbA1c 8.7 Not Available [address], [address], 11/30/2024 16:19:49 12/10/1912/09/2024 6 minut e walk test* At Rest Room Air 91 Not Available [address], [address], 12/09/2024 11:13:37 12/10/19 25 12/09/2024 6 minut e walk test* Ambulating Patient With Room Air Not Available [address], [address], 12/09/2024 11:13:37 12/10/19 25 12/09/2024 6 minut e walk test* 1 Minute Activity O2 Sat% 90 Not Available [address], [address], 12/09/2024 11:13:37 12/10/19 25 12/09/2024 6 minut e walk test* 2 Minute Activity O2 Sat% 87 Not Available [address], [address], 12/09/2024 11:13:37 12/10/19 25 12/09/2024 6 minut e walk test* 3 Minute Activity O2 Sat% 85 Not Available [address], [address], 12/09/2024 11:13:37 12/10/19 25 12/09/2024 6 minut e walk test* While Ambulating Patient With Oxygen Not Available [address], [address], 12/09/2024 11:13:37 12/10/19 25 12/09/2024 6 minut e walk test* Applied O2 @ (liters) 2 Not Available [address], [address], 12/09/2024 11:13:37 12/10/19 25 12/09/2024 6 minut e walk test* via nasal canula Not Available [address], [address], 12/09/2024 11:13:37 12/10/19 25 12/09/2024 6 minut e walk test* O2 Sat increased to % 95 Not Available [address], [address], 12/09/2024 11:13:37 03/03/20 25 03/03/2025 HbA1c (hemo globi n A1c), blood HbA1c 9.3 Not Available [address], [address], 03/03/2025 13:26:41 09/14/19 25 09/10/2024 stres s echoc ardio gram No observ ation record ed. [email or web address] [facility] [address], [place], [address], 09/14/2024 09:19:26 09/16/1909/15/2024 padilla can cardi olite stres s test (PROC ) No observ ation record ed. [email or web address] [facility] [address], [place], [address], 09/17/2024 09:57:34 09/16/1909/15/2024 cardi ac stres s test No observ ation record ed. [email or web address] [facility] [address], [place], [address], 09/17/2024 09:57:11 Result Notes None recorded. Problems Name Problem SNOMED Code Status Onset Date Resolution Date Notes Provider Name and Address Organization Details Recorded Time Keisha [facility] [id number] Completed 201802/08/2022 Problem Code: B37.9; Problem Code Type: ICD-10; ALESIA lamar, [employer] 11:50:13 Type 2 diabetes mellitus without complica tion 386934515 Active 2018 Not Available [facility] 22:09:19 Hyperlip idemia 49711059 Active 2018 Problem Code: E78.5; Problem Code Type: ICD-10; Not Available [facility] 22:09:19 Hyperten sive disorder 33594503 Active 2018 Problem Code: I10; Problem Code Type: ICD-10; Chela lamar, [employer] 16:36:35 Systolic heart failure 048210037 Active 2018 Not Available [facility] 22:09:20 Allergic rhinitis 73897440 Completed 201802/08/2022 Problem Code: J30.9; Problem Code Type: ICD-10; ALESIA lamar, [employer] 11:50:13 Chronic obstruct bushra pulmonar y disease 85036733 Active 2018 Problem Code: J44.9; Problem Code Type: ICD-10; Chela lamar, [employer] 5 16:17:56 Gastroes ophageal reflux disease without esophagi tis 109820381 Active 2018 Not Available [facility] 22:09:22 Body mass index 30+ - obesity 439663983 Completed 201802/08/2022 Problem Code: Z68.30; Problem Code Type: ICD-10; [employer]ESIA [email or web address] 2 11:50:13 Coronary artery bypass graft stent present 30481433096 9104 Active 2018 Problem Code: Z95.5; Problem Code Type: ICD-10; Not Available [facility] 22:09:31 Breast lump 45278967 Completed 201810/15/2019 Problem Code: N63.0; Problem Code Type: ICD-10; Not Available [facility] 2 22:09:23 Acute sinusiti s 31756316 Completed 201802/08/2022 Problem Code: J01.90; Problem Code Type: ICD-10; ALESIA QUINONEZNER [employer] 2 11:50:12 Chronic fatigue syndrome 50295653 Completed 201802/08/2022 Problem Code: R53.82; Problem Code Type: ICD-10; ALESIA QUINONEZNER [employer], [employer] 2 11:50:13 Influenz a vaccine needed 02808109968 06 Completed 201810/15/2019 Problem Code: Z23; Problem Code Type: ICD-10; ALESIA QUINONEZNER [employer]anda, [employer] 2 11:50:12 Acute exacerba tion of chronic obstruct bushra pulmonar y disease 967894924 Completed 201902/08/2022 Problem Code: J44.1; Problem Code Type: ICD-10; Chela lamar, [employer] 5 11:12:54 Hypo-osm olality and or hyponatr emia 005826273 Completed 201902/08/2022 Problem Code: E87.1; Problem Code Type: ICD-10; ALESIA QUINONEZNER brianda, [employer] 2 11:50:13 Acute respirat ory infectio ns 350143415 Completed 201902/08/2022 Problem Code: J22; Problem Code Type: ICD-10; ALESIA lamar, [employer] 2 11:50:13 Cough 69872800 Completed 201902/08/2022 Problem Code: R05; Problem Code Type: ICD-10; ALESIA lamar, [employer] 2 11:50:13 General examinat ion of patient Completed 201908/28/2020 Not Available [facility] 2 22:09:25 Endocrin e/metabo lic screenin g Completed 201908/28/2020 Problem Code: Z13.29; Problem Code Type: ICD-10; Not Available [facility] 2 22:09:27 Body mass index 25-29 - overweig 915868736 Completed 201908/28/2020 Problem Code: Z68.29; Problem Code Type: ICD-10; ALESIA lamar, [employer] 2 11:50:12 Wheezing 77710213 Completed 201902/08/2022 Problem Code: R06.2; Problem Code Type: ICD-10; ALESIA lamar, [employer] 2 11:50:13 Dyspnea 046655342 Active 2019 Problem Code: R06.00; Problem Code Type: ICD-10; Not Available [facility] 2 22:09:24 Screenin g for malignan t neoplasm of colon Completed 201909/17/2021 Not Available [facility] 2 22:09:26 Screenin g mammogra phy Completed 201908/28/2020 Problem Code: Z12.31; Problem Code Type: ICD-10; Not Available [facility] 2 22:09:26 Influenz a vaccine needed 83319616398 06 Completed 201902/08/2022 Problem Code: Z23; Problem Code Type: ICD-10; ALESIA lamar, [employer] 2 11:50:12 Acute bronchit is 50737384 Completed 201902/08/2022 Problem Code: J20.9; Problem Code Type: ICD-10; ALESIA QUINONEZNER brianda, [employer] 2 11:50:12 Urinary tract infectio us disease 00590883 Completed 202002/08/2022 Problem Code: N39.0; Problem Code Type: ICD-10; ALESIA QUINONEZNER brianda, [employer] 2 11:50:13 Cough 26033307 Completed 202008/28/2020 Problem Code: R05; Problem Code Type: ICD-10; ALESIA QUINONEZNER [employer], [employer] 11:50:13 Acute sinusiti s 12262869 Completed 202008/28/2020 Problem Code: J01.90; Problem Code Type: ICD-10; ALESIA QUINONEZNER brianda, [employer] 11:50:12 Body mass index 30+ - obesity 446998553 Completed 202008/28/2020 Problem Code: Z68.30; Problem Code Type: ICD-10; ALESIA lamar, [employer] 11:50:13 Dysuria 42515891 Completed 202002/08/2022 Problem Code: R30.0; Problem Code Type: ICD-10; Chela lamar, [employer] 4 13:07:45 Acute sinusiti s 73788627 Completed 202008/28/2020 Problem Code: J01.90; Problem Code Type: ICD-10; ALESIA QUINONEZNER brianda, [employer] 11:50:12 Mass of lower limb 256150625 Completed 202002/08/2022 ALESIAYOLANDA QUINONEZNER brianda, [employer] 11:50:13 Acute respirat ory infectio ns 664919552 Completed 202001/25/2021 Problem Code: J22; Problem Code Type: ICD-10; ALESIA lamar, [employer] 2 11:50:13 Cough 08165885 Completed 202001/25/2021 Problem Code: R05; Problem Code Type: ICD-10; ALESIA lamar, [employer] 2 11:50:13 Cardiac pacemake r in situ 485480872 Active 2020 Problem Code: Z95.0; Problem Code Type: ICD-10; Not Available [facility] 2 22:09:31 Acute suppurat bushra otitis media 756260327 Completed 202001/25/2021 Not Available [facility] 2 22:09:20 Acute pharyngi tis 536556846 Completed 202002/08/2022 ALESIAYOLANDA KIMBROUGH [employer] 2 11:50:13 Influenz a vaccine needed 65933491740 06 Completed 202004/09/2021 Problem Code: Z23; Problem Code Type: ICD-10; ALESIA KIMBROUGH [employer] 2 11:50:12 Acute pharyngi tis 361094223 Completed 202004/09/2021 ALESIA QUINONEZNER [employer] 2 11:50:13 Dyspnea 577688812 Completed 202004/09/2021 Problem Code: R06.00; Problem Code Type: ICD-10; Not Available [facility] 2 22:09:32 Nicotine dependen ce 92268472 Active 2020 Problem Code: F17.200; Problem Code Type: ICD-10; Not Available [facility] 2 22:09:19 Cough 42926310 Completed 202108/06/2021 Problem Code: R05; Problem Code Type: ICD-10; ALESIA QUINONEZNER [employer], [employer] 2 11:50:13 General examinat ion of patient Completed 202108/06/2021 Not Available [facility] 22:09:25 Acute respirat ory infectio ns 639434454 Completed 202108/06/2021 Problem Code: J22; Problem Code Type: ICD-10; ALESIA KAYLANJACQUELINE lamar, [employer] 11:50:13 Body mass index 25-29 - overweig 767221733 Completed 202108/06/2021 Problem Code: Z68.29; Problem Code Type: ICD-10; ALESIA KAYLAN [employer], [employer] 11:50:12 Disorder of upper respirat ory system 457420336 Completed 202102/08/2022 Problem Code: J06.9; Problem Code Type: ICD-10; ALESIA KAYLAN [employer]anda, [employer] 2 11:50:13 Viral screenin g Completed 202102/08/2022 Problem Code: Z11.52; Problem Code Type: ICD-10; ALESIA KAYLAN [employer]anda, [employer] 2 11:50:13 Acute frontal sinusiti s 70791130 Completed 202102/08/2022 Problem Code: J01.1; Problem Code Type: ICD-10; ALESIAYOLANDA lamar, [employer] 2 11:50:13 Generali zed enlarged lymph nodes 630586021 Completed 202102/08/2022 Problem Code: R59.1; Problem Code Type: ICD-10; ALESIA KAYLANJACQUELINE lamar, [employer] 2 11:50:13 Body mass index 25-29 - overweig 061470372 Completed 202102/08/2022 Problem Code: Z68.28; Problem Code Type: ICD-10; ALESIA lamar, [employer] 2 11:50:12 Acute otitis externa 68391219 Active [address], [address] , [employer] 3 13:46:51 Acute upper respirat ory infectio n 27061182 Active [address], [address] , [employer] 3 13:49:21 Dysuria 59460494 Active 2023 Problem Code: R30.0; Problem Code Type: ICD-10; Chela lamar, [employer] 4 13:07:45 Fever 223237802 Active 2023 Chela lamar, [employer] 4 10:17:36 Diabetes mellitus 49261703 Active 2024 Chela lamar, [employer] 5 16:19:46 Acute exacerba tion of chronic obstruct bushra pulmonar y disease 070357592 Active 2024 Problem Code: J44.1; Problem Code Type: ICD-10; Chela lamar, [employer] 5 11:12:54 Problem Notes None recorded. Procedures Surgical History Date Name Laterality Status Provider Name and Address Organization Details Recorded Time 4 Most Recent Mammogram completed Chela Rodriguezy [employer] 09/25/2023 14:58:56 0 Date of Last Pap Smear completed [facility] 09/02/2022 13:35:41 9 section completed Not Available [facility] 01/29/2022 22:56:34 9 ligation of bilateral fallopian tubes completed Not Available [facility] 01/29/2022 22:56:35 Stent completed [facility] 09/02/2022 13:37:30 Imaging Results None recorded. Procedure Notes None recorded. Medical Equipment None Reported. Allergies Allergen ID Allergen Name Allergen Category Reaction Reaction Severity Criticality Documentation Date Start Date Code Code System Note Provider Name and Address Organization Details Recorded Time 94719 Iodinated contrast media (substanc e) medicatio n Not available Not available Not available 01/29/2022 75300 2003 SNOMED ALESIA KIMBROUGH brianda [employer]. 11:49:09 Medications Name Sig Start Date Stop Date Status Note LastModified by Organization Details LastModified Time furosemid e 40 mg tablet 40 MG orally twice a day As Needed for weight gain 12/25 completed cardio Not Available Not Available Not Available atorvasta tin 80 mg tablet Take 1 tablet every day by oral route in the evening. 2024 active Not Available Not Available Not Avai lable carvedilo l 25 mg tablet TAKE TWO TABLETS BY MOUTH TWICE DAILY for High blood pressure active Not Available Not Available No t Available nystatin 100,000 unit/mL oral suspensio n take 4 millilit ers (400,000 unit) by oral route 4 times per day. Swish and spit 06/24 completed Not Available Not Available Not Available clonidine HCl 0.1 mg tablet Take 1 tablet by oral route. 03/03 completed DISPENSE D AT 4:30 PM. TJHUGO, WELT STITCHER Not Available Not Available Not Available prednison e 10 mg tablet TAKE ONE TABLET BY MOUTH THREE TIMES DAILY FOR 3 DAYS 07/13 completed Not Available Not Available Not Available doxycycli ne hyclate 100 mg capsule take 1 capsule (100 mg) by oral route 2 times per day 12/03 completed Not Available Not Available Not Available ipratropi um 0.5 mg-albute rol 3 mg (2.5 mg base)/3 mL nebulizat ion soln Inhale 1 mL every 4-6 hours by nebuliza tion route as needed. 2024 active Not Available Not Available Not Avai lable clindamyc in HCl 300 mg capsule take 1 capsule (300 mg) by oral route 2 times per day for 7 days 09/17 completed Not Available Not Available Not Available cetirizin e 10 mg tablet Take 1 tablet by mouth every day 2024 active Not Available Not Available Not Avai lable azithromy haile 250 mg tablet TAKE 2 TABLETS BY MOUTH ON DAY 1, THEN TAKE 1 TABLET DAILY ON DAYS 2-5 03/03 completed Not Available Not Available Not Available ofloxacin 0.3 % eye drops 02/08 completed Not Available Not Available Not Available fluconazo le 150 mg tablet TAKE ONE TABLET BY MOUTH today and repeat in 3 days 11/30 completed Not Available Not Available Not Available benzonata te 200 mg capsule take 1 capsule (200 mg) by oral route 3 times per day PRN cough 10/16 completed Not Available Not Available Not Available lisinopri l 20 mg tablet take 1 tablet BID 10/31 completed cardiolo gy Not Available Not Available Not Available glipizide 10 mg tablet Take 1 tablet twice a day by oral route. 2024 active Not Available Not Available Not Avai lable prednison e 20 mg tablet Take 1 tablet 3 times a day by oral route in the morning for 5 days. 01/16 completed Not Available Not Available Not Available dexametha sone 6 mg tablet take 1 tablet (6 mg) by oral route once daily for 10 days 03/06 completed Not Available Not Available Not Available prednison e 5 mg tablet take 1 tablet (5 mg) by oral route 2 times per day 06/28 completed Not Available Not Available Not Available methylpre dnisolone 4 mg tablet as directed 02/08 completed Not Available Not Available Not Available hydralazi ne 25 mg tablet TAKE ONE TABLET BY MOUTH THREE TIMES DAILY NEEDED FOR BP>180 systolic active Not Available Not Available No t Available clopidogr el 75 mg tablet TAKE ONE TABLET BY MOUTH DAILY for platelet inhibito r active Not Available Not Available No t Available amlodipin e 5 mg tablet TAKE ONE TABLET BY MOUTH DAILY 11/30 completed Not Available Not Available Not Available sulfameth oxazole 800 mg-trimet hoprim 160 mg tablet TAKE ONE TABLET BY MOUTH EVERY TWELVE HOURS FOR 7 DAYS 04/05 completed Not Available Not Available Not Available aspirin 81 mg tablet,de layed release TAKE 1 TABLET BY MOUTH DAILY active Not Available Not Available No t Available doxycycli ne monohydra te 100 mg tablet take 1 tablet (100 mg) by oral route 2 times per day 02/08 completed Not Available Not Available Not Available spironola ctone 25 mg tablet TAKE ONE TABLET BY MOUTH DAILY 12/25 completed cardio Not Available Not Available Not Available Depo-Medr ol 80 mg/mL suspensio n for injection Take 1 mL by injectio n route. 12/25 completed Not Available Not Available Not Available prednison e 10 mg tablets in a dose pack as directed on pack 12/03 completed Not Available Not Available Not Available ceftriaxo ne 1 gram solution for injection Take 1 g by injectio n route. 09/24 completed Not Available Not Available Not Available ofloxacin 0.3 % ear drops Instill 10 drops every day in affected ear as directed . 10/31 completed Not Available Not Available Not Available amoxicill in 875 mg tablet take 1 tablet (875 mg) by oral route every 12 hours 08/15 completed Not Available Not Available Not Available prednisol one acetate 1 % eye drops,karishma pension 02/08 completed Not Available Not Available Not Available Nitrostat 0.4 mg sublingua l tablet DISSOLVE ONE TABLET UNDER THE TONGUE every 5 minutes as needed for chest pain not to exceed 3 doses per episode active Not Available Not Available No t Available OneTouch Ultra Test strips pt tests TID 2024 active Not Available Not Available Not Avai lable amlodipin e 10 mg tablet TAKE 1 TABLET BY MOUTH DAILY active Not Available Not Available No t Available benzonata te 100 mg capsule take 2 capsules (200 mg) by oral route 3 times per day as needed for cough 10/16 completed Not Available Not Available Not Available doxycycli ne monohydra te 100 mg capsule take 1 capsule (100 mg) by oral route 2 times per day with food 07/13 completed Not Available Not Available Not Available ropinirol e 2 mg tablet TAKE ONE TABLET BY MOUTH EVERY DAY AT bedtime 05/02 completed Not Available Not Available Not Available cephalexi n 500 mg capsule Take 1 capsule every 6 hours by oral route for 7 days. 05/02 completed Not Available Not Available Not Available metformin 1,000 mg tablet TAKE 1 TABLET BY MOUTH TWICE DAILY 2024 active Not Available Not Available Not Avai lable losartan 25 mg tablet Take 1 tablet every day by oral route. 10/31 completed d/c by cardio Not Available Not Available Not Available nicotine 21 mg/24 hr daily transderm al patch apply 1 patch (21 mg) by transder mal route once daily 03/19 completed Not Available Not Available Not Available lisinopri l 20 mg-hydroc hlorothia zide 25 mg tablet Take 1 tablet twice a day by oral route. 06/26 completed Not Available Not Available Not Available hydrochlo rothiazid e 25 mg tablet TAKE 1 TABLET BY MOUTH EVERY DAY 10/31 completed Not Available Not Available Not Available ergocalci ferol (vitamin D2) 1,250 mcg (50,000 unit) capsule Take 1 capsule every week by oral route for 90 days. 2024 active Not Available Not Available Not Avai lable levofloxa haile 750 mg tablet take 1 tablet (750 mg) by oral route once daily for 7 days 08/06 completed Not Available Not Available Not Available methylpre dnisolone 4 mg tablets in a dose pack Use as package directs 03/18 completed Not Available Not Available Not Available albuterol sulfate HFA 90 mcg/actua tion aerosol inhaler Inhale 2 puffs by mouth every 3 to 4 hours as needed. active Not Available Not Available No t Available lisinopri l 40 mg tablet TAKE 1/2 TABLET (20MG) BY MOUTH TWICE DAILY 03/19 completed Not Available Not Available Not Available cefdinir 300 mg capsule take 1 capsule (300 mg) by oral route every 12 hours 06/24 completed Not Available Not Available Not Available fluticaso ne propionat e 50 mcg/actua tion nasal spray,karishma pension [place]ove 1 spray every day by intranas al route. 2024 active Not Available Not Available Not Avai lable loratadin e 10 mg tablet TAKE 1 TABLET BY MOUTH DAILY 03/06 completed Not Available Not Available Not Available amoxicill in 875 mg-potass ium clavulana te 125 mg tablet TAKE ONE TABLET BY MOUTH EVERY TWELVE HOURS 11/30 completed Not Available Not Available Not Available amoxicill in 500 mg-potass ium clavulana te 125 mg tablet take 1 tablet by oral route every 12 hours 02/08 completed Not Available Not Available Not Available ketorolac 0.4 % eye drops 02/08 completed Not Available Not Available Not Available omeprazol e magnesium 20 mg tablet,de layed release OMEPRAZO LE CAP 20MG 10/08 completed Not Available Not Available Not Available Spiriva with [employer]iH[employer] r 18 mcg and inhalatio n capsules inhale the contents of one capsule (18 mcg) using 2 inhalati ons by inhalati on route once daily via handihal er 06/24 completed Not Available Not Available Not Available metformin METFORMI N TAB 1000MG 08/29 completed Not Available Not Available Not Available Symbicort 160 mcg-4.5 mcg/actua tion HFA aerosol inhaler inhale 2 puffs by inhalati on route 2 times per day in the morning andeveni ng 02/06 completed Not Available Not Available Not Available Lantus Solostar U-100 Insulin 100 unit/mL (3 mL) subcutane ous pen Inject 40 units twice a day by subcutan eous route for 90 days. 2024 active Not Available Not Available Not Avai lable Prevnar 13 (PF) 0.5 mL intramusc ular syringe inject 0.5 millilit er by intramus cular route once 06/04 completed Not Available Not Available Not Available Mucus Relief ER 600 mg tablet, extended release TAKE ONE TABLET BY MOUTH EVERY TWELVE HOURS NEEDED active Not Available Not Available No t Available Breo Ellipta 100 mcg-25 mcg/dose powder for inhalatio n INHALE 1 PUFF BY MOUTH ONCE DAILY AT THE SAME TIME EACH DAY 09/11 completed Not Available Not Available Not Available Jardiance 25 mg tablet Take 1 tablet every day by oral route. 2024 active Not Available Not Available Not Avai lable umeclidin ium 62.5 mcg/actua tion blister powder for inhalatio n inhale 1 puff (62.5 mcg) by inhalati on route once daily at the same time each day 09/11 completed Not Available Not Available Not Available Incruse Ellipta INCRUSE ELPT INH 62.5MCG 09/28 completed Medicati onID: ''; Medicati onName: 'INCRUSE ELPT INH 62.5MCG' ; ConceptT ype: ''; Not Available Not Available Not Available Entresto 97 mg-103 mg tablet TAKE ONE TABLET BY MOUTH TWICE DAILY active Not Available Not Available No t Available Entresto 49 mg-51 mg tablet TAKE ONE TABLET BY MOUTH TWICE DAILY 11/30 completed Not Available Not Available Not Available Entresto 24 mg-26 mg tablet TAKE ONE TABLET BY MOUTH TWICE DAILY 06/26 completed Not Available Not Available Not Available tiotropiu m bromide 1.25 mcg/actua tion mist for inhalatio n inhale 2 puffs (2.5 mcg) by inhalati on route once daily 01/08 completed Not Available Not Available Not Available Trelegy Ellipta 100 mcg-62.5 mcg-25 mcg powder for inhalatio n INHALE 1 PUFF BY MOUTH ONCE DAILY AT THE SAME TIME EACH DAY 2024 active Not Available Not Available Not Avai lable Ozempic 1 mg/dose (2 mg/1.5 mL) subcutane ous pen injector inject 1 mg SC 1 week 06/26 completed Not Available Not Available Not Available Ozempic 0.25 mg or 0.5 mg (2 mg/1.5 mL) subcutane ous pen injector inject 0.5mg SC qwk x4 weeks then inject 1 mg SC q week 12/17 completed Not Available Not Available Not Available Robitussi n ER 30 mg/5 mL oral suspensio n,extende d release 5 ML every 12 hours 08/15 completed Not Available Not Available Not Available Fluzone Quad 60 mcg (15 mcg x 4)/0.5 mL intramusc ular susp. inject 0.5 millilit er (60 mcg) by intramus cular route once 06/04 completed Not Available Not Available Not Available Ozempic 1 mg/dose (4 mg/3 mL) subcutane ous pen injector Inject 1 mg every week by subcutan eous route for 90 days. 12/25 completed Not Available Not Available Not Available Ozempic 2 mg/dose (8 mg/3 mL) subcutane ous pen injector Inject 2 mg under the skin every week 11/30 completed Not Available Not Available Not Available Mounjaro 2.5 mg/0.5 mL subcutane ous pen injector Inject by subcutan eous route for 28 days. 12/25 completed Not Available Not Available Not Available Ozempic 0.25 mg or 0.5 mg (2 mg/3 mL) subcutane ous pen injector 12/17 completed Not Available Not Available Not Available Anita 2nd Gen Pen Needle 32 gauge x 5/32 Use as directed for once daily injectio n active Not Available Not Available No t Available Vitals Date Recorded Body height Body mass index (BMI) Body weight Oxygen saturation Oxygen saturation in Arterial blood by Pulse oximetry Heart rate Systolic And Diastolic Systolic And Diastolic Systolic And Diastolic Provider Name and Address Organization Details Last Updated DateTime 5 162.56 cm 26.5 kg/m2 83480.2 7 g 85 % 85 % 122 /min 179/112 mm[Hg] 153/113 mm[Hg] 134/98 mm[Hg] [employer] 5 17:39:36 Date Recorded Body height Body mass index (BMI) Body weight Heart rate Oxygen saturation Oxygen saturation in Arterial blood by Pulse oximetry Systolic And Diastolic Systolic And Diastolic Provider Name and Address Organization Details Last Updated DateTime 5 162.56 cm 24.4 kg/m2 40731.1 2 g 110 /min 91 % 91 % 205/102 mm[Hg] 208/108 mm[Hg] Chela [employer] 5 16:12:09 Date Recorded Body height Body mass index (BMI) Body weight Heart rate Oxygen saturation Oxygen saturation in Arterial blood by Pulse oximetry Systolic And Diastolic Systolic And Diastolic Systolic And Diastolic Provider Name and Address Organization Details Last Updated DateTime 5 162.56 cm 24.4 kg/m2 52050.1 2 g 125 /min 91 % 91 % 181/118 mm[Hg] 183/129 mm[Hg] 160/92 mm[Hg] Chela [facility] [employer] 5 14:48:21 Date Recorded Body height Body mass index (BMI) Body weight Heart rate Oxygen saturation Oxygen saturation in Arterial blood by Pulse oximetry Systolic And Diastolic Systolic And Diastolic Provider Name and Address Organization Details Last Updated DateTime 5 162.56 cm 24.2 kg/m2 30600.5 2 g 113 /min 91 % 91 % 154/77 mm[Hg] 133/74 mm[Hg] Chela [employer] 5 13:36:32 Date Recorded Body height Body mass index (BMI) Body weight Body temperature Heart rate Oxygen saturation Oxygen saturation in Arterial blood by Pulse oximetry Systolic And Diastolic Provider Name and Address Organization Details Last Updated DateTime 4 162.56 cm 26.3 kg/m2 00837.6 3 g 98 [degF] 81 /min 89 % 89 % 136/88 mm[Hg] Chela [employer] 4 10:17:28 Social History Question Answer Notes LastModified by Organizat ion Details LastModified Time Tobacco Smoking Status Current Every Day Smoker ALESIA lamar [employer] 02/08/2022 11:54:50 Do You Have An Advance Directive? No [email or web address] Information n ot available 02/08/2022 Is Your Home Air Conditioned? Yes Information not available 09/19/2022 Do You Wear A Helmet When Biking? No Information not available 09/19/2022 Are You Blind Or Do You Have Difficulty Seeing? No [email or web address] Information n ot available 02/08/2022 What Is Your Level Of Caffeine Consumption? 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 Yes [email or web address] Information not available 04/08/2022 In The 14 Days Before Symptom Onset, Have You Had Close Contact With A Laboratory-confirm ed COVID-19 While That Case Was Ill? No [email or web address] Information n ot available 02/08/2022 In The 14 Days Before Symptom Onset, Have You Had Close Contact With A Person Who Is Under Investigation For COVID-19 While That Person Was Ill? No [email or web address] Information not available 02/08/2022 Have You Been To An Area Known To Be High Risk For COVID-19? No Information not available 02/08/2022 Are You Deaf Or Do You Have Serious Difficulty Hearing? No [email or web address] Information not available 02/08/2022 What Type Of Diet Are You Following? REGULAR Information n ot available 02/08/2022 What Is The Highest Grade Or Level Of School You Have Completed Or The Highest Degree You Have Received? [id number] [email or web address] Information not available 02/08/2022 Have There Been Any Changes To Your Family Or Social Situation? No [email or web address] Information no t available 04/08/2022 Are There Any Guns Present In Your Home? No Information not available 09/19/2022 Which Of Your Hands Is Dominant? Right Information n ot available 09/19/2022 Do You Have A Medical Power Of Swimming Pool Maintenance Supervisor? No [email or web address] Information not available 02/08/2022 What Was The Date Of Your Most Recent Tobacco Screening? 03/03/2025 Information not available 03/03/2025 What Is Your Current Pack Years? [email or web address] ears [email or web address] Information not available 02/08/2022 Do You Have Any Pets? No Information not available 09/19/2022 What Is Your Relationship Status? [email or web address] Information not available 02/08/2022 Do You Use Your Seat Belt Or Car Seat Routinely? Yes [email or web address] Information not available 02/08/2022 Do You Have Smoke And Carbon Monoxide Detectors In Your Home? Yes [email or web address] Information not available 02/08/2022 Are You Passively Exposed To Smoke? Yes [email or web address] Information no t available 04/08/2022 Are There Any Smokers In Your House? Yes [email or web address] Information not available 02/08/2022 How Much Tobacco Do You Smoke? 1 PPD [email or web address] Information not available 02/08/2022 Do You Participate In Social Media? Yes Information not available 09/19/2022 Do You Use Sunscreen Routinely? No Information not available 02/08/2022 Has Tobacco Cessation Counseling Been Provided? Yes [email or web address] Information not available 02/08/2022 On What Date Was Tobacco Cessation Counseling Provided? 03/03/2025 Information not available 03/03/2025 How Many Years Have You Smoked Tobacco? 39 [email or web address] Information not available 02/08/2022 Have You Recently Traveled Abroad? No [email or web address] Information not available 02/08/2022 Do You Have Difficulty Walking Or Climbing Stairs? No [email or web address] Information not available 02/08/2022 Are You Currently In School? No [email or web address] Information not available 02/08/2022 Do You Have Any Dietary Restrictions? No Information not available 09/19/2022 Sex: Female Functional Status Question Answer Note LastModified by Organizat ion Details LastModified Time Do you use any illicit or recreational drugs? No Information not available 02/08/2022 Do you or have you ever used any other forms of tobacco or nicotine? No Information not available 09/19/2022 What is your level of alcohol consumption? None [email or web address] Information not available 02/08/2022 Are you currently employed? No [email or web address] Information not available 02/08/2022 Do you have transportation difficulties? No [email or web address] Information not available 02/08/2022 Are you able to walk independently without assistance or assistive devices? [email or web address] Information not available 02/08/2022 Do you have difficulty doing errands alone? No [email or web address] Information not available 02/08/2022 Are you able to care for yourself independently? Yes [email or web address] Information not available 02/08/2022 Do you have difficulty dressing, bathing, grooming, or toileting? No [email or web address] Information not available 02/08/2022 What is your exercise level? None [email or web address] Information not available 02/08/2022 Mental Status Question Answer Note LastModified by Organization D etails LastModified Time Do you have difficulty concentrating, remembering or making decisions? No [email or web address] Information no t available 02/08/2022 Family History Relationship Description Onset Age of this Age Resolved Age Notes LastModified by Organization Details LastModified Time Father Family history of Hypertension [email or web address] Not available 11:52:52 Father Family history of hyperlipidem ia [email or web address] Not available 02/08 11:53:07 Unspecified Relation Family history of ischemic heart disease [email or web address] Not available 02/08 11:52:57 Mother Family history of Hypertension [email or web address] Not available 11:52:49 Mother Family history of hyperlipidem ia Not available 02/08 11:53:03 Medical History Condition Response Coronary Artery Disease Y Emergency room visit since last appointm ent. N High Cholesterol Y Hospitalizations N Diabetes Y Congestive Heart Failure (CHF) Y Hypertension Y Gynecological History Statement/Question Response If Post Menopausal, Age at Menopause 49 Abnormal Pap N Date of Last Pap Smear 05/26/2019 Most Recent Mammogram 06/26/2023 Obstetrics History GPAL:G 0 P 0 0 0 0 Immunizations Vaccine Type Date Status Note Provider Nam e and Address Organization Details Recorded Time Influenza, split virus, quadrivalent, PF 3 completed Lindsey Dong APRN [address] [place] [address], [id number], [employer] 03/11/2023 17:44:10 Influenza, high-dose, quadrivalent, PF 2 completed Lindsey Dong APRN [address] [place], [address], [employer] 03/19/2022 16:56:56 Influenza, split virus, trivalent, PF 4 completed Lindsey Dong APRN [address] [place], [address], [employer] 03/16/2024 18:14:56 pneumococcal polysaccharide PPV23 4 completed Not Available [facility] 01/30/2022 00:02:28 Pneumococcal conjugate PCV 13 9 completed ALESIA lamar, [employer] 04/08/2022 09:18:36 Influenza, split virus, quadrivalent, preservative 0 completed ALESIA lamar, [employer] 04/08/2022 09:18:36 Influenza, split virus, trivalent, preservative 9 completed Chela lamar, [employer] 09/25/2023 14:59:42 Influenza, high-dose, quadrivalent, PF 1 completed ALESIA lamar, [employer] 04/08/2022 09:18:36 Influenza, high-dose, trivalent, PF 5 completed Chela lamar, [employer] 03/03/2025 13:38:43 Influenza, split virus, quadrivalent, PF 9 completed Chela lamar, [employer] 09/25/2023 14:59:42 Past Encounters Encounter ID Performer Location Encounter Start Date Encounter Closed Date Diagnosis/Indication Diagnosis SNOMED-CT Code Diagnosis ICD10 Code Diagnosis IMO Codes Diagnosis Note [id number] Lindsey Dong [address] [address] 02/08/2022 12:46:14 02/08/2022 13:51:51 Post-acute COVID-19 4509640531 U09.9 Cough 25593198 R05.9 [id number] Richelle Meadekaycee [address] [address] 03/06/2022 16:44:40 03/08/2022 20:54:49 Acute upper respiratory infection 72383714 J06.9 [id number] Lindsey Dong [address] [address] 03/19/2022 10:51:03 03/19/2022 11:42:29 Chronic obstructive pulmonary disease 63944339 J44.9 Type 2 saima betes mellitus without complication 398663486 E11.9 Administra tion of influenza vaccine 40956384 Z23 Body mass index 25-29 - overweight 173126664 Z68.27 [id number] Lindsey Dong [place] [address] 04/08/2022 08:57:10 04/08/2022 10:07:59 Acute sinusitis 45357857 J01.90 Lower resp iratory tract infection 99906871 J22 [id number] Lindsey Dong [place] [address] 0 05/06/2022 14:17:35 05/06/2022 15:25:14 Pain in throat 379474814 R07.0 Candidiasis of mouth 797 44970 B37.0 Wheezing 64592597 R06.2 [id number] Lindsey Dong [place] [address] 0 06/24/2022 13:58:28 06/24/2022 15:05:59 Type 2 diabetes mellitus without complication 679175128 E11.9 Hyperlipidemia 45568610 E78.5 Acute uppe r respiratory infection 49566554 J06.9 Chronic ob structive pulmonary disease 78233148 J44.9 Allergic rhinitis 382799 04 J30.9 Hypertensive disorder 38 339312 I10 Body mass index 25-29 - overweight 373596677 Z68.27 [id number] [place] [address] 08/16/2022 16:35:56 08/16/2022 17:23:27 Lower respiratory tract infection 46542760 J22 Acute exac erbation of chronic obstructive pulmonary disease 918357159 J44.1 Cough 03384385 R05.9 [id number] [place] [address] 09/02/2022 13:22:39 09/02/2022 13:47:50 Type 2 diabetes mellitus without complication 595103276 E11.9 Acute exac erbation of chronic obstructive pulmonary disease 484648028 J44.1 Acute uppe r respiratory infection 49575782 J06.9 Allergic rhinitis 677629 04 J30.9 Hypertensive disorder 38 864113 I10 Chronic ob structive pulmonary disease 74634926 J44.9 Body mass index 25-29 - overweight 077519693 Z68.27 [id number] [place] [address] 09/19/2022 13:32:47 09/19/2022 14:31:29 Acute exacerbation of chronic obstructive pulmonary disease 096843754 J44.1 Cough 47139606 R05.9 Body mass index 25-29 - overweight 409947106 Z68.27 [id number] [place] [address] 10/16/2022 13:27:16 10/16/2022 13:57:22 Acute otitis externa 03359441 H60.509 Acute uppe r respiratory infection 86238874 J06.9 [id number] [place] [address] 10/31/2022 08:37:26 10/31/2022 09:16:56 Lower respiratory tract infection 73127013 J22 Cough 51038733 R05.9 Hypertensive disorder 38 955672 I10 [id number] [place] [address] 12/03/2022 11:22:15 12/03/2022 11:51:40 Type 2 diabetes mellitus without complication 597164008 E11.9 Restless l egs syndrome 98155287 G25.81 [id number] [place] [address] 12/17/2022 13:22:30 12/17/2022 14:00:07 Infection of skin 590979800 L08.9 Localized edema 29179095 4 R60.0 [id number] Lindseyminerva Dong, [place] [address] 02/10/2023 13:30:24 02/10/2023 14:35:50 Cough 48503891 R05.9 Lower resp iratory tract infection 72474576 J22 Chronic ob structive pulmonary disease 21863871 J44.9 Body mass index 25-29 - overweight 073042122 Z68.27 [id number] Lindsey Dong [place] [address] 0 03/11/2023 16:03:06 03/11/2023 17:05:29 Type 2 diabetes mellitus without complication 987221880 E11.9 Lower resp iratory tract infection 47469693 J22 Acute uppe r respiratory infection 03159894 J06.9 Administra tion of influenza vaccine 89789378 Z23 Hypertensive disorder 38 318402 I10 call cardio david Body mass index 25-29 - overweight 357271869 Z68.27 [id number] [place] [address] 05/02/2023 16:20:33 05/02/2023 17:39:19 Acute upper respiratory infection 81186910 J06.9 Cough 13707115 R05.9 Body mass index 25-29 - overweight 466276557 Z68.27 [id number] [place] [address] 06/26/2023 09:56:55 06/26/2023 10:50:33 Diabetes mellitus 58472313 E11.9 Screening mammography 24 270757 Z12.31 Allergic rhinitis 090664 04 J30.9 Type 2 saima betes mellitus without complication 454614379 E11.9 Chronic ob structive pulmonary disease 60580433 J44.9 Body mass index 25-29 - overweight 428157851 Z68.27 [id number] [place] [address] 06/30/2023 09:34:54 06/30/2023 15:26:44 Fever 050258498 R50.9 Lower resp iratory tract infection 89602043 J22 Body mass index 25-29 - overweight 302803694 Z68.27 [id number] Lindsey Dong [place] [address] 0 09/25/2023 14:54:05 09/25/2023 15:59:07 Acute upper respiratory infection 93610772 J06.9 Type 2 saima betes mellitus without complication 568550818 E11.9 Fatigue 79253835 R53.83 Hyperlipidemia 10762507 E78.5 Vitamin D deficiency 347 26078 E55.9 Vitamin B deficiency 479 72212 E53.9 Thyroid nodule 118504899 E04.1 Body mass index 25-29 - overweight 654490384 Z68.27 [id number] Lindsey Dong [place] [address] 0 10/02/2023 09:25:37 10/02/2023 10:59:15 Lower respiratory tract infection 56299828 J22 Pain in throat 058259950 R07.0 Body mass index 25-29 - overweight 539119098 Z68.27 [id number] Lindsey Dong [place] [address] 0 12/01/2023 10:16:45 12/01/2023 11:12:28 Acute exacerbation of chronic obstructive pulmonary disease 940787923 J44.1 Tremor 54473120 R25.1 Body mass index 25-29 - overweight 180581923 Z68.27 [id number] Lindsey Dong [place] [address] 0 12/26/2023 15:01:32 12/26/2023 16:01:02 Type 2 diabetes mellitus without complication 939737764 E11.9 Hypertensive disorder 38 261219 I10 Hyperlipidemia 73046999 E78.5 Body mass index 25-29 - overweight 466370016 Z68.27 [id number] Lindsey Dong [place] [address] 0 02/03/2024 15:45:48 02/03/2024 16:43:37 Vitamin D deficiency 80635723 E55.9 Cough 11479420 R05.9 Chronic ob structive pulmonary disease 64469184 J44.9 Essential hypertension 06790467 I10 Body mass index 25-29 - overweight 214199717 Z68.27 [id number] Lindsey Dong [place] [address] 0 03/16/2024 12:37:43 03/16/2024 13:44:02 Dysuria 90113495 R30.0 Acute urin alma delia tract infection 565650695 N39.0 Administra tion of influenza vaccine 52698208 Z23 Body mass index 25-29 - overweight 061519758 Z68.27 [id number] [place] [address] 04/05/2024 10:17:23 04/05/2024 11:38:41 Allergic rhinitis 99591721 J30.9 Type 2 saima betes mellitus without complication 784448808 E11.9 Body mass index 25-29 - overweight 190909596 Z68.27 [id number] [place] [address] 05/13/2024 09:23:01 05/13/2024 10:39:50 Headache 82515779 R51.9 Left hemiparesis 0593302 00 G81.90 Body mass index 25-29 - overweight 092521920 Z68.27 [id number] [place] [address] 05/25/2024 09:56:08 05/25/2024 11:18:54 Fever 415122186 R50.9 Acute exac erbation of chronic obstructive pulmonary disease 508160201 J44.1 Continue QID Duonebs and Trelegy. Mucinex DM samples given and increase oral fluid intake. [id number] [place] [address] 07/13/2024 15:31:28 07/13/2024 16:18:42 Type 2 diabetes mellitus without complication 982528362 E11.9 Community acquired pneumonia 256805867 J18.9 Cough 70155413 R05.9 Acute uppe r respiratory infection 89352155 J06.9 Allergic rhinitis 627699 04 J30.9 Chronic ob structive pulmonary disease 14378394 J44.9 Vitamin D deficiency 347 15386 E55.9 [id number] [place] [address] 11/30/2024 15:36:06 11/30/2024 17:41:17 Chronic obstructive pulmonary disease 41291317 J44.9 93588262 Diabetes mellitus 227979 09 E11.9 83691 Hypertensive disorder 38 983907 I10 9079308 Type 2 saima betes mellitus without complication 839197110 E11.9 Body mass index 20-24 - normal 223120365 Z68.24 12758298 [id number] [place] [address] 12/09/2024 14:05:03 12/09/2024 15:09:29 Acute exacerbation of chronic obstructive pulmonary disease 882247263 J44.1 6379721 Hypoxia 578061119 R09.02 89870 Body mass index 20-24 - normal 092119887 Z68.24 28886488 [id number] [place] [address] 03/03/2025 13:06:22 03/03/2025 13:57:02 Active or passive immunization 503626384 Z23 patient declined shingles vaccine. General ex amination of patient 787286032 Z00.00 58728349 Diabetes mellitus 012812 09 E11.9 29176 Type 2 saima betes mellitus without complication 425906548 E11.9 Acute uppe r respiratory infection 79201810 J06.9 Vitamin D deficiency 347 25427 E55.9 Allergic rhinitis 916171 04 J30.9 Chronic ob structive pulmonary disease 13594742 J44.9 Body mass index 20-24 - normal 431979582 Z68.24 39003470 Health Concerns Section Related Observation LastModified by Organization Detai ls LastModified Time None Recorded Concern Status LastModified by Organization Details LastModified Time None Recorded Advance Directives Directive N: Payers Insurance Date Sequence Insurance Name Policy Number Policy Mnotoya Covered Member ID Montoya Member ID Guarantor Name 02/28/2025 [place] [id number] C Tiawatha Kaba [id number] [facility] [place] 02/28/2025 1 [place] [facility] Kaba [id number] [employer] [place] 02/28/2025 [place] [facility] [place]MEDICAID[place] [employer] [place] [id number] [employer] [facility] 02/28/2025 2 [employer] [place] (MEDICAID HMO) [employer] [place] [id number] [facility] Notes Date Note Type Note Provider Name and Address Organization Details Recorded Time 4 text/html CoughReported by PatientHPIFor severity, patient reportsworseningandpain with coughbut reportsmoderate. For context, patient reportssmokerbut reportshistory of bronchitis. For associated symptoms, patient reportsfever,chills,wheezin g,sputum production,shortness of breath,throat clearing,nasal discharge,tiredness,hoarsen ess, anddyspneabut reportsno chest pain,no heartburn,no nausea,no vomiting,no edema, andno agitation. For quality, patient reportsproductive. For duration, patient reportsacute (<3 weeks). For onset/timing, patient reportsgradual,actual date: (4 days), andbecomes worse as the day goes on. For modifying factors, patient reportsotc medicationandinhaler.ROS as noted in the HPI Eileen Noble APRN [address] [facility], [place], [id number], [facility] [employer] 05/27/2024 16:55:28 5 text/html 64 year old female presents with worsening SOA and HTN. States since she was sick back in april she was been more SOA and having green/brown productive cough. She completed all abx/steroids, has been using nebs/inhalers and incentive spirometry without relief. She has even had to start wearing continous o2 at home, denies having portable tanks to use when away from home. She states she is unable to do any activity without severe SOA. Has continued to smoke. Appears in obvious distress, lungs with minimal air movement. o2 85% on RA. Highly suggest to go to ER. She declined multiple times and would like at home tx for today. Agrees that if she doesnt feel better in the AM she will go on to ER. Will send medication in today. Will send in o2 Recert as well.States she has had 2 spells at home of near passing out while laying in bed in the past month. Her daughter had to get her a drink and cool water. She thought about going to ER but decided to put her O2 on and go to bed. She does state she hasnt been taking hydralazine for HTN at home. States cardio told her not to since BP normal in their office. She states BP at home yesterday was 230/107. Bp 179/112 today. Instructed her to take medication prn for htn but advised her again she needs to go to ER. Denies CP, FRANCES, or dizziness currently. She declines ER but will take hydralazine when she gets home.Last visit we increased ozempic to 2mg. States she is taking medication as prescribed without AE. Todays A1C down to 7.8. Will plan to continue current regimen. pt agrees with plan Chela lamar, [facility] [employer] 07/13/2024 17:39:41 5 text/html pt here today for medication refills. pt states shes doing well on current medication refills and has no new complaints today. pt states that her cardio wants her to wear O2 24 hrs per day and needs her to get it from PCP. did a 2 min walk test and O2 dropped to 88% on RA. pt bp is also elevated today. states that she hasnt had her amlodipine, carvedilol or hydralazine since yesterday. gave pt clonidine and bp came down. pt does c/o headache, denies cp, soa, blurred vision, dizziness. A1C 8.7, 7.8 at last visit. pt states that she stopped taking the ozempic. states that it caused abd pain and vomiting. pt states that she has cut back on sweets however does eat anything else that she wants. bp 160/110 after clonidine. advised pt to go to ER for uncontrolled HTN, pt declined. Lindsey Dong APRN [address] [place], [address], [employer], [employer] 11/30/2024 18:24:23 5 text/html pt here today to do a walk test to qualify for O2. pt has went to cardio and was recommended to wear O2 16/12, not just at night. last note i have from cardio is from september but pt states that she just went. i dont have the note from then. pt states that cardio told her that her pcp has to order it. when pt was walking O2 85%, 91% at rest, 95% with 2L NC. pt admits to breathing better with O2. pt does smoke cigs and states that she does not want to stop at this time. explained to pt that she cannot smoke while she has O2 running. Lindsey Dong APRN [address] [place], [address], [employer], [employer]. 12/09/2024 15:17:14 5 text/html Annual WellnessReported by Patient pt here today for AWV and medication refills. pt states shes doing well on current medication regime and has no new complaints today. bp is great today. pt states that she hasnt done anything different today. pt A1C 9.3 today, 8.7 at last visit, 7.8 the time before. pt stopped taking the ozempic due to belly pain and vomiting after increase to 1mg weekly. pt states that she is taking all meds as prescribed. i am going to increase the lantus to 40 units BID from 30units and add jardiance. pt voiced understanding. also refreshed pt memory of diabetic diet. pt states that she does not follow a diabetic diet. Lindsey Dong APRN [address] [place], [address], [employer], [employer]. 03/03/2025 16:21:21 OBGyn Episode No OBEpisode recorded.
--- OUTSIDE RECORDS SUMMARY | 2025-03-10 00:03 | XMS_ITS | Continuity of Care Document ---
Author Organization [facility], [facility] Address [address] [place] [id number] Care Team Providers Care Counter Top Assembler Name Role Phone KHALIF FINCH Transportation Broker [phone] LINDSEY DONG Primary Care Provider Unavailabl e Assessment No assessment recorded. Plan of Treatment Reminders Order Date Submit Date Provider Last Modified By Organization Details Last Modified Time Details Appointments FOLLOW UP 30 2025 01:00P Kuldip Dong APRN Not available Not available Not available Lab HbA1c (hemoglob in A1c), blood [address], [address] [place] [address], [phone], 03/03/2025 16:57:51 Referral None recorded. Procedures None recorded. Surgeries None recorded. Imaging None recorded. Medication Orders fluticaso ne propionat e 50 mcg/actua tion nasal spray,karishma pension 2024 025 [facility], [address] [place] [address], [id number], 03/04/2025 12:57:39 ergocalci ferol (vitamin D2) 1,250 mcg (50,000 unit) capsule 2024 025 [facility], [address] [place] [address], [id number], 03/04/2025 12:57:41 Lantus Solostar U-100 Insulin 100 unit/mL (3 mL) subcutane ous pen 2024 [facility], [address] [place] [address], [id number], 03/04/2025 12:57:42 atorvasta tin 80 mg tablet 2024 [facility], [address] [place] [address], [id number], 03/04/2025 12:57:37 glipizide 10 mg tablet 2024 [facility], [address] [place] [address], [id number], 03/04/2025 12:57:38 metformin 1,000 mg tablet 2024 [facility], [address] [place] [address], [id number], 03/03/2025 14:49:07 Jardiance 25 mg tablet 2024 [facility], [address] [place] [address], [address], 03/04/2025 12:57:41 ipratropi um 0.5 mg-albute rol 3 mg (2.5 mg base)/3 mL nebulizat ion soln 2024 [facility], [address] [place] [address], [address], 03/03/2025 17:14:56 cetirizin e 10 mg tablet 2024 [facility], [address] [place] [address], [address], 03/03/2025 15:04:13 Patient TargetsNo targets recorded. Patient InstructionsNo instructions recorded. Reason for Referral None Reported. Results Created Date Observation Date Name Description Value Unit Range Abnormal Flag Note LastModifiedBy Organization Detail LastModifiedTime 03/03/20 25 03/03/2025 HbA1c (hemo globi n A1c), blood HbA1c 9.3 Not Available [address], [place], [address], 03/03/2025 13:26:41 Result Notes None recorded. Problems Name Problem SNOMED Code Status Onset Date Resolution Date Notes Provider Name and Address Organization Details Recorded Time Keisha [facility] [id number] Completed 201802/08/2022 Problem Code: B37.9; Problem Code Type: ICD-10; ALESIA lamar, [employer]. 11:50:13 Type 2 diabetes mellitus without complica tion 197840524 Active 2018 Not Available [facility] 22:09:19 Hyperlip idemia 32676003 Active 2018 Problem Code: E78.5; Problem Code Type: ICD-10; Not Available [facility] 2 22:09:19 Hyperten sive disorder 40056835 Active 2018 Problem Code: I10; Problem Code Type: ICD-10; Chela lamar, [employer]. 16:36:35 Systolic heart failure 644085121 Active 2018 Not Available [facility] 22:09:20 Allergic rhinitis 78256455 Completed 201802/08/2022 Problem Code: J30.9; Problem Code Type: ICD-10; ALESIA lamar, [employer] 2 11:50:13 Chronic obstruct bushra pulmonar y disease 56795719 Active 2018 Problem Code: J44.9; Problem Code Type: ICD-10; Chela lamar, [employer] 5 16:17:56 Gastroes ophageal reflux disease without esophagi tis 076752518 Active 2018 Not Available [facility] 2 22:09:22 Body mass index 30+ - obesity 872214090 Completed 201802/08/2022 Problem Code: Z68.30; Problem Code Type: ICD-10; ALESIA QUINONEZNER [employer] 2 11:50:13 Coronary artery bypass graft stent present 88775563108 9104 Active 2018 Problem Code: Z95.5; Problem Code Type: ICD-10; Not Available [facility] 2 22:09:31 Breast lump 43970196 Completed 201810/15/2019 Problem Code: N63.0; Problem Code Type: ICD-10; Not Available [facility] 2 22:09:23 Acute sinusiti s 25293782 Completed 201802/08/2022 Problem Code: J01.90; Problem Code Type: ICD-10; ALESIAYOLANDA KIMBROUGH [employer], [employer]. 2 11:50:12 Chronic fatigue syndrome 94715259 Completed 201802/08/2022 Problem Code: R53.82; Problem Code Type: ICD-10; ALESIA QUINONEZNER [employer], [employer]. 2 11:50:13 Influenz a vaccine needed 91003178522 06 Completed 201810/15/2019 Problem Code: Z23; Problem Code Type: ICD-10; ALESIA QUINONEZNER brianda, [employer] 2 11:50:12 Acute exacerba tion of chronic obstruct bushra pulmonar y disease 656577089 Completed 201902/08/2022 Problem Code: J44.1; Problem Code Type: ICD-10; Chela lamar, [employer]. 5 11:12:54 Hypo-osm olality and or hyponatr emia 506315360 Completed 201902/08/2022 Problem Code: E87.1; Problem Code Type: ICD-10; ALESIAYOLANDA KIMBROUGH [employer], [employer] 2 11:50:13 Acute respirat ory infectio ns 961676690 Completed 201902/08/2022 Problem Code: J22; Problem Code Type: ICD-10; ALESIA lamar, [employer]. 11:50:13 Cough 08194593 Completed 201902/08/2022 Problem Code: R05; Problem Code Type: ICD-10; ALESIA lamar, [employer] 11:50:13 General examinat ion of patient Completed 201908/28/2020 Not Available [facility] 22:09:25 Endocrin e/metabo lic screenin g Completed 201908/28/2020 Problem Code: Z13.29; Problem Code Type: ICD-10; Not Available [facility] 22:09:27 Body mass index 25-29 - overweig ht 127814458 Completed 201908/28/2020 Problem Code: Z68.29; Problem Code Type: ICD-10; ALESIA lamar, [employer] 11:50:12 Wheezing 93077195 Completed 201902/08/2022 Problem Code: R06.2; Problem Code Type: ICD-10; ALESIA lamar, [employer] 2 11:50:13 Dyspnea 204852000 Active 2019 Problem Code: R06.00; Problem Code Type: ICD-10; Not Available [facility] 2 22:09:24 Screenin g for malignan t neoplasm of colon Completed 201909/17/2021 Not Available [facility] 2 22:09:26 Screenin g mammogra phy Completed 201908/28/2020 Problem Code: Z12.31; Problem Code Type: ICD-10; Not Available [facility] 22:09:26 Influenz a vaccine needed 92553969617 06 Completed 201902/08/2022 Problem Code: Z23; Problem Code Type: ICD-10; ALESIA lamar, [employer] 2 11:50:12 Acute bronchit is 55010030 Completed 201902/08/2022 Problem Code: J20.9; Problem Code Type: ICD-10; ALESIA lamar, [employer] 2 11:50:12 Urinary tract infectio us disease 25124325 Completed 202002/08/2022 Problem Code: N39.0; Problem Code Type: ICD-10; ALESIA lamar, [employer]. 2 11:50:13 Cough 38754791 Completed 202008/28/2020 Problem Code: R05; Problem Code Type: ICD-10; ALESIA QUINONEZNER brianda, [employer] 2 11:50:13 Acute sinusiti s 83771666 Completed 202008/28/2020 Problem Code: J01.90; Problem Code Type: ICD-10; ALESIA QUINONEZNER brianda, [employer]. 11:50:12 Body mass index 30+ - obesity 142870109 Completed 202008/28/2020 Problem Code: Z68.30; Problem Code Type: ICD-10; ALESIA lamar, [employer] 11:50:13 Dysuria 63236188 Completed 202002/08/2022 Problem Code: R30.0; Problem Code Type: ICD-10; Chela lamar, [employer] 4 13:07:45 Acute sinusiti s 93348040 Completed 202008/28/2020 Problem Code: J01.90; Problem Code Type: ICD-10; ALESIA QUINONEZNER brianda, [employer] 2 11:50:12 Mass of lower limb 598243194 Completed 202002/08/2022 ALESIA QUINONEZNER [employer], [employer] 2 11:50:13 Acute respirat ory infectio ns 462483210 Completed 202001/25/2021 Problem Code: J22; Problem Code Type: ICD-10; ALESIA QUINONEZNER [employer], [employer] 2 11:50:13 Cough 34622246 Completed 202001/25/2021 Problem Code: R05; Problem Code Type: ICD-10; ALESIA QUINONEZNER [employer], [employer] 2 11:50:13 Cardiac pacemake r in situ 216058476 Active 2020 Problem Code: Z95.0; Problem Code Type: ICD-10; Not Available [facility] 2 22:09:31 Acute suppurat bushra otitis media 014095387 Completed 202001/25/2021 Not Available [facility] 2 22:09:20 Acute pharyngi tis 047074408 Completed 202002/08/2022 ALESIAYOLANDA QUINONEZNER [employer], [employer] 2 11:50:13 Influenz a vaccine needed 62709799839 06 Completed 202004/09/2021 Problem Code: Z23; Problem Code Type: ICD-10; ALESIA QUINONEZNER [employer], [employer] 2 11:50:12 Acute pharyngi tis 583373326 Completed 202004/09/2021 ALESIAYOLANDA QUINONEZNER [employer], [employer] 2 11:50:13 Dyspnea 286820805 Completed 202004/09/2021 Problem Code: R06.00; Problem Code Type: ICD-10; Not Available [facility] 2 22:09:32 Nicotine dependen ce 76712927 Active 2020 Problem Code: F17.200; Problem Code Type: ICD-10; Not Available [facility] 2 22:09:19 Cough 48474918 Completed 202108/06/2021 Problem Code: R05; Problem Code Type: ICD-10; ALESIA KAYLAN [employer], [employer] 11:50:13 General examinat ion of patient Completed 202108/06/2021 Not Available [facility] 22:09:25 Acute respirat ory infectio ns 009010482 Completed 202108/06/2021 Problem Code: J22; Problem Code Type: ICD-10; ALESIAYOLANDA lamar, [employer] 11:50:13 Body mass index 25-29 - overweig 203811568 Completed 202108/06/2021 Problem Code: Z68.29; Problem Code Type: ICD-10; ALESIA KAYLANJACQUELINE lamar, [employer] 11:50:12 Disorder of upper respirat ory system 100899520 Completed 202102/08/2022 Problem Code: J06.9; Problem Code Type: ICD-10; ALESIAYOLANDA lamar, [employer] 11:50:13 Viral screenin g Completed 202102/08/2022 Problem Code: Z11.52; Problem Code Type: ICD-10; ALESIAYOLANDA lamar, [employer] 2 11:50:13 Acute frontal sinusiti s 40388095 Completed 202102/08/2022 Problem Code: J01.1; Problem Code Type: ICD-10; ALESIA lamar, [employer] 2 11:50:13 Generali zed enlarged lymph nodes 158591229 Completed 202102/08/2022 Problem Code: R59.1; Problem Code Type: ICD-10; ALESIA lamar, [employer] 2 11:50:13 Body mass index 25-29 - overweig 893588710 Completed 202102/08/2022 Problem Code: Z68.28; Problem Code Type: ICD-10; ALESIA lamar, [employer] 2 11:50:12 Acute otitis externa 28963192 Active [address], [address] , [employer] 3 13:46:51 Acute upper respirat ory infectio n 01478720 Active 2022 SORIN KLEIN [address], [address] , [employer] 3 13:49:21 Dysuria 85343838 Active 2023 Problem Code: R30.0; Problem Code Type: ICD-10; Chela Rodriguezy brianda, [employer] 4 13:07:45 Fever 562964883 Active 2023 Chela Barthlly brianda, [employer] 4 10:17:36 Diabetes mellitus 85478340 Active 2024 Chela Null null, [employer] 5 16:19:46 Acute exacerba tion of chronic obstruct bushra pulmonar y disease 562232779 Active 2024 Problem Code: J44.1; Problem Code Type: ICD-10; Chela lamar, [employer] 5 11:12:54 Problem Notes None recorded. Procedures Surgical History Date Name Laterality Status Provider Name and Address Organization Details Recorded Time 4 Most Recent Mammogram completed Chela Rodriguezy [employer] 09/25/2023 14:58:56 0 Date of Last Pap Smear completed [employer] 09/02/2022 13:35:41 9 section completed Not Available [facility] 01/29/2022 22:56:34 9 ligation of bilateral fallopian tubes completed Not Available [facility] 01/29/2022 22:56:35 Stent completed Magali [place] [employer], [employer]edj. 09/02/2022 13:37:30 Imaging Results None recorded. Procedure Notes None recorded. Medical Equipment None Reported. Allergies Allergen ID Allergen Name Allergen Category Reaction Reaction Severity Criticality Documentation Date Start Date Code Code System Note Provider Name and Address Organization Details Recorded Time 72805 Iodinated contrast media (substanc e) medicatio n Not available Not available Not available 01/29/2022 19293 2003 SNOMED ALESIAYOLANDA QUINONEZJACQUELINE lamar [employer], 51edj. 11:49:09 Medications Name Sig Start Date Stop [...] 03/03 completed DISPENSE D AT 4:30 PM. CINDY ELIZONDO Not Available Not Available Not Available prednison [...] e 50 mcg/actua tion nasal spray,karishma pension [place] 1 spray every day by intranas al [...] and Address Organization Details Last Updated DateTime 162.56 cm 24.2 kg/m2 61078.5 2 g 113 /min 91 % 91 % 154/77 mm[Hg] 133/74 mm[Hg] Chela Null [employer], 51edj. 13:36:32 Social History Question Answer Notes LastModified by Organizat ion Details LastModified Time Tobacco Smoking Status Current Every Day Smoker ALESIA lamar [employer] 02/08/2022 11:54:50 Do You Have An Advance Directive? No [email or web address] Information n ot available 02/08/2022 Is Your Home Air Conditioned? Yes Information not available 09/19/2022 Do You Wear A Helmet When Biking? No Information not available 09/19/2022 Are You Blind Or Do You Have Difficulty Seeing? No Information n ot available 02/08/2022 What Is Your Level Of Caffeine Consumption? 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 Yes [email or web address] Information not available 04/08/2022 In The 14 Days Before Symptom Onset, Have You Had Close Contact With A Laboratory-confirm ed COVID-19 While That Case Was Ill? No [email or web address] Information n ot available 02/08/2022 In The 14 Days Before Symptom Onset, Have You Had Close Contact With A Person Who Is Under Investigation For COVID-19 While That Person Was Ill? No [email or web address] Information not available 02/08/2022 Have You Been To An Area Known To Be High Risk For COVID-19? No [email or web address] Information not available 02/08/2022 Are You Deaf Or Do You Have Serious Difficulty Hearing? No [email or web address] Information not available 02/08/2022 What Type Of Diet Are You Following? REGULAR [email or web address] Information n ot available 02/08/2022 What Is The Highest Grade Or Level Of School You Have Completed Or The Highest Degree You Have Received? TA84692-2 [email or web address] Information not available 02/08/2022 Have There Been Any Changes To Your Family Or Social Situation? No Information no t available 04/08/2022 Are There Any Guns Present In Your Home? No Information not available 09/19/2022 Which Of Your Hands Is Dominant? Right Information n ot available 09/19/2022 Do You Have A Medical Power Of Investor Relations Coordinator? No [email or web address] Information not available 02/08/2022 What Was The Date Of Your Most Recent Tobacco Screening? 03/03/2025 Information not available 03/03/2025 What Is Your Current Pack Years? 30ormorepacky ears [email or web address] Information not available 02/08/2022 Do You Have Any Pets? No Information not available 09/19/2022 What Is Your Relationship Status? [email or web address] Information not available 02/08/2022 Do You Use Your Seat Belt Or Car Seat Routinely? Yes [email or web address] Information not available 02/08/2022 Do You Have Smoke And Carbon Monoxide Detectors In Your Home? Yes [email or web address] Information not available 02/08/2022 Are You Passively Exposed To Smoke? Yes Information no t available 04/08/2022 Are There Any Smokers In Your House? Yes [email or web address] Information not available 02/08/2022 How Much Tobacco Do You Smoke? 1 PPD [email or web address] Information not available 02/08/2022 Do You Participate In Social Media? Yes Information not available 09/19/2022 Do You Use Sunscreen Routinely? No [email or web address] Information not available 02/08/2022 Has Tobacco Cessation Counseling Been Provided? Yes [email or web address] Information not available 02/08/2022 On What Date Was Tobacco Cessation Counseling Provided? 03/03/2025 Information not available 03/03/2025 How Many Years Have You Smoked Tobacco? 39 [email or web address] Information not available 02/08/2022 Have You Recently Traveled Abroad? No [email or web address] Information not available 02/08/2022 Do You Have Difficulty Walking Or Climbing Stairs? No [email or web address] Information not available 02/08/2022 Are You Currently In School? No [email or web address] Information not available 02/08/2022 Do You Have Any Dietary Restrictions? No Information not available 09/19/2022 Sex: Female Functional Status Question Answer Note LastModified by Organizat ion Details LastModified Time Do you use any illicit or recreational drugs? No [email or web address] Information not available 02/08/2022 Do you or have you ever used any other forms of tobacco or nicotine? No Information not available 09/19/2022 What is your level of alcohol consumption? None [email or web address] Information not available 02/08/2022 Are you currently employed? No Information not available 02/08/2022 Do you have transportation difficulties? No [email or web address] Information not available 02/08/2022 Are you able to walk independently without assistance or assistive devices? YESWOREST [email or web address] Information not available 02/08/2022 Do you have difficulty doing errands alone? No [email or web address] Information not available 02/08/2022 Are you able to care for yourself independently? Yes [email or web address] Information not available 02/08/2022 Do you have difficulty dressing, bathing, grooming, or toileting? No [email or web address] Information not available 02/08/2022 What is your exercise level? None [email or web address] Information not available 02/08/2022 Mental Status Question Answer Note LastModified by Organization D etails LastModified Time Do you have difficulty concentrating, remembering or making decisions? No Information no t available 02/08/2022 Family History Relationship Description Onset Age of this Age Resolved Age Notes LastModified by Organization Details LastModified Time Father Family history of Hypertension [email or web address] Not available 11:52:52 Father Family history of hyperlipidem ia [email or web address] Not available 02/08 11:53:07 Unspecified Relation Family history of ischemic heart disease Not available 02/08 11:52:57 Mother Family history of Hypertension Not available 11:52:49 Mother Family history of hyperlipidem ia [email or web address] Not available 02/08 11:53:03 Medical History Condition [...] quadrivalent, PF 3 completed Lindsey Dong APRN [address] [place], [address], [employer] 03/11/2023 17:44:10 Influenza, high-dose, quadrivalent, PF 2 completed Lindsey Dong APRN [address] [place], [address], [employer] 03/19/2022 16:56:56 Influenza, split virus, trivalent, PF 4 completed Lindsey Dong APRN [address] [place] [address], [address], [employer] 03/16/2024 18:14:56 pneumococcal polysaccharide PPV23 4 completed [facility] Available [facility] 01/30/2022 00:02:28 Pneumococcal conjugate PCV 13 9 completed ALESIA lamar, [employer] 04/08/2022 09:18:36 Influenza, split virus, quadrivalent, preservative 0 completed ALESIA KIMBROUGH null, [employer] 04/08/2022 09:18:36 Influenza, split virus, trivalent, preservative 9 completed Chela lamar, [employer] 09/25/2023 14:59:42 Influenza, high-dose, quadrivalent, PF 1 completed ALESIA KIMBROUGH null, [employer] 04/08/2022 09:18:36 Influenza, high-dose, trivalent, PF 5 completed Chela Null null, [employer] 03/03/2025 13:38:43 Influenza, split virus, quadrivalent, PF 9 completed Chela Null null, [employer] 09/25/2023 14:59:42 Past Encounters Encounter ID Performer Location Encounter Start Date Encounter Closed Date Diagnosis/Indication Diagnosis SNOMED-CT Code Diagnosis ICD10 Code Diagnosis IMO Codes Diagnosis Note [id number] Lindsey Dong [address] [address] 03/03/2025 13:06:22 03/03/2025 13:57:02 Active or passive immunization 648825836 Z23 patient declined shingles vaccine. General ex amination of patient 618448046 Z00.00 75964479 Diabetes mellitus 126408 09 E11.9 16655 Type 2 saima betes mellitus without complication 709435340 E11.9 Acute uppe r respiratory infection 71710608 J06.9 Vitamin D deficiency 347 07891 E55.9 Allergic rhinitis 932797 04 J30.9 Chronic ob structive pulmonary disease 81353397 J44.9 Body mass index 20-24 - normal 762991892 Z68.24 69598894 Health Concerns Section Related Observation LastModified by Organization Detai ls LastModified Time None Recorded Concern Status LastModified by Organization Details LastModified Time None Recorded Payers Encounter Date Sequence Insurance Name Policy Number Policy Montoya Covered Member ID Montoya Member ID Guarantor Name 03/03/2025 1 MEDICARE-Prescreen (MEDICARE) SCADA Access [id number] SCADA Access 03/03/2025 2 WELLCARE Prescreen (MEDICAID HMO) [employer] [id number] [employer] Notes Date Note Type Note Provider Name and Address Organization Details Recorded Time 03/03/2025 text/html Annual WellnessReported by Patient pt here [...] does not follow a diabetic diet. Lindsey oDng APRN [address] [place], [address], [facility] [employer] 03/03/2025 16:21:21 OBGyn Episode No OBEpisode recorded.
--- OUTSIDE RECORDS SUMMARY | 2025-03-10 00:03 | XMS_ITS | Clinical Summary ---
Author Organization [facility] Address [address] [place] [address] Phone Care Team Providers Care [employer] Librarian Name Role Phone Unavailable Primary Care Provider Unavailabl e Social History Tobacco Use Types Packs/Day Years Used Date Smoking Tobacco: Never Assessed Comments Unknown Sex and Gender Information Value Date Recorded Sex Assigned at Not on file Legal Sex Female 1:50 PM EST Gender Identity Not on file Sexual Orientation Not on file Plan of Treatment Health Maintenance Due Date Last Done Comments Annual Wellness Exam 1962 Hepatitis C Screening 1977 DTaP/TDaP/Td (1 - Tdap) 1978 Cologuard 2004 Colon Cancer Screening 2004 Colonoscopy 2004 FIT 2004 Sigmoidoscopy 2004 Virtual Colonography 2004 Pneumococcal Vaccine 50+ (1 of 1 - PCV) 2009 Zoster (1 of 2) 2009 Bone Density Screening 2024 COVID-19 Vaccine (1 - 2023-2 5 season) 2025 Influenza Vaccine (#1) 2025 Hepatitis B Vaccine Aged Out No longe r eligible based on patient's age to complete this topic Meningococcal B Vaccine Aged Out No l onger eligible based on patient's age to complete this topic
--- OUTSIDE RECORDS SUMMARY | 2025-03-10 00:03 | XMS_ITS | Encounter Summary ---
Author Organization [facility] Address [address] [place] [address] Care Team Providers Care Nuclear Supervising Operator Name Role Phone Unavailable Primary Care Provider Unavailabl e Encounter Details Date Type Department Care Team (Late st Contact Info) Description 04/17/2002 Historical Encounter Brody Lopez Social History Tobacco [...]
--- OUTSIDE RECORDS SUMMARY | 2025-03-10 00:03 | XMS_ITS | Encounter Summary ---
Author Organization [facility] Address [address] [place] [address] Care Team Providers Care Complex Director Name Role Phone Unavailable Primary Care Provider Unavailabl e Encounter Details Date Type Department Care Team (Late st Contact Info) Description 08/24/2002 Historical Encounter Brody Lopez Social History Tobacco [...]
--- OUTSIDE RECORDS SUMMARY | 2025-03-10 00:03 | XMS_ITS | Clinical Summary ---
Author Organization [facility] Address [address] [place] [address] Care Team Providers Care Underwriter Name Role Phone Unavailable Primary Care Provider Unavailabl e Social History Tobacco Use Types Packs/Day Years Used Date Smoking Tobacco: Never Assessed Comments Unknown Sex and Gender Information Value Date Recorded Sex Assigned at Not on file Legal Sex Female 7:53 PM EST Gender Identity Not on file Sexual Orientation Not on file Plan of Treatment Health Maintenance Due Date Last Done Comments COLOGUARD 1959 COLONOSCOPY 1959 Colorectal Screening Combination 1959 FIT 1959 HEP C SCREENING 1959 SIGMOIDOSCOPY 1959 ANNUAL WELLNESS EXAM 1962 DTAP/TDAP/TD VACCINE (1 - Tdap) 1978 PNEUMOCOCCAL VACCINE 65+ YEA RS (1 of 1 - PCV) 2009 Shingles Vaccine (Shingrix) (1 of 2) 2009 DEXA SCAN EVERY 2 YR (Osteop orosis Screen) 2024 INFLUENZA VACCINE (#1) 2025 HEP A VACCINE Aged Out No longer elig ible based on patient's age to complete this topic HIB VACCINE Aged Out No longer eligi ble based on patient's age to complete this topic ROTOVIRUS VACCINE Aged Out No longer eligible based on patient's age to complete this topic
--- OUTSIDE RECORDS SUMMARY | 2025-03-10 00:03 | XMS_ITS | Clinical Summary ---
Author Organization [facility] Address [address] [place] [address] Care Team Providers Care Yarn Mercerizer Operator Name Role Phone Kimberli Ruiz Primary Care Provider [phone] Family History Medical History Relation Name Comments COPD Other 1 Coronary artery disease Other 2 Other cancer Other 3 Relation Name Status Comments Other 1 Other 2 Other 3 Social History Tobacco Use Types Packs/Day Years Used Date Smoking Tobacco: Every Day Comments Unknown Sex and Gender Information Value Date Recorded Sex Assigned at Not on file Legal Sex Female 8:41 PM EDT Gender Identity Not on file Sexual Orientation Not on file Last Filed Vital Signs Vital Sign Reading Time Taken Comments Blood Pressure 156/78 09/15/2018 2:40 PM EDT Pulse 72 09/15/2018 2:40 PM EDT Temperature 36.4 C (97.6 F) 09/15/2018 2:40 PM EDT Respiratory Rate 20 09/15/2018 2:40 PM EDT Oxygen Saturation - - Inhaled Oxygen Concentration - - Weight 81.4 kg (179 lb 6.2 oz) 09/15/2018 2:40 P M EDT Height 162.6 cm (5' 4 ) 09/15/2018 2:40 PM EDT Body Mass Index 30.79 09/15/2018 2:40 PM EDT Plan of Treatment Not on file Care Teams Yarn Mercerizer Operator Relationship Specialty Start Date End Date Kimberli Ruiz PA [address] [place] [address] PCP - General 10/06/20
--- OUTSIDE RECORDS SUMMARY | 2025-03-10 00:03 | XMS_ITS | Encounter Summary ---
Author Organization [facility] Address [address] [place] [address] Care Team Providers Care Air And Water Filler Name Role Phone Unavailable Primary Care Provider Unavailabl e Encounter Details Date Type Department Care Team (Late st Contact Info) Description 02/20/2002 Historical Encounter Global Soy Morales [address] [place] [address] Social History Tobacco Use Types Packs/Day Years [...]
--- OUTSIDE RECORDS SUMMARY | 2025-03-10 00:03 | XMS_ITS | Encounter Summary ---
Author Organization [facility] Address [address] [place] [address] Care Team Providers Care Commercial Analyst Name Role Phone Unavailable Primary Care Provider Unavailabl e Encounter Details Date Type Department Care Team (Late st Contact Info) Description 03/12/2002 Historical Encounter Brody Lopez Social History Tobacco [...]
--- OUTSIDE RECORDS SUMMARY | 2025-03-10 00:03 | XMS_ITS | Encounter Summary ---
Author Organization [facility] Address [address] [place] [address] Care Team Providers Care Telesales Specialist Name Role Phone Unavailable Primary Care Provider Unavailabl e Encounter Details Date Type Department Care Team (Late st Contact Info) Description 08/10/2002 Historical Encounter Brody Lopez Social History Tobacco [...]
--- OUTSIDE RECORDS SUMMARY | 2025-03-10 00:04 | XMS_ITS | Encounter Summary ---
Author Organization [facility] Address [address] [place] [address] Care Team Providers Care Scanning Clerk Name Role Phone Unavailable Primary Care Provider Unavailabl e Encounter Details Date Type Department Care Team (Late st Contact Info) Description 06/25/2001 Historical Encounter Global Social History Tobacco Use Types Packs/Day Years [...]
--- OUTSIDE RECORDS SUMMARY | 2025-03-10 00:04 | XMS_ITS | Encounter Summary ---
Author Organization [facility] Address [address] [place] [address] Care Team Providers Care Hybrid Derivatives Trader Name Role Phone Unavailable Primary Care Provider Unavailabl e Encounter Details Date Type Department Care Team (Late st Contact Info) Description 11/01/2002 Historical Encounter Global Saeid Lovett MD [address] [place] [address] Social History Tobacco Use Types Packs/Day Years [...]
--- OUTSIDE RECORDS SUMMARY | 2025-03-10 00:04 | XMS_ITS | Encounter Summary ---
Author Organization [facility] Address [address] [place] [address] Care Team Providers Care Retaining Room Cutter Name Role Phone Unavailable Primary Care Provider Unavailabl e Encounter Details Date Type Department Care Team (Late st Contact Info) Description 07/28/2003 Historical Encounter Global Wander Orourke Social History Tobacco Use Types Packs/Day Years [...]
--- OUTSIDE RECORDS SUMMARY | 2025-03-10 00:04 | XMS_ITS | Encounter Summary ---
Author Organization [facility] Address [address] [place] [address] Care Team Providers Care Disc Sander Name Role Phone Unavailable Primary Care Provider Unavailabl e Encounter Details Date Type Department Care Team (Late st Contact Info) Description 03/15/2003 Historical Encounter [place], [place] Social History Tobacco Use Types Packs/Day Years [...]
--- OUTSIDE RECORDS SUMMARY | 2025-03-10 00:04 | XMS_ITS | Encounter Summary ---
Author Organization [facility] Address [address] [place] [address] Care Team Providers Care Underground Repairer Name Role Phone Unavailable Primary Care Provider Unavailabl e Encounter Details Date Type Department Care Team (Late st Contact Info) Description 03/25/2003 Historical Encounter Lashonda Cohen APRN Social History Tobacco Use Types Packs/Day Years [...]
--- OUTSIDE RECORDS SUMMARY | 2025-03-10 00:04 | XMS_ITS | Encounter Summary ---
Author Organization [facility] Address [address] [place] [address] Care Team Providers Care Single End Sewer Name Role Phone Unavailable Primary Care Provider Unavailabl e Encounter Details Date Type Department Care Team (Late st Contact Info) Description 07/23/2001 Historical Encounter Global Wander Orourke Social History [...]
--- OUTSIDE RECORDS SUMMARY | 2025-03-10 00:04 | XMS_ITS | Encounter Summary ---
Author Organization [facility] Address [address] [place] [address] Care Team Providers Care Speech Lang Path Name Role Phone Unavailable Primary Care Provider Unavailabl e Encounter Details Date Type Department Care Team (Late st Contact Info) Description 07/06/2001 Historical Encounter Brody Lopez Social History Tobacco [...]
--- OUTSIDE RECORDS SUMMARY | 2025-03-10 00:04 | XMS_ITS | Encounter Summary ---
Author Organization [facility] Address [address] [place] [address] Care Team Providers Care Edge Baster Name Role Phone Unavailable Primary Care Provider Unavailabl e Encounter Details Date Type Department Care Team (Late st Contact Info) Description 02/05/2002 Historical Encounter Global Saeid Lovett MD [address] [place] [address] Social History Tobacco Use Types Packs/Day Years [...]
--- OUTSIDE RECORDS SUMMARY | 2025-03-10 00:04 | XMS_ITS | Encounter Summary ---
Author Organization [facility] Address [address] [place] [address] Care Team Providers Care Yard Motor Operator Name Role Phone Unavailable Primary Care Provider Unavailabl e Encounter Details Date Type Department Care Team (Late st Contact Info) Description 12/30/2001 Historical Encounter Global Saeid Lovett MD [address] [place] [address] Social History Tobacco Use Types Packs/Day Years [...]
--- OUTSIDE RECORDS SUMMARY | 2025-03-10 00:04 | XMS_ITS | Encounter Summary ---
Author Organization [facility] Address [address] [place] [address] Care Team Providers Care Research Affiliate Name Role Phone Unavailable Primary Care Provider Unavailabl e Encounter Details Date Type Department Care Team (Late st Contact Info) Description 11/27/2002 Historical Encounter Global Saeid Lovett MD [address] [place] [address] Social History Tobacco Use Types Packs/Day Years [...]
--- OUTSIDE RECORDS SUMMARY | 2025-03-10 00:04 | XMS_ITS | Encounter Summary ---
Author Organization [facility] Address [address] [place] [address] Care Team Providers Care Showroom Executive Director Name Role Phone Unavailable Primary Care Provider Unavailabl e Encounter Details Date Type Department Care Team (Late st Contact Info) Description 08/06/2001 Historical Encounter [place], [place] Social History Tobacco Use Types Packs/Day [...]
--- OUTSIDE RECORDS SUMMARY | 2025-03-10 00:04 | XMS_ITS | Encounter Summary ---
Author Organization [facility] Address [address] [place] [address] Care Team Providers Care Studio Model Name Role Phone Unavailable Primary Care Provider Unavailabl e Encounter Details Date Type Department Care Team (Late st Contact Info) Description 01/21/2002 Historical Encounter Brody Lopez Social History Tobacco [...]
--- OUTSIDE RECORDS SUMMARY | 2025-03-10 00:04 | XMS_ITS | Encounter Summary ---
Author Organization [facility] Address [address] [place] [address] Care Team Providers Care Freelance Director Name Role Phone Unavailable Primary Care Provider Unavailabl e Encounter Details Date Type Department Care Team (Late st Contact Info) Description 10/26/2002 Historical Encounter Global Ayala Hill, AMALGAMATOR [address] [facility] [address] [place] [address] Social History Tobacco Use Types Packs/Day Years [...]
--- OUTSIDE RECORDS SUMMARY | 2025-03-10 00:04 | XMS_ITS | Encounter Summary ---
Author Organization [facility] Address [address] [place] [address] Care Team Providers Care Transfer Driver Name Role Phone Unavailable Primary Care Provider Unavailabl e Encounter Details Date Type Department Care Team (Late st Contact Info) Description 11/10/2002 Historical Encounter Global Saeid Lovett MD [address] [place] [address] Social History Tobacco Use Types Packs/Day Years [...]
--- OUTSIDE RECORDS SUMMARY | 2025-03-10 00:04 | XMS_ITS | Encounter Summary ---
Author Organization [facility] Address [address] [place] [address] Care Team Providers Care Marine Service Manager Name Role Phone Unavailable Primary Care Provider Unavailabl e Encounter Details Date Type Department Care Team (Late st Contact Info) Description 10/04/2003 Historical Encounter Global Jens Thorpe MD Social History Tobacco Use Types Packs/Day Years [...]
--- OUTSIDE RECORDS SUMMARY | 2025-03-10 00:04 | XMS_ITS | Encounter Summary ---
Author Organization [facility] Address [address] [place] [address] Care Team Providers Care Housekeeping/Laundry Supervisor Name Role Phone Unavailable Primary Care Provider Unavailabl e Encounter Details Date Type Department Care Team (Late st Contact Info) Description 02/13/2004 Historical Encounter Global Eliezer Alex Social History Tobacco Use Types Packs/Day Years [...]
--- OUTSIDE RECORDS SUMMARY | 2025-03-10 00:04 | XMS_ITS | Encounter Summary ---
Author Organization [facility] Address [address] [place] [address] Care Team Providers Care Lining Mechanic Name Role Phone Unavailable Primary Care Provider Unavailabl e Encounter Details Date Type Department Care Team (Late st Contact Info) Description 11/03/2002 Historical Encounter Global Ayala Hill, IN TUBE CONVERSION TECHNICIAN [address] [facility] [address] [place] [address] Social History Tobacco Use Types [...]
--- OUTSIDE RECORDS SUMMARY | 2025-03-10 00:04 | XMS_ITS | Encounter Summary ---
Author Organization [facility] Address [address] [place] [address] Care Team Providers Care Birthing Nurse Name Role Phone Unavailable Primary Care Provider Unavailabl e Encounter Details Date Type Department Care Team (Late st Contact Info) Description 07/13/2003 Historical Encounter Global Saeid Lovett MD [address] [place] [address] Social History Tobacco Use Types Packs/Day Years [...]
--- OUTSIDE RECORDS SUMMARY | 2025-03-10 00:04 | XMS_ITS | Encounter Summary ---
Author Organization [facility] Address [address] [place] [address] Care Team Providers Care Mill Attendant Name Role Phone Unavailable Primary Care Provider Unavailabl e Encounter Details Date Type Department Care Team (Late st Contact Info) Description 12/04/2001 Historical Encounter Global Hao Alfaro APRN [address] [place] [address] Social History Tobacco Use Types Packs/Day Years [...]
--- OUTSIDE RECORDS SUMMARY | 2025-03-10 00:04 | XMS_ITS | Encounter Summary ---
Author Organization [facility] Address [address] [place] [address] Care Team Providers Care Cabin Furnishings Installer Name Role Phone Unavailable Primary Care Provider Unavailabl e Encounter Details Date Type Department Care Team (Late st Contact Info) Description 11/25/2001 Historical Encounter Global Hao Alfaro APRN [address] [place] [address] Social History Tobacco Use Types Packs/Day Years [...]
--- OUTSIDE RECORDS SUMMARY | 2025-03-10 00:04 | XMS_ITS | Encounter Summary ---
Author Organization [facility] Address [address] [place] [address] Care Team Providers Care Emergency Department Nurse Name Role Phone Unavailable Primary Care Provider Unavailabl e Encounter Details Date Type Department Care Team (Late st Contact Info) Description 09/07/2002 Historical Encounter Global Saeid Lovett MD [address] [place] [address] Social History Tobacco Use Types Packs/Day Years [...]
--- OUTSIDE RECORDS SUMMARY | 2025-03-10 00:04 | XMS_ITS | Encounter Summary ---
Author Organization [facility] Address [address] [place] [address] Care Team Providers Care Automatic Pilot Mechanic Name Role Phone Unavailable Primary Care Provider Unavailabl e Encounter Details Date Type Department Care Team (Late st Contact Info) Description 09/30/2002 Historical Encounter Global Ayala Hill, SOURCING COORDINATOR [address] [facility] [address] [place] [address] Social History Tobacco Use Types [...]
--- OUTSIDE RECORDS SUMMARY | 2025-03-10 00:04 | XMS_ITS | Encounter Summary ---
Author Organization [facility] Address [address] [place] [address] Care Team Providers Care Health Advocate Name Role Phone Unavailable Primary Care Provider Unavailabl e Encounter Details Date Type Department Care Team (Late st Contact Info) Description 10/06/2002 Historical Encounter Global Ayala Hill, GOLF SUPERINTENDENT [address] [facility] [address] [place] [address] Social History Tobacco Use Types [...]
--- OUTSIDE RECORDS SUMMARY | 2025-03-10 00:04 | XMS_ITS | Encounter Summary ---
Author Organization [facility] Address [address] [place] [address] Care Team Providers Care Hydraulic Modeling Engineer Name Role Phone Unavailable Primary Care Provider Unavailabl e Encounter Details Date Type Department Care Team (Late st Contact Info) Description 01/15/2002 Historical Encounter Brody Lopez Social History Tobacco [...]
--- OUTSIDE RECORDS SUMMARY | 2025-03-10 00:04 | XMS_ITS | Encounter Summary ---
Author Organization [facility] Address [address] [place] [address] Care Team Providers Care College Coach Name Role Phone Unavailable Primary Care Provider Unavailabl e Encounter Details Date Type Department Care Team (Late st Contact Info) Description 10/25/2002 Historical Encounter Global Ayala Hill, REFLECTOR DRILLER AND DEBURRER [address] [facility] [address] [place] [address] Social History Tobacco Use Types [...]
--- OUTSIDE RECORDS SUMMARY | 2025-03-10 00:04 | XMS_ITS | Encounter Summary ---
Author Organization [facility] Address [address] [place] [address] Care Team Providers Care Handle Finisher Name Role Phone Unavailable Primary Care Provider Unavailabl e Encounter Details Date Type Department Care Team (Late st Contact Info) Description 10/09/2001 Historical Encounter Brody Lopez Social History Tobacco [...]
--- OUTSIDE RECORDS SUMMARY | 2025-03-10 00:04 | XMS_ITS | Encounter Summary ---
Author Organization [facility] Address [address] [place] [address] Care Team Providers Care Commodity Manager Name Role Phone Unavailable Primary Care Provider Unavailabl e Encounter Details Date Type Department Care Team (Late st Contact Info) Description 09/11/2002 Historical Encounter Global Saeid Lovett MD [address] [place] [address] Social History Tobacco Use Types Packs/Day Years [...]
--- OUTSIDE RECORDS SUMMARY | 2025-03-10 00:04 | XMS_ITS | Encounter Summary ---
Author Organization [facility] Address [address] [place] [address] Care Team Providers Care Miniature Set Builder Name Role Phone Unavailable Primary Care Provider Unavailabl e Encounter Details Date Type Department Care Team (Late st Contact Info) Description 01/22/2003 Historical Encounter Brody Lopez Social History Tobacco [...]
--- OUTSIDE RECORDS SUMMARY | 2025-03-10 00:04 | XMS_ITS | Encounter Summary ---
Author Organization [facility] Address [address] [place] [address] Care Team Providers Care Pool Servicer Name Role Phone Unavailable Primary Care Provider Unavailabl e Encounter Details Date Type Department Care Team (Late st Contact Info) Description 02/09/2003 Historical Encounter Brody Lopez Social History Tobacco [...]
--- OUTSIDE RECORDS SUMMARY | 2025-03-10 00:04 | XMS_ITS | Encounter Summary ---
Author Organization [facility] Address [address] [place] [address] Care Team Providers Care Powder Loader Name Role Phone Unavailable Primary Care Provider Unavailabl e Encounter Details Date Type Department Care Team (Late st Contact Info) Description 07/20/2003 Historical Encounter Global Saeid Lovett MD [address] [place] [address] Social History Tobacco Use Types Packs/Day Years [...]
--- OUTSIDE RECORDS SUMMARY | 2025-03-10 00:04 | XMS_ITS | Encounter Summary ---
Author Organization [facility] Address [address] [place] [address] Care Team Providers Care Material Worker Name Role Phone Unavailable Primary Care Provider Unavailabl e Encounter Details Date Type Department Care Team (Late st Contact Info) Description 12/24/2001 Historical Encounter Global Saeid Lovett MD [address] [place] [address] Social History Tobacco Use Types Packs/Day Years [...]
--- OUTSIDE RECORDS SUMMARY | 2025-03-10 00:04 | XMS_ITS | Encounter Summary ---
Author Organization [facility] Address [address] [place] [address] Care Team Providers Care Spanish Translator Name Role Phone Unavailable Primary Care Provider Unavailabl e Encounter Details Date Type Department Care Team (Late st Contact Info) Description 12/17/2002 Historical Encounter Global Ayala Hill, DIRECTOR EMPLOYEE COMMUNICATIONS [address] [facility] [address] [place] [address] Social History Tobacco Use Types [...]
--- OUTSIDE RECORDS SUMMARY | 2025-03-10 00:04 | XMS_ITS | Encounter Summary ---
Author Organization [facility] Address [address] [place] [address] Care Team Providers Care School Cleaner Name Role Phone Unavailable Primary Care Provider Unavailabl e Encounter Details Date Type Department Care Team (Late st Contact Info) Description 12/08/2002 Historical Encounter Global Saeid Lovett MD [address] [place] [address] Social History Tobacco Use Types Packs/Day Years [...]
--- OUTSIDE RECORDS SUMMARY | 2025-03-10 00:04 | XMS_ITS | Encounter Summary ---
Author Organization [facility] Address [address] [place] [address] Care Team Providers Care Industrial Psychology Teacher Name Role Phone Unavailable Primary Care Provider Unavailabl e Encounter Details Date Type Department Care Team (Late st Contact Info) Description 04/08/2003 Historical Encounter Global Saeid Lovett MD [address] [place] [address] Social History Tobacco Use Types Packs/Day Years [...]
--- OUTSIDE RECORDS SUMMARY | 2025-03-10 00:04 | XMS_ITS | Encounter Summary ---
Author Organization [facility] Address [address] [place] [address] Care Team Providers Care Memorial Marker Designer Name Role Phone Unavailable Primary Care Provider Unavailabl e Encounter Details Date Type Department Care Team (Late st Contact Info) Description 03/18/2003 Historical Encounter Lashonda Cohen APRN Social History [...]
--- OUTSIDE RECORDS SUMMARY | 2025-03-10 00:04 | XMS_ITS | Encounter Summary ---
Author Organization [facility] Address [address] [place] [address] Care Team Providers Care Actuarial Consultant Name Role Phone Unavailable Primary Care Provider Unavailabl e Encounter Details Date Type Department Care Team (Late st Contact Info) Description 07/17/2001 Historical Encounter Global Wander Orourke Social History [...]
[2025-03-10] MEDS: ALBUTEROL 0.083% 2.5 MG/3 ML NEB 20 MG IH (00:05)
[2025-03-10 00:10] LABS: VBG PH 7.18 mmol/L (7.31-7.41)
--- NOTE | 2025-03-10 00:52 | ECG_ITS ---
APPROVED REPORT Exam: Resting ECG HR:131 bpm ECG Measurements Heart Rate 131 AXES KS 128 P 76 QRSd 78 QRS 70 QT 333 T 141 QTc 410 Conclusion SINUS TACHYCARDIA ANTERIOR MYOCARDIAL INFARCTION , PROBABLY OLD [40+ ms Q WAVE AND/OR ST/T ABNORMALITY IN V3/V4] MODERATE T-WAVE ABNORMALITY, CONSIDER INFERIOR ISCHEMIA [-0.1+ mV T-WAVE IN II/aVF] No STEMI Electronically signed by : MONICA GU, 03/10/2025 06:32:05
[2025-03-10] MEDS: DOXYCYCLINE HYCL 100 MG TABLET PO ×3 (01:01→16:23)
--- NOTE | 2025-03-10 01:25 | PC.NURSE ---
Pt still refusing to be in/out cath wants to wait to use bedpan
[2025-03-10 01:27] LABS: VBG HCO3 30.5 mmol/L (23-30); VBG PH 7.22 mmol/L (7.31-7.41); VBG PO2 30.0 mmol/L (28-40)
[2025-03-10 01:31] LABS: Adenovirus,PCR Not Detected (NotDetected); Chlamydophila Pneumoniae, PCR Not Detected (NotDetected); Coronavirus 19, PCR Not Detected (NotDetected); Coronovirus HKU1,PCR Not Detected (NotDetected); Influenza A, PCR Not Detected (NotDetected); Influenza AH1, 2009 Not Detected (NotDetected); Influenza AH1, PCR Not Detected (NotDetected); Influenza AH3,PCR Not Detected (NotDetected); Influenza B, PCR Not Detected (NotDetected); Lactate Venous 3.7 mmol/L (0.4-2.0); Mycoplasma Pneumoniae, PCR Not Detected (NotDetected); Parainfluenza 1, PCR Not Detected (NotDetected); Parainfluenza 2, PCR Not Detected (NotDetected); Parainfluenza 3, PCR Not Detected (NotDetected); Parainfluenza 4, PCR Not Detected (NotDetected); VBG PCO2 77.0 mmol/L (35-51)
--- NOTE | 2025-03-10 02:16 | PC.NURSE ---
patient arrived to unit by bed at 0150.
[2025-03-10 02:45] LABS: Troponin I 0.20 ng/ml (0.00-0.034)
--- NOTE | 2025-03-10 02:49 | PC.NURSE ---
Critical Troponin value of 0.20 rec from lab at 0244; notified jose and primary nurse toña at 0246
[2025-03-10] MEDS: humaLOG 100 UNITS/ML 10ML VIAL (SSI) 8 UNIT SUBCUT (02:50)
[2025-03-10 03:12] LABS: Reflex Lactic Add Lactic Reflex
[2025-03-10 03:14] LABS: VBG HCO3 27.3 mmol/L (23-30); VBG PH 7.30 mmol/L (7.31-7.41); VBG PO2 41.2 mmol/L (28-40)
[2025-03-10 03:16] LABS: Lactate Venous 3.6 mmol/L (0.4-2.0); VBG PCO2 57.3 mmol/L (35-51)
[2025-03-10 03:49] LABS: Lactic Acid Follow Up (RFLX 1) 3.2 mmol/L (0.7-2.1)
--- NOTE | 2025-03-10 04:02 | P.HP_ITS ---
<Statement entered by Soy Oh MD - 03/10/25 17:49> Rounded on patient after nurse practitioner. Personally examined and interviewed patient. Agree with exam findings and care plan as documented. On morning rounds, patient appears more comfortable. Off BiPAP Patient transitioned to nasal cannula oxygen by morning rounds. Currently stable on 3 L. Wears oxygen at baseline. Alert and oriented x 4. Overall feeling better. Labs show improvement with normal kidney function, pH is normalized on VBG. Pulmonology and cardiology evaluating today for respiratory failure and NSTEMI. - Discussed case with pulmonology, recommend continuing Trelegy 100 inhaler. DuoNebs every 6 hours as needed. Methylprednisolone 40 mg IV daily and doxycycline 100 mg twice daily - Discussed case with cardiology, recommend outpatient cardiac workup including ischemic eval. Echo obtained showing normal ejection fraction. No dilation of RV. Continue aspirin and Plavix daily. Continue diuresis with Lasix 40 mg IV twice daily - Lipid panel ordered for the morning For her diabetes: Resume insulin glargine 30 units twice daily History of Present Illness *Admission Date: 03/10/25 *Reason for visit:: Dysnea *History of present illness: 84-year-old female patient with history of COPD presents ER with complaints of shortness of breath that started suddenly earlier in the day. She used her treatments and inhalers at home without relief. She denied cough. Denied fever chills or bodyaches. She denies chest pain or palpitations. Denies swelling or orthopnea. She does also have history of congestive heart failure. States she is on a diuretic at home. Med list shows Entresto. In the ER she received multiple albuterol treatments, aspirin, Lasix, steroids and nitroglycerin. She was also given full dose Lovenox and oral doxycycline. Ultimately she required BiPAP. She did tolerate this well and has been admitted to the ICU for further treatment. [facility] Disclaimer: The information contained in this section may have been updated after the patient was seen, as this information can be updated by other users. Medical History Acute systolic (congestive) heart failure History of stent insertion of renal artery Left ventricular hypertrophy Diastolic dysfunction Malignant hypertension Abnormal chest xray Elevated transaminase level Severe sepsis with acute organ dysfunction Acute and chronic respiratory failure ([id number]) Diastolic heart failure Atypical angina Acute on chronic HFrEF (heart failure with reduced ejection fraction) Renal artery arteriosclerosis SOB (shortness of breath) Diabetes mellitus Tobacco dependence syndrome HTN (hypertension) Family History Other No significant family history Social History (Updated 03/10/25 @ 02:28 by Florence Owens RN) Smoking Status: Current every day smoker tobacco type: cigarettes packs per day: 1 second hand exposure: No alcohol intake: never substance use type: denies use current occupational status: unemployed Travel in the last 8 weeks?: Inside the [place] household members: spouse and family housing: house lives independently: No marital status: current occupational exposures/hazards: No caffeine: Yes Contact w/someone who lives/traveled outside [place] past 30 days?: No Exposure to someone with infectious disease in past 14 days?: No Do you have a fever (greater than 100.4 F or 38 C)?: No Have you tested positive for COVID-19?: No Exposed to someone with COVID-19 in past 14 days?: No Do you have a sore throat?: No Do you have a cough?: No Do you have any weakness?: Yes Are you experiencing any nausea/vomitting?: No Do you have any diarrhea?: No Are you experiencing any unusual bleeding?: No Do you have any muscle aches/pain?: No Do you have any abdominal pain?: No Are you experiencing loss of taste or smell?: No Other Medical History Have you received the Flu Vaccine for this season: No Have you received the Pneumonia Vaccine: Yes Review of Systems Constitutional Constitutional: Reports system reviewed and no additional complaints, except as documented Eyes Eyes: Reports system reviewed and no additional complaints, except as documented ENT Ears, Nose, Mouth, and Throat: Reports system reviewed and no additional complaints, except as documented *Cardiovascular Cardiovascular: Denies chest pain and Reports dyspnea *Respiratory Respiratory: Denies cough and Reports dyspnea *Gastrointestinal Gastrointestinal: Reports system reviewed and no additional complaints, except as documented *Genitourinary Genitourinary: Reports system reviewed and no additional complaints, except as documented *Musculoskeletal Musculoskeletal: Reports system reviewed and no additional complaints, except as documented *Neurologic Neurologic: Reports system reviewed and no additional complaints, except as documented Psychiatric Psychiatric: Reports system reviewed and no additional complaints, except as documented Endocrine Endocrine: Reports system reviewed and no additional complaints, except as documented Hematologic/Lymphatic Hematologic/Lymphatic: Reports system reviewed and no additional complaints, except as documented Meds Home Medications and Allergies Home Medications ?Medication ?Instructions ?Recorded ?Confirmed ?Type insulin glargine 100 unit/mL (3 30 unit SQ BID 4 03/10/25 History mL) subcutaneous pen (Lantus Solostar U-100 Insulin) albuterol sulfate 90 mcg/actuation 2 puff inhalation Q 3HP PRN 08/14/24 03/10/25 History aerosol inhaler Shortness Of Breath cetirizine 10 mg tablet 10 mg PO DAILY 08/14/2402/23 History fluticasone fur. 100 mcg-umeclid 1 inh inhalation JORGE Y 08/14/24 03/10/25 History 62.5 mcg-vilant 25 mcg inhalat.powder (Trelegy Ellipta) fluticasone propionate 50 1 spray intranasal DAILY 03/10/25 History mcg/actuation nasal spray,suspension glipizide 10 mg tablet 10 mg PO BID 08/14/24 History metformin 1,000 mg tablet 1,000 mg PO BID 08/14/24 History nitroglycerin 0.4 mg sublingual 0.4 mg sublingual Q5M PRN chest 08/24/24 03/10/25 Rx tablet pain #25 tabs aspirin 81 mg tablet,delayed 81 mg PO DAILY #90 tabs 0 02/15/25 03/10/25 Rx release amlodipine 10 mg tablet 10 mg PO DAILY 03/10/2502/23 History clopidogrel 75 mg tablet 75 mg PO DAILY 03/10/2502/23 History hydralazine 25 mg tablet 25 mg PO DIRECTED 5 03/10/25 History sacubitril 97 mg-valsartan 103 mg 1 tab PO BID 5 03/10/25 History tablet (Entresto) New Prescriptions to Start Prescriptions: Allergies Allergy/AdvReac Type Severity Reaction Status Date / Time Iodinated Contrast Media Allergy Intermediate I-RASH/SOB/ Verified 09/23/24 10:47 (Iodinated Contrast Media - Anaphlaxis IV Dye) Exam Data for Last 24 hours Vital signs and Labs for Last 24 Hours: Temp Pulse Resp BP Pulse Ox O2 Del Method O2 Flow Rate 97.8 F 116 H 22 113/77 94 L BiPAP 3 03/10/25 03:00 03/10/25 03:00 03/10/25 03:00 03/10/25 03:00 03/10/25 03:00 03/10/25 03:00 03/09/25 23:00 FiO2 30 03/10/25 02:03 Laboratory Results - last 24 hr 03/09/25 22:45: WBC 10.5, RBC 5.05, Hgb 15.2, Hct 46.3, MCV 91.7, MCH 30.1, MCHC 32.8, RDW 13.5, Plt Count 191, MPV 11.6 H, Neut % (Auto) 27.7 L, Lymph % (Auto) 63.9 H, Cannon % (Auto) 5.8, Eos % (Auto) 1.2, Baso % (Auto) 0.7, Neut # (Auto) 2.9, Lymph # (Auto) 6.7 H, Cannon # (Auto) 0.6, Eos # (Auto) 0.1, Baso # (Auto) 0.1, Total Counted 100, Neutrophils % (Manual) 29 L, Lymphocytes % (Manual) 66 H , Monocytes % (Manual) 5, Platelet Estimate Normal, RBC Morphology Normal, PT 11.0, INR 0.99, D-Dimer 2.13 H, Sodium 136, Potassium 4.6, Chloride 95 L, Carbon Dioxide 28, Anion Gap 17.6 H, BUN 7, Creatinine 0.60, Estimated GFR 100, Est GFR ( Amer) 121, Glucose 416 H*, Calcium 9.6, Total Bilirubin 0.6, AST 65 H, ALT 25, Alkaline Phosphatase 130 H, Troponin I 0.03, NT-Pro-B Natriuret Pep 281 H, Total Protein 7.1, Albumin 4.3, Globulin 2.8, Albumin/Globulin Ratio 1.5, Acetone Level None detected 03/09/25 23:05: VBG pH 7.18 L, VBG pCO2 73.2 H, VBG pO2 81.9 H, VBG HCO3 26.8, VBG Total CO2 29.1 H, VBG O2 Saturation 94.7 H, VBG Base Excess -1.5, VBG Lactic Acid 4.2 H 03/10/25 01:20: VBG pH 7.22 L, VBG pCO2 77.0 H, VBG pO2 30.0, VBG HCO3 30.5 H, VBG Total CO2 32.8 H, VBG O2 Saturation 58.4, VBG Base Excess 2.7 H, VBG Lactic Acid 3.7 H, Chlamy pneumoniae PCR Not detected, Adenovirus (PCR) Not detected, B. pertussis DNA (PCR) Not detected, Coronavirus OC43 (PCR) Not detected, Coronavirus HKU1 (PCR) Not detected, Coronavirus 229E (PCR) Not detected, SARS-CoV-2 (PCR) Not detected, Coronavirus NL63 (PCR) Not detected, Human Metapneumovir PCR Not detected, Influenza A (H1) PCR Not detected, Influ A (H1N1/09) PCR Not detected, Influenza A (H3) PCR Not detected, Influenza Type A (PCR) Not detected, Influenza Type B (PCR) Not detected, M. pneumoniae (PCR) Not detected, Parainfluenza 1 (PCR) Not detected, Parainfluenza 2 (PCR) Not detected, Parainfluenza 3 (PCR) Not detected, Parainfluenza 4 (PCR) Not detected, RSV (PCR) Not detected, Entero/Rhino (PCR) Not detected 03/10/25 02:10: Troponin I 0.20 H 03/10/25 03:04: VBG pH 7.30 L, VBG pCO2 57.3 H, VBG pO2 41.2 H, VBG HCO3 27.3, VBG Total CO2 29.1 H, VBG O2 Saturation 77.8 H, VBG Base Excess 0.8, VBG Lactic Acid 3.6 H 03/10/25 03:24: Lactate 3.2 H I & O for Last 24 hours: Intake & Output 03/07/25 03/08/25 03/09/25 03/10/25 23:59 23:59 23:59 23:59 Intake Total 0.1 / 0.1 500 / 500 Balance 0.1 / 0.1 500 / 500 Weight 66.224 kg Constitutional Constitutional: moderate distress *Routine HEENT Exam Head: Present normocephalic and atraumatic Eye: Present PERRL ENT: Present mucous membranes moist *Routine Neck Exam Neck: Present supple *Routine Respiratory Exam Respiratory: Present decreased breath sounds and wheezes *Routine Cardiovascular Exam Cardiovascular: Present RRR, Normal S1, Normal S2 and tachycardia *Routine Abdominal Exam Abdominal: Present soft and normoactive bowel sounds *Routine Rectal Exam Rectal:: deferred *Routine Genitalia Exam Genitalia:: deferred *Routine Extremities Exam Extremities: Present pulses intact *Routine Skin Exam Skin: Present intact *Routine Neurological Exam Neurological: Present alert, oriented X3 and moving all extremities Routine Psychiatric Exam Psychiatric: Present normal affect Assessment and Plan *Assessment and plan (1) Respiratory failure with hypercapnia: Status: Acute Qualifiers: Chronicity: acute on chronic Qualified Code(s): J96.22 - Acute and chronic respiratory failure with hypercapnia Category: Medical Code(s): J96.92 - Respiratory failure, unspecified with hypercapnia (2) COPD exacerbation: Status: Acute Category: Medical Code(s): J44.1 - Chronic obstructive pulmonary disease with (acute) exacerbation (3) Congestive heart failure: Status: Acute Qualifiers: Heart failure chronicity: acute on chronic Heart failure type: combined systolic and diastolic Qualified Code(s): I50.43 - Acute on chronic combined systolic (congestive) and diastolic (congestive) heart failure Category: Medical Code(s): I50.9 - Heart failure, unspecified (4) Diabetes mellitus: Status: Chronic Qualifiers: Diabetes mellitus complication status: with other specified complication Diabetes mellitus shelter insulin use: unspecified shelter insulin use status Diabetes mellitus type: type 2 Qualified Code(s): E11.69 - Type 2 diabetes mellitus with other specified complication Category: Medical Code(s): E11.9 - Type 2 diabetes mellitus without complications (5) NSTEMI (non-ST elevated myocardial infarction): Status: Acute Category: Medical Code(s): I21.4 - Non-ST elevation (NSTEMI) myocardial infarction (6) Elevated d-dimer: Status: Acute Category: Medical Code(s): R79.89 - Other specified abnormal findings of blood chemistry (7) HTN (hypertension): Status: Chronic Qualifiers: Hypertension type: essential hypertension Qualified Code(s): I10 - Essential (primary) hypertension Category: Medical Code(s): I10 - Essential (primary) hypertension (8) HLD (hyperlipidemia): Status: Chronic Qualifiers: Hyperlipidemia type: other hyperlipidemia Qualified Code(s): E78.4 - Other hyperlipidemia Category: Medical Code(s): E78.5 - Hyperlipidemia, unspecified (9) Tobacco dependence syndrome: Status: Chronic Category: Medical Code(s): F17.200 - Nicotine dependence, unspecified, uncomplicated (10) CAD (coronary artery disease): Status: Chronic Qualifiers: Associated angina: unspecified whether angina present Coronary Disease- Associated Artery/Lesion type: redding artery [place] vs. transplanted heart: redding heart Qualified Code(s): I25.10 - Atherosclerotic heart disease of redding coronary artery without angina pectoris Category: Medical Code(s): I25.10 - Atherosclerotic heart disease of redding coronary artery without angina pectoris Plan Patient will be admitted inpatient to the ICU with hypercapnic respiratory failure requiring BiPAP. Will continue breathing treatments, steroids and antibiotics. Repeat gases did show some improvement. Will consult pulmonology. Acute respiratory event is secondary to a COPD exacerbation however congestive heart failure likely plays a role in this as well. EMR shows report of EF 55% in 2023 (found in old H&P). She did receive Lasix in the ER. She is on Entresto at home. We will continue that. Second troponin did increase to 0.2. EKG showed no ST elevation or other acute findings except that she is tachycardic. Will consult cardiology. She was also noted to have an elevated D-dimer. She is tachycardic however I do not see hypoxia documented and she does not have chest pain. Unable to scan due to her dependence on BiPAP. PE would be in the differential, bedside ultrasound showed no right heart strain. She was given therapeutic dose Lovenox. This may be tapered if PE is ruled out. She was given subcu insulin for uncontrolled diabetes and will continue with a sliding scale. Aspirin and Plavix were continued for her CAD as she does have multiple stents.
[2025-03-10 05:28] LABS: Reflex Lactic (2 hrs) Add Lactic Reflex
[2025-03-10 05:56] LABS: Hematocrit 42.1 % (37.0-47.0); Hemoglobin 13.9 g/dL (12.2-16.2); Immature Granulocytes % 1.1 %; Mean Corpuscular HGB Conc 33.0 g/dL (31.8-35.4); Mean Corpuscular Hemoglobin 29.7 pg (27.0-31.2); Mean Corpuscular Volume 90.0 fl (81-99); Nucleated Red Blood Cells % 0 %; Platelet Count 149 K/mm3 (142-424); Red Blood Count 4.68 M/mm3 (4.20-5.40); Red Cell Distribution Width-SD 44.6 fL; White Blood Count 5.6 K/mm3 (4.8-10.8)
[2025-03-10 05:59] LABS: Albumin Level 3.8 g/dl (3.5-5.0); Chloride 95 mmol/L (98-107); Potassium 3.9 mmoL/L (3.5-5.1); Sodium 136 mmol/L (136-145)
[2025-03-10] MEDS: METHYLPREDNISOLONE SOD SUCC 40MG VIAL 40 MG IV (06:00)
[2025-03-10] MEDS: humaLOG 100 UNITS/ML 10ML VIAL (SSI) SUBCUT ×4 (06:00→20:00)
[2025-03-10 06:02] LABS: Alanine Aminotransferase 28 U/L (12-78); Albumin/Globulin Ratio 1.3 (1.1-1.8); Alkaline Phosphatase 114 U/L (38-126); Anion Gap 17.9 mEq/L (5-15); Aspartate Amino Transferase 40 U/L (14-36); Bilirubin,Total 0.2 mg/dl (0.2-1.3); Blood Urea Nitrogen 12 mg/dl (7-17); Carbon Dioxide 27 mmol/L (22.0-30.0); Creatinine Clearance Estimated 58 mL/min (50-200); Creatinine,Serum 0.50 mg/dl (0.52-1.04); Estimated Glomerular Filt Rate 124 ml/min (>60); GFR (African American) 150 ML/MIN (>60); Globulin 2.9 g/dL (1.3-3.2); Total Protein,Serum 6.7 g/dl (6.3-8.2)
[2025-03-10 06:03] LABS: Calcium 9.4 mg/dl (8.4-10.2); Glucose 366 mg/dl (74-100)
[2025-03-10 06:05] LABS: Lactic Acid Follow up (RFLX 2) 4.1 mmol/L (0.7-2.1)
--- NOTE | 2025-03-10 06:07 | PC.NURSE ---
Notified provider Flower of critical lactate of 4.1 at 0606
[2025-03-10 06:14] LABS: Microscopic, Urine URINE MICROSCOPIC (MICROSCOPIC)
[2025-03-10 06:15] LABS: Bilirubin,Urine Negative (Negative); Color,Urine YELLOW (Yellow); Glucose,Urine (UA) 3+ (Negative); Ketones,Urine Negative (Negative); Leukocyte Esterase,Urine Negative (Negative); PH,Urine 6.0 (5.0-8.5); Protein,Urine 1+ (Negative); Specific Gravity, Urine 1.015 (1.005-1.030); Urobilinogen,Urine 0.2 EU/dl (0.2)
[2025-03-10 06:16] LABS: Troponin I 0.27 ng/ml (0.00-0.034)
--- NOTE | 2025-03-10 06:18 | PC.NURSE ---
notified provider jose of critical troponin of 0.27
[2025-03-10 06:21] LABS: Bacteria,Urine 1+ /lpf; RBC,Urine Occasional #/hpf (0-3); Squamous Epithelial Cell,Urine 20-50 #/hpf (0-5); WBC,Urine Occasional #/hpf (0-3)
[2025-03-10 06:22] LABS: Hyaline Casts,Urine OCC #/lpf (0)
--- NOTE | 2025-03-10 06:27 | ECG_ITS ---
APPROVED REPORT Exam: Resting ECG HR:107 bpm ECG Measurements Heart Rate 107 AXES NE 132 P 85 QRSd 80 QRS 70 QT 349 T 136 QTc 411 Conclusion SINUS TACHYCARDIA MODERATE T-WAVE ABNORMALITY, CONSIDER LATERAL ISCHEMIA [-0.1+ mV T-WAVE IN I/aVL/V5/V6] ABNORMAL ECG UNCONFIRMED REPORT Electronically signed by : Michael Dolan MD 03/11/2025 21:59:17
[2025-03-10] MEDS: BUDESONIDE 0.5MG/2ML NEB 0.5 MG IH (06:39)
[2025-03-10 06:41] LABS: POC Glucose,Bedside 122 gm/dL (70-110)
[2025-03-10] MEDS: CLOPIDOGREL 75MG TAB 75 MG PO (08:08)
[2025-03-10] MEDS: ASPIRIN EC 81MG TABLET 81 MG PO (08:08)
--- NOTE | 2025-03-10 08:14 | PC.NURSE ---
at 0805 Tika with case management called wanting to get a room air saturation on patient. Patient was on 3 liters nasal cannula. now that the patient is on room air patient oxygen saturation is 92. Patient usually wears 3 liters of oxygen baseline at home.
--- NOTE | 2025-03-10 08:54 | CA_ITS ---
APPROVED REPORT EXAM: Comprehensive 2D, Doppler, and color-flow Echocardiogram Truck Cleaner: EVANS Mccabe, RVS Ht: 5 ft 4 in Wt: 143lbs BSA: 1.70 BP: 113/77 mmHg Rhythm: Irregular Indications: SOA, COPD, CAD, HTN, Fatigue 2D Dimensions IVSd 1.04 cm LVEF (Visual) 44.50 % PWd 1.06 cm LA Volume 54.80 mL LVDd 4.26 cm LA Volume Index 31.50 mL/m2 (M/F) 16-34 LVDs 3.33 cm Left Atrium 2.86 cm M-Mode Dimensions LA Diam 3.51 cm (1.9-4.0) EPSs 0.51 cm TAPSE 2.02 (<1.7) LV Diastology E Decel Time 183 (160-240 msec) E/A Ratio 0.76 MED A' 12.90 cm/s LAT A' 13.70 cm/s Aortic Valve ISRRAEL Index 1.37 cm2/m2 AoV Peak Andrez. 133.0 (50-130 cm/s) AO Peak GR. 7.10 mmHg AO Mean GR. 3.50 (<5 mmHg) AO VTI 21.7 (18-25 cm) ISRRAEL (VTI) 2.38 (2.5-4.5 cm2) Mitral Valve MV A Velocity 128.0 (40-130 cm/s) E/A Ratio 0.76 Pulmonary Valve PV Peak Velocity 117.0 (50-150 cm/s) Tricuspid Valve TR P. Velocity 269.00 cm/s RAP Estimate 10.00 mmHg RVSP 38.90 mmHg Left Ventricle The left ventricle is normal size. Left ventricular systolic function is normal. The left ventricular ejection fraction is within the normal range. There is increased left ventricular wall thickness. There is normal LV segmental wall motion. Transmitral Doppler flow pattern suggests impaired LV relaxation. LVEF is 60% Right Ventricle The right ventricle is normal size. The right ventricular systolic function is normal. Atria The left atrium is mildly dilated. Right atrium is mildly dilated. There is no color Doppler evidence of interatrial shunt. Aortic Valve The aortic valve opens well. There is no hemodynamically significant aortic valvular stenosis. No aortic regurgitation is present. Mitral Valve The mitral valve is normal in structure. No evidence of mitral valve stenosis. Trace mitral regurgitation is present. Tricuspid Valve The tricuspid valve leaflets are thin and pliable. Mild tricuspid regurgitation. RVSP is 20-25 mmHg. Pulmonic Valve The pulmonary valve is grossly normal in structure. Trace pulmonic valve regurgitation is present. Great Vessels The aortic root is normal in size. IVC is normal in size and collapses >50% with inspiration. Pericardium There is no pericardial effusion. Other Information Study Quality: Fair Conclusion Normal biventricular systolic function. Mild biatrial dilation. Mild TR. Electronically signed by : Margarita Ledesma MD 03/10/2025 12:46:56
--- OUTSIDE RECORDS SUMMARY | 2025-03-10 09:06 | XMS_ITS | Encounter Summary ---
Author Organization [facility] Address [address] [place] [address] Care Team Providers Care Web Content Specialist Name Role Phone Unavailable Primary Care [...]
--- OUTSIDE RECORDS SUMMARY | 2025-03-10 09:06 | XMS_ITS | Encounter Summary ---
Author Organization [facility] Address [address] [place] [address] Care Team Providers Care Home Health Lvn Name Role Phone Unavailable Primary Care Provider Unavailabl e Encounter Details Date Type Department Care Team (Late st Contact Info) Description 02/05/2002 Historical Encounter Global Saeid Lovett MD [address] [place] [address] Social History Tobacco Use Types Packs/Day Years [...]
--- OUTSIDE RECORDS SUMMARY | 2025-03-10 09:06 | XMS_ITS | Encounter Summary ---
Author Organization [facility] Address [address] [place] [address] Care Team Providers Care Motel Manager Name Role Phone Unavailable Primary Care Provider Unavailabl e Encounter Details Date Type Department Care Team (Late st Contact Info) Description 07/20/2003 Historical Encounter Global Saeid Lovett MD [address] [place] [address] Social History Tobacco Use Types Packs/Day Years [...]
--- OUTSIDE RECORDS SUMMARY | 2025-03-10 09:06 | XMS_ITS | Encounter Summary ---
Author Organization [facility] Address [address] [place] [address] Care Team Providers Care Director Of Group Sales Name Role Phone Unavailable Primary Care Provider [...]
--- OUTSIDE RECORDS SUMMARY | 2025-03-10 09:06 | XMS_ITS | Encounter Summary ---
Author Organization [facility] Address [address] [place] [address] Care Team Providers Care Claim Trainee Name Role Phone Unavailable Primary Care Provider [...]
--- OUTSIDE RECORDS SUMMARY | 2025-03-10 09:06 | XMS_ITS | Encounter Summary ---
Author Organization [facility] Address [address] [place] [address] Care Team Providers Care Tax Examining Technician Name Role Phone Unavailable Primary Care Provider [...]
--- OUTSIDE RECORDS SUMMARY | 2025-03-10 09:06 | XMS_ITS | Encounter Summary ---
Author Organization [facility] Address [address] [place] [address] Care Team Providers Care Creel Hand Name Role Phone Unavailable Primary Care Provider [...]
--- OUTSIDE RECORDS SUMMARY | 2025-03-10 09:06 | XMS_ITS | Clinical Summary ---
Author Organization [facility] Address [address] [place] [address] Phone Care Team Providers Care Radio Program Director Name Role Phone Unavailable Primary Care [...]
--- OUTSIDE RECORDS SUMMARY | 2025-03-10 09:06 | XMS_ITS | Encounter Summary ---
Author Organization [facility] Address [address] [place] [address] Care Team Providers Care Vat Tender Name Role Phone Unavailable Primary Care Provider [...]
--- OUTSIDE RECORDS SUMMARY | 2025-03-10 09:06 | XMS_ITS | Clinical Summary ---
Author Organization [facility] Address [address] [place] [address] Care Team Providers Care Electric Arc Welder Name Role Phone Unavailable Primary Care Provider [...]
--- OUTSIDE RECORDS SUMMARY | 2025-03-10 09:06 | XMS_ITS | Encounter Summary ---
Author Organization [facility] Address [address] [place] [address] Care Team Providers Care Bottled Beverage Inspector Name Role Phone Unavailable Primary Care Provider Unavailabl e Encounter Details Date Type Department Care Team (Late st Contact Info) Description 02/20/2002 Historical Encounter Global Soy Morales [address] [place] [address] Social History Tobacco Use Types [...]
--- OUTSIDE RECORDS SUMMARY | 2025-03-10 09:06 | XMS_ITS | Encounter Summary ---
Author Organization [facility] Address [address] [place] [address] Care Team Providers Care Preschool Assistant Principal Name Role Phone Unavailable Primary Care Provider Unavailabl e Encounter Details Date Type Department Care Team (Late st Contact Info) Description 04/08/2003 Historical Encounter Global Saeid Lovett MD [address] [place] [address] Social History Tobacco Use Types Packs/Day Years [...]
--- OUTSIDE RECORDS SUMMARY | 2025-03-10 09:06 | XMS_ITS | Encounter Summary ---
Author Organization [facility] Address [address] [place] [address] Care Team Providers Care Head Buyer Tobacco Name Role Phone Unavailable Primary Care Provider [...]
--- OUTSIDE RECORDS SUMMARY | 2025-03-10 09:06 | XMS_ITS | Encounter Summary ---
Author Organization [facility] Address [address] [place] [address] Care Team Providers Care Field Support Rep Name Role Phone Unavailable Primary Care Provider Unavailabl e Encounter Details Date Type Department Care Team (Late st Contact Info) Description 07/13/2003 Historical Encounter Global Saeid Lovett MD [address] [place] [address] Social History Tobacco Use Types Packs/Day Years [...]
--- OUTSIDE RECORDS SUMMARY | 2025-03-10 09:06 | XMS_ITS | Encounter Summary ---
Author Organization [facility] Address [address] [place] [address] Care Team Providers Care Payroll Benefits Clerk Name Role Phone Unavailable Primary Care [...]
--- OUTSIDE RECORDS SUMMARY | 2025-03-10 09:06 | XMS_ITS | Encounter Summary ---
Author Organization [facility] Address [address] [place] [address] Care Team Providers Care Corporate Strategy Associate Name Role Phone Unavailable Primary Care Provider [...]
--- OUTSIDE RECORDS SUMMARY | 2025-03-10 09:06 | XMS_ITS | Encounter Summary ---
Author Organization [facility] Address [address] [place] [address] Care Team Providers Care Qualitative Field Project Manager Name Role Phone Unavailable Primary Care [...]
--- OUTSIDE RECORDS SUMMARY | 2025-03-10 09:06 | XMS_ITS | Clinical Summary ---
Author Organization [facility] Address [address] [place] [address] Care Team Providers Care Tar Pot Worker Name Role Phone Kimberli Ruiz Primary Care Provider [phone] Family History Medical History Relation Name Comments [...] of Treatment Not on file Care Teams Tar Pot Worker Relationship Specialty Start Date End Date Kimberli Ruiz PA [address] [place] [address] [place] [address] PCP - General 10/06/20
--- OUTSIDE RECORDS SUMMARY | 2025-03-10 09:07 | XMS_ITS | Encounter Summary ---
Author Organization [facility] Address [address] [place] [address] Care Team Providers Care Shirring Machine Operator Automatic Name Role Phone Unavailable Primary Care Provider Unavailabl e Encounter Details Date Type Department Care Team (Late st Contact Info) Description 10/06/2002 Historical Encounter Global Ayala Hill, MASONRY SUPERVISOR [address] [facility] [address] [place] [address] Social History Tobacco Use Types [...]
--- OUTSIDE RECORDS SUMMARY | 2025-03-10 09:07 | XMS_ITS | Encounter Summary ---
Author Organization [facility] Address [address] [place] [address] Care Team Providers Care Decker Operator Name Role Phone Unavailable Primary Care [...]
--- OUTSIDE RECORDS SUMMARY | 2025-03-10 09:07 | XMS_ITS | Encounter Summary ---
Author Organization [facility] Address [address] [place] [address] Care Team Providers Care Embedded Linux Engineer Name Role Phone Unavailable Primary Care Provider Unavailabl e Encounter Details Date Type Department Care Team (Late st Contact Info) Description 11/10/2002 Historical Encounter Global Saeid Lovett MD [address] [place] [address] Social History Tobacco Use Types Packs/Day Years [...]
--- OUTSIDE RECORDS SUMMARY | 2025-03-10 09:07 | XMS_ITS | Encounter Summary ---
Author Organization [facility] Address [address] [place] [address] Care Team Providers Care Nursing Center Tutor Name Role Phone Unavailable Primary Care Provider Unavailabl e Encounter Details Date Type Department Care Team (Late st Contact Info) Description 11/25/2001 Historical Encounter Global Hao Alfaro APRN [address] [place] [address] Social History Tobacco Use Types Packs/Day Years [...]
--- OUTSIDE RECORDS SUMMARY | 2025-03-10 09:07 | XMS_ITS | Encounter Summary ---
Author Organization [facility] Address [address] [place] [address] Care Team Providers Care Slitter Scorer Name Role Phone Unavailable Primary Care Provider Unavailabl e Encounter Details Date Type Department Care Team (Late st Contact Info) Description 10/25/2002 Historical Encounter Global Ayala Hill, SECOND BALLER [address] [facility] [address] [place] [address] Social History Tobacco Use Types [...]
--- OUTSIDE RECORDS SUMMARY | 2025-03-10 09:07 | XMS_ITS | Encounter Summary ---
Author Organization [facility] Address [address] [place] [address] Care Team Providers Care Screw Driver Operator Name Role Phone Unavailable Primary Care [...]
--- OUTSIDE RECORDS SUMMARY | 2025-03-10 09:07 | XMS_ITS | Encounter Summary ---
Author Organization [facility] Address [address] [place] [address] Care Team Providers Care Software Publisher Name Role Phone Unavailable Primary Care Provider Unavailabl e Encounter Details Date Type Department Care Team (Late st Contact Info) Description 09/11/2002 Historical Encounter Global Saeid Lovett MD [address] [place] [address] Social History Tobacco Use Types Packs/Day Years [...]
--- OUTSIDE RECORDS SUMMARY | 2025-03-10 09:07 | XMS_ITS | Encounter Summary ---
Author Organization [facility] Address [address] [place] [address] Care Team Providers Care Appian Bpm Developer Name Role Phone Unavailable Primary Care Provider Unavailabl e Encounter Details Date Type Department Care Team (Late st Contact Info) Description 09/07/2002 Historical Encounter Global Saeid Lovett MD [address] [place] [address] Social History Tobacco Use Types Packs/Day Years [...]
--- OUTSIDE RECORDS SUMMARY | 2025-03-10 09:07 | XMS_ITS | Encounter Summary ---
Author Organization [facility] Address [address] [place] [address] Care Team Providers Care Environmental Communications Specialist Name Role Phone Unavailable Primary Care [...]
--- OUTSIDE RECORDS SUMMARY | 2025-03-10 09:07 | XMS_ITS | Encounter Summary ---
Author Organization [facility] Address [address] [place] [address] Care Team Providers Care Continuing Education Dean Name Role Phone Unavailable Primary Care Provider [...]
--- OUTSIDE RECORDS SUMMARY | 2025-03-10 09:07 | XMS_ITS | Encounter Summary ---
Author Organization [facility] Address [address] [place] [address] Care Team Providers Care Biomed Tech Name Role Phone Unavailable Primary Care Provider [...]
--- OUTSIDE RECORDS SUMMARY | 2025-03-10 09:07 | XMS_ITS | Encounter Summary ---
Author Organization [facility] Address [address] [place] [address] Care Team Providers Care Customer Engagement Manager Name Role Phone Unavailable Primary Care [...]
--- OUTSIDE RECORDS SUMMARY | 2025-03-10 09:07 | XMS_ITS | Encounter Summary ---
Author Organization [facility] Address [address] [place] [address] Care Team Providers Care Parking Lot Laborer Name Role Phone Unavailable Primary Care Provider Unavailabl e Encounter Details Date Type Department Care Team (Late st Contact Info) Description 12/04/2001 Historical Encounter Global Hao Alfaro APRN [address] [place] [address] Social History Tobacco Use Types Packs/Day Years [...]
--- OUTSIDE RECORDS SUMMARY | 2025-03-10 09:07 | XMS_ITS | Encounter Summary ---
Author Organization [facility] Address [address] [place] [address] Care Team Providers Care Brim And Crown Presser Name Role Phone Unavailable Primary Care Provider [...]
--- OUTSIDE RECORDS SUMMARY | 2025-03-10 09:07 | XMS_ITS | Encounter Summary ---
Author Organization [facility] Address [address] [place] [address] Care Team Providers Care Press Feeder Broomcorn Name Role Phone Unavailable Primary Care Provider [...]
--- OUTSIDE RECORDS SUMMARY | 2025-03-10 09:07 | XMS_ITS | Encounter Summary ---
Author Organization [facility] Address [address] [place] [address] Care Team Providers Care Researcher Name Role Phone Unavailable Primary Care Provider Unavailabl e Encounter Details Date Type Department Care Team (Late st Contact Info) Description 08/06/2001 Historical Encounter [place], [place] Social History Tobacco Use Types Packs/Day [...]
--- OUTSIDE RECORDS SUMMARY | 2025-03-10 09:07 | XMS_ITS | Encounter Summary ---
Author Organization [facility] Address [address] [place] [address] Care Team Providers Care Electroencephalogram Technologist Name Role Phone Unavailable Primary Care Provider Unavailabl e Encounter Details Date Type Department Care Team (Late st Contact Info) Description 11/27/2002 Historical Encounter Global Saeid Lovett MD [address] [place] [address] Social History Tobacco Use Types Packs/Day Years [...]
--- OUTSIDE RECORDS SUMMARY | 2025-03-10 09:07 | XMS_ITS | Encounter Summary ---
Author Organization [facility] Address [address] [place] [address] Care Team Providers Care Manager Epic Name Role Phone Unavailable Primary Care Provider Unavailabl e Encounter Details Date Type Department Care Team (Late st Contact Info) Description 10/26/2002 Historical Encounter Global Ayala Hill, GRADUATE RECRUITER [address] [facility] [address] [place] [address] Social History Tobacco Use Types [...]
--- OUTSIDE RECORDS SUMMARY | 2025-03-10 09:07 | XMS_ITS | Encounter Summary ---
Author Organization [facility] Address [address] [place] [address] Care Team Providers Care Dispatcher Service Name Role Phone Unavailable Primary Care Provider Unavailabl e Encounter Details Date Type Department Care Team (Late st Contact Info) Description 12/17/2002 Historical Encounter Global Ayala Hill, SUPPLY CONTROLLER [address] [facility] [address] [place] [address] Social History Tobacco Use Types [...]
--- OUTSIDE RECORDS SUMMARY | 2025-03-10 09:07 | XMS_ITS | Encounter Summary ---
Author Organization [facility] Address [address] [place] [address] Care Team Providers Care Garage Door Technician Name Role Phone Unavailable Primary Care Provider Unavailabl e Encounter Details Date Type Department Care Team (Late st Contact Info) Description 12/08/2002 Historical Encounter Global Saeid Lovett MD [address] [place] [address] Social History Tobacco Use Types Packs/Day Years [...]
--- OUTSIDE RECORDS SUMMARY | 2025-03-10 09:07 | XMS_ITS | Encounter Summary ---
Author Organization [facility] Address [address] [place] [address] Care Team Providers Care Radio Interference Trouble Shooter Name Role Phone Unavailable Primary Care Provider Unavailabl e Encounter Details Date Type Department Care Team (Late st Contact Info) Description 12/24/2001 Historical Encounter Global Saeid Lovett MD [address] [place] [address] Social History Tobacco Use Types Packs/Day Years [...]
--- OUTSIDE RECORDS SUMMARY | 2025-03-10 09:07 | XMS_ITS | Encounter Summary ---
Author Organization [facility] Address [address] [place] [address] Care Team Providers Care Configuration Technician Name Role Phone Unavailable Primary Care Provider Unavailabl e Encounter Details Date Type Department Care Team (Late st Contact Info) Description 12/30/2001 Historical Encounter Global Saeid Lovett MD [address] [place] [address] Social History Tobacco Use Types Packs/Day Years [...]
--- OUTSIDE RECORDS SUMMARY | 2025-03-10 09:07 | XMS_ITS | Encounter Summary ---
Author Organization [facility] Address [address] [place] [address] Care Team Providers Care Research Hydraulic Engineer Name Role Phone Unavailable Primary Care Provider Unavailabl e Encounter Details Date Type Department Care Team (Late st Contact Info) Description 03/15/2003 Historical Encounter [place], [place] Social History Tobacco Use Types Packs/Day [...]
--- OUTSIDE RECORDS SUMMARY | 2025-03-10 09:07 | XMS_ITS | Encounter Summary ---
Author Organization [facility] Address [address] [place] [address] Care Team Providers Care Metal Roofer Name Role Phone Unavailable Primary Care Provider [...]
--- OUTSIDE RECORDS SUMMARY | 2025-03-10 09:07 | XMS_ITS | Encounter Summary ---
Author Organization [facility] Address [address] [place] [address] Care Team Providers Care Brim Pouncer Name Role Phone Unavailable Primary Care Provider [...]
--- OUTSIDE RECORDS SUMMARY | 2025-03-10 09:07 | XMS_ITS | Encounter Summary ---
Author Organization [facility] Address [address] [place] [address] Care Team Providers Care Marketing Proposal Coordinator Name Role Phone Unavailable Primary Care Provider Unavailabl e Encounter Details Date Type Department Care Team (Late st Contact Info) Description 11/01/2002 Historical Encounter Global Saeid Lovett MD [address] [place] [address] Social History Tobacco Use Types Packs/Day Years [...]
--- OUTSIDE RECORDS SUMMARY | 2025-03-10 09:07 | XMS_ITS | Encounter Summary ---
Author Organization [facility] Address [address] [place] [address] Care Team Providers Care Customer Advisor Name Role Phone Unavailable Primary Care Provider [...]
--- OUTSIDE RECORDS SUMMARY | 2025-03-10 09:07 | XMS_ITS | Encounter Summary ---
Author Organization [facility] Address [address] [place] [address] Care Team Providers Care Wood Shop Teacher Name Role Phone Unavailable Primary Care Provider Unavailabl e Encounter Details Date Type Department Care Team (Late st Contact Info) Description 09/30/2002 Historical Encounter Global Ayala Hill, GRINDING WHEEL OPERATOR [address] [facility] [address] [place] [address] Social History Tobacco Use Types [...]
--- OUTSIDE RECORDS SUMMARY | 2025-03-10 09:07 | XMS_ITS | Encounter Summary ---
Author Organization [facility] Address [address] [place] [address] Care Team Providers Care Utility Lineman Name Role Phone Unavailable Primary Care Provider Unavailabl e Encounter Details Date Type Department Care Team (Late st Contact Info) Description 11/03/2002 Historical Encounter Global Ayala Hill, STRESS ENGINEER [address] [facility] [address] [place] [address] Social History Tobacco Use Types [...]
--- NOTE | 2025-03-10 09:10 | PC.NURSE ---
Echo being completed at this time
[2025-03-10] MEDS: AMLODIPINE 10MG TABLET 10 MG PO (09:11)
[2025-03-10] MEDS: EMPAGLIFLOZIN 25MG TABLET 25 MG PO (09:11)
[2025-03-10] MEDS: FUROSEMIDE 40MG/4ML VIAL 40 MG IV ×2 (09:12→16:22)
[2025-03-10] MEDS: INSULIN GLARGINE 100 UNITS/ML 3ML FLEXPEN 30 UNIT SUBCUT ×2 (09:12→20:00)
[2025-03-10] MEDS: SACUBITRIL/VALSARTAN 24-26MG TABLET 4 EACH PO ×2 (09:15→20:06)
--- NOTE | 2025-03-10 09:15 | PC.NURSE ---
Family at bedside at this time
--- NOTE | 2025-03-10 09:24 | HMH.PTEV ---
Physical Therapy Evaluation Rehab PT IP Evaluation Start: 03/10/25 02:30 Freq: ONCE Status: Active Protocol: Document 03/10/25 09:19 ARIANNA (Rec: 03/10/25 09:23 ARIANNA [id number]) Subjective/History History History Per H&P 84-year-old female patient with history of COPD presents ER with complaints of shortness of breath that started suddenly earlier in the day. She used her treatments and inhalers at home without relief. She denied cough. Denied fever chills or bodyaches. She denies chest pain or palpitations. Denies swelling or orthopnea. She does also have history of congestive heart failure. States she is on a diuretic at home. Med list shows Entresto. In the ER she received multiple albuterol treatments, aspirin, Lasix, steroids and nitroglycerin. She was also given full dose Lovenox and oral doxycycline. Ultimately she required BiPAP. She did tolerate this well and has been admitted to the ICU for further treatment. Subjective Subjective Pt reports she lives with family ( and children) is a single-story home with 2 [address]. Pt normally uses a RW with IND. Pt still drives. Pt reports family able to provide 24/7 assist if needed. [facility] How much help from another person do you currently need... Turning from your None back to your side while in a flat bed without using bedrails? Moving from lying on None back to sitting on the side of a flat bed without using bedrails? Moving to and from a None bed to a chair ( including a wheelchair)? Standing up from a None chair using your arms? (e.g., wheelchair, bedside chair) Walking in hospital A little room? Climbing 3-5 steps A little with a railing? Mobility Score 22 Mobility Level [facility] Mobility 7 Walk 25 feet or more Mobility Calculator Rehab PT IP Eval Objective Appearance Patient Behavior Appropriate,Cooperative Patient Orientation Person Difficulty following none instructions Speech Pattern Clear Ambulation Patient Able to Yes Ambulate Ambulation Observation IP General Gait No Deviations/Normal Pattern Observation Ambulation Distance 8 (feet) Ambulation Assistive Rolling Walker Device Ambulation Ability Contact Guard/Hand Hold Balance Ability to Arise Able, uses arms to help Sitting Balance Steady, safe Standing Balance Unsteady Dynamic Sitting Good Balance Ability Dynamic Standing Fair Balance Ability Transfers Bed Transfer Ability Supervision/Stand by Sit to Stand Bed Contact Guard/Hand Hold Transfer Ability Sit to Stand Chair Contact Guard/Hand Hold Transfer Ability Rehab PT IP prob,goals,plan Problems Date of Evaluation: 03/10/25 PT IP Problems Transfers,Gait,Balance,Safety Rehab Potential Rehab Potential Good Plan PT Intervention Plan Transfers,Gait,Balance,Safety,Therapeutic Exercise Other Intervention 1-2 times Plan PT Plan Frequency Daily Duration LOS Discharge Goals Bed Transfer Ability Independent Sit to Stand Chair Independent Transfer Ability Ambulation Assistive Rolling Walker Device Ambulation Distance 20 (feet) Discharge Plan PT Discharge Plan Initial physical therapy evaluation performed. Patient presents below baseline at this time in functional mobility, transfers, gait, and strength. Pt would benefit from skilled PT while at [facility] to prevent further functional decline and maximize safety with mobility. Pt most appropriate to d/c home when deemed medically necessary d/t current level of mobility, home set-up, and family support. PT recommending home health PT services to address deficits. Eval Complexity Eval Charge Codes 29880 - Moderate Complexity PHYSICIAN CERTIFICATION: I certify the specified therapy services for Cody Kaba are required, authorized, and reviewed every 30 days.
--- NOTE | 2025-03-10 09:50 | EXP.PULM.CON ---
History of Present Illness History of present illness: Ms. Kaba is a 64-year-old current smoker greater than 30 PPD, female reported history of COPD presented to ER with worsening respiratory distress and pulmonary was called for further evaluation and management. [facility] Disclaimer: The information contained in this section may have been updated after the patient was seen, as this information can be updated by other users. Medical History (Updated 03/10/25 @ 12:21 by Leonel Sun MD) Acute on chronic respiratory failure with hypoxia and hypercapnia Acute systolic (congestive) heart failure History of stent insertion of renal artery Left ventricular hypertrophy Diastolic dysfunction Malignant hypertension Abnormal chest xray Elevated transaminase level Severe sepsis with acute organ dysfunction Acute and chronic respiratory failure ([id number]) Diastolic heart failure Atypical angina Acute on chronic HFrEF (heart failure with reduced ejection fraction) Renal artery arteriosclerosis SOB (shortness of breath) Diabetes mellitus Tobacco dependence syndrome HTN (hypertension) Family History Other No significant family history Social History (Updated 03/10/25 @ 02:28 by Florence Owens RN) Smoking Status: Current every day smoker tobacco type: cigarettes packs per day: 1 second hand exposure: No alcohol intake: never substance use type: denies use current occupational status: unemployed Travel in the last 8 weeks?: Inside the [place] household members: spouse and family housing: house lives independently: No marital status: current occupational exposures/hazards: No caffeine: Yes Contact w/someone who lives/traveled outside [place] past 30 days?: No Exposure to someone with infectious disease in past 14 days?: No Do you have a fever (greater than 100.4 F or 38 C)?: No Have you tested positive for COVID-19?: No Exposed to someone with COVID-19 in past 14 days?: No Do you have a sore throat?: No Do you have a cough?: No Do you have any weakness?: Yes Are you experiencing any nausea/vomitting?: No Do you have any diarrhea?: No Are you experiencing any unusual bleeding?: No Do you have any muscle aches/pain?: No Do you have any abdominal pain?: No Are you experiencing loss of taste or smell?: No Review of Systems Constitutional Constitutional: Reports anorexia, Reports body ache(s) and Reports fatigue Eyes Eyes: Denies eye discharge, Denies dry eyes, Denies irritation and Denies itchy eyes ENT Ears, Nose, Mouth, and Throat: Denies epistaxis, Denies facial pain, Denies lip swelling and Denies throat swelling *Cardiovascular Cardiovascular: Reports dyspnea and Reports dyspnea on exertion *Respiratory Respiratory: Denies change in phlegm color, Reports chest congestion, Reports cough, Reports dyspnea, Reports dyspnea on exertion, Reports excessive phlegm production, Denies hemoptysis, Denies pain on inspiration, Denies pain with cough and Reports wheezing *Gastrointestinal Gastrointestinal: Denies abdominal pain, Denies belching and Denies cramping *Musculoskeletal Musculoskeletal: Reports back pain, Reports myalgias and Reports other (No small joint swelling or Pain) *Neurologic Neurologic: Reports system reviewed and no additional complaints, except as documented Psychiatric Psychiatric: Denies homicidal ideation and Denies suicidal ideation Endocrine Endocrine: Reports fatigue and Denies heat intolerance Hematologic/Lymphatic Hematologic/Lymphatic: Denies easy bleeding and Denies lymphadenopathy Allergic/Immunologic Allergic/Immunologic: Denies itchy eyes, Denies lip swelling, Denies throat swelling and Reports wheezing Pulmonology Exam Inpatient Vital signs and Labs for Last 24 Hours: Temp Pulse Resp BP Pulse Ox O2 Del Method O2 Flow Rate 97.6 F 111 H 19 158/101 H 93 L Nasal Cannula 3 03/10/25 08:00 03/10/25 09:08 03/10/25 09:08 03/10/25 09:08 03/10/25 09:08 03/10/25 09:08 03/10/25 09:08 FiO2 30 03/10/25 02:03 Laboratory Results - last 24 hr 03/09/25 22:45: WBC 10.5, RBC 5.05, Hgb 15.2, Hct 46.3, MCV 91.7, MCH 30.1, MCHC 32.8, RDW 13.5, Plt Count 191, MPV 11.6 H, Neut % (Auto) 27.7 L, Lymph % (Auto) 63.9 H, [place] % (Auto) 5.8, Eos % (Auto) 1.2, Baso % (Auto) 0.7, Neut # (Auto) 2.9, Lymph # (Auto) 6.7 H, [place] # (Auto) 0.6, Eos # (Auto) 0.1, Baso # (Auto) 0.1, Total Counted 100, Neutrophils % (Manual) 29 L, Lymphocytes % (Manual) 66 H, Monocytes % (Manual) 5, Platelet Estimate Normal, RBC Morphology Normal, PT 11.0, INR 0.99, D-Dimer 2.13 H, Sodium 136, Potassium 4.6, Chloride 95 L, Carbon Dioxide 28, Anion Gap 17.6 H, BUN 7, Creatinine 0.60, Estimated GFR 100, Est GFR ( Amer) 121, Glucose 416 H*, Calcium 9.6, Total Bilirubin 0.6, AST 65 H, ALT 25, Alkaline Phosphatase 130 H, Troponin I 0.03, NT-Pro-B Natriuret Pep 281 H, Total Protein 7.1, Albumin 4.3, Globulin 2.8, Albumin/Globulin Ratio 1.5, Acetone Level None detected 03/09/25 23:05: VBG pH 7.18 L, VBG pCO2 73.2 H, VBG pO2 81.9 H, VBG HCO3 26.8, VBG Total CO2 29.1 H, VBG O2 Saturation 94.7 H, VBG Base Excess -1.5, VBG Lactic Acid 4.2 H 03/10/25 01:20: VBG pH 7.22 L, VBG pCO2 77.0 H, VBG pO2 30.0, VBG HCO3 30.5 H, VBG Total CO2 32.8 H, VBG O2 Saturation 58.4, VBG Base Excess 2.7 H, VBG Lactic Acid 3.7 H, Chlamy pneumoniae PCR Not detected, Adenovirus (PCR) Not detected, B. pertussis DNA (PCR) Not detected, Coronavirus OC43 (PCR) Not detected, Coronavirus HKU1 (PCR) Not detected, Coronavirus 229E (PCR) Not detected, SARS-CoV-2 (PCR) Not detected, Coronavirus NL63 (PCR) Not detected, Human Metapneumovir PCR Not detected, Influenza A (H1) PCR Not detected, Influ A (H1N1/09) PCR Not detected, Influenza A (H3) PCR Not detected, Influenza Type A (PCR) Not detected, Influenza Type B (PCR) Not detected, M. pneumoniae (PCR) Not detected, Parainfluenza 1 (PCR) Not detected, Parainfluenza 2 (PCR) Not detected, Parainfluenza 3 (PCR) Not detected, Parainfluenza 4 (PCR) Not detected, RSV (PCR) Not detected, Entero/Rhino (PCR) Not detected 03/10/25 02:10: Troponin I 0.20 H 03/10/25 03:04: VBG pH 7.30 L, VBG pCO2 57.3 H, VBG pO2 41.2 H, VBG HCO3 27.3, VBG Total CO2 29.1 H, VBG O2 Saturation 77.8 H, VBG Base Excess 0.8, VBG Lactic Acid 3.6 H 03/10/25 03:24: Lactate 3.2 H 03/10/25 05:14: WBC 5.6 D, RBC 4.68, Hgb 13.9, Hct 42.1, MCV 90.0, MCH 29.7, MCHC 33.0, RDW 13.6, Plt Count 149, MPV 12.2 H, Neut % (Auto) 92.0 H, Lymph % (Auto) 4.4 L, [place] % (Auto) 2.5, Eos % (Auto) 0.0 L, Baso % (Auto) 0.0 L, Neut # (Auto) 5.2, Lymph # (Auto) 0.3 L, [place] # (Auto) 0.1, Eos # (Auto) 0.0, Baso # (Auto) 0.0, Sodium 136, Potassium 3.9, Chloride 95 L, Carbon Dioxide 27, Anion Gap 17.9 H, BUN 12 D, Creatinine 0.50 L, Estimated Creat Clear 58, Estimated GFR 124, Est GFR ( Amer) 150 D, Glucose 366 H, Lactate 4.1 H, Calcium 9.4, Total Bilirubin 0.2, AST 40 H D, ALT 28, Alkaline Phosphatase 114, Troponin I 0.27 H, Total Protein 6.7, Albumin 3.8 D, Globulin 2.9, Albumin/Globulin Ratio 1.3 03/10/25 06:00: Urine Color Yellow, Urine Appearance Clear, Urine pH 6.0, Ur Specific [place] 1.015, Urine Protein 1+ A, Urine Glucose (UA) 3+, Urine Ketones Negative, Urine Blood Negative, Urine Nitrate Negative, Urine Bilirubin Negative, Urine Urobilinogen 0.2, Ur Leukocyte Esterase Negative, Urine RBC Occasional, Urine WBC Occasional, Ur Squamous Epith Cells 20-50, Urine Bacteria 1+, Hyaline Casts Occ 03/10/25 06:34: POC Glucose 122 H I & O for Labs for Last 24 Hours: Intake & Output 03/07/25 03/08/25 03/09/25 03/10/25 23:59 23:59 23:59 23:59 Intake Total 0.1 / 0.1 980 / 980 Output Total 150 / 150 Balance 0.1 / 0.1 830 / 830 Weight 146 lb 143 lb 8.335 oz Constitutional: Present moderate distress Head: Present normocephalic and atraumatic ENT: Present normal exam, normal oropharynx and mucous membranes moist Neck: Present normal inspection and full ROM Respiratory: Present prolonged expiratory phase, normal respiratory effort and able to speak in complete sentences; Absent wheezes Cardiac: Present S1/S2, Tachycardia and radial pulses present GI: Present soft and distention; Absent tenderness or guarding Rectal (female): Present deferred (female): Present deferred Skin: Present intact; Absent cyanosis or jaundice Neuro: Present alert, awake and oriented x 3 Extremities: Present normal inspection; Absent clubbing or cyanosis Psychiatric: Present normal affect and cooperative Meds Home Medications and Allergies Home Medications ?Medication ?Instructions ?Recorded ?Confirmed ?Type insulin glargine 100 unit/mL (3 30 unit SQ BID 04/05/24 03/10/25 History mL) subcutaneous pen (Lantus Solostar U-100 Insulin) albuterol sulfate 90 mcg/actuation 2 puff inhalation Q4HP PRN 08/14/24 03/10/25 History aerosol inhaler Shortness Of Breath cetirizine 10 mg tablet 10 mg PO DAILY 08/14/24 03/10/25 History fluticasone fur. 100 mcg-umeclid 1 inh inhalation DAILY 08/14/24 03/10/25 History 62.5 mcg-vilant 25 mcg inhalat.powder (Trelegy Ellipta) fluticasone propionate 50 1 spray intranasal DAILY 08/14/24 03/10/25 History mcg/actuation nasal spray,suspension glipizide 10 mg tablet 10 mg PO BID 08/14/24 03/10/25 History metformin 1,000 mg tablet 1,000 mg PO BID 08/14/24 03/10/25 History nitroglycerin 0.4 mg sublingual 0.4 mg sublingual Q5M PRN chest 08/24/24 03/10/25 Rx tablet pain #25 tabs aspirin 81 mg tablet,delayed 81 mg PO DAILY #90 tabs 02/15/25 03/10/25 Rx release amlodipine 10 mg tablet 10 mg PO DAILY 03/10/25 03/10/25 History atorvastatin 80 mg tablet 80 mg PO HS 03/10/25 03/10/25 History clopidogrel 75 mg tablet 75 mg PO DAILY 03/10/25 03/10/25 History empagliflozin 25 mg tablet 25 mg PO DAILY 03/10/25 03/10/25 History (Jardiance) ergocalciferol (vitamin D2) 1,250 50,000 unit PO WEEKLY 03/10/25 03/10/25 History mcg (50,000 unit) capsule (Vitamin D2) hydralazine 25 mg tablet 25 mg PO TIDP PRN Hypertension 03/10/25 03/10/25 History sacubitril 97 mg-valsartan 103 mg 1 tab PO BID 03/10/25 03/10/25 History tablet (Entresto) New Prescriptions to Start Prescriptions: Allergies Allergy/AdvReac Type Severity Reaction Status Date / Time Iodinated Contrast Media Allergy Intermediate I-RASH/SOB/ Verified 09/23/24 10:47 (Iodinated Contrast Media - Anaphlaxis IV Dye) Results Laboratory Findings 03/10/25 05:14 03/10/25 05:14 PT/INR, D-dimer PT 11.0 seconds (10.1-12.5) 03/09/25 22:45 INR 0.99 (0.9-1.1) 03/09/25 22:45 D-Dimer 2.13 ug/mL (0.0-0.5) H 03/09/25 22:45 Abnormal lab findings: Abnormal Labs 03/09/25 03/09/25 03/10/25 22:45 23:05 01:20 MPV 11.6 H Neut % (Auto) 27.7 L Lymph % (Auto) 63.9 H Eos % (Auto) Baso % (Auto) Lymph # (Auto) 6.7 H Neutrophils % (Manual) 29 L Lymphocytes % (Manual) 66 H D-Dimer 2.13 H VBG pH 7.18 L 7.22 L VBG pCO2 73.2 H 77.0 H VBG pO2 81.9 H VBG HCO3 30.5 H VBG Total CO2 29.1 H 32.8 H VBG O2 Saturation 94.7 H VBG Base Excess 2.7 H VBG Lactic Acid 4.2 H 3.7 H Chloride 95 L Anion Gap 17.6 H Creatinine Glucose 416 H* POC Glucose Lactate AST 65 H Alkaline Phosphatase 130 H Troponin I NT-Pro-B Natriuret Pep 281 H Urine Protein 03/10/25 03/10/25 03/10/25 02:10 03:04 03:24 MPV Neut % (Auto) Lymph % (Auto) Eos % (Auto) Baso % (Auto) Lymph # (Auto) Neutrophils % (Manual) Lymphocytes % (Manual) D-Dimer VBG pH 7.30 L VBG pCO2 57.3 H VBG pO2 41.2 H VBG HCO3 VBG Total CO2 29.1 H VBG O2 Saturation 77.8 H VBG Base Excess VBG Lactic Acid 3.6 H Chloride Anion Gap Creatinine Glucose POC Glucose Lactate 3.2 H AST Alkaline Phosphatase Troponin I 0.20 H NT-Pro-B Natriuret Pep Urine Protein 03/10/25 03/10/25 03/10/25 05:14 06:00 06:34 MPV 12.2 H Neut % (Auto) 92.0 H Lymph % (Auto) 4.4 L Eos % (Auto) 0.0 L Baso % (Auto) 0.0 L Lymph # (Auto) 0.3 L Neutrophils % (Manual) Lymphocytes % (Manual) D-Dimer VBG pH VBG pCO2 VBG pO2 VBG HCO3 VBG Total CO2 VBG O2 Saturation VBG Base Excess VBG Lactic Acid Chloride 95 L Anion Gap 17.9 H Creatinine 0.50 L Glucose 366 H POC Glucose 122 H Lactate 4.1 H AST 40 H D Alkaline Phosphatase Troponin I 0.27 H NT-Pro-B Natriuret Pep Urine Protein 1+ A Assessment and Plan *Assessment and plan (1) COPD exacerbation: Status: Acute Category: Medical Code(s): J44.1 - Chronic obstructive pulmonary disease with (acute) exacerbation (2) Acute on chronic respiratory failure with hypoxia and hypercapnia: Status: Acute Category: Medical Code(s): J96.21 - Acute and chronic respiratory failure with hypoxia; J96.22 - Acute and chronic respiratory failure with hypercapnia Plan Ms. Kaba is a 64-year-old current smoker greater than 30 PPD, female reported history of COPD presented to ER with worsening respiratory distress and pulmonary was called for further evaluation and management. Afebrile. Hemodynamically stable. No evidence of leukocytosis. CT chest upon admission bilateral small pleural effusions and vascular congestion. No dense consolidative/airspace changes. CT chest from 2024 no significant emphysematous changes appreciated. Small 5 mm left upper lobe nodular opacity. Blood gas upon admission hypercarbic respiratory failure with a pH of 7.18 and pCO2 73.2. Afebrile. Hemodynamically stable. Comprehensive respiratory viral PCR panel negative. Blood gas from this morning 7.30 with a pCO2 57.3. Currently off BiPAP. Prior sputum cultures 2020 Klebsiella and stenotrophomonas sensitive to levofloxacin. Plan: Continue Trelegy 100 inhaler. Follow-up with repeat VBG DuoNebs Q6 on as-needed basis Wean methylprednisolone to 40 mg IV daily Doxycycline 100 mg twice daily
[2025-03-10 11:06] LABS: POC Glucose,Bedside 233 gm/dL (70-110)
--- NOTE | 2025-03-10 11:23 | EXP.CARD.CON ---
History of Present Illness History of Present Illness Consult date: 03/10/25 Requesting physician: Soy Oh Consult reason: shortness of breath Chief complaint: SOB History of present illness: This is a 64-year-old white female who presented to the emergency department for sudden onset of shortness of breath. Her reports that she was on the toilet and then passed out. He states he called EMS and when she got here she was profoundly short of breath. The patient does not recall what happened yesterday. She was placed on BiPAP last night and today she is on room air satting well. She denies any chest pain or pressure. She denies any shortness of breath or edema. She denies any fever, chills, nausea, vomiting or diarrhea. While she was in the emergency department experiencing shortness of breath she received multiple doses of albuterol treatments, aspirin, Lasix, steroids and nitroglycerin. Today she states that she is feeling much better. She is empirically being treated for a PE. Her D-dimer was elevated on admission but she was unable to have a CT because she was relying on BiPAP and has a contrast allergy. [facility] Disclaimer: The information contained in this section may have been updated after the patient was seen, as this information can be updated by other users. Medical History (Updated 03/10/25 @ 12:21 by Leonel Sun MD) Acute on chronic respiratory failure with hypoxia and hypercapnia Acute systolic (congestive) heart failure History of stent insertion of renal artery Left ventricular hypertrophy Diastolic dysfunction Malignant hypertension Abnormal chest xray Elevated transaminase level Severe sepsis with acute organ dysfunction Acute and chronic respiratory failure ([id number]) Diastolic heart failure Atypical angina Acute on chronic HFrEF (heart failure with reduced ejection fraction) Renal artery arteriosclerosis SOB (shortness of breath) Diabetes mellitus Tobacco dependence syndrome HTN (hypertension) Family History Other No significant family history Social History (Updated 03/10/25 @ 02:28 by Florence Owens RN) Smoking Status: Current every day smoker tobacco type: cigarettes packs per day: 1 second hand exposure: No alcohol intake: never substance use type: denies use current occupational status: unemployed Travel in the last 8 weeks?: Inside the [place] household members: spouse and family housing: house lives independently: No marital status: current occupational exposures/hazards: No caffeine: Yes Contact w/someone who lives/traveled outside [place] past 30 days?: No Exposure to someone with infectious disease in past 14 days?: No Do you have a fever (greater than 100.4 F or 38 C)?: No Have you tested positive for COVID-19?: No Exposed to someone with COVID-19 in past 14 days?: No Do you have a sore throat?: No Do you have a cough?: No Do you have any weakness?: Yes Are you experiencing any nausea/vomitting?: No Do you have any diarrhea?: No Are you experiencing any unusual bleeding?: No Do you have any muscle aches/pain?: No Do you have any abdominal pain?: No Are you experiencing loss of taste or smell?: No Review of Systems Review of Systems Review of systems:: pertinent systems reviewed and negative unless documented below Constitutional Constitutional: Reports system reviewed and no additional complaints, except as documented, Reports fatigue and Reports lethargy Eyes Eyes: Reports system reviewed and no additional complaints, except as documented ENT Ears, Nose, Mouth, and Throat: Reports system reviewed and no additional complaints, except as documented *Cardiovascular Cardiovascular: Reports system reviewed and no additional complaints, except as documented, Denies chest pain, Reports dyspnea and Reports dyspnea on exertion *Respiratory Respiratory: Reports system reviewed and no additional complaints, except as documented, Reports dyspnea and Reports dyspnea on exertion *Gastrointestinal Gastrointestinal: Reports system reviewed and no additional complaints, except as documented *Genitourinary Genitourinary: Reports system reviewed and no additional complaints, except as documented *Musculoskeletal Musculoskeletal: Reports system reviewed and no additional complaints, except as documented Integumentary/Breasts Skin/Breast: Reports system reviewed and no additional complaints, except as documented *Neurologic Neurologic: Reports system reviewed and no additional complaints, except as documented Psychiatric Psychiatric: Reports system reviewed and no additional complaints, except as documented Endocrine Endocrine: Reports system reviewed and no additional complaints, except as documented and Reports fatigue Hematologic/Lymphatic Hematologic/Lymphatic: Reports system reviewed and no additional complaints, except as documented Allergic/Immunologic Allergic/Immunologic: Reports system reviewed and no additional complaints, except as documented Exam Data for Last 24 hours Vital signs and Labs for Last 24 Hours: Temp Pulse Resp BP Pulse Ox O2 Del Method O2 Flow Rate 97.6 F 111 H 22 151/94 H 91 L Room Air 3 03/10/25 08:00 03/10/25 10:00 03/10/25 10:00 03/10/25 10:00 03/10/25 10:00 03/10/25 11:00 03/10/25 09:08 FiO2 30 03/10/25 02:03 Laboratory Results - last 24 hr 03/09/25 22:45: WBC 10.5, RBC 5.05, Hgb 15.2, Hct 46.3, MCV 91.7, MCH 30.1, MCHC 32.8, RDW 13.5, Plt Count 191, MPV 11.6 H, Neut % (Auto) 27.7 L, Lymph % (Auto) 63.9 H, [place] % (Auto) 5.8, Eos % (Auto) 1.2, Baso % (Auto) 0.7, Neut # (Auto) 2.9, Lymph # (Auto) 6.7 H, [place] # (Auto) 0.6, Eos # (Auto) 0.1, Baso # (Auto) 0.1, Total Counted 100, Neutrophils % (Manual) 29 L, Lymphocytes % (Manual) 66 H, Monocytes % (Manual) 5, Platelet Estimate Normal, RBC Morphology Normal, PT 11.0, INR 0.99, D-Dimer 2.13 H, Sodium 136, Potassium 4.6, Chloride 95 L, Carbon Dioxide 28, Anion Gap 17.6 H, BUN 7, Creatinine 0.60, Estimated GFR 100, Est GFR ( Amer) 121, Glucose 416 H*, Calcium 9.6, Total Bilirubin 0.6, AST 65 H, ALT 25, Alkaline Phosphatase 130 H, Troponin I 0.03, NT-Pro-B Natriuret Pep 281 H, Total Protein 7.1, Albumin 4.3, Globulin 2.8, Albumin/Globulin Ratio 1.5, Acetone Level None detected 03/09/25 23:05: VBG pH 7.18 L, VBG pCO2 73.2 H, VBG pO2 81.9 H, VBG HCO3 26.8, VBG Total CO2 29.1 H, VBG O2 Saturation 94.7 H, VBG Base Excess -1.5, VBG Lactic Acid 4.2 H 03/10/25 01:20: VBG pH 7.22 L, VBG pCO2 77.0 H, VBG pO2 30.0, VBG HCO3 30.5 H, VBG Total CO2 32.8 H, VBG O2 Saturation 58.4, VBG Base Excess 2.7 H, VBG Lactic Acid 3.7 H, Chlamy pneumoniae PCR Not detected, Adenovirus (PCR) Not detected, B. pertussis DNA (PCR) Not detected, Coronavirus OC43 (PCR) Not detected, Coronavirus HKU1 (PCR) Not detected, Coronavirus 229E (PCR) Not detected, SARS-CoV-2 (PCR) Not detected, Coronavirus NL63 (PCR) Not detected, Human Metapneumovir PCR Not detected, Influenza A (H1) PCR Not detected, Influ A (H1N1/09) PCR Not detected, Influenza A (H3) PCR Not detected, Influenza Type A (PCR) Not detected, Influenza Type B (PCR) Not detected, M. pneumoniae (PCR) Not detected, Parainfluenza 1 (PCR) Not detected, Parainfluenza 2 (PCR) Not detected, Parainfluenza 3 (PCR) Not detected, Parainfluenza 4 (PCR) Not detected, RSV (PCR) Not detected, Entero/Rhino (PCR) Not detected 03/10/25 02:10: Troponin I 0.20 H 03/10/25 03:04: VBG pH 7.30 L, VBG pCO2 57.3 H, VBG pO2 41.2 H, VBG HCO3 27.3, VBG Total CO2 29.1 H, VBG O2 Saturation 77.8 H, VBG Base Excess 0.8, VBG Lactic Acid 3.6 H 03/10/25 03:24: Lactate 3.2 H 03/10/25 05:14: WBC 5.6 D, RBC 4.68, Hgb 13.9, Hct 42.1, MCV 90.0, MCH 29.7, MCHC 33.0, RDW 13.6, Plt Count 149, MPV 12.2 H, Neut % (Auto) 92.0 H, Lymph % (Auto) 4.4 L, [place] % (Auto) 2.5, Eos % (Auto) 0.0 L, Baso % (Auto) 0.0 L, Neut # (Auto) 5.2, Lymph # (Auto) 0.3 L, [place] # (Auto) 0.1, Eos # (Auto) 0.0, Baso # (Auto) 0.0, Sodium 136, Potassium 3.9, Chloride 95 L, Carbon Dioxide 27, Anion Gap 17.9 H, BUN 12 D, Creatinine 0.50 L, Estimated Creat Clear 58, Estimated GFR 124, Est GFR ( Amer) 150 D, Glucose 366 H, Lactate 4.1 H, Calcium 9.4, Total Bilirubin 0.2, AST 40 H D, ALT 28, Alkaline Phosphatase 114, Troponin I 0.27 H, Total Protein 6.7, Albumin 3.8 D, Globulin 2.9, Albumin/Globulin Ratio 1.3 03/10/25 06:00: Urine Color Yellow, Urine Appearance Clear, Urine pH 6.0, Ur Specific [place] 1.015, Urine Protein 1+ A, Urine Glucose (UA) 3+, Urine Ketones Negative, Urine Blood Negative, Urine Nitrate Negative, Urine Bilirubin Negative, Urine Urobilinogen 0.2, Ur Leukocyte Esterase Negative, Urine RBC Occasional, Urine WBC Occasional, Ur Squamous Epith Cells 20-50, Urine Bacteria 1+, Hyaline Casts Occ 03/10/25 06:34: POC Glucose 122 H 03/10/25 10:59: POC Glucose 233 H I & O for Last 24 hours: Intake & Output 03/07/25 03/08/25 03/09/25 03/10/25 23:59 23:59 23:59 23:59 Intake Total 0.1 / 0.1 980 / 980 Output Total 1150 / 1150 Balance 0.1 / 0.1 -170 / -170 Weight 146 lb 143 lb 8.335 oz Constitutional Constitutional: no acute distress and average body habitus *Routine HEENT Exam Head: Present normocephalic and atraumatic ENT: Present mucous membranes moist *Routine Neck Exam Neck: Present supple, full ROM and normal carotid upstroke; Absent JVD, carotid bruit or lymphadenopathy *Routine Respiratory Exam Respiratory: Present CTA bilaterally, normal respiratory effort, able to speak in complete sentences and symmetric chest movement *Routine Cardiovascular Exam Cardiovascular: Present RRR, Normal S1 and Normal S2; Absent murmur or gallop *Routine Abdominal Exam Abdominal: Present soft and normoactive bowel sounds; Absent tenderness, distended or organomegaly *Routine Extremities Exam Extremities: Present full ROM, pulses intact and normal capillary refill; Absent cyanosis, clubbing or edema *Routine Skin Exam Skin: Present intact and warm; Absent erythema *Routine Neurological Exam Neurological: Present alert, oriented X3 and CN II-XII intact; Absent sensory deficit or motor deficit Routine Psychiatric Exam Psychiatric: Present normal affect Meds Home Medications and Allergies Home Medications ?Medication ?Instructions ?Recorded ?Confirmed ?Type insulin glargine 100 unit/mL (3 30 unit SQ BID 04/05/24 03/10/25 History mL) subcutaneous pen (Lantus Solostar U-100 Insulin) albuterol sulfate 90 mcg/actuation 2 puff inhalation Q4HP PRN 08/14/24 03/10/25 History aerosol inhaler Shortness Of Breath cetirizine 10 mg tablet 10 mg PO DAILY 08/14/24 03/10/25 History fluticasone fur. 100 mcg-umeclid 1 inh inhalation DAILY 08/14/24 03/10/25 History 62.5 mcg-vilant 25 mcg inhalat.powder (Trelegy Ellipta) fluticasone propionate 50 1 spray intranasal DAILY 08/14/24 03/10/25 History mcg/actuation nasal spray,suspension glipizide 10 mg tablet 10 mg PO BID 08/14/24 03/10/25 History metformin 1,000 mg tablet 1,000 mg PO BID 08/14/24 03/10/25 History nitroglycerin 0.4 mg sublingual 0.4 mg sublingual Q5M PRN chest 08/24/24 03/10/25 Rx tablet pain #25 tabs aspirin 81 mg tablet,delayed 81 mg PO DAILY #90 tabs 02/15/25 03/10/25 Rx release amlodipine 10 mg tablet 10 mg PO DAILY 03/10/25 03/10/25 History atorvastatin 80 mg tablet 80 mg PO HS 03/10/25 03/10/25 History clopidogrel 75 mg tablet 75 mg PO DAILY 03/10/25 03/10/25 History empagliflozin 25 mg tablet 25 mg PO DAILY 03/10/25 03/10/25 History (Jardiance) ergocalciferol (vitamin D2) 1,250 50,000 unit PO WEEKLY 03/10/25 03/10/25 History mcg (50,000 unit) capsule (Vitamin D2) hydralazine 25 mg tablet 25 mg PO TIDP PRN Hypertension 03/10/25 03/10/25 History sacubitril 97 mg-valsartan 103 mg 1 tab PO BID 03/10/25 03/10/25 History tablet (Entresto) New Prescriptions to Start Prescriptions: Allergies Allergy/AdvReac Type Severity Reaction Status Date / Time Iodinated Contrast Media Allergy Intermediate I-RASH/SOB/ Verified 09/23/24 10:47 (Iodinated Contrast Media - Anaphlaxis IV Dye) Assessment and Plan *Assessment and plan (1) Elevated d-dimer: Status: Acute Category: Medical Code(s): R79.89 - Other specified abnormal findings of blood chemistry (2) NSTEMI (non-ST elevated myocardial infarction): Status: Acute Category: Medical Code(s): I21.4 - Non-ST elevation (NSTEMI) myocardial infarction (3) Hypertensive emergency: Status: Acute Category: Medical Code(s): I16.1 - Hypertensive emergency (4) COPD exacerbation: Status: Acute Category: Medical Code(s): J44.1 - Chronic obstructive pulmonary disease with (acute) exacerbation (5) Acute respiratory failure with hypoxia and hypercarbia: Status: Acute Category: Medical Code(s): J96.01 - Acute respiratory failure with hypoxia; J96.02 - Acute respiratory failure with hypercapnia (6) Dyspnea: Status: Acute Qualifiers: Dyspnea type: dyspnea on exertion Qualified Code(s): R06.09 - Other forms of dyspnea Category: Medical Code(s): R06.00 - Dyspnea, unspecified (7) CAD (coronary artery disease): Status: Chronic Qualifiers: Associated angina: unspecified whether angina present Coronary Disease-Associated Artery/Lesion type: [place] artery [place] vs. transplanted heart: [place] heart Qualified Code(s): I25.10 - Atherosclerotic heart disease of [place] coronary artery without angina pectoris Category: Medical Code(s): I25.10 - Atherosclerotic heart disease of [place] coronary artery without angina pectoris (8) Stented coronary artery: Status: Chronic Category: Surgical Code(s): Z95.5 - Presence of coronary angioplasty implant and graft (9) HLD (hyperlipidemia): Status: Chronic Qualifiers: Hyperlipidemia type: other hyperlipidemia Qualified Code(s): E78.4 - Other hyperlipidemia Category: Medical Code(s): E78.5 - Hyperlipidemia, unspecified (10) HTN (hypertension): Status: Chronic Qualifiers: Hypertension type: essential hypertension Qualified Code(s): I10 - Essential (primary) hypertension Category: Medical Code(s): I10 - Essential (primary) hypertension (11) Tobacco dependence syndrome: Status: Chronic Category: Medical Code(s): F17.200 - Nicotine dependence, unspecified, uncomplicated (12) Diabetes mellitus: Status: Chronic Qualifiers: Diabetes mellitus complication status: with other specified complication Diabetes mellitus exterminator helper insulin use: unspecified long-term insulin use status Diabetes mellitus type: type 2 Qualified Code(s): E11.69 - Type 2 diabetes mellitus with other specified complication Category: Medical Code(s): E11.9 - Type 2 diabetes mellitus without complications Plan Plan 1. The patient presented to the emergency department and was found to have a COPD exacerbation as well as an elevated troponin and elevated BNP. The patient was initially treated with BiPAP and multiple breathing treatments. Her VBG pH on admission was 7.18. And she had an elevated D-dimer. The patient could not undergo CTA of her chest because she was dependent on the BiPAP and she had a contrast allergy. She is empirically being treated for a presumed PE. 2. The patient is also getting IV antibiotics and breathing treatments. Will defer COPD/pneumonia to the hospitalist and pulmonology. 3. Echocardiogram shows a normal ejection fraction. There is no tricuspid regurgitation. The patient's right ventricular function is normal. Her RV is not dilated at all. She likely does not have a PE as her echocardiogram is essentially normal on the right side. Suspect that her troponin was most likely elevated from her respiratory distress. 4. As mentioned above her troponin was elevated. This is most likely a type II non-STEMI from her respiratory distress. She would benefit from an outpatient ischemic evaluation once she is discharged from the hospital. Continue aspirin and Plavix. 5. The patient's BNP was elevated on admission. She would benefit from diuresis. She is getting Lasix 40 mg IV twice daily. 6. Her blood pressure is elevated. Restart her Norvasc and Entresto. 7. If the patient remains tachycardic then consider starting a beta-ruby. 8. Her LDL goal is less than 100. She is on a statin. Will get a lipid panel in the morning. 9. Further recommendations will be made pending the patient's response to treatment. Thank you for the opportunity to help participate in the care of this patient. All recommendations and orders are per Dr. Ledesma.
[2025-03-10 16:25] LABS: POC Glucose,Bedside 187 gm/dL (70-110)
[2025-03-10 19:54] LABS: POC Glucose,Bedside 170 gm/dL (70-110)
[2025-03-10] MEDS: PANTOPRAZOLE 40MG VIAL 40 MG IV (20:00)
[2025-03-10] MEDS: SODIUM CHLORIDE 0.9% 10ML VIAL 10 ML IV (20:00)
[2025-03-10] MEDS: ATORVASTATIN 40MG TABLET 80 MG PO (20:01)
--- NOTE | 2025-03-10 21:48 | PC.NURSE ---
Pt spo2 noted to be 87%. Pt resting comfortably in bed on assessment. Nasal cannula applied @ 2 L. Pt sp02 remained upper 80s. Pt titrated up to 3 L nc. Pt current sat 91%
[2025-03-11] VITALS (8 sets, daily range): BP systolic 108–159; BP diastolic 66–98; PULSE 70–94; RESP 15–19; TEMP 36.5–37; O2SAT 91–96; BMI 24.5
[2025-03-11] MEDS: DOXYCYCLINE HYCL 100 MG TABLET PO (05:54)
[2025-03-11 05:56] LABS: POC Glucose,Bedside 100 gm/dL (70-110)
[2025-03-11] MEDS: FLUTICASONE/UMECLIDIN/VILANTER 100/62.5/25MCG INHALER 1 PUFF IH (06:12)
--- NOTE | 2025-03-11 06:21 | PC.NURSE ---
Pt AOx4. Pt was titrated down to 2 L nc while asleep, tolerating RA well while awake with sat >90%. Pt was sinus tach on telemetry at start of shift with heart rate 100-110. Pt now NSR with HR 70-90. Ambulating to BSC with minimal assistance from staff. Pt has not voiced any complaints to staff throughout shift. Call light within reach.
[2025-03-11 06:30] LABS: Hematocrit 40.9 % (37.0-47.0); Hemoglobin 14.1 g/dL (12.2-16.2); Immature Granulocytes % 0.4 %; Mean Corpuscular HGB Conc 34.5 g/dL (31.8-35.4); Mean Corpuscular Hemoglobin 30.1 pg (27.0-31.2); Mean Corpuscular Volume 87.4 fl (81-99); Nucleated Red Blood Cells % 0 %; Platelet Count 163 K/mm3 (142-424); Red Blood Count 4.68 M/mm3 (4.20-5.40); Red Cell Distribution Width-SD 42.8 fL; White Blood Count 8.4 K/mm3 (4.8-10.8)
[2025-03-11 06:42] LABS: Albumin Level 3.4 g/dl (3.5-5.0); Chloride 94 mmol/L (98-107); Potassium 3.1 mmoL/L (3.5-5.1); Sodium 136 mmol/L (136-145)
[2025-03-11 06:44] LABS: Blood Urea Nitrogen 16 mg/dl (7-17); Creatinine Clearance Estimated 58 mL/min (50-200); Creatinine,Serum 0.60 mg/dl (0.52-1.04); Estimated Glomerular Filt Rate 100 ml/min (>60); GFR (African American) 121 ML/MIN (>60)
[2025-03-11 06:45] LABS: Alanine Aminotransferase 17 U/L (12-78); Alkaline Phosphatase 99 U/L (38-126); Anion Gap 10.1 mEq/L (5-15); Aspartate Amino Transferase 33 U/L (14-36); Bilirubin,Direct 0.1 mg/dl (0.0-0.4); Bilirubin,Indirect 0.4 mg/dL (0.0-0.9); Bilirubin,Total 0.5 mg/dl (0.2-1.3); Bilirubin,Unconjugated 0.4 mg/dL (0.0-1.1); Calcium 8.8 mg/dl (8.4-10.2); Carbon Dioxide 35 mmol/L (22.0-30.0); Cholesterol 174 mg/dl (140-200); Glucose 100 mg/dl (74-100); HDL Cholesterol 45 mg/dl (40-60); Total Protein,Serum 6.4 g/dl (6.3-8.2); Triglycerides 141 mg/dl (30-150)
--- NOTE | 2025-03-11 07:10 | PC.NURSE ---
Called Savanah Oh MD to get electrolyte replacement protocol on patient. Patient potassium is 3.1. Savanah Oh gave verbal order to put in the order.
--- NOTE | 2025-03-11 08:40 | PC.NURSE ---
patients 6am glucose was 100. After patient ate breakfast glucose was obtained to see if it had increased before giving patient her long acting insulin. Patients glucose is up to 171.
[2025-03-11] MEDS: AMLODIPINE 10MG TABLET 10 MG PO (08:46)
[2025-03-11] MEDS: FUROSEMIDE 40MG/4ML VIAL 40 MG IV (08:47)
[2025-03-11] MEDS: EMPAGLIFLOZIN 25MG TABLET 25 MG PO (08:47)
[2025-03-11] MEDS: ASPIRIN EC 81MG TABLET 81 MG PO (08:47)
[2025-03-11] MEDS: CLOPIDOGREL 75MG TAB 75 MG PO (08:47)
[2025-03-11] MEDS: INSULIN GLARGINE 100 UNITS/ML 3ML FLEXPEN 30 UNIT SUBCUT (08:48)
[2025-03-11] MEDS: METHYLPREDNISOLONE SOD SUCC 40MG VIAL 40 MG IV (08:48)
[2025-03-11 08:49] LABS: POC Glucose,Bedside 171 gm/dL (70-110)
[2025-03-11] MEDS: SACUBITRIL/VALSARTAN 24-26MG TABLET 4 EACH PO (08:49)
[2025-03-11] MEDS: POTASSIUM CHLORIDE 20MEQ TAB 40 MEQ PO ×2 (08:49→12:15)
--- NOTE | 2025-03-11 08:58 | SW/DCPLANNER ---
Spoke with patient regarding home health services once she is medically stable and ready for discharge. patient stated that she is not interested in home health and that it would be hard for them to do home health due to the capacity of her home. Patient stated that if she needs home health or changes her mind that she will let her PCP or nurse know. Hailey Ndiaye
--- NOTE | 2025-03-11 09:02 | EXP.DC.SUM ---
General Admission date:: 03/10/25 Discharge date: 03/11/25 HPI HPI HPI: 84-year-old female patient with history of COPD presents ER with complaints of shortness of breath that started suddenly earlier in the day. She used her treatments and inhalers at home without relief. She denied cough. Denied fever chills or bodyaches. She denies chest pain or palpitations. Denies swelling or orthopnea. She does also have history of congestive heart failure. States she is on a diuretic at home. Med list shows Entresto. In the ER she received multiple albuterol treatments, aspirin, Lasix, steroids and nitroglycerin. She was also given full dose Lovenox and oral doxycycline. Ultimately she required BiPAP. She did tolerate this well and has been admitted to the ICU for further treatment. Hospital Course Hospital Course Hospital Course: Ms. Kaba is a 64-year-old female who presented with hypercapnic respiratory failure requiring BiPAP initially. Also found to have elevated troponin, NSTEMI type II, elevated BNP. Responded well to multiple breathing treatments. Initial VBG with pH of 7.18. Able to come off BiPAP by morning his VBG normalized. Pulmonology and cardiology were consulted during admission to assist with care. Improved back to baseline respiratory status and able to wean to room air. Stable to discharge home to finish treatment for COPD exacerbation with outpatient evaluation by cardiology for NSTEMI. Problems addressed as follows: COPD exacerbation Acute hypercapnic respiratory failure -Presented with pH 7.18. Necessitating supplemental oxygen, BiPAP, significant nebulizer treatments to improve respiratory status. Initiated on doxycycline for COPD exacerbation component. Overall showed improvement. Blood gas normalized. Pulmonology consulted to evaluate patient. Recommend continuing Trelegy 100 inhaler. DuoNebs every 6 hours as needed. Continue prednisone 40 mg daily to complete a 5-day course and doxycycline 100 mg twice daily for 5-day course. -Initial concern for presumed PE and was empirically treated with Lovenox. D-dimer elevated. Patient reports contrast allergy preventing CTA of the chest. Evaluation with echocardiogram showed normal EF, no tricuspid regurgitation and no right ventricular dysfunction. No RV dilation noted as well. Very low likelihood of PE. Anticoagulation was discontinued. Type II NSTEMI Hypertensive emergency -Blood pressure severely elevated above 200, had strain on heart with NSTEMI. -Strain from hypoxia, hypercarbia, severe hypertension, respiratory failure most likely etiology of her elevated troponin. Would benefit from outpatient ischemic workup. Cardiology evaluated, recommend close follow-up as an outpatient. Continue aspirin and Plavix. BNP elevated, was initiated on diuresis. Was getting Lasix 40 mg IV twice daily. Negative at least 3 L during admission. Monitor for 24 hours off BiPAP, overall doing well. At discharge she will go home on Lasix 40 mg daily. For elevated blood pressure, resume her Norvasc and Entresto. Initiate Toprol XL 25 mg daily for tachycardia. - See med rec for full details of cardiac medications. Total time spent on discharge 32 minutes in counseling, documentation, chart review, and direct care with patient. Exam Data for Last 24 hours Vital signs and Labs for Last 24 Hours: Temp Pulse Resp BP Pulse Ox O2 Del Method O2 Flow Rate 97.7 F 85 17 159/98 H 92 L Room Air 2 03/11/25 08:00 03/11/25 08:00 03/11/25 08:00 03/11/25 08:00 03/11/25 08:00 03/11/25 08:00 03/11/25 06:49 FiO2 30 03/10/25 02:03 Laboratory Results - last 24 hr 03/10/25 10:59: POC Glucose 233 H 03/10/25 16:15: POC Glucose 187 H 03/10/25 19:45: POC Glucose 170 H 03/11/25 05:49: POC Glucose 100 03/11/25 05:50: WBC 8.4 D, RBC 4.68, Hgb 14.1, Hct 40.9, MCV 87.4, MCH 30.1, MCHC 34.5, RDW 13.5, Plt Count 163, MPV 11.5 H, Neut % (Auto) 55.6, Lymph % (Auto) 34.4, [place] % (Auto) 9.2, Eos % (Auto) 0.2, Baso % (Auto) 0.2, Neut # (Auto) 4.7, Lymph # (Auto) 2.9, [place] # (Auto) 0.8, Eos # (Auto) 0.0, Baso # (Auto) 0.0, Sodium 136, Potassium 3.1 L D, Chloride 94 L, Carbon Dioxide 35 H, Anion Gap 10.1, BUN 16 D, Creatinine 0.60, Estimated Creat Clear 58, Estimated GFR 100, Est GFR ( Amer) 121, Glucose 100, Calcium 8.8, Total Bilirubin 0.5, Direct Bilirubin 0.1, Conjugated Bilirubin 0.0, Indirect Bilirubin 0.4, Unconjugated Bilirubin 0.4, AST 33, ALT 17 D, Alkaline Phosphatase 99, Total Protein 6.4, Albumin 3.4 L D, Triglycerides 141, Cholesterol 174, LDL Cholesterol Direct 102.69, VLDL Cholesterol 28, HDL Cholesterol 45, Cholesterol/HDL Ratio 3.9 H 03/11/25 08:41: POC Glucose 171 H I & O for Last 24 hours: Intake & Output 03/08/25 03/09/25 03/10/25 03/11/25 23:59 23:59 23:59 23:59 Intake Total 0.1 / 0.1 1580 / 1580 480 / 480 Output Total 4900 / 4900 Balance 0.1 / 0.1 -3320 / -3320 480 / 480 Weight 66.224 kg 65.1 kg 65.3 kg Constitutional Constitutional: no acute distress, average body habitus, chronically ill appearing and cooperative *Routine HEENT Exam Head: Present normocephalic Eye: Present EOMI and PERRL ENT: Present mucous membranes moist *Routine Neck Exam Neck: Present supple; Absent lymphadenopathy Routine Chest/Breast/Axilla Exam Chest wall: Absent tenderness *Routine Respiratory Exam Respiratory: Present prolonged expiratory phase, rhonchi and distant breath sounds; Absent wheezes or crackles *Routine Cardiovascular Exam Cardiovascular: Present RRR *Routine Abdominal Exam Abdominal: Present soft and normoactive bowel sounds; Absent tenderness *Routine Rectal Exam Patient deferred: visual exam *Routine Exam Patient deferred: external exam *Routine Extremities Exam Extremities: Absent cyanosis, clubbing or edema *Routine Skin Exam Skin: Present intact and warm; Absent rash *Routine Neurological Exam Neurological: Present alert, oriented X3 and moving all extremities; Absent altered mental status Results Data Completed and Pending Labs on day of discharge: Labs from last 24 hours 03/11/25 03/11/25 03/11/25 08:41 05:50 05:49 WBC 8.4 D RBC 4.68 Hgb 14.1 Hct 40.9 MCV 87.4 MCH 30.1 MCHC 34.5 RDW 13.5 Plt Count 163 MPV 11.5 H Neut % (Auto) 55.6 Lymph % (Auto) 34.4 [place] % (Auto) 9.2 Eos % (Auto) 0.2 Baso % (Auto) 0.2 Neut # (Auto) 4.7 Lymph # (Auto) 2.9 [place] # (Auto) 0.8 Eos # (Auto) 0.0 Baso # (Auto) 0.0 Sodium 136 Potassium 3.1 L D Chloride 94 L Carbon Dioxide 35 H Anion Gap 10.1 BUN 16 D Creatinine 0.60 Estimated Creat Clear 58 Estimated GFR 100 Est GFR ( Amer) 121 Glucose 100 POC Glucose 171 H 100 Calcium 8.8 Total Bilirubin 0.5 Direct Bilirubin 0.1 Conjugated Bilirubin 0.0 Indirect Bilirubin 0.4 Unconjugated Bilirubin 0.4 AST 33 ALT 17 D Alkaline Phosphatase 99 Total Protein 6.4 Albumin 3.4 L D Triglycerides 141 Cholesterol 174 LDL Cholesterol Direct 102.69 VLDL Cholesterol 28 HDL Cholesterol 45 Cholesterol/HDL Ratio 3.9 H 03/10/25 03/10/25 03/10/25 19:45 16:15 10:59 WBC RBC Hgb Hct MCV MCH MCHC RDW Plt Count MPV Neut % (Auto) Lymph % (Auto) [place] % (Auto) Eos % (Auto) Baso % (Auto) Neut # (Auto) Lymph # (Auto) [place] # (Auto) Eos # (Auto) Baso # (Auto) Sodium Potassium Chloride Carbon Dioxide Anion Gap BUN Creatinine Estimated Creat Clear Estimated GFR Est GFR ( Amer) Glucose POC Glucose 170 H 187 H 233 H Calcium Total Bilirubin Direct Bilirubin Conjugated Bilirubin Indirect Bilirubin Unconjugated Bilirubin AST ALT Alkaline Phosphatase Total Protein Albumin Triglycerides Cholesterol LDL Cholesterol Direct VLDL Cholesterol HDL Cholesterol Cholesterol/HDL Ratio DS: Diagnosis Discharge Diagnosis (1) Hypertensive emergency: Status: Acute Code(s): I16.1 - Hypertensive emergency (2) Elevated d-dimer: Status: Acute Code(s): R79.89 - Other specified abnormal findings of blood chemistry (3) NSTEMI (non-ST elevated myocardial infarction): Status: Acute Code(s): I21.4 - Non-ST elevation (NSTEMI) myocardial infarction (4) COPD exacerbation: Status: Acute Code(s): J44.1 - Chronic obstructive pulmonary disease with (acute) exacerbation (5) Acute respiratory failure with hypoxia and hypercarbia: Status: Acute Code(s): J96.01 - Acute respiratory failure with hypoxia; J96.02 - Acute respiratory failure with hypercapnia (6) Dyspnea: Status: Acute Code(s): R06.00 - Dyspnea, unspecified Qualifiers: Dyspnea type: dyspnea on exertion Qualified Code(s): R06.09 - Other forms of dyspnea (7) CAD (coronary artery disease): Status: Chronic Code(s): I25.10 - Atherosclerotic heart disease of [place] coronary artery without angina pectoris Qualifiers: Associated angina: unspecified whether angina present Coronary Disease-Associated Artery/Lesion type: [place] artery [place] vs. transplanted heart: [place] heart Qualified Code(s): I25.10 - Atherosclerotic heart disease of [place] coronary artery without angina pectoris (8) Stented coronary artery: Status: Chronic Code(s): Z95.5 - Presence of coronary angioplasty implant and graft (9) HLD (hyperlipidemia): Status: Chronic Code(s): E78.5 - Hyperlipidemia, unspecified Qualifiers: Hyperlipidemia type: other hyperlipidemia Qualified Code(s): E78.4 - Other hyperlipidemia (10) HTN (hypertension): Status: Chronic Code(s): I10 - Essential (primary) hypertension Qualifiers: Hypertension type: essential hypertension Qualified Code(s): I10 - Essential (primary) hypertension (11) Tobacco dependence syndrome: Status: Chronic Code(s): F17.200 - Nicotine dependence, unspecified, uncomplicated (12) Diabetes mellitus: Status: Chronic Code(s): E11.9 - Type 2 diabetes mellitus without complications Qualifiers: Diabetes mellitus complication status: with other specified complication Diabetes mellitus mcc insulin use: unspecified telesales advisor insulin use status Diabetes mellitus type: type 2 Qualified Code(s): E11.69 - Type 2 diabetes mellitus with other specified complication Meds Home Medications and Allergies Home Medications ?Medication ?Instructions ?Recorded ?Confirmed ?Type insulin glargine 100 unit/mL (3 30 unit SQ BID 04/05/24 03/10/25 History mL) subcutaneous pen (Lantus Solostar U-100 Insulin) albuterol sulfate 90 mcg/actuation 2 puff inhalation Q4HP PRN 08/14/24 03/10/25 History aerosol inhaler Shortness Of Breath cetirizine 10 mg tablet 10 mg PO DAILY 08/14/24 03/10/25 History fluticasone fur. 100 mcg-umeclid 1 inh inhalation DAILY 08/14/24 03/10/25 History 62.5 mcg-vilant 25 mcg inhalat.powder (Trelegy Ellipta) fluticasone propionate 50 1 spray intranasal DAILY 08/14/24 03/10/25 History mcg/actuation nasal spray,suspension glipizide 10 mg tablet 10 mg PO BID 08/14/24 03/10/25 History metformin 1,000 mg tablet 1,000 mg PO BID 08/14/24 03/10/25 History nitroglycerin 0.4 mg sublingual 0.4 mg sublingual Q5M PRN chest 08/24/24 03/10/25 Rx tablet pain #25 tabs aspirin 81 mg tablet,delayed 81 mg PO DAILY #90 tabs 02/15/25 03/10/25 Rx release amlodipine 10 mg tablet 10 mg PO DAILY 03/10/25 03/10/25 History atorvastatin 80 mg tablet 80 mg PO HS 03/10/25 03/10/25 History clopidogrel 75 mg tablet 75 mg PO DAILY 03/10/25 03/10/25 History empagliflozin 25 mg tablet 25 mg PO DAILY 03/10/25 03/10/25 History (Jardiance) ergocalciferol (vitamin D2) 1,250 50,000 unit PO WEEKLY 03/10/25 03/10/25 History mcg (50,000 unit) capsule (Vitamin D2) hydralazine 25 mg tablet 25 mg PO TIDP PRN Hypertension 03/10/25 03/10/25 History sacubitril 97 mg-valsartan 103 mg 1 tab PO BID 03/10/25 03/10/25 History tablet (Entresto) doxycycline hyclate 100 mg tablet 100 mg PO Q12H 4 days #8 tabs 03/11/25 Rx furosemide 40 mg tablet 40 mg PO DAILY 30 days #30 tabs 03/11/25 Rx metoprolol succinate 25 mg 25 mg PO DAILY 30 days #30 tabs 03/11/25 Rx tablet,extended release 24 hr New Prescriptions to Start Prescriptions: doxycycline hyclate Soy Oh furosemide Soy Oh metoprolol succinate Soy Oh Allergies Allergy/AdvReac Type Severity Reaction Status Date / Time Iodinated Contrast Media Allergy Intermediate I-RASH/SOB/ Verified 09/23/24 10:47 (Iodinated Contrast Media - Anaphlaxis IV Dye) Discharge Plan Disposition Patient Disposition: Home, Self-Care Condition: Fair Discharge Order Discharge Orders: Discharge Order (Routine); Ordered 03/11/25 Ordered By: Soy Oh Follow up Plan Follow up with: Annabelle Kirkland APRN [Nurse Practitioner, Cardiology] - 03/29/25 10:00 am Leonel Sun MD [Physician, Pulmonology] - 03/29/25 1:00 pm Prescriptions/Medication Reconciliation: New doxycycline hyclate 100 mg Tablet 100 mg PO Q12H 4 Days Qty: 8 0RF furosemide 40 mg Tablet 40 mg PO DAILY 30 Days Qty: 30 0RF metoprolol succinate 25 mg Tablet Extended Release 24 Hr 25 mg PO DAILY 30 Days Qty: 30 0RF Continued insulin glargine [Lantus Solostar U-100 Insulin] 100 unit/mL (3 mL) insulin pen 30 unit SQ BID nitroglycerin 0.4 mg tablet, sublingual 0.4 mg sublingual Q5M PRN (Reason: chest pain) Qty: 25 0RF Rx Instructions: do not exceed 3 doses per episode aspirin 81 mg tablet,delayed release (DR/EC) 81 mg PO DAILY Qty: 90 3RF hydralazine 25 mg tablet 25 mg PO TIDP PRN (Reason: Hypertension) Rx Instructions: TAKE ONE TABLET BY MOUTH THREE TIMES DAILY NEEDED FOR BP>180 systolic clopidogrel 75 mg tablet 75 mg PO DAILY Rx Instructions: TAKE ONE TABLET BY MOUTH DAILY for platelet inhibitor amlodipine 10 mg tablet 10 mg PO DAILY Rx Instructions: TAKE ONE TABLET BY MOUTH DAILY sacubitril-valsartan [Entresto] 97-103 mg tablet 1 tab PO BID Rx Instructions: TAKE ONE TABLET BY MOUTH TWICE DAILY atorvastatin 80 mg tablet 80 mg PO HS Patient Comments: TAKE 1 TABLET BY MOUTH in THE evening ergocalciferol (vitamin D2) [Vitamin D2] 1,250 mcg (50,000 unit) capsule 50,000 unit PO WEEKLY Patient Comments: TAKE 1 CAPSULE BY MOUTH every WEEK FOR 90 DAYS Jardiance 25 mg tablet 25 mg PO DAILY Patient Comments: TAKE 1 TABLET BY MOUTH EVERY DAY cetirizine 10 mg tablet 10 mg PO DAILY Patient Comments: TAKE ONE TABLET BY MOUTH EVERY DAY glipizide 10 mg tablet 10 mg PO BID Patient Comments: TAKE ONE TABLET BY MOUTH TWICE DAILY metformin 1,000 mg tablet 1,000 mg PO BID Patient Comments: TAKE 1 TABLET BY MOUTH TWICE DAILY albuterol sulfate 90 mcg/actuation HFA aerosol inhaler 2 puff INHALATION Q4HP PRN (Reason: Shortness Of Breath) Patient Comments: Inhale 2 puffs by mouth every 3 to 4 hours as needed. fluticasone propionate 50 mcg/actuation spray,suspension 1 spray INTRANASAL DAILY Patient Comments: instill 1 spray into each nostril everyday Trelegy Ellipta 100-62.5-25 mcg blister with device 1 inh INHALATION DAILY Patient Comments: INHALE 1 PUFF BY MOUTH ONCE DAILY AT THE SAME TIME EACH DAY Problem Reconciliation Problems Reviewed?: Yes Patient Discharge Instructions ACTIVITY: Continue current activity DIET: continue same diet Patient Instructions: DI for Heart Attack, High Triglycerides (Alternative Therapy), Heart Attack, Acute Coronary Syndrome, DI for Respiratory Failure, DI for Hypoxia, Respiratory Failure Print Language: Urdu Providers Primary Care Provider: Provider,Referral Admit Provider: Soy Oh Attending Provider: Soy Oh
[2025-03-11 11:10] LABS: POC Glucose,Bedside 153 gm/dL (70-110)
--- NOTE | 2025-03-11 11:30 | P.PN_ITS ---
Subjective Subjective Date: 03/11/25 Time: 11:00 Principal diagnosis: Elevated troponin, acute on chronic HFpEF Interval history: This is a 64-year-old white female who was admitted to the hospital with respiratory distress. She has also been treated for acute on chronic HFpEF. She did have an elevated troponin which is most likely a type II non-STEMI from her respiratory distress and HFpEF. This morning she denies any chest pain or p ressure. She denies any shortness of breath or edema. She denies any fever, chills, nausea, vomiting or diarrhea. Exam Data for Last 24 hours Vital signs and Labs for Last 24 Hours: Temp Pulse Resp BP Pulse Ox O2 Del Method O2 Flow Rate 97.7 F 88 17 159/98 H 95 Room Air 2 03/11/25 08:00 03/11/25 08:00 03/11/25 08:00 03/11/25 08:00 03/11/25 08:00 03/11/25 11:00 03/11/25 06:49 FiO2 30 03/10/25 02:03 Laboratory Results - last 24 hr 03/10/25 16:15: POC Glucose 187 H 03/10/25 19:45: POC Glucose 170 H 03/11/25 05:49: POC Glucose 100 03/11/25 05:50: WBC 8.4 D, RBC 4.68, Hgb 14.1, Hct 40.9, MCV 87.4, MCH 30.1, MCHC 34.5, RDW 13.5, Plt Count 163, MPV 11.5 H, Neut % (Auto) 55.6, Lymph % (Auto) 34.4, [place] % (Auto) 9.2, Eos % (Auto) 0.2, Baso % (Auto) 0.2, Neut # (Auto) 4.7, Lymph # (Auto) 2.9, [place] # (Auto) 0.8, Eos # (Auto) 0.0, Baso # (Auto) 0.0, Sodium 136, Potassium 3.1 L D, Chloride 94 L, Carbon Dioxide 35 H, Anion Gap 10.1, BUN 16 D, Creatinine 0.60, Estimated Creat Clear 58, Estimated GFR 100, Est GFR ( Amer) 121, Glucose 100, Calcium 8.8, Total Bilirubin 0.5, Direct Bilirubin 0.1, Conjugated Bilirubin 0.0, Indirect Bilirubin 0.4, Unconjugated Bilirubin 0.4, AST 33, ALT 17 D, Alkaline Phosphatase 99, Total Protein 6.4, Albumin 3.4 L D, Triglycerides 141, Cholesterol 174, LDL Cholesterol Direct 102.69, VLDL Cholesterol 28, HDL Cholesterol 45, Cholesterol/HDL Ratio 3.9 H 03/11/25 08:41: POC Glucose 171 H 03/11/25 11:03: POC Glucose 153 H I & O for Last 24 hours: Intake & Output 03/08/25 03/09/25 03/10/25 03/11/25 23:59 23:59 23:59 23:59 Intake Total 0.1 / 0.1 1580 / 1580 960 / 960 Output Total 4900 / 4900 1650 / 1650 Balance 0.1 / 0.1 -3320 / -3320 -690 / -690 Weight 146 lb 143 lb 8.335 oz 143 lb 15.39 oz Microbiology Reports for the Last 24 Hours: Microbiology 03/10/25 01:50 Anus CRE Surveillance Culture - Final Constitutional Constitutional: no acute distress and average body habitus *Routine HEENT Exam Head: Present normocephalic and atraumatic ENT: Present mucous membranes moist *Routine Neck Exam Neck: Present supple, full ROM and normal carotid upstroke; Absent JVD, carotid bruit or lymphadenopathy *Routine Respiratory Exam Respiratory: Present CTA bilaterally, normal respiratory effort, able to speak in complete sentences and symmetric chest movement *Routine Cardiovascular Exam Cardiovascular: Present RRR, Normal S1 and Normal S2; Absent murmur or gallop *Routine Abdominal Exam Abdominal: Present soft and normoactive bowel sounds; Absent tenderness, distended or organomegaly *Routine Extremities Exam Extremities: Present full ROM, pulses intact and normal capillary refill; Absent cyanosis, clubbing or edema *Routine Skin Exam Skin: Present intact and warm; Absent erythema *Routine Neurological Exam Neurological: Present alert, oriented X3 and CN II-XII intact; Absent sensory deficit or motor deficit Routine Psychiatric Exam Psychiatric: Present normal affect Progress Note: A&P Assessment and plan (1) NSTEMI (non-ST elevated myocardial infarction): Status: Acute (2) Elevated d-dimer: Status: Acute (3) Hypertensive emergency: Status: Acute (4) COPD exacerbation: Status: Acute (5) Acute respiratory failure with hypoxia and hypercarbia: Status: Acute (6) Dyspnea: Status: Acute (7) CAD (coronary artery disease): Status: Chronic (8) Stented coronary artery: Status: Chronic (9) HLD (hyperlipidemia): Status: Chronic (10) HTN (hypertension): Status: Chronic (11) Tobacco dependence syndrome: Status: Chronic (12) Diabetes mellitus: Status: Chronic (13) Acute on chronic heart failure with preserved ejection fraction (HFpEF): Status: Acute Assessment and Plan Assessment and Plan for All Diagnoses:: Plan 1. The patient presented to the emergency department and was found to have a COPD exacerbation as well as an elevated troponin and elevated BNP. The patient was initially treated with BiPAP and multiple breathing treatments. Her VBG pH on admission was 7.18. And she had an elevated D-dimer. The patient could not undergo CTA of her chest because she was dependent on the BiPAP and she had a contrast allergy. She is empirically being treated for a presumed PE. 2. The patient is also getting IV antibiotics and breathing treatments. Will defer COPD/pneumonia to the hospitalist and pulmonology. 3. Echocardiogram shows a normal ejection fraction. There is no tricuspid regurgitation. The patient's right ventricular function is normal. Her RV is not dilated at all. She likely does not have a PE as her echocardiogram is essentially normal on the right side. Suspect that her troponin was most likely elevated from her respiratory distress. 4. As mentioned above her troponin was elevated. This is most likely a type II non-STEMI from her respiratory distress. She would benefit from an outpatient ischemic evaluation once she is discharged from the hospital. CAD is present. Continue aspirin and Plavix. 5. The patient's BNP was elevated on admission. She would benefit from diuresis. She is getting Lasix 40 mg IV twice daily. She has a -3 L overnight. At discharge she will need to go home on Lasix 40 mg daily. 6. Her blood pressure is elevated. Restart her Norvasc and Entresto. 7. The patient remains slightly tachycardic this morning, will start Toprol XL 25 mg daily. 8. Her LDL goal is less than 55. She is on a statin. Her LDL is 102. 9. No further recommendations at this time from a cardiac standpoint. She will need to follow-up in cardiology clinic in 1 to 2 weeks on an outpatient basis. The patient will need to be discharged on the following cardiac medications: Norvasc 10 mg daily Aspirin 81 mg daily Atorvastatin 80 mg at bedtime Plavix 75 mg daily Jardiance 25 mg daily Lasix 40 mg daily Toprol-XL 25 mg daily Entresto 97/103 mg p.o. twice daily Thank you for the opportunity to help participate in the care of this patient. All recommendations and orders are per Dr. Ledesma.
--- NOTE | 2025-03-11 11:34 | EXP.PULM.PN ---
Subjective *Date: 03/11/25 *Time: 12:49 Interval history: No acute respiratory events overnight patient admits continued improvement in her respiratory symptoms. Pulmonology Exam Inpatient Vital signs and Labs for Last 24 Hours: Temp Pulse Resp BP Pulse Ox O2 Del Method O2 Flow Rate 97.7 F 88 17 159/98 H 95 Room Air 2 03/11/25 08:00 03/11/25 08:00 03/11/25 08:00 03/11/25 08:00 03/11/25 08:00 03/11/25 11:00 03/11/25 06:49 FiO2 30 03/10/25 02:03 Laboratory Results - last 24 hr 03/10/25 16:15: POC Glucose 187 H 03/10/25 19:45: POC Glucose 170 H 03/11/25 05:49: POC Glucose 100 03/11/25 05:50: WBC 8.4 D, RBC 4.68, Hgb 14.1, Hct 40.9, MCV 87.4, MCH 30.1, MCHC 34.5, RDW 13.5, Plt Count 163, MPV 11.5 H, Neut % (Auto) 55.6, Lymph % (Auto) 34.4, [place] % (Auto) 9.2, Eos % (Auto) 0.2, Baso % (Auto) 0.2, Neut # (Auto) 4.7, Lymph # (Auto) 2.9, [place] # (Auto) 0.8, Eos # (Auto) 0.0, Baso # (Auto) 0.0, Sodium 136, Potassium 3.1 L D, Chloride 94 L, Carbon Dioxide 35 H, Anion Gap 10.1, BUN 16 D, Creatinine 0.60, Estimated Creat Clear 58, Estimated GFR 100, Est GFR ( Amer) 121, Glucose 100, Calcium 8.8, Total Bilirubin 0.5, Direct Bilirubin 0.1, Conjugated Bilirubin 0.0, Indirect Bilirubin 0.4, Unconjugated Bilirubin 0.4, AST 33, ALT 17 D, Alkaline Phosphatase 99, Total Protein 6.4, Albumin 3.4 L D, Triglycerides 141, Cholesterol 174, LDL Cholesterol Direct 102.69, VLDL Cholesterol 28, HDL Cholesterol 45, Cholesterol/HDL Ratio 3.9 H 03/11/25 08:41: POC Glucose 171 H 03/11/25 11:03: POC Glucose 153 H Temp Pulse Resp BP Pulse Ox O2 Del Method O2 Flow Rate 97.6 F 111 H 19 158/101 H 93 L Nasal Cannula 3 03/10/25 08:00 03/10/25 09:08 03/10/25 09:08 03/10/25 09:08 03/10/25 09:08 03/10/25 09:08 03/10/25 09:08 FiO2 30 03/10/25 02:03 Laboratory Results - last 24 hr 03/09/25 22:45: WBC 10.5, RBC 5.05, Hgb 15.2, Hct 46.3, MCV 91.7, MCH 30.1, MCHC 32.8, RDW 13.5, Plt Count 191, MPV 11.6 H, Neut % (Auto) 27.7 L, Lymph % (Auto) 63.9 H, [place] % (Auto) 5.8, Eos % (Auto) 1.2, Baso % (Auto) 0.7, Neut # (Auto) 2.9, Lymph # (Auto) 6.7 H, [place] # (Auto) 0.6, Eos # (Auto) 0.1, Baso # (Auto) 0.1, Total Counted 100, Neutrophils % (Manual) 29 L, Lymphocytes % (Manual) 66 H, Monocytes % (Manual) 5, Platelet Estimate Normal, RBC Morphology Normal, PT 11.0, INR 0.99, D-Dimer 2.13 H, Sodium 136, Potassium 4.6, Chloride 95 L, Carbon Dioxide 28, Anion Gap 17.6 H, BUN 7, Creatinine 0.60, Estimated GFR 100, Est GFR ( Amer) 121, Glucose 416 H*, Calcium 9.6, Total Bilirubin 0.6, AST 65 H, ALT 25, Alkaline Phosphatase 130 H, Troponin I 0.03, NT-Pro-B Natriuret Pep 281 H, Total Protein 7.1, Albumin 4.3, Globulin 2.8, Albumin/Globulin Ratio 1.5, Acetone Level None detected 03/09/25 23:05: VBG pH 7.18 L, VBG pCO2 73.2 H, VBG pO2 81.9 H, VBG HCO3 26.8, VBG Total CO2 29.1 H, VBG O2 Saturation 94.7 H, VBG Base Excess -1.5, VBG Lactic Acid 4.2 H 03/10/25 01:20: VBG pH 7.22 L, VBG pCO2 77.0 H, VBG pO2 30.0, VBG HCO3 30.5 H, VBG Total CO2 32.8 H, VBG O2 Saturation 58.4, VBG Base Excess 2.7 H, VBG Lactic Acid 3.7 H, Chlamy pneumoniae PCR Not detected, Adenovirus (PCR) Not detected, B. pertussis DNA (PCR) Not detected, Coronavirus OC43 (PCR) Not detected, Coronavirus HKU1 (PCR) Not detected, Coronavirus 229E (PCR) Not detected, SARS-CoV-2 (PCR) Not detected, Coronavirus NL63 (PCR) Not detected, Human Metapneumovir PCR Not detected, Influenza A (H1) PCR Not detected, Influ A (H1N1/09) PCR Not detected, Influenza A (H3) PCR Not detected, Influenza Type A (PCR) Not detected, Influenza Type B (PCR) Not detected, M. pneumoniae (PCR) Not detected, Parainfluenza 1 (PCR) Not detected, Parainfluenza 2 (PCR) Not detected, Parainfluenza 3 (PCR) Not detected, Parainfluenza 4 (PCR) Not detected, RSV (PCR) Not detected, Entero/Rhino (PCR) Not detected 03/10/25 02:10: Troponin I 0.20 H 03/10/25 03:04: VBG pH 7.30 L, VBG pCO2 57.3 H, VBG pO2 41.2 H, VBG HCO3 27.3, VBG Total CO2 29.1 H, VBG O2 Saturation 77.8 H, VBG Base Excess 0.8, VBG Lactic Acid 3.6 H 03/10/25 03:24: Lactate 3.2 H 03/10/25 05:14: WBC 5.6 D, RBC 4.68, Hgb 13.9, Hct 42.1, MCV 90.0, MCH 29.7, MCHC 33.0, RDW 13.6, Plt Count 149, MPV 12.2 H, Neut % (Auto) 92.0 H, Lymph % (Auto) 4.4 L, [place] % (Auto) 2.5, Eos % (Auto) 0.0 L, Baso % (Auto) 0.0 L, Neut # (Auto) 5.2, Lymph # (Auto) 0.3 L, [place] # (Auto) 0.1, Eos # (Auto) 0.0, Baso # (Auto) 0.0, Sodium 136, Potassium 3.9, Chloride 95 L, Carbon Dioxide 27, Anion Gap 17.9 H, BUN 12 D, Creatinine 0.50 L, Estimated Creat Clear 58, Estimated GFR 124, Est GFR ( Amer) 150 D, Glucose 366 H, Lactate 4.1 H, Calcium 9.4, Total Bilirubin 0.2, AST 40 H D, ALT 28, Alkaline Phosphatase 114, Troponin I 0.27 H, Total Protein 6.7, Albumin 3.8 D, Globulin 2.9, Albumin/Globulin Ratio 1.3 03/10/25 06:00: Urine Color Yellow, Urine Appearance Clear, Urine pH 6.0, Ur Specific [place] 1.015, Urine Protein 1+ A, Urine Glucose (UA) 3+, Urine Ketones Negative, Urine Blood Negative, Urine Nitrate Negative, Urine Bilirubin Negative, Urine Urobilinogen 0.2, Ur Leukocyte Esterase Negative, Urine RBC Occasional, Urine WBC Occasional, Ur Squamous Epith Cells 20-50, Urine Bacteria 1+, Hyaline Casts Occ 03/10/25 06:34: POC Glucose 122 H I & O for Labs for Last 24 Hours: Intake & Output 03/08/25 03/09/25 03/10/25 03/11/25 23:59 23:59 23:59 23:59 Intake Total 0.1 / 0.1 1580 / 1580 960 / 960 Output Total 4900 / 4900 1650 / 1650 Balance 0.1 / 0.1 -3320 / -3320 -690 / -690 Weight 146 lb 143 lb 8.335 oz 143 lb 15.39 oz Intake & Output 03/07/25 03/08/25 03/09/25 03/10/25 23:59 23:59 23:59 23:59 Intake Total 0.1 / 0.1 980 / 980 Output Total 150 / 150 Balance 0.1 / 0.1 830 / 830 Weight 146 lb 143 lb 8.335 oz Microbiology Reports for the Last 24 Hours: Microbiology 03/10/25 01:50 Anus CRE Surveillance Culture - Final Constitutional: Present moderate distress Head: Present normocephalic and atraumatic ENT: Present normal exam, normal oropharynx and mucous membranes moist Neck: Present normal inspection and full ROM Respiratory: Present normal respiratory effort and able to speak in complete sentences; Absent prolonged expiratory phase, wheezes, distant breath sounds or diminished air movement Cardiac: Present S1/S2, Tachycardia and radial pulses present GI: Present soft and distention; Absent tenderness or guarding Rectal (female): Present deferred (female): Present deferred Skin: Present intact; Absent cyanosis or jaundice Neuro: Present alert, awake and oriented x 3 Extremities: Present normal inspection; Absent clubbing or cyanosis Psychiatric: Present normal affect and cooperative Assessment and Plan *Assessment and plan (1) COPD exacerbation: Status: Acute Category: Medical Code(s): J44.1 - Chronic obstructive pulmonary disease with (acute) exacerbation (2) Acute on chronic respiratory failure with hypoxia and hypercapnia: Status: Acute Category: Medical Code(s): J96.21 - Acute and chronic respiratory failure with hypoxia; J96.22 - Acute and chronic respiratory failure with hypercapnia Plan Ms. Kaba is a 64-year-old current smoker greater than 30 PPD, female reported history of COPD presented to ER with worsening respiratory distress and pulmonary was called for further evaluation and management. Afebrile. Hemodynamically stable. No evidence of leukocytosis. CT chest upon admission bilateral small pleural effusions and vascular congestion. No dense consolidative/airspace changes. CT chest from 2024 no significant emphysematous changes appreciated. Small 5 mm left upper lobe nodular opacity. Blood gas upon admission hypercarbic respiratory failure with a pH of 7.18 and pCO2 73.2. Afebrile. Hemodynamically stable. Comprehensive respiratory viral PCR panel negative. Prior sputum cultures 2020 Klebsiella and stenotrophomonas sensitive to levofloxacin. Interval update: No acute respiratory vents overnight. Stable oxygen requirements. Relatively stable leukocytosis. Repeat ABG no evidence of hypercarbic respiratory failure, 7.53, pCO2 of 34.8 Plan: Continue Trelegy 100 inhaler. DuoNebs Q6 on as-needed basis Wean steroids to prednisone 40 mg daily to complete a total of 5-day course Doxycycline 100 mg twice daily x 5 days # Thank you for involving pulmonary in this patient care. Will follow the patient in pulmonary clinic 1 to 2 weeks postdischarge.
[2025-03-11] MEDS: METOPROLOL SUCCINATE XL 25MG TABLET 25 MG PO (12:14)
[2025-03-11] MEDS: FUROSEMIDE 40 MG TABLET PO (12:14)
[2025-03-11 12:15] LABS: ABG HCO3 28.7 mmhg (22.0-26.0); ABG PCO2 34.8 mmhg (35.0-45.0); ABG PH 7.53 mmol/L (7.35-7.45); ABG PO2 64.8 mmhg (80-100); ABG TCO2 29.8 mmhg (23-27)
[2025-03-11 12:17] LABS: Source Right Radial
--- NOTE | 2025-03-14 11:06 | SW/DCPLANNER ---
Spoke with patient on the phone. Patient stated that she is doing good. Patient stated that she is aware of her upcoming appointments. Patient stated that she is was able to get her new medicine picked up from [facility]. Patient stated that she has no concerns or questions at this time. Hailey Ndiaye
== END 2025-03-11 13:26 | disposition home or self-care (01) | DRG 280 ==
LOC: ER 03-10 00:43 → ICU 03-10 08:58
PROVIDERS: Internal Medicine Pulmonary Disease; Nurse Practitioner Acute Care; Nurse Practitioner Family; Admitting Provider Internal Medicine Adolescent Medicine; Emergency Provider Emergency Medicine; Visit Provider Internal Medicine Adolescent Medicine
DX: I11.0 Hypertensive heart disease with heart failure (principal); I50.43 Acute on chronic combined systolic (congestive) and diastolic (congestive) heart failure; I21.A1 Myocardial infarction type 2; J96.22 Acute and chronic respiratory failure with hypercapnia; J96.21 Acute and chronic respiratory failure with hypoxia; I16.1 Hypertensive emergency; J44.1 Chronic obstructive pulmonary disease with (acute) exacerbation; I25.10 Atherosclerotic heart disease of native coronary artery without angina pectoris; E78.49 Other hyperlipidemia; E11.69 Type 2 diabetes mellitus with other specified complication; F17.210 Nicotine dependence, cigarettes, uncomplicated; R79.89 Other specified abnormal findings of blood chemistry; Z95.5 Presence of coronary angioplasty implant and graft; Z91.041 Radiographic dye allergy status; Z79.4 Long term (current) use of insulin; Z79.84 Long term (current) use of oral hypoglycemic drugs; Z79.52 Long term (current) use of systemic steroids; Z79.82 Long term (current) use of aspirin; Z79.02 Long term (current) use of antithrombotics/antiplatelets; Z79.899 Other long term (current) drug therapy
CPT/HCPCS: 0223U; 36415; 36600; 71045; 80048; 80053; 80061; 80076; 81001; 82009; 82803; 82962; 83605; 83880; 84484; 85007; 85025; 85378; 85610; 87081; 93005; 93306; 94640; 97162; 97530; 99285; J1450; J1650; J1938; J2470; J2919; J7120